=== PATIENT | female | born 1985 | race Caucasian/White ===

== ENCOUNTER 2020-11-26 23:46 | Emergency (ER) | payer MEDICARE, MEDICAID, SELFPAY ==
--- NOTE | ~2020-11-26 | XR_ITS ---
EXAMINATION: CHEST 1 VIEW CLINICAL INFORMATION: Shortness of breath. COMPARISON: None. TECHNIQUE: An AP view of the chest is provided. FINDINGS: The cardiac silhouette is not enlarged. The mediastinal and hilar contours are unremarkable. There are neither pleural effusions nor pneumothoraces. There are no consolidations. The osseous structures are unremarkable. XR/XR chest 1V IMPRESSION: No evidence for acute disease.
[2020-11-27 00:08] VITALS: BP 104/64; PULSE 85; RESP 15; TEMP 37.2; O2SAT 96; BMI 18.1
[2020-11-27 00:18] VITALS: O2SAT 96
[2020-11-27 01:16] LABS: COVID-19 Test Negative (Negative); IDNOW Serial# 9DD0AD1C
[2020-11-27] MEDS: cephALEXin 500 MG CAPSULE PO (01:44)
--- NOTE | 2020-11-27 01:44 | PC.NURSE ---
Patient seen by Giovanni LANGE test negative. Patient medicated with abx per emar and awaiting chest xray
--- NOTE | 2020-11-27 01:46 | ED_ITS ---
HPI - URI/Sore Throat General Chief Complaint: Upper Respiratory Symptoms Stated Complaint: Covid symptoms Time Seen by Provider: 11/27/20 01:01 Source: patient Mode of arrival: ambulatory History of Present Illness HPI Narrative: 35-year-old female with a past medical history of asthma, hepatitis-C, kidney stones, homeless, IVDA presenting to the ED complaining of dry cough, nasal congestion, nausea, and SOB x2 days. States she is homeless, unknown COVID exposure. Also reports hard possible abscess to right axilla. Denies fever, chills, vomiting, recent travel MD elicited complaint: cough Related Data Previous Rx's Medication Instructions Recorded cephalexin 500 mg PO QID 7 Days #28 cap 11/27/20 doxycycline hyclate 100 mg PO BID 7 Days #14 tab 11/27/20 Allergies Allergy/AdvReac Type Severity Reaction Status Date / Time fluoxetine [From PROZAC] Allergy Severe DELUSIONS Verified 11/27/20 01:33 Review of Systems Review of Systems: Constitutional: No Weight loss, No Fever, No Chills ENT/Mouth: No Ear Pain, + Nasal Congestion, No Sinus Pain, No Hoarseness, No sore throat, + Rhinorrhea, No Swallowing Difficulty Cardiovascular: No Chest Pain, +SOB Respiratory: + Cough, No Sputum, No Wheezing Gastrointestinal: + Nausea, No Vomiting, No Diarrhea, No Constipation, No Abdominal pain Musculoskeletal: No joint pain, No Myalgias, No Joint Swelling Skin: + abscess Yes all other systems are reviewed and are negative PMFSH Past Medical History Attestation statement: The following information was validated with the patient. Medical History (Updated 11/27/20 @ 01:26 by NAZARIO Bennett) Asthma Hepatitis C carrier Kidney stones Social History Social History Alcohol intake: unknown Smoking Status: Current every day smoker Use of substances other than those prescribed or required for medical reasons: Yes Substance Use Type: Crack/Cocaine and Heroin Last Used Substance: Hours (ago) Any prior treatment program specific to substance use: Yes Advance Directives: No Physical Exam Vital Signs: Vital Signs: Last Vital Signs Temp 98.9 F 11/27/20 00:08 Pulse 85 11/27/20 00:08 Resp 15 11/27/20 00:08 BP 104/64 11/27/20 00:08 Pulse Ox 96 11/27/20 00:18 Body Mass Index 18.1 Const: General: cooperative and poor hygiene Orientation/consciousness: patient oriented x3 Limitations: no limitations HENMT: Head: Yes normal to inspection Ears: hearing grossly normal bilaterally General nose exam: Normal external nose present Face and sinus: Yes normal facial exam Eyes: General: appearance normal, both eyes and all related structures EOM: EOMs intact bilaterally Neck: Neck: Yes normal visual inspection Resp: Effort & Inspection: normal respiratory effort Auscultation: clear to auscultation bilaterally, no rales, no rhonchi and no wheezes Cardio: Rate: regular rate Heart sounds: S1 normal heart sound present and S2 normal heart sound present GI: Inspection: Yes normal to inspection Skin: Other: + hard indurated abscess noted to right axilla. No surrounding erythema or streaking, no fluctuance Rashes: no rashes Neuro: General: patient oriented x3 Gait exam (Neuro): Normal gait present Extrem: General: Yes normal to inspection Course Course Course Narrative: -CXR unremarkable. COVID-19 negative Patient given 1st dose of Keflex and doxycycline in the ED MDM - URI/Sore Throat Lab Data Labs: Lab Results 11/27/20 Range/Units 00:57 COVID-19 (SAJAN) Negative (Negative) COVID-19 Clin Com See Note Discharge Plan Discharge Clinical Impression: Upper respiratory infection, Abscess Patient Disposition: Home, Self-Care Instructions: Abscess (ED) Additional Instructions: You tested negative for COVID-19. You have [place] abscesses from drug use. Keflex and doxycycline antibiotics, take as prescribed. If areas worsen, become red, soft, or you fever return to the ED Prescriptions: New doxycycline hyclate 100 mg tablet 100 mg PO BID 7 Days Qty: 14 RF: 0 cephalexin 500 mg capsule 500 mg PO QID 7 Days Qty: 28 RF: 0 Referrals: Farrukh Armenta MD [Physician] - 2 days
== END 2020-11-27 02:33 | disposition home or self-care (01) ==
PROVIDERS: Emergency Provider Emergency Medicine
DX: J06.9 Acute upper respiratory infection, unspecified (principal); R05 Cough; L02.411 Cutaneous abscess of right axilla; F11.10 Opioid abuse, uncomplicated; F14.90 Cocaine use, unspecified, uncomplicated; Z79.899 Other long term (current) drug therapy; Z20.822 Contact with and (suspected) exposure to COVID-19
CPT/HCPCS: 36415; 71045; 87635; 99283; 99284

== ENCOUNTER 2020-12-12 23:38 | Emergency (ER) | payer MEDICARE, MEDICAID, SELFPAY ==
[2020-12-13 00:25] VITALS: BP 105/72; PULSE 87; RESP 16; TEMP 36.4; O2SAT 98; BMI 20.2
--- NOTE | 2020-12-13 00:55 | ED.SKABFB ---
HPI - Skin/Abscess/Foreign Bdy General Chief complaint: Skin/Abscess/Foreign Body Stated complaint: ABSCESS Time Seen by Provider: 12/13/20 00:23 Source: patient Mode of arrival: ambulatory Limitations: no limitations History of Present Illness HPI narrative: Patient homeless IV drug user history of recurrent thrombophlebitis/abscess is complaining of thickening of skin at the site of IVDA in bilateral axillary area no pus discharge no fever patient feeling okay otherwise Related Data Previous Rx's Medication Instructions Recorded cephalexin 500 mg PO QID 7 Days #28 cap 11/27/20 doxycycline hyclate 100 mg PO BID 7 Days #14 tab 11/27/20 cephalexin 500 mg PO BID 10 Days #20 cap 12/13/20 doxycycline hyclate 100 mg PO BID #20 cap 12/13/20 Allergies Allergy/AdvReac Type Severity Reaction Status Date / Time fluoxetine [From PROZAC] Allergy Severe DELUSIONS Verified 12/13/20 00:25 Review of Systems Review of Systems: Yes all other systems are reviewed and are negative [facility] Past Medical History Medical History Asthma Hepatitis C carrier Kidney stones Social History Social History Alcohol intake: unknown Smoking Status: Current every day smoker Substance Use Type: Crack/Cocaine and Heroin Advance Directives: No Advance Directives Information Provided: No Physical Exam Vital Signs: Vital Signs: Last Vital Signs Temp 97.5 F 12/13/20 00:25 Pulse 87 12/13/20 00:25 Resp 16 12/13/20 00:25 BP 105/72 12/13/20 00:25 Pulse Ox 98 12/13/20 00:25 Body Mass Index 20.2 Const: General: comfortable and no acute distress Orientation/consciousness: patient oriented x3 HENMT: Head: Yes normocephalic Eyes: General: appearance normal, both eyes and all related structures Neck: Neck: Yes normal visual inspection Resp: Effort & Inspection: normal respiratory effort Auscultation: clear to auscultation bilaterally Cardio: Rate: regular rate Rhythm: regular rhythm Heart sounds: S1 normal heart sound present Skin: Other: Superficial thrombophlebitis with thickening of the skin bilateral axillary area at the site of IVDA no fluctuance no pus discharge no significant erythema Neuro: General: patient oriented x3 MDM - Skin/Abscess/Foreign Bdy MDM Narrative Medical decision making narrative: Patient IVDA use with the recurrent superficial abscesses at the site of IVDA will discharge patient home on doxycycline and Keflex advised not to use IVDA Discharge Plan Discharge Clinical Impression: Abscess Patient Disposition: Home, Self-Care Instructions: Abscess (ED) Additional Instructions: Take antibiotic as advised Avoid using drugs. Report to the ER if worsening of the swelling/fever Prescriptions: New doxycycline hyclate 100 mg capsule 100 mg PO BID Qty: 20 RF: 0 cephalexin 500 mg capsule 500 mg PO BID 10 Days Qty: 20 RF: 0 No Action doxycycline hyclate 100 mg tablet 100 mg PO BID 7 Days Qty: 14 RF: 0 cephalexin 500 mg capsule 500 mg PO QID 7 Days Qty: 28 RF: 0
[2020-12-13] MEDS: cephALEXin 500 MG CAPSULE PO (00:56)
== END 2020-12-13 01:03 | disposition home or self-care (01) ==
PROVIDERS: Emergency Provider Internal Medicine; PCP Internal Medicine
DX: L02.412 Cutaneous abscess of left axilla (principal); L02.411 Cutaneous abscess of right axilla; F11.10 Opioid abuse, uncomplicated; J45.909 Unspecified asthma, uncomplicated; F17.200 Nicotine dependence, unspecified, uncomplicated; F14.90 Cocaine use, unspecified, uncomplicated; Z86.19 Personal history of other infectious and parasitic diseases; Z87.442 Personal history of urinary calculi; Z79.899 Other long term (current) drug therapy
CPT/HCPCS: 99283

== ENCOUNTER 2022-01-26 05:11 | Emergency (ER) | payer MEDICARE, MEDICAID, SELFPAY ==
[2022-01-26 05:22] VITALS: BP 118/68; PULSE 122; RESP 16; TEMP 37.7; O2SAT 100; BMI 19.9
[2022-01-26 05:42] VITALS: BP 115/68; PULSE 112; RESP 14; TEMP 37.8; O2SAT 100
[2022-01-26] MEDS: Lidocaine HCl 1 % MPF 5 ML VIAL INFILTRATI ×4 (06:30→06:31)
--- NOTE | 2022-01-26 06:48 | ED.SKABFB ---
HPI - Skin/Abscess/Foreign Bdy General Chief complaint: Skin/Abscess/Foreign Body Stated complaint: abcesses on R leg, both arms & R armpit Time Seen by Provider: 01/26/22 05:22 Source: patient Mode of arrival: ambulatory Limitations: no limitations History of Present Illness HPI narrative: 36-year-old female who presents emergency department for evaluation multiple abscesses. The patient does use injection drugs. She states she injects heroin and cocaine daily. She states that 48 hours prior to coming to the emergency room she developed multiple abscesses. She has abscesses to her right axilla, right wrist, left forearm and right medial thigh. The patient states that the abscess on her wrist and forearm spontaneously drained. Patient states that she poked the abscess on her right thigh several times with the needle and was able to drain a small amount of pus. She also noticed erythema to the right inner aspect of the thigh extending from the knee to the groin area. She believes that she had a fever at home but denied chills. She has had no fatigue. She denied nausea, vomiting, chest pain shortness of breath. Related Data Previous Rx's Medication Instructions Recorded cephalexin 500 mg capsule 500 mg PO QID 7 Days #28 cap 11/27/20 doxycycline hyclate 100 mg tablet 100 mg PO BID 7 Days #14 tab 11/27/20 cephalexin 500 mg capsule 500 mg PO BID 10 Days #20 cap 12/13/20 doxycycline hyclate 100 mg capsule 100 mg PO BID #20 cap 12/13/20 cephalexin 500 mg capsule 500 mg PO QID 7 Days #28 cap 01/26/22 doxycycline hyclate 100 mg tablet 100 mg PO Q12H 7 Days #14 tab 01/26/22 ibuprofen 600 mg tablet 600 mg PO Q6H PRN #30 tab 01/26/22 Allergies Allergy/AdvReac Type Severity Reaction Status Date / Time fluoxetine [From PROZAC] Allergy Severe DELUSIONS Verified 12/13/20 00:25 Review of Systems Review of Systems: Yes all other systems are reviewed and are negative [facility] Past Medical History [facility] Narrative: Past medical history: Reviewed below. The patient has history of injection drug use daily. Social history: She states she lives in apartment with a roommate. She smokes 1 pack of cigarettes per day times many years. She denies alcohol use. She injects heroin and cocaine daily. Medical History Asthma Hepatitis C carrier Kidney stones Social History Social History Alcohol intake: unknown Substance Use Type: Crack/Cocaine and Heroin Advance Directives: No Advance Directives Information Provided: No Patient : No Physical Exam Vital Signs: Vital Signs: Last Vital Signs Temp 100.0 F 01/26/22 05:42 Pulse 112 H 01/26/22 05:42 Resp 14 01/26/22 05:42 BP 115/68 01/26/22 05:42 Pulse Ox 100 01/26/22 05:42 BMI result Body Mass Index 19.9 Const: Other: Awake, alert, female patient, she is pleasant and cooperative, she is very thin she does not appear to be in distress HEENT: Head: Yes normal to inspection, Yes normocephalic and Yes atraumatic Ears: external ears normal General nose exam: Normal external nose present Face and sinus: Yes normal facial exam Mouth: Normal oral and palatal mucosa present Throat: Yes posterior oropharynx normal Eyes: General: appearance normal, both eyes and all related structures Pupils: Equal, round and reactive pupils present Neck: Neck: Yes normal visual inspection, Yes no lymphadenopathy, Yes trachea midline and Yes supple Chest: Chest palpation & inspection: normal inspection of the chest and normal palpation of entire chest wall Resp: Effort & Inspection: normal respiratory effort and able to speak in complete sentences Auscultation: clear to auscultation bilaterally Cardio: Rate: regular rate Rhythm: regular rhythm Heart sounds: S1 normal heart sound present, S2 normal heart sound present and no murmurs GI: Inspection: Yes normal to inspection Palpation (GI): Soft to palpation, nontender and no guarding Auscultation: normal bowel sounds : General: Yes no CVA tenderness Back/Spine/Pelvis: Back: no CVA tenderness Skin: Other: The patient has a 8 cm x 6 cm abscess to the right medial thigh there is surrounding erythema extending from the right knee to the right groin area along the lateral aspect of the thigh, this erythema is warm to the touch and blanches with pressure. She has a hard firm early abscess to the right axilla with no surrounding erythema. She has 2 hard firm abscesses to the right wrist and left forearm which appeared to have drained and are also hard to palpation. There is no surrounding erythema over these 2 abscesses. Neuro: Cranial nerves: Yes CN's II-XII intact bilaterally and Yes Equal, round and reactive pupils present Cognition (Neuro): normal cognition Motor exam (neuro): 5/5 motor strength present throughout Extrem: General: Yes normal to inspection Psych: Appearance: grossly normal Speech and movement: Normal speech and movement present Affect: normal affect Attitude: cooperative Thought process: Normal thought process present Thought content: Normal thought content present Course Course Course Narrative: 36-year-old female who has a history of injection drug use daily who presents with 48 hours multiple abscesses appearing on her body. Patient has 1 abscess her right medial thigh area with surrounding erythema that needs to be drained, think that the other abscesses early abscesses and do not need drainage at this time I did discuss this with the patient. The patient agreed to the incision and drainage pack procedure and her right medial thigh abscess was drained. Approximately 40 cc of pus was drained from the abscess. The adhesions were broken up using hemostats and the patient was packed with half-inch iodoform gauze. The patient does not want to be admitted to the hospital. She also is not interested in talking to our care team about detox. The patient was given oral doxycycline and cephalexin here in the emergency department. She was given a prescription for doxycycline 100 mg twice a day for 7 days and Keflex 500 mg 4 times a day for 7 days. She was also given prescription for Motrin for pain. She was sent home with intranasal Narcan and I did discuss the use of this medication and ways of reducing unintentional overdose with the patient. Procedures Procedure Narrative Procedure Narrative: 8 x 6 cm right thigh abscess incision, drainage and packing procedure: The patient gave me informed verbal consent to proceed with the procedure. The patient's skin over the abscess was prepped with Betadine the anesthetized with 10 cc of 1% lidocaine. An incision was made with a 11. Blade an approximately 40 cc of purulent material was expressed from the incision site. Adhesions were broken up in the abscess cavity using hemostats. The abscess cavity was packed with 1/2 inch I order form gauze packing. A dry sterile dressing was applied. The patient tolerated the procedure well pain . I did send a wound culture. Discharge Plan Discharge Clinical Impression: Cellulitis, Abscess of skin or subcutaneous tissue Patient Disposition: Home, Self-Care Instructions: Cellulitis (DC), Abscess Incision and Drainage (DC) Additional Instructions: Your abscess was incised and drained your The packing stain for 4 days a packing falls out the not be replaced Use warm compresses for 15 minutes 4 to 6 times a day on your right leg pain on the abscess on your underarm and wrists. Take doxycycline 100 mg pills, 1 twice a day for 7 days Take Keflex ( cephalexin) 500 mg pills, 1 pill 4 times a day for 7 days Take ibuprofen 200 mg pills, 3 pills every 6 hours as needed for pain. Your are being discharged home with intranasal Narcan. If you are going to continue to use heroin, you should make sure that there is a sober person with you that is not using drugs and that this person can administer intranasal Narcan in the event that you stop breathing. Follow-up with your doctor in 2 days. Please return to the emergency department if your symptoms get worse or if you develop any symptoms that are concerning to you. Prescriptions: New cephalexin 500 mg capsule 500 mg PO QID 7 Days Qty: 28 0RF doxycycline hyclate 100 mg tablet 100 mg PO Q12H 7 Days Qty: 14 0RF ibuprofen 600 mg tablet 600 mg PO Q6H PRN (Reason: pain) Qty: 30 0RF No Action doxycycline hyclate 100 mg capsule 100 mg PO BID Qty: 20 0RF cephalexin 500 mg capsule 500 mg PO BID 10 Days Qty: 20 0RF doxycycline hyclate 100 mg tablet 100 mg PO BID 7 Days Qty: 14 0RF cephalexin 500 mg capsule 500 mg PO QID 7 Days Qty: 28 0RF
[2022-01-26] MEDS: cephALEXin 500 MG CAPSULE PO (06:55)
[2022-01-26] MEDS: Naloxone HCl Nasal TAKE HOME 4 MG SPRAY NOSTRILALT (06:56)
== END 2022-01-26 07:09 | disposition home or self-care (01) ==
PROVIDERS: Emergency Provider Emergency Medicine Emergency Medical Services; PCP Internal Medicine
DX: L03.115 Cellulitis of right lower limb (principal); L02.415 Cutaneous abscess of right lower limb; L02.411 Cutaneous abscess of right axilla; L02.413 Cutaneous abscess of right upper limb; L02.414 Cutaneous abscess of left upper limb; R50.9 Fever, unspecified; B18.2 Chronic viral hepatitis C
CPT/HCPCS: 10060; 87071; 87077; 87186; 87205; 99283; 99284

== ENCOUNTER 2022-01-27 20:25 | Emergency (ER) | payer MEDICARE, MEDICAID, SELFPAY ==
--- NOTE | 2022-01-27 21:36 | PC.NURSE ---
attempted to call patient at this time, no response
== END 2022-01-27 22:23 | disposition left against medical advice (07) ==
PROVIDERS: Emergency Provider Emergency Medicine
DX: M79.631 Pain in right forearm (principal)

== ENCOUNTER 2022-05-23 05:05 | Emergency (ER) | payer MEDICARE, MEDICAID, SELFPAY ==
[2022-05-23 05:14] VITALS: BP 107/70; PULSE 118; O2SAT 98
[2022-05-23 05:20] VITALS: BP 104/61; PULSE 106; RESP 16; TEMP 37.3; O2SAT 94; BMI 44.5
[2022-05-23 05:48] LABS: COVID-19 Test Negative (Negative)
[2022-05-23 07:45] VITALS: BP 104/64; PULSE 98; RESP 12; TEMP 36.4; O2SAT 94
--- NOTE | 2022-05-23 09:32 | PC.NURSE ---
multiple attempts at iv access md to attempt ej
--- NOTE | 2022-05-23 10:21 | PC.NURSE ---
plan for finger stick and im meds. failed ej x 2
--- NOTE | 2022-05-23 10:28 | MHC.RECOVRN ---
Addendum entered by Suri Andrews, [facility] 05/23/22 10:46: Also confirm with Jodi Aguiar that patient is Okay to continue dose at 60mg. Original Note: Spoke with Sanza at [facility] to verify last methadone dose. Pt initiated methadone on 05/15 and is currently receiving 60 mg. Last dose was 05/19 at 0848, 60 mg. Per Sanaz, [facility] protocol allows pts to miss up to 5 doses and continue at current dose. If pt were to present to [facility] today, pt would receive 60 mg. Discussed with Jodi Aguiar APRN and ED Provider.
--- NOTE | 2022-05-23 10:43 | PC.NURSE ---
pt found in bathroom by pct with tourniquet and empty heroin bags. security called to bedside.
--- NOTE | 2022-05-23 10:54 | ED.GENADULT ---
HPI - General Adult General Chief complaint: General Medical Stated complaint: Flu Like Time Seen by Provider: 05/23/22 09:09 Source: patient and EMS Mode of arrival: EMS History of Present Illness HPI narrative: 36-year-old female with a past medical history of asthma, hepatitis-C, renal stones, presenting to the ED complaining myalgias, abdominal discomfort, nausea x a couple days. Also reports missed methadone dose x2 days due to symptoms and not making it to clinic. Reports she feels like she is in withdrawal. Denies fever, cough, chest pain, shortness of breath. Denies recent substance use or EtOH Related Data Previous Rx's Medication Instructions Recorded cephalexin 500 mg capsule 500 mg PO QID 7 days #28 caps 11/27/20 doxycycline hyclate 100 mg tablet 100 mg PO BID 7 days #14 tabs 11/27/20 cephalexin 500 mg capsule 500 mg PO BID 10 days #20 caps 12/13/20 doxycycline hyclate 100 mg capsule 100 mg PO BID #20 caps 12/13/20 cephalexin 500 mg capsule 500 mg PO QID 7 days #28 caps 01/26/22 doxycycline hyclate 100 mg tablet 100 mg PO Q12H 7 days #14 tabs 01/26/22 ibuprofen 600 mg tablet 600 mg PO Q6H PRN pain #30 tabs 01/26/22 Allergies Allergy/AdvReac Type Severity Reaction Status Date / Time fluoxetine [From PROZAC] Allergy Severe DELUSIONS Verified 12/13/20 00:25 Review of Systems Review of Systems: Constitutional: No Fever, + Chills, No Night Sweats, + Fatigue, + Malaise ENT/Mouth: No Ear Pain, No Nasal Congestion, No sore throat, No Rhinorrhea, No Swallowing Difficulty Eyes: No Eye Pain, No Swelling, No Redness, No Vision Changes Cardiovascular: No Chest Pain, No SOB, No Dyspnea on Exertion, No Edema, No Palpitations Respiratory: No Cough, No Sputum, No Dyspnea Gastrointestinal: + Nausea, No Vomiting, No Diarrhea, No Constipation, + Abdominal cramping Genitourinary: No irregular bleeding, No Dysuria, No Urinary Frequency, No Hematuria, No Urinary Incontinence/retention, No Urgency, No Flank Pain, No Urinary Flow Changes, No Hesitancy Musculoskeletal: No joint pain, + Myalgias, No Joint Swelling Skin: No Skin Lesions, No rash Neuro: No Weakness, No Dizziness, No Headache Psych: No Anxiety/Panic, No Depression, No SI/HI/AH/VH, No Social Issues, Yes all other systems are reviewed and are negative Constitutional: Constitutional: Reports as per [facility] Past Medical History Attestation statement: The following information was validated with the patient. Medical History Asthma Hepatitis C carrier Kidney stones Social History Social History Alcohol intake: unknown Substance Use Type: Crack/Cocaine and Heroin Advance Directives: No Advance Directives Information Provided: No Physical Exam ED Vital Signs: Vital Signs - 24 hr 05/23/22 05:20 05/23/22 07:45 Temperature 99.1 F 97.6 F Pulse Rate 106 H 98 Respiratory Rate 16 12 Blood Pressure 104/61 104/64 Pulse Oximetry 94 94 Oxygen Delivery Method Room Air Room Air BMI result Body Mass Index 44.5 Const Other: On exam cachectic, diaphoretic, poor hygiene General: cooperative, healthy appearing and no acute distress Orientation/consciousness: patient oriented x3 Limitations: no limitations HENMT Head: Yes normal to inspection and Yes atraumatic Ears: hearing grossly normal bilaterally General nose exam: Normal external nose present Face and sinus: Yes normal facial exam Mouth: moist mucous membranes abnormal Throat: Yes posterior oropharynx normal, Yes tonsils normal and Yes uvula midline Eyes General: appearance normal, both eyes and all related structures EOM: EOMs intact bilaterally Neck Neck: Yes normal visual inspection and Yes no meningeal signs Resp Effort & Inspection: normal respiratory effort and no respiratory distress Auscultation: clear to auscultation bilaterally, no crackles, no rales and no rhonchi Cardio Rate: regular rate Heart sounds: S1 normal heart sound present and S2 normal heart sound present GI Inspection: Yes normal to inspection Palpation (GI): Soft to palpation, nontender, no guarding and not rigid General: Yes no CVA tenderness Back/Spine/Pelvis Back: no CVA tenderness Skin Rashes: no rashes Wounds: no wounds Neuro General: patient oriented x3, gait normal, tone normal, moves all extremities and no meningeal signs Gait exam (Neuro): Normal gait present Extrem General: Yes normal to inspection Course Course Course Narrative: -difficulty obtaining labs/line from patient -patient's 60 mg dose of methadone was confirmed. -1045---patient was caught exiting bathroom with tourniquet and empty heroin in pockets. > methadone now canceled. Patient aware clinic is open until noon, patient would like to leave AMA, risks discussed Medical Decision Making MDM Narrative Medical decision making narrative: 36-year-old female with a past medical history of asthma, hepatitis-C, renal stones, presenting to the ED complaining myalgias, abdominal discomfort, nausea x a couple days. On exam initially tachycardic, diaphoretic, abd soft nontender. Concern for methadone withdrawal vs viral illness vs dehydration/metabolic abnormalities. Lower suspicion for intra-abdominal pathology Plan: Labs, COVID-19 testing, IVF Medical Records Medical records reviewed: Yes I reviewed the patient's medical records. Lab Data Lab results reviewed: Yes I reviewed the patient's lab results. Labs: Lab Results 05/23/22 Range/Units 05:30 COVID-19 ([facility]JAN) Negative (Negative) COVID-19 Clin Com See Note Discharge Plan Discharge Clinical Impression: Withdrawal from opioids, Myalgia Patient Disposition: Left Against Medical Advice Instructions: Opioid Withdrawal (ED) Additional Instructions: Please follow-up with [facility]. Avoid drug and alcohol use as can kill you Prescriptions: No Action doxycycline hyclate 100 mg capsule 100 mg PO BID Qty: 20 0RF cephalexin 500 mg capsule 500 mg PO BID 10 Days Qty: 20 0RF doxycycline hyclate 100 mg tablet 100 mg PO BID 7 Days Qty: 14 0RF cephalexin 500 mg capsule 500 mg PO QID 7 Days Qty: 28 0RF cephalexin 500 mg capsule 500 mg PO QID 7 Days Qty: 28 0RF doxycycline hyclate 100 mg tablet 100 mg PO Q12H 7 Days Qty: 14 0RF ibuprofen 600 mg tablet 600 mg PO Q6H PRN (Reason: pain) Qty: 30 0RF [facility] [Provider Group] Stand Alone Forms: Against Medical Advice Interventions: ED Discharge Assessment Last Done: 05/23/22 10:59 Discharge Date/Time: 05/23/22 11:00
== END 2022-05-23 11:00 | disposition left against medical advice (07) ==
PROVIDERS: Emergency Provider Emergency Medicine Emergency Medical Services
DX: F11.23 Opioid dependence with withdrawal (principal); Z20.822 Contact with and (suspected) exposure to COVID-19; M79.10 Myalgia, unspecified site
CPT/HCPCS: 87635; 96360; 99284

== ENCOUNTER 2022-05-28 09:10 | Inpatient (IN) | payer MEDICARE, MEDICAID, SELFPAY ==
[2022-05-28] VITALS (15 sets, daily range): BP systolic 107–126; BP diastolic 60–80; PULSE 108–140; RESP 22–52; TEMP 36.8–38.2; O2SAT 92–100; BMI 16.1
--- NOTE | ~2022-05-28 | XR_ITS ---
EXAMINATION: XR CHEST CLINICAL INFORMATION: Follow-up pneumothorax COMPARISON: 05/28/2022 TECHNIQUE: Frontal view of the chest was obtained. FINDINGS: Right-sided chest tube remains in place with the side-port external to the thoracic cavity. This is similar to prior. There is a moderate-sized right pneumothorax, without significant change from previous given differences in patient positioning. Opacification at the right midlung is unchanged. The left lung is clear. No pleural effusion. The cardiomediastinal silhouette is within normal limits. XR/XR chest 1V IMPRESSION: Moderate right pneumothorax without significant change from prior. Unchanged positioning of the chest tube with the side-port external to the thoracic cavity.
--- NOTE | ~2022-05-28 | XR_ITS ---
EXAMINATION: XR CHEST CLINICAL INFORMATION: Follow-up right pneumothorax. CT chest 05/31/2022 COMPARISON: None TECHNIQUE: Frontal view of the chest was obtained. FINDINGS: The lungs are hypoexpanded with patchy opacity right lung base corresponding to several cavitary lesions in the right middle lobe. Patchy opacity seen in the lingular segment as well. No pneumothorax seen. There is a right apical chest catheter. Heart size and pulmonary vascularity is normal. No gross bony abnormality seen. XR/XR chest 1V IMPRESSION: No change in right apical chest catheter. Right middle lobe, right lower lobe and lingular patchy opacity/infiltrate is unchanged to chest x-ray 05/31/22.
--- NOTE | ~2022-05-28 | XR_ITS ---
EXAMINATION: XR CHEST CLINICAL INFORMATION: Follow-up pneumothorax COMPARISON: Chest x-ray earlier on 05/28/2022 TECHNIQUE: Frontal view of the chest was obtained. FINDINGS: No significant change in the moderate sized right pneumothorax. The chest tube is been retracted with the chest tube sidehole in the soft tissues of the right chest. No other changes. XR/XR chest 1V IMPRESSION: No change in a moderate right-sided pneumothorax. Retraction of the chest tube such that the side hole is in the soft tissues.
--- NOTE | ~2022-05-28 | CT_ITS ---
EXAMINATION: CT CHEST WITHOUT CONTRAST CLINICAL INFORMATION: Septic emboli COMPARISON: Chest x-ray 05/31/2022. There are no previous CT chest. TECHNIQUE: Multidetector volumetric CT imaging of the chest was done. Axial MIP volume rendering provided. Sagittal and coronal reformatted images were obtained. This CT examination was performed using dose optimization techniques as appropriate, variously including the following: *Automated exposure control *Adjustment of mA and/or kV according to patient size (this includes techniques or standardized protocols for targeted exams where dose is matched to indication/reason for exam; i.e. extremities or head) *Use of iterative reconstruction technique DLP: 146 mGy-cm FINDINGS: VICE PRESIDENT FIXED INCOME: Well-inflated lungs.. LUNGS: The lungs are well-expanded with multiple bilateral cavitary lesions right upper lobe and patchy ill-defined opacities/nodules in both upper lobes, both lower lobes. There is a moderate size right lower lobe consolidation with air bronchograms likely pneumonia. MEDIASTINUM: The mediastinum is normal. Central trachea and the bronchi widely patent. Thyroid lobes are symmetric and normal. PLEURA: There are bilateral small pleural effusions and a right pleural pigtail catheter with its tip at the lung apex. There is no pneumothorax. AXILLA: No abnormal axillary lymph nodes seen. There is right anterolateral subcutaneous emphysema. UPPER ABDOMEN: Unremarkable. OSSEOUS STRUCTURES: There is no aggressive lytic or sclerotic process. There is mild ventral spondylosis.. CT/CT chest wo con IMPRESSION: Multiple cavitary lesions largest in the right middle lobe with air-fluid level. There are several ill-defined soft tissue nodule/opacities in both upper and lower lobes. There are bilateral loculated small pleural effusions with right lower lobe consolidation. There is no pneumothorax. The right pigtail chest catheter tip is in the apex. There is mild right anterior chest wall subcutaneous emphysema. Fleischner guidelines were followed.
--- NOTE | ~2022-05-28 | XR_ITS ---
EXAMINATION: PORTABLE CHEST 1 VIEW CLINICAL INFORMATION: post chest tube placement . COMPARISON: 05/28/2022 earlier today. TECHNIQUE: Portable frontal view of the chest was obtained. FINDINGS: Interval placement of bilateral pigtail chest tube. There is significant right-sided pneumothorax again seen with collapse of the right lung. This slightly improved aeration when compared to earlier today. There is no significant shift of midline structures currently which has improved. Contralateral left lung grossly unremarkable. Cardiac mediastinal silhouettes within normal limits for size. 2 metallic densities overlying the left upper chest likely represent body piercings. XR/XR chest 1V IMPRESSION: Right-sided pigtail catheter placement. There has been some improvement to the large right-sided pneumothorax from earlier today with no longer shift of mediastinal structures. Still significant right-sided pneumothorax remaining.
--- NOTE | ~2022-05-28 | XR_ITS ---
EXAMINATION: XR CHEST CLINICAL INFORMATION: Chest tube placement. COMPARISON: None TECHNIQUE: Frontal view of the chest was obtained. FINDINGS: The previous chest tube has replaced with a larger bore pigtail catheter with its tip at the right lung apex. There is a persistent opacity in the right mid and lower chest which is stable. The left lung is clear. Multiple small cystic areas are seen throughout the right lung. The heart size and progress clarities normal. No gross bony abnormality seen. XR/XR chest 1V IMPRESSION: Previously seen right chest tube catheter has been replaced with a large bore right pigtail catheter its tip in the right lung apex. Moderate opacity right midlung and right lower lobe is stable. There are small cavitary lesions or cysts seen in right lung. Consider CT of chest for further evaluation as a baseline
--- NOTE | ~2022-05-28 | XR_ITS ---
EXAMINATION: PORTABLE CHEST 1 VIEW CLINICAL INFORMATION: Pneumothorax. COMPARISON: Films earlier today. TECHNIQUE: 3 portable frontal views of the chest was obtained. FINDINGS: Interval removal of pigtail catheter with placement of a larger left-sided chest tube. The sequential images demonstrate that the right chest tube is partially pulled back with the tip and side-port overlying the hemithorax. There is significant improvement in the right-sided pneumothorax when compared to earlier today with small moderate-sized right apical pneumothorax remaining. There is significant improved reexpansion of the right lung. Contralateral left lung unremarkable. Cardiac silhouette within normal limits for size. Body piercings overlying the left chest. XR/XR chest 1V IMPRESSION: Significant improved right-sided pneumothorax with new chest tube placement and significant reexpansion of the right lung. Moderate-sized pneumothorax remaining at the apex.
--- NOTE | ~2022-05-28 | XR_ITS ---
EXAMINATION: XR CHEST CLINICAL INFORMATION: Shortness of breath COMPARISON: November 27, 2020 TECHNIQUE: AP portable view of the chest was obtained. FINDINGS: There is a large right pneumothorax with total collapse of the right lung. There is some mild mediastinal shift to the left. Left hemithorax appears essentially unremarkable. There appears be a small hiatal hernia. About the right base there is a density with some gas which is not nondependent and may represent some bowel gas below the hemidiaphragm rather than an abscess. XR/XR chest 1V IMPRESSION: Large right pneumothorax with mediastinal shift to the left. This critical result was discussed with Dr. Barrett at 11:08 AM on May 28, 2022 and it was ascertained that the content and urgency of the report was understood at the time of direct communication.
--- NOTE | ~2022-05-28 | XR_ITS ---
EXAMINATION: XR CHEST CLINICAL INFORMATION: Follow-up right pneumothorax COMPARISON: Chest x-ray 05/28/2022 TECHNIQUE: Frontal view of the chest was obtained. FINDINGS: The right chest tube has withdrawn since the previous exam 05/28/2022 at 12:36 PM. The end hole is in the right chest wall cavity and hence patient has moderate right subcutaneous emphysema. A small right pneumothorax persists. The left lung is clear. Heart size and progress clarities normal. No gross bony abnormality seen. XR/XR chest 1V IMPRESSION: Small to moderate pneumothorax persists. There is moderate right subcutaneous emphysema. Right chest wall sidehole is in the right chest wall cavity and has retracted since the previous study of 05/28/2022 at 12:36 PM.
--- NOTE | ~2022-05-28 | XR_ITS ---
EXAMINATION: XR CHEST CLINICAL INFORMATION: Right pneumothorax COMPARISON: 05/29/2022 TECHNIQUE: Frontal view of the chest was obtained. FINDINGS: The tip of the pigtail drainage catheter overlies the right apex. Again noted is soft tissue emphysema along the right lateral chest wall extending to the neck. The right-sided pneumothorax is small, and the amount of pleural air at the apex has decreased compared to 05/29/2022. Lungs are hypoinflated. Nonspecific patchy, hazy opacities are present in both lungs. No overt pleural effusion. Cardiac silhouette has normal size and contour. The visualized bones are intact. XR/XR chest 1V IMPRESSION: * The right pneumothorax is small and has slightly decreased in size compared to 05/29/2022. * There are persistent nonspecific patchy and hazy bilateral pulmonary opacities.
--- NOTE | ~2022-05-28 | XR_ITS ---
EXAMINATION: XR CHEST CLINICAL INFORMATION: Right pneumothorax. Chest tube to waterseal. COMPARISON: 05/30/2022 TECHNIQUE: Frontal view of the chest was obtained. FINDINGS: Right apical pigtail chest tube. Tiny right-sided pneumothorax is similar to prior. The lungs are well expanded. Opacities at both mid to lower lungs are unchanged. No pleural effusion. The cardiomediastinal silhouette is unchanged. XR/XR chest 1V IMPRESSION: No change in the tiny right-sided pneumothorax. Similar bilateral lung opacities.
--- NOTE | 2022-05-28 09:27 | ECG_ITS ---
Test Reason : tachy Blood Pressure : / mmHG Vent. Rate : 138 BPM Atrial Rate : 138 BPM P-R Int : 124 ms QRS Dur : 092 ms QT Int : 298 ms P-R-T Axes : 090 104 -09 degrees QTc Int : 451 ms Suspect limb lead reversal, interpretation assumes no reversal Sinus tachycardia Possible Lateral infarct , age undetermined T wave abnormality, consider inferior ischemia Abnormal ECG When compared with ECG of 11-JUL-2006 14:43, Borderline criteria for Lateral infarct are now Present T wave inversion now evident in Inferior leads Referred By: Generic ED Physician Electronically Signed By:CORTNEY TEIXEIRA
--- NOTE | 2022-05-28 11:44 | ED_ITS ---
HPI - SOB/Dyspnea General Chief Complaint: Weakness Stated Complaint: generalized weakness Time Seen by Provider: 05/28/22 10:01 Source: patient Mode of arrival: ambulatory History of Present Illness HPI Narrative: Initially triage in fast track with shortness of breath malaise hx of dubstance abuse on methadone MD elicited complaint: shortness of breath and chest pain Pertinent past history: IV drug use Onset (ago): week(s) (1) Timing: constant Severity: moderate Known history of: COPD Related Data Home Medications Medication Instructions Recorded Confirmed chlorpromazine 50 mg tablet 50 mg PO DAILY 05/28/22 05/28/22 methadone 10 mg/mL oral 60 mg PO DAILY 05/28/22 05/28/22 concentrate (Methadone Intensol) prazosin 2 mg capsule 2 mg PO BEDTIME 05/28/22 05/28/22 trazodone 100 mg tablet 200 mg PO BEDTIME 05/28/22 05/28/22 Allergies Allergy/AdvReac Type Severity Reaction Status Date / Time fluoxetine [From PROZAC] Allergy Severe DELUSIONS Verified 12/13/20 00:25 Review of Systems Cardiovascular: Cardiovascular: Reports chest pain, Reports dyspnea and Reports dyspnea on exertion Respiratory: Respiratory: Reports pain on inspiration, Reports pain with cough, Reports dyspnea and Reports dyspnea on exertion PMFSH Past Medical History PMFSH Narrative: IVDA Medical History Asthma Hepatitis C carrier Kidney stones Social History Social History Household Members: Family Household Members Other:: brother Housing: House Do you presently have visiting nurse or other home services: No Alcohol intake: never Patient Tobacco Use Status: Never used Tobacco Use of substances other than those prescribed or required for medical reasons: Yes Substance Use Type: Crack/Cocaine and Heroin Substance Use Frequency: Daily Last Used Substance: Unknown Currently Displaying Signs/Symptoms of Drug Intoxication Withdrawal: No Any prior treatment program specific to substance use: Yes Have you been hit, kicked, punched, or otherwise hurt by someone within the past year? If so, by whom?: No Do you feel safe in your current relationship?: No Is there a partner from a previous relationship who is making you feel unsafe now?: No Are you made to feel afraid or neglected: No Advance Directives: No Advance Directives Information Provided: Yes Do you have thoughts of harming others: None Do you have a plan to hurt others: No Plan Recently lost weight without trying: Yes How much weight loss: Not applicable Eating poorly because of decreased appetite: Yes Nutrition screen score: 3 Nutrition Risks: Dental problems Patient : No : No Poor oral hygiene: No Physical Exam Vital Signs: Vital Signs: Last Vital Signs Temp 98.8 F 05/28/22 16:00 Pulse 119 H 05/28/22 16:00 Resp 28 H 05/28/22 16:00 BP 109/74 05/28/22 16:00 Pulse Ox 97 05/28/22 16:00 O2 Del Method 05/28/22 16:00 O2 Flow Rate 6 05/28/22 13:05 BMI result Body Mass Index 16.1 Const: General: alert, acute distress and anxious Orientat ion/consciousness: patient oriented x3 HEENT: Head: Yes normal to inspection General nose exam: Normal external nose present Mouth: Normal oral and palatal mucosa present Neck: Neck: Yes normal visual inspection and Yes full ROM Resp: Effort & Inspection: abnormal respiratory pattern, labored and respiratory distress Auscultation: diminished lung sounds (right lung) Cardio: Rate: regular rate Rhythm: regular rhythm GI: Inspection: Yes normal to inspection Palpation (GI): Soft to palpation, not firm, nontender and no guarding Skin: General skin exam: no rashes or lesions noted Rashes: no rashes Neuro: General: patient oriented x3 Course Course Course Narrative: No thoracic attending available Today ,[place] permastone mechanic states that attending is on vacation,Dr Hawk Does not do chest tube.Will proced for emergency chest tube. Pt has tendion PNX will need Emergent Chest tube Reevaluation(s) Reevaluation #1: I tried first percutaneus over the wire CT ([place] PNX kit) did not work well lots of scar tissue lung not completly reespanded ,then I performed a open thoracostomy chest tube with 24F with resolution PNX,Pt has some parenchimal disease ,and scarring,from the chest tube fluids is draining sent for c and S will start on AB. I placed also a US guided IV left basilic vein because no IV access Reevaluation #2: Rexamined doing much better ,confortable,spoke with Dr Jade will admit to ICU MDM - SOB/Dyspnea Lab Data Result diagrams: 05/28/22 13:23 05/28/22 11:44 Labs: Lab Results 05/28/22 05/28/22 05/28/22 Range/Units 11:44 11:44 11:44 WBC (4.8-10.8) X10*3/uL RBC (4.20-5.50) X10*6/uL Hgb (12.0-16.0) g/dl Hct (37.0-47.0) % MCV (80.0-98.0) fL MCH (27.0-33.0) pg MCHC (31.0-35.0) g/dl RDW (11.0-16.0) % Plt Count (160-400) X10*3/uL MPV Immature Gran % (Auto) Neut % (Auto) Lymph % (Auto) [place] % (Auto) Eos % (Auto) Baso % (Auto) Lymph # (Auto) [place] # (Auto) Eos # (Auto) Baso # (Auto) Abs Immat Gran (auto) Absolute Neuts (auto) Absolute Nucleated RBC (0.0-0.012) X10*3/uL Nucleated RBC % (auto) (0.0-0.2) /100WBC Neutrophils % (Manual) (45-73) % Band Neutrophils % (3-5) % Lymphocytes % (Manual) (20-40) % Monocytes % (Manual) (2-11) % Abs Neuts (Manual) (2.0-8.3) X10*3/uL Lymphocytes # (Manual) (1.2-4.9) X10*3/uL Monocytes # (Manual) (0.1-1.2) X10*3/uL Toxic Granulation Toxic Vacuolation Platelet Estimate (NORMAL) Plt Morphology Comment RBC Morphology Polychromasia /OIF Hypochromasia /OIF Microcytosis /OIF Target Cells /OIF [place] Cells /OIF Schistocytes /OIF PT (10.0-13.1) SEC INR (0.9-1.1) Sodium 123 L (135-145) mmol/L Potassium 3.5 (3.3-5.1) mmol/L Chloride 84 L (96-108) mmol/L Carbon Dioxide 30 H (22-29) mmol/L Anion Gap 13 (12-20) BUN 19 H (9-16) mg/dL Creatinine 0.56 (0.5-1.4) mg/dL Estim Creat Clear Calc 81.0 Estimated GFR > 60 Random Glucose 117 H (60-115) mg/dL Lactic Acid 1.7 (0.5-2.0) mmol/L Calcium 7.8 L (8.4-10.2) mg/dL Total Bilirubin 1.4 H (0.0-1.0) mg/dL Direct Bilirubin 0.7 H (0.0-0.5) mg/dL AST 56 H (5-31) U/L ALT 32 H (0-31) U/L Alkaline Phosphatase 142 H (39-117) U/L Troponin I High Sens < 3.5 (<3.5-17.0) ng/L B-Natriuretic Peptide 91 (<100) pg/mL Total Protein 7.3 (6.5-8.0) g/dL Albumin 2.3 L (3.5-5.0) g/dL Ethyl Alcohol < 10 mg/dL COVID-19 (SAJAN) (Negative) COVID-19 Clin Com Influenza Type A (JOEY) (Negative) Influenza Type B (JOEY) (Negative) Influenza A & B Note 05/28/22 05/28/22 05/28/22 Range/Units 13:23 13:23 13:43 WBC 9.1 (4.8-10.8) X10*3/uL RBC 3.70 L (4.20-5.50) X10*6/uL Hgb 8.7 L (12.0-16.0) g/dl Hct 26.2 L (37.0-47.0) % MCV 70.8 L (80.0-98.0) fL MCH 23.5 L (27.0-33.0) pg MCHC 33.2 (31.0-35.0) g/dl RDW 17.2 H (11.0-16.0) % Plt Count 23 L (160-400) X10*3/uL MPV Not Reportable Immature Gran % (Auto) Cancelled Neut % (Auto) Cancelled Lymph % (Auto) Cancelled [place] % (Auto) Cancelled Eos % (Auto) Cancelled Baso % (Auto) Cancelled Lymph # (Auto) Cancelled [place] # (Auto) Cancelled Eos # (Auto) Cancelled Baso # (Auto) Cancelled Abs Immat Gran (auto) Cancelled Absolute Neuts (auto) Cancelled Absolute Nucleated RBC 0.000 (0.0-0.012) X10*3/uL Nucleated RBC % (auto) 0.0 (0.0-0.2) /100WBC Neutrophils % (Manual) 83 H (45-73) % Band Neutrophils % 12 H (3-5) % Lymphocytes % (Manual) 3 L (20-40) % Monocytes % (Manual) 2 (2-11) % Abs Neuts (Manual) 8.6 H (2.0-8.3) X10*3/uL Lymphocytes # (Manual) 0.3 L (1.2-4.9) X10*3/uL Monocytes # (Manual) 0.2 (0.1-1.2) X10*3/uL Toxic Granulation PRESENT Toxic Vacuolation PRESENT Platelet Estimate DECREASED (NORMAL) Plt Morphology Comment NORMAL RBC Morphology NOTED Polychromasia 1+ (0-2) /OIF Hypochromasia 1+ (5-14) /OIF Microcytosis 2+ (15-30) /OIF Target Cells 1+ (5-14) /OIF [place] Cells 2+ (3-5) /OIF Schistocytes 1+ (0-2) /OIF PT 20.9 H (10.0-13.1) SEC INR 1.8 H (0.9-1.1) Sodium (135-145) mmol/L Potassium (3.3-5.1) mmol/L Chloride (96-108) mmol/L Carbon Dioxide (22-29) mmol/L Anion Gap (12-20) BUN (9-16) mg/dL Creatinine (0.5-1.4) mg/dL Estim Creat Clear Calc Estimated GFR Random Glucose (60-115) mg/dL Lactic Acid (0.5-2.0) mmol/L Calcium (8.4-10.2) mg/dL Total Bilirubin (0.0-1.0) mg/dL Direct Bilirubin (0.0-0.5) mg/dL AST (5-31) U/L ALT (0-31) U/L Alkaline Phosphatase (39-117) U/L Troponin I High Sens (<3.5-17.0) ng/L B-Natriuretic Peptide (<100) pg/mL Total Protein (6.5-8.0) g/dL Albumin (3.5-5.0) g/dL Ethyl Alcohol mg/dL COVID-19 (SAJAN) (Negative) COVID-19 Clin Com Influenza Type A (JOEY) Negative (Negative) Influenza Type B (JOEY) Negative (Negative) Influenza A & B Note See Note 05/28/22 Range/Units 13:43 WBC (4.8-10.8) X10*3/uL RBC (4.20-5.50) X10*6/uL Hgb (12.0-16.0) g/dl Hct (37.0-47.0) % MCV (80.0-98.0) fL MCH (27.0-33.0) pg MCHC (31.0-35.0) g/dl RDW (11.0-16.0) % Plt Count (160-400) X10*3/uL MPV Immature Gran % (Auto) Neut % (Auto) Lymph % (Auto) [place] % (Auto) Eos % (Auto) Baso % (Auto) Lymph # (Auto) [place] # (Auto) Eos # (Auto) Baso # (Auto) Abs Immat Gran (auto) Absolute Neuts (auto) Absolute Nucleated RBC (0.0-0.012) X10*3/uL Nucleated RBC % (auto) (0.0-0.2) /100WBC Neutrophils % (Manual) (45-73) % Band Neutrophils % (3-5) % Lymphocytes % (Manual) (20-40) % Monocytes % (Manual) (2-11) % Abs Neuts (Manual) (2.0-8.3) X10*3/uL Lymphocytes # (Manual) (1.2-4.9) X10*3/uL Monocytes # (Manual) (0.1-1.2) X10*3/uL Toxic Granulation Toxic Vacuolation Platelet Estimate (NORMAL) Plt Morphology Comment RBC Morphology Polychromasia /OIF Hypochromasia /OIF Microcytosis /OIF Target Cells /OIF [place] Cells /OIF Schistocytes /OIF PT (10.0-13.1) SEC INR (0.9-1.1) Sodium (135-145) mmol/L Potassium (3.3-5.1) mmol/L Chloride (96-108) mmol/L Carbon Dioxide (22-29) mmol/L Anion Gap (12-20) BUN (9-16) mg/dL Creatinine (0.5-1.4) mg/dL Estim Creat Clear Calc Estimated GFR Random Glucose (60-115) mg/dL Lactic Acid (0.5-2.0) mmol/L Calcium (8.4-10.2) mg/dL Total Bilirubin (0.0-1.0) mg/dL Direct Bilirubin (0.0-0.5) mg/dL AST (5-31) U/L ALT (0-31) U/L Alkaline Phosphatase (39-117) U/L Troponin I High Sens (<3.5-17.0) ng/L B-Natriuretic Peptide (<100) pg/mL Total Protein (6.5-8.0) g/dL Albumin (3.5-5.0) g/dL Ethyl Alcohol mg/dL COVID-19 (SAJAN) Negative (Negative) COVID-19 Clin Com See Note Influenza Type A (JOEY) (Negative) Influenza Type B (JOEY) (Negative) Influenza A & B Note Imaging Data Chest x-ray: Radiologist's impression: CLINICAL INFORMATION: Shortness of breath COMPARISON: November 27, 2020 TECHNIQUE: AP portable view of the chest was obtained. FINDINGS: There is a large right pneumothorax with total collapse of the right lung. There is some mild mediastinal shift to the left. Left hemithorax appears essentially unremarkable. There appears be a small hiatal hernia. About the right base there is a density with some gas which is not nondependent and may represent some bowel gas below the hemidiaphragm rather than an abscess. XR/XR chest 1V IMPRESSION: Large right pneumothorax with mediastinal shift to the left. ? This critical result was discussed with Dr. Barrett at 11:08 AM on May 28, 2022 and it was ascertained that the content and urgency of the report was understood at the time of direct communication. ? ? Dictated By: Ruben Moya MD Signed By: <Electronically signed by Ruben Moya MD in OV> 05/28/22 1109 DD/ 1052 TD/TT:? Chain Mortiser Operator: CISCO Procedures Chest Tube Chest Tube 1: Chest Tube Location: right and mid axillary line Size of Tube (cm): 24 Chest Tube Prep: Yes betadine prep and sterile drapes applied Local Anesthetic: lidocaine 1% Incision Made With: #10 blade Post Procedure: sutured to skin Tube Drainage: fluid Post Procedure CXR?: Yes Patient Tolerated Procedure: Yes Progress: significative improvement after 24 F chest tube catheter EJ/Peripheral Line Arm L: Time Out Performed: Yes Skin Cleansed in Sterile Fashion: Yes Size (gauge): 20 IV Secured and Dressing Applied: Yes Patient Tolerated Procedure: well Additional Comments: Under US guided cannulated left basilic vein with 20 alejandra long catheter Critical Care Time Critical Care Time Critical Care Time: Yes Total Critical Care Time: 60 Attestation: placement chest tube/tension PNX,speaking with excellence consultant. Discharge Plan Discharge Clinical Impression: Tension pneumothorax, spontaneous, Substance abuse, Acute hyponatremia, Elevated LFTs, Coagulopathy, Thrombocytopenia, Bandemia Patient Disposition: Admitted As Inpatient Interventions: Admission Worksheet (ED) Last Done: 05/28/22 16:05 Discharge Date/Time: 05/28/22 16:05
[2022-05-28] MEDS: Morphine Sulfate 4 MG/ML CARTRIDGE IVPUSH (11:53)
--- NOTE | 2022-05-28 11:54 | MHC.RECOVRN ---
Met with pt in [facility] to discuss substance use and assess for withdrawal symptoms. Pt was recently here but had left after found using substances in the bathroom. Pt had been initiated on methadone on 05/15 at [facility] but has not received a dose since 05/19 (60 mg). Pt states I've been at home and couldn't move so I haven't gone. Pt reports using heroin, a few bags IV daily; cocaine, $5 IV daily; benzodiazepines (unable to recall name) 5 mg PO daily. Pt states I was really weaning down. Pt appears anxious and restless, reports withdrawal symptoms including body aches and upset stomach. Pt is interested in restarting methadone. Discussed with Tiera Kyle NP as well as ED provider.
[2022-05-28 11:59] LABS: Lactic Acid 1.7 mmol/L (0.5-2.0)
[2022-05-28 12:06] LABS: Alanine Aminotransferase 32 U/L (0-31); Albumin Level 2.3 g/dL (3.5-5.0); Alkaline Phosphatase 142 U/L (39-117); Anion Gap 13 (12-20); Aspartate Amino Transferase 56 U/L (5-31); Bilirubin Direct 0.7 mg/dL (0.0-0.5); Bilirubin Total 1.4 mg/dL (0.0-1.0); Blood Urea Nitrogen 19 mg/dL (9-16); Calcium 7.8 mg/dL (8.4-10.2); Carbon Dioxide 30 mmol/L (22-29); Chloride 84 mmol/L (96-108); Estimated Glomerular Filt Rate > 60; Ethanol < 10 mg/dL; Glucose Random 117 mg/dL (60-115); Potassium 3.5 mmol/L (3.3-5.1); Sodium 123 mmol/L (135-145); Total Protein 7.3 g/dL (6.5-8.0)
[2022-05-28 12:10] LABS: B Type Natriuretic Peptide 91 pg/mL (<100)
--- NOTE | 2022-05-28 12:14 | PC.NURSE ---
propofol 20 mg ivp at 1214
[2022-05-28 12:24] LABS: Troponin-I High Sensitivity < 3.5 ng/L (<3.5-17.0)
[2022-05-28] MEDS: 0.9 % Sodium Chloride 1,000 ML 999 ML IV (12:30)
--- NOTE | 2022-05-28 12:31 | PC.NURSE ---
Pt tolerated CP placement but has had increased coughing since. aprox 10ml sangenous thin liquid out of chest tube once applied to suction. Pt has remained alert throughout proceedure. VSS. skin pwd.
--- NOTE | 2022-05-28 12:47 | PC.NURSE ---
INITIAL CHEST TUBE WAS REMOVED. and new one placed higher. air leak heard at insertion and more serous fluid in chest tube noted. total 100ml at 1300. Pt reported feeling better after second tube placed.
[2022-05-28 13:46] LABS: Red Cell Distribution Width 17.2 % (11.0-16.0)
[2022-05-28 13:48] LABS: Hematocrit 26.2 % (37.0-47.0); Hemoglobin 8.7 g/dl (12.0-16.0); Mean Corpuscular HGB Conc 33.2 g/dl (31.0-35.0); Mean Corpuscular Hemoglobin 23.5 pg (27.0-33.0); Mean Corpuscular Volume 70.8 fL (80.0-98.0); White Blood Count 9.1 X10*3/uL (4.8-10.8)
[2022-05-28 13:49] LABS: PLT ABN DIST 1
[2022-05-28 13:52] LABS: INTERNATIONAL NORM RATIO 1.8 (0.9-1.1); Prothrombin Time 20.9 SEC (10.0-13.1)
[2022-05-28] MEDS: propofoL 200 MG/20 ML VIAL 70 MG IVPUSH (13:52)
[2022-05-28] MEDS: cefEPime HCl 2 GM in 0.9 % Sodium Chloride 50 ML IV (13:53)
[2022-05-28] MEDS: fentaNYL citrate/PF 100 MCG/2 ML VIAL 50 MCG IVPUSH (13:53)
--- NOTE | 2022-05-28 13:58 | PC.NURSE ---
Sitting up, unlabored resp. skin pwd. st on monitor, has been off all O2 for over 30 minutes. requesting pain meds for insertion site and right lower back. total 130 ml sangenous fluid out.
[2022-05-28 14:09] LABS: COVID-19 Test Negative (Negative); IDNOW Serial# 16C4AD1C
[2022-05-28 14:10] LABS: Influenza A Negative (Negative); Influenza B2 Negative (Negative)
[2022-05-28 14:14] LABS: Neutrophils Percent Manual 83 % (45-73)
[2022-05-28 14:17] LABS: Lymphocytes Absolute Manual 0.3 X10*3/uL (1.2-4.9); Lymphocytes Percent Manual 3 % (20-40); Monocytes Absolute Manual 0.2 X10*3/uL (0.1-1.2); Monocytes Percent Manual 2 % (2-11); Neutrophils Absolute Manual 8.6 X10*3/uL (2.0-8.3)
--- NOTE | 2022-05-28 14:19 | PHA.MEDREC ---
MED REC COMPLETE, WILL NEED TO CONFIRM PATIENTS METHADONE DOSE WITH CLINIC Pharmacy Consult ? Medication Reconciliation Pharmacy has completed the medication reconciliation.
[2022-05-28 14:21] LABS: Burr Cells 2+ (3-5) /OIF; Hypochromasia 1+ (5-14) /OIF; Microcytosis 2+ (15-30) /OIF; Platelet Estimate DECREASED (NORMAL); Platelet Morphology Comment NORMAL; Polychromasia 1+ (0-2) /OIF; RBC Morphology NOTED; Schistocytes 1+ (0-2) /OIF; Target Cells 1+ (5-14) /OIF; Toxic Granulation PRESENT; Toxic Vacuolation PRESENT
[2022-05-28 14:22] LABS: Platelet Count 23 X10*3/uL (160-400)
[2022-05-28 14:36] LABS: Band Neutrophils Percent 12 % (3-5)
[2022-05-28] MEDS: vancomycin HCL 1,000 MG in 0.9 % Sodium Chloride 250 ML 270 MG IV (14:46)
--- NOTE | 2022-05-28 15:25 | PC.NURSE ---
rn to rn kevin Horne in ICU.
[2022-05-28] MEDS: HYDROmorphone HCl 1 MG/ML SYRINGE IVPUSH ×3 (16:16→21:20)
[2022-05-28] MEDS: Lactulose 20 GM/30 ML SOLUTION 30 GM PO (16:40)
[2022-05-28] MEDS: HYDROmorphone HCl 2 MG/ML VIAL IVPUSH (17:29)
[2022-05-28] MEDS: methADONE HCl 20 MG/2 ML ORAL.CONC 30 MG PO (18:09)
[2022-05-28] MEDS: Phytonadione (Vit K1) 10 MG in 0.9 % Sodium Chloride 50 ML 51 MG IV ×2 (18:10→19:28)
--- NOTE | 2022-05-28 18:12 | PM.CCHP ---
History of Present Illness Date of Service: 05/28/22 Attending physician on admission: Manny Gonzáles Chief Complaint: Spontaneous pneumothorax Ms. Robledo is admitted to the ICU for respiratory monitoring after chest tube placement in the ED for spontaneous pneumothorax. The patient is a 36 yo F with PMH of intravenous drug abuse.? Started methadone recently, up to 60 mg/day.? Also h/o asthma, kidney stones, hepatitis-C, bipolar disorder, PTSD, h/o seizure/drug OD in 2005 requiring intubation, and tobacco abuse. Was in the ED five days ago (May 23) complaining of withdrawal symptoms with myalgias, abdominal discomfort and nausea.? According to the ED narrative, the patient was caught exiting the bathroom with a tourniquet and empty heroin in her pockets.? She subsequently left the ED AMA. She presented ambulatory to the ED today complaining of shortness of breath and chest pain x1 week.? Heart rate was 119, blood pressure 109/74, respiratory rate 28, sat 97% on 6 L oxygen by nasal cannula.? She was afebrile.? Her breathing was labored with diminished breath sounds on the right. Lab showed a white count 9.1, hemoglobin 8.7 (was 11.8 in 2019), [place] [address] ([place] 232 in 2020).? PT was 20/1.8.? Sodium was 123, BUN/creatinine 19/0.5, bicarb was 30, potassium 3.5, T bili was 1.4, AST/ALT 56/32, albumin was 2.3.? Lactic acid was 1.7.? Blood cultures were drawn. Chest x-ray showed a large right pneumothorax with total collapse of the right lung with some mediastinal shift to the left.? The left hemithorax was unremarkable. Dr. Adame placed a wean pneumothorax drainage catheter in the low mid axillary position.? The pneumothorax was only minimally improved.? Therefore that was removed and a 24 Urdu chest tube was placed slightly higher up.? After repositioning, the pneumothorax is mostly drained, but still with a small to moderate apical pneumothorax.? He also gave her a dose of vanco and cefepime and a liter of saline. Because of the danger of sudden recurrence of the pneumothorax, I admitted the patient to the ICU for overnight monitoring. On my exam in the ICU, the heart rate now is 120s, blood pressure 116/78, RR is about 30, the sat is 94% on room air. ?No JVD.? She has good BS thruout.? Only a very slight airleak with the chest tube on 20cm sxn.? She?s cachectic, weighs 36kg. Repeat CXR at 16:13 shows the chest tube pulled out about 4cm from it?s prev position, with the proximal side hole at the level of the skin.? I can?t rule out an underlying RLL infiltrate. On inspection, the hole is outside the skin.? I covered it with a Vaseline gauze and redressed it.? I can?t r IMPRESSION: 1. IV drug abuse.? She?s on methadone 60 mg daily. 2. Spont PTX.? Unclear etiology.? Reexpansion of the lung is adequate for now after the chest tube.? D/W Dr. Zaldivar?s PA, they will see her tomorrow. 3. Hypoxemia.? Prob 2? splinting w low TV breathing. ?Just in case she has a pneumonia there, I will put her on ceftriaxone x 5 days.? Reeval tomorrow, maybe chest CT. 4. Hypovolemia.? I?ll start her on LR. 5. ALEXANDR.? 2? above. 6. Hyponatremia.? Undoubtedly in part 2? hypovolemia.? Also a component of low solute intake (ala beer potomania).? Already had a liter of saline.? I?ll start LR and recheck labs. 7. Tachypnea.? 2? pain and opiate withdrawal.? Started her on methadone 30mg.? Giving her IV dilaudid for pain. 8. Sinus tachycardia.? Largely 2? pain and opiate withdrawal. 9. Anemia.? Red cell indices are low, RDW high.? Were normal two years ago.? Likely iron defic plus ACD.? I started her on oral iron. 10. Thrombocytopenia.? ? etiology.? This is new from two years ago. 11. Coagulopathy. ?Most likely 2? malnutrition.? Wrote her for full replacement dose Vit k (30 mg). 12. Increased LFTs.? ? 2? hepatitis C.? I?ll send a hepatitis profile. 13. Severe PCM.? Will have nutrition consult tomorrow. Time (including mult visits to the bedside in the ED and ICU, mult xrays, mult d/w thoracic consult): 100+ min. [facility] Past Medical History Medical History Asthma Hepatitis C carrier Kidney stones Social History Social History Household Members: Family Household Members Other:: brother Housing: House Do you presently have visiting nurse or other home services: No Alcohol intake: never Patient Tobacco Use Status: Never used Tobacco Use of substances other than those prescribed or required for medical reasons: Yes Substance Use Type: Crack/Cocaine and Heroin Substance Use Frequency: Daily Last Used Substance: Unknown Currently Displaying Signs/Symptoms of Drug Intoxication Withdrawal: No Any prior treatment program specific to substance use: Yes Have you been hit, kicked, punched, or otherwise hurt by someone within the past year? If so, by whom?: No Do you feel safe in your current relationship?: No Is there a partner from a previous relationship who is making you feel unsafe now?: No Are you made to feel afraid or neglected: No Advance Directives: No Advance Directives Information Provided: Yes Do you have thoughts of harming others: None Do you have a plan to hurt others: No Plan Recently lost weight without trying: Yes How much weight loss: Not applicable Eating poorly because of decreased appetite: Yes Nutrition screen score: 3 Nutrition Risks: Dental problems Patient : No : No Poor oral hygiene: No Meds Allergies Allergy/AdvReac Type Severity Reaction Status Date / Time fluoxetine [From PROZAC] Allergy Severe DELUSIONS Verified 12/13/20 00:25 Active Medications: Current Medications Hydromorphone HCl (Hydromorphone Hcl 1 Mg/Ml Syringe) 1 mg IVPUSH Q2H PRN; Protocol PRN Reason: mild-mod pain Phytonadione 10 mg/ Sodium (Chloride) 51 mls @ 51 mls/hr IV Q30M VINCENZO Stop: 05/28/22 18:14 Phytonadione 10 mg/ Sodium (Chloride) 51 mls @ 51 mls/hr IV Q6H VINCENZO Stop: 05/29/22 13:00 Ceftriaxone Sodium 1 gm/ (Sodium Chloride) 50 mls @ 100 mls/hr IV Q24H VINCENZO Stop: 06/02/22 20:59 Lactulose (Lactulose 20 Gm/30 Ml Solution) 30 gm PO TID VINCENZO Last Admin: 05/28/22 16:40 Dose: 30 gm Home Medications Medication Instructions Recorded Confirmed Last Taken Type chlorpromazine 50 mg tablet 50 mg PO DAILY 05/28/22 05/28/22 Unknown History methadone 10 mg/mL oral 60 mg PO DAILY 05/28/22 05/28/22 Unknown History concentrate (Methadone Intensol) prazosin 2 mg capsule 2 mg PO BEDTIME 05/28/22 05/28/22 Unknown History trazodone 100 mg tablet 200 mg PO BEDTIME 05/28/22 05/28/22 Unknown History Physical Exam Vital Signs: Vital Signs: Last Vital Signs Temp 98.8 F 05/28/22 16:00 Pulse 122 H 05/28/22 17:00 Resp 22 H 05/28/22 17:29 BP 116/78 05/28/22 17:00 Pulse Ox 95 05/28/22 17:00 O2 Del Method 05/28/22 17:00 O2 Flow Rate 6 05/28/22 13:05 BMI result Body Mass Index 16.1 Results Labs CBC and Chem 7: 05/28/22 13:23 05/28/22 11:44 Labs: Laboratory Results - last 24 hr 05/28/22 05/28/22 05/28/22 11:44 11:44 11:44 MCV MCH MCHC RDW Plt Count MPV Immature Gran % (Auto) Neut % (Auto) Lymph % (Auto) [place] % (Auto) Eos % (Auto) Baso % (Auto) Lymph # (Auto) [place] # (Auto) Eos # (Auto) Baso # (Auto) Abs Immat Gran (auto) Absolute Neuts (auto) Absolute Nucleated RBC Nucleated RBC % (auto) Neutrophils % (Manual) Band Neutrophils % Lymphocytes % (Manual) Monocytes % (Manual) Abs Neuts (Manual) Lymphocytes # (Manual) Monocytes # (Manual) Toxic Granulation Toxic Vacuolation Platelet Estimate Plt Morphology Comment RBC Morphology Polychromasia Hypochromasia Microcytosis Target Cells Dea Cells Schistocytes PT INR Anion Gap 13 Estim Creat Clear Calc 81.0 Estimated GFR > 60 Random Glucose 117 H Lactic Acid 1.7 Calcium 7.8 L Total Bilirubin 1.4 H Direct Bilirubin 0.7 H AST 56 H ALT 32 H Alkaline Phosphatase 142 H B-Natriuretic Peptide 91 Total Protein 7.3 Albumin 2.3 L Ethyl Alcohol < 10 COVID-19 (SAJAN) COVID-19 Clin Com Influenza Type A (JOEY) Influenza Type B (JOEY) Influenza A & B Note 05/28/22 05/28/22 05/28/22 13:23 13:23 13:43 MCV 70.8 L MCH 23.5 L MCHC 33.2 RDW 17.2 H Plt Count 23 L MPV Not Reportable Immature Gran % (Auto) Cancelled Neut % (Auto) Cancelled Lymph % (Auto) Cancelled [place] % (Auto) Cancelled Eos % (Auto) Cancelled Baso % (Auto) Cancelled Lymph # (Auto) Cancelled [place] # (Auto) Cancelled Eos # (Auto) Cancelled Baso # (Auto) Cancelled Abs Immat Gran (auto) Cancelled Absolute Neuts (auto) Cancelled Absolute Nucleated RBC 0.000 Nucleated RBC % (auto) 0.0 Neutrophils % (Manual) 83 H Band Neutrophils % 12 H Lymphocytes % (Manual) 3 L Monocytes % (Manual) 2 Abs Neuts (Manual) 8.6 H Lymphocytes # (Manual) 0.3 L Monocytes # (Manual) 0.2 Toxic Granulation PRESENT Toxic Vacuolation PRESENT Platelet Estimate DECREASED Plt Morphology Comment NORMAL RBC Morphology NOTED Polychromasia 1+ (0-2) Hypochromasia 1+ (5-14) Microcytosis 2+ (15-30) Target Cells 1+ (5-14) [place] Cells 2+ (3-5) Schistocytes 1+ (0-2) PT 20.9 H INR 1.8 H Anion Gap Estim Creat Clear Calc Estimated GFR Random Glucose Lactic Acid Calcium Total Bilirubin Direct Bilirubin AST ALT Alkaline Phosphatase B-Natriuretic Peptide Total Protein Albumin Ethyl Alcohol COVID-19 (SAJAN) COVID-19 Clin Com Influenza Type A (JOEY) Negative Influenza Type B (JOEY) Negative Influenza A & B Note See Note 05/28/22 13:43 MCV MCH MCHC RDW Plt Count MPV Immature Gran % (Auto) Neut % (Auto) Lymph % (Auto) [place] % (Auto) Eos % (Auto) Baso % (Auto) Lymph # (Auto) [place] # (Auto) Eos # (Auto) Baso # (Auto) Abs Immat Gran (auto) Absolute Neuts (auto) Absolute Nucleated RBC Nucleated RBC % (auto) Neutrophils % (Manual) Band Neutrophils % Lymphocytes % (Manual) Monocytes % (Manual) Abs Neuts (Manual) Lymphocytes # (Manual) Monocytes # (Manual) Toxic Granulation Toxic Vacuolation Platelet Estimate Plt Morphology Comment RBC Morphology Polychromasia Hypochromasia Microcytosis Target Cells [place] Cells Schistocytes PT INR Anion Gap Estim Creat Clear Calc Estimated GFR Random Glucose Lactic Acid Calcium Total Bilirubin Direct Bilirubin AST ALT Alkaline Phosphatase B-Natriuretic Peptide Total Protein Albumin Ethyl Alcohol COVID-19 (SAJAN) Negative COVID-19 Clin Com See Note Influenza Type A (JOEY) Influenza Type B (JOEY) Influenza A & B Note Imaging Radiologist's Impressions: Impressions Chest X-Ray 05/28/22 10:52 IMPRESSION: Large right pneumothorax with mediastinal shift to the left. This critical result was discussed with Dr. Barrett at 11:08 AM on May 28, 2022 and it was ascertained that the content and urgency of the report was understood at the time of direct communication. Chest X-Ray 05/28/22 12:29 IMPRESSION: Right-sided pigtail catheter placement. There has been some improvement to the large right-sided pneumothorax from earlier today with no longer shift of mediastinal structures. Still significant right-sided pneumothorax remaining. Chest X-Ray 05/28/22 12:52 IMPRESSION: Significant improved right-sided pneumothorax with new chest tube placement and significant reexpansion of the right lung. Moderate-sized pneumothorax remaining at the apex. Chest X-Ray 05/28/22 16:25 IMPRESSION: No change in a moderate right-sided pneumothorax. Retraction of the chest tube such that the side hole is in the soft tissues.
[2022-05-28] MEDS: Ferrous Sulfate 324 MG TABLET.DR PO (18:40)
[2022-05-28] MEDS: Lactated Ringers 1,000 ML 40 ML IVCONT (18:41)
[2022-05-28 19:12] LABS: Mean Corpuscular Hemoglobin 23.9 pg (27.0-33.0)
[2022-05-28 19:14] LABS: Hematocrit 27.6 % (37.0-47.0); Hemoglobin 9.4 g/dl (12.0-16.0); Mean Corpuscular HGB Conc 34.1 g/dl (31.0-35.0); Mean Corpuscular Volume 70.2 fL (80.0-98.0); Red Blood Count 3.93 X10*6/uL (4.20-5.50); Red Cell Distribution Width 17.1 % (11.0-16.0); White Blood Count 9.5 X10*3/uL (4.8-10.8)
[2022-05-28 19:17] LABS: PLT ABN DIST 1; Platelet Count 27 X10*3/uL (160-400)
[2022-05-28 19:31] LABS: Anion Gap 15 (12-20); Blood Urea Nitrogen 22 mg/dL (9-16); Calcium 7.4 mg/dL (8.4-10.2); Carbon Dioxide 22 mmol/L (22-29); Chloride 91 mmol/L (96-108); Creatinine Clr Calc Pharmacy 68.8; Estimated Glomerular Filt Rate > 60; Glucose Random 218 mg/dL (60-115); Magnesium 1.8 mg/dL (1.6-2.6); Sodium 125 mmol/L (135-145)
[2022-05-28] MEDS: cefTRIAXone sodium 1 GM in 0.9 % Sodium Chloride 50 ML IV (21:11)
[2022-05-28] MEDS: Potassium Phosphate/NS 15 MMOL/250 ML PLAST..BAG 62.5 MMOL IV (21:16)
[2022-05-28] MEDS: LORazepam 1 MG TABLET PO (23:33)
[2022-05-29] VITALS (28 sets, daily range): BP systolic 98–123; BP diastolic 60–78; PULSE 102–128; RESP 16–46; TEMP 37.2–39.3; O2SAT 92–98; BMI 16.1
[2022-05-29] MEDS: Phytonadione (Vit K1) 10 MG in 0.9 % Sodium Chloride 50 ML 51 MG IV (01:38)
[2022-05-29] MEDS: vancomycin HCL 500 MG in 0.9 % Sodium Chloride 100 ML 110 MG IV ×3 (02:48→22:23)
[2022-05-29] MEDS: HYDROmorphone HCl 1 MG/ML SYRINGE IVPUSH ×6 (06:17→23:35)
[2022-05-29 07:44] LABS: HBc Num1 0.13 S/CO (0.00-0.79); Hepatitis B Core Antibody Nonreactive (Nonreactive)
--- NOTE | 2022-05-29 08:48 | PC.NURSE ---
PATIENT UNABLE TO VOID. BLADDER SCANNED FOR 648 ML. V/O FOR SIERRA ORDER PER MD PLACED. SIERRA INSERTED AND 600 ML OF DARK OTILIA URINE NOTED, SAMPLES COLLECTED AND SENT TO LAB.
[2022-05-29 08:58] LABS: Appearance Urine CLEAR; Color Urine YELLOW; Glucose Urine UA 100 MG/DL (NEG); Leukocyte Esterase Urine NEG (NEG); Nitrite Urine NEG (NEG); UACC Culture Trigger NO; Urine Blood TRACE (NEG); Urine Ketones NEG (NEG); Urine Protein 1+ MG/DL (NEG-TRACE)
[2022-05-29 09:00] LABS: UPreg QC Valid YES; Urine Pregnancy NEGATIVE (NEGATIVE)
[2022-05-29 09:06] LABS: Squamous Epithelial Cell Urine 1+ /LPF
[2022-05-29 09:08] LABS: Amorphous Sediment Urine TRACE /LPF; Bacteria Urine TRACE /LPF; RBC Urine 0-2 /HPF (0)
[2022-05-29 09:31] LABS: Sodium Urine Random < 20.0 mmol/L
--- NOTE | 2022-05-29 09:58 | MHC.CM.PN ---
Attempted to meet with pt to discuss d/c needs/HCP completion - pt not cooperative - requesting meds and food and declining CM interview. Per review of past visits, pt has active IVDU. Pt also instructed CONTRACT FORESTER to not give information to anyone who calls claiming to be her biological or adoptive mother. CM to reapproach when pt is more cooperative.
--- NOTE | 2022-05-29 10:14 | MHC.CLN ---
PT IS SEVERELY MALNOURISHED PT WITH SEVERELY DEPLETED SUBCUTANEOUS FAT AND MUSCLE MASS, BMI 16.1 WITH 11% WT LOSS X 1 YEAR AND CHRONIC POOR PO INTAKE R/T IVDA DIET RX: REGULAR-APPROPRIATE RECOMMEND ADDING ENSURE BID TO INCREASE KCALS SUPP TO PROVIDE 700KCALS, 40G PROTEIN MONITOR PO INTAKE CLOSELY SEE ALSO FULL CLINICAL NUTRITION ASSESSMENT
--- NOTE | 2022-05-29 10:21 | PHA.PROG ---
Admission Date/Time: May 28, 2022 14:05 Indication: BACTEREMIA Weight in k.287 kg Adjusted body weight in Kg: [place] body weight in Kg: Obesity Dosing Indication % IBW: Serum Creatinine - Last 168 Hours 05/28/22 05/28/22 11:44 19:00 Creatinine 0.56 0.66 Estimated CrCl and GFR - Last 168 Hours 05/28/22 05/28/22 11:44 19:00 Estim Creat Clear Calc 81.0 68.8 Estimated GFR > 60 > 60 Vancomycin Loading Dose: 1000 MG (FOLLOWED BY 500MG @0248) Current Vancomycin Dosing Regimen: 500MG Q12H Vancomycin Monitoring using AUC goal of 400 - 600 range with trough as surrogate marker: Date and Time for next Vancomycin Level to be drawn: RANDOM 05/30 Pharmacist Comments on Vancomycin Plan: Vancomycin dosing will take advantage of [employer] as a clinical decision support tool that uses Bayesian modeling to calculate individual patient's pharmacokinetic parameters and forecast the patient's drug concentration time course with the target goal AUC 24 range of 400 - 600 mg/L/hr.
[2022-05-29 10:53] LABS: Alanine Aminotransferase 22 U/L (0-31); Albumin Level 1.9 g/dL (3.5-5.0); Alkaline Phosphatase 112 U/L (39-117); Anion Gap 15 (12-20); Aspartate Amino Transferase 43 U/L (5-31); Bilirubin Total 1.2 mg/dL (0.0-1.0); Blood Urea Nitrogen 15 mg/dL (9-16); Calcium 7.3 mg/dL (8.4-10.2); Carbon Dioxide 21 mmol/L (22-29); Chloride 95 mmol/L (96-108); Creatinine Clr Calc Pharmacy 92.7; Estimated Glomerular Filt Rate > 60; Glucose Random 96 mg/dL (60-115); Magnesium 1.7 mg/dL (1.6-2.6); Phosphorus 2.9 mg/dL (2.7-4.5); Potassium 3.7 mmol/L (3.3-5.1); Sodium 127 mmol/L (135-145); Total Protein 6.2 g/dL (6.5-8.0)
[2022-05-29 10:54] LABS: Hematocrit 34.4 % (37.0-47.0); Hemoglobin 11.8 g/dl (12.0-16.0); Mean Corpuscular HGB Conc 34.3 g/dl (31.0-35.0); Mean Corpuscular Hemoglobin 24.4 pg (27.0-33.0); Mean Corpuscular Volume 71.1 fL (80.0-98.0); Red Blood Count 4.84 X10*6/uL (4.20-5.50); Red Cell Distribution Width 17.9 % (11.0-16.0)
[2022-05-29] MEDS: propofoL 200 MG/20 ML VIAL 100 MG IVPUSH (11:04)
[2022-05-29 11:21] LABS: Platelet Count 21 X10*3/uL (160-400); White Blood Count 6.7 X10*3/uL (4.8-10.8)
[2022-05-29] MEDS: Piperacillin Sodium/Tazobactam 4.5 GM in 0.9 % Sodium Chloride 100 ML IV ×3 (11:36→21:15)
[2022-05-29 12:26] LABS: Band Neutrophils Percent 2 % (3-5); Eosinophils Absolute Manual 0.1 X10*3/uL (0.0-0.4); Eosinophils Percent Manual 1 % (0-4); Lymphocytes Absolute Manual 0.7 X10*3/uL (1.2-4.9); Lymphocytes Percent Manual 10 % (20-40); Monocytes Absolute Manual 0.6 X10*3/uL (0.1-1.2); Monocytes Percent Manual 9 % (2-11); Neutrophils Absolute Manual 5.4 X10*3/uL (2.0-8.3); Neutrophils Percent Manual 78 % (45-73)
[2022-05-29 12:32] LABS: Burr Cells 2+ (3-5) /OIF; Microcytosis 2+ (15-30) /OIF; RBC Morphology NOTED; Schistocytes 1+ (0-2) /OIF
[2022-05-29 12:33] LABS: Hypochromasia 1+ (5-14) /OIF; Platelet Estimate DECREASED (NORMAL); Platelet Morphology Comment NORMAL; Polychromasia 1+ (0-2) /OIF; Toxic Vacuolation PRESENT
--- NOTE | 2022-05-29 13:52 | HO.ADDICTCON ---
History of Present Illness Date of Service: 05/29/2022 Chief Complaint: Right Pneumothorax Reason for Consult: OUD, methadone dosing HPI Narrative: Patient is a 36 year old female with OUD, reported to be in outpatiet treatment via [facility] OTP--60mg daily dose. Per RSRN, last dose of 60mg was adminsitered 05/19. Patient received 30mg methadone yesterday (05/28) at 6pm. Seen in follow up by this procedure writer today to determine ongoing dosing. Patient laying in bed with eyes closed, but easily awoken. Minimal participation in interview. Reporting chills and body aches. Wincing and closing eyes when speaking Did not wish to continue with interview any further, requesting this procedure writer return at a later time. Collateral from nursing staff indicates that patient has been declining care including lab work throughout the day. Currently ordered Dilaudid 1mg q 2hrs PRN for pain. Review of Systems Constitutional: Reports as per HPI (patient non participatory) Diagnostics Vital Signs (24Hr): Vital Signs - 24 hr 05/28/22 14:06 05/28/22 16:00 05/28/22 17:00 Temperature 98.8 F Pulse Rate 109 H 119 H 122 H Respiratory Rate 36 H 28 H 28 H Blood Pressure 113/65 109/74 116/78 Pulse Oximetry 98 97 95 Oxygen Delivery Method Room Air Room Air Room Air 05/28/22 17:29 05/28/22 18:00 05/28/22 19:00 Temperature 100.7 F H Pulse Rate 135 H 130 H Respiratory Rate 22 H 40 H 26 H Blood Pressure 126/74 121/74 Pulse Oximetry 95 Oxygen Delivery Method Room Air Room Air 05/28/22 20:00 05/28/22 21:00 05/29/22 00:00 Temperature 99.4 F Pulse Rate 130 H 129 H 120 H Respiratory Rate 40 H 26 H 37 H Blood Pressure 116/75 119/78 Pulse Oximetry 100 96 95 Oxygen Delivery Method Room Air Room Air Room Air 05/29/22 01:00 05/29/22 02:00 05/29/22 03:00 Temperature Pulse Rate 123 H 119 H 116 H Respiratory Rate 36 H 36 H 39 H Blood Pressure Pulse Oximetry 93 94 94 Oxygen Delivery Method Room Air Room Air Room Air 05/29/22 04:00 05/29/22 05:00 05/29/22 06:00 Temperature Pulse Rate 118 H 117 H 112 H Respiratory Rate 40 H 38 H 35 H Blood Pressure Pulse Oximetry 94 94 96 Oxygen Delivery Method Room Air Room Air Room Air 05/29/22 07:00 05/29/22 08:00 05/29/22 09:00 Temperature 99.2 F Pulse Rate 106 H 106 H 102 H Respiratory Rate 34 H 36 H 34 H Blood Pressure 104/68 Pulse Oximetry 94 Oxygen Delivery Method Room Air 05/29/22 10:00 05/29/22 11:00 05/29/22 12:00 Temperature 99.9 F 99.9 F 99.0 F Pulse Rate 121 H 113 H 111 H Respiratory Rate 46 H 42 H 34 H Blood Pressure 98/60 102/62 Pulse Oximetry 95 96 92 Oxygen Delivery Method Room Air Room Air Room Air 05/29/22 13:00 05/29/22 10:16 Temperature 100.0 F Pulse Rate 110 H Respiratory Rate 39 H 16 Blood Pressure Pulse Oximetry 93 Oxygen Delivery Method Room Air BMI result Body Mass Index 16.1 Labs Results: 05/29/22 10:04 05/29/22 10:04 Labs: Laboratory Results - last 48 hr 05/28/22 05/28/22 05/28/22 11:44 11:44 11:44 WBC RBC Hgb Hct MCV MCH MCHC RDW Plt Count MPV Immature Gran % (Auto) Neut % (Auto) Lymph % (Auto) [place] % (Auto) Eos % (Auto) Baso % (Auto) Lymph # (Auto) [place] # (Auto) Eos # (Auto) Baso # (Auto) Abs Immat Gran (auto) Absolute Neuts (auto) Absolute Nucleated RBC Nucleated RBC % (auto) Neutrophils % (Manual) Band Neutrophils % Lymphocytes % (Manual) Monocytes % (Manual) Eosinophils % (Manual) Abs Neuts (Manual) Lymphocytes # (Manual) Monocytes # (Manual) Eosinophils # (Manual) Toxic Granulation Toxic Vacuolation Platelet Estimate Plt Morphology Comment RBC Morphology Polychromasia Hypochromasia Microcytosis Target Cells Simpson Cells Schistocytes PT INR Sodium 123 L Potassium 3.5 Chloride 84 L Carbon Dioxide 30 H Anion Gap 13 BUN 19 H Creatinine 0.56 Estim Creat Clear Calc 81.0 Estimated GFR > 60 Random Glucose 117 H Lactic Acid 1.7 Calcium 7.8 L Phosphorus Magnesium Total Bilirubin 1.4 H Direct Bilirubin 0.7 H AST 56 H ALT 32 H Alkaline Phosphatase 142 H Troponin I High Sens < 3.5 B-Natriuretic Peptide 91 Total Protein 7.3 Albumin 2.3 L Urine Color Urine Appearance Urine pH Ur Specific [place] Urine Protein Urine Glucose (UA) Urine Ketones Urine Blood Urine Nitrite Ur Leukocyte Esterase Urine RBC Urine WBC Ur Squamous Epith Cells Amorphous Sediment Urine Bacteria Ur Random Sodium Urine Test Ethyl Alcohol < 10 COVID-19 (SAJAN) COVID-19 Clin Com Hep B Core Total Ab Influenza Type A (JOEY) Influenza Type B (JOEY) Influenza A & B Note Blood Type Antibody Screen 05/28/22 05/28/22 05/28/22 13:23 13:23 13:43 WBC 9.1 RBC 3.70 L Hgb 8.7 L Hct 26.2 L MCV 70.8 L MCH 23.5 L MCHC 33.2 RDW 17.2 H Plt Count 23 L MPV Not Reportable Immature Gran % (Auto) Cancelled Neut % (Auto) Cancelled Lymph % (Auto) Cancelled [place] % (Auto) Cancelled Eos % (Auto) Cancelled Baso % (Auto) Cancelled Lymph # (Auto) Cancelled [place] # (Auto) Cancelled Eos # (Auto) Cancelled Baso # (Auto) Cancelled Abs Immat Gran (auto) Cancelled Absolute Neuts (auto) Cancelled Absolute Nucleated RBC 0.000 Nucleated RBC % (auto) 0.0 Neutrophils % (Manual) 83 H Band Neutrophils % 12 H Lymphocytes % (Manual) 3 L Monocytes % (Manual) 2 Eosinophils % (Manual) Abs Neuts (Manual) 8.6 H Lymphocytes # (Manual) 0.3 L Monocytes # (Manual) 0.2 Eosinophils # (Manual) Toxic Granulation PRESENT Toxic Vacuolation PRESENT Platelet Estimate DECREASED Plt Morphology Comment NORMAL RBC Morphology NOTED Polychromasia 1+ (0-2) Hypochromasia 1+ (5-14) Microcytosis 2+ (15-30) Target Cells 1+ (5-14) Simpson Cells 2+ (3-5) Schistocytes 1+ (0-2) PT 20.9 H INR 1.8 H Sodium Potassium Chloride Carbon Dioxide Anion Gap BUN Creatinine Estim Creat Clear Calc Estimated GFR Random Glucose Lactic Acid Calcium Phosphorus Magnesium Total Bilirubin Direct Bilirubin AST ALT Alkaline Phosphatase Troponin I High Sens B-Natriuretic Peptide Total Protein Albumin Urine Color Urine Appearance Urine pH Ur Specific [place] Urine Protein Urine Glucose (UA) Urine Ketones Urine Blood Urine Nitrite Ur Leukocyte Esterase Urine RBC Urine WBC Ur Squamous Epith Cells Amorphous Sediment Urine Bacteria Ur Random Sodium Urine Test Ethyl Alcohol COVID-19 (SAJAN) COVID-19 Clin Com Hep B Core Total Ab Influenza Type A (JOEY) Negative Influenza Type B (JOEY) Negative Influenza A & B Note See Note Blood Type Antibody Screen 05/28/22 05/28/22 05/28/22 13:43 19:00 19:00 WBC 9.5 RBC 3.93 L Hgb 9.4 L Hct 27.6 L MCV 70.2 L MCH 23.9 L MCHC 34.1 RDW 17.1 H Plt Count 27 L MPV Not Reportable Immature Gran % (Auto) Neut % (Auto) Lymph % (Auto) [place] % (Auto) Eos % (Auto) Baso % (Auto) Lymph # (Auto) [place] # (Auto) Eos # (Auto) Baso # (Auto) Abs Immat Gran (auto) Absolute Neuts (auto) Absolute Nucleated RBC 0.000 Nucleated RBC % (auto) 0.0 Neutrophils % (Manual) Band Neutrophils % Lymphocytes % (Manual) Monocytes % (Manual) Eosinophils % (Manual) Abs Neuts (Manual) Lymphocytes # (Manual) Monocytes # (Manual) Eosinophils # (Manual) Toxic Granulation Toxic Vacuolation Platelet Estimate Plt Morphology Comment RBC Morphology Polychromasia Hypochromasia Microcytosis Target Cells [place] Cells Schistocytes PT INR Sodium 125 L Potassium 3.0 L Chloride 91 L Carbon Dioxide 22 Anion Gap 15 BUN 22 H Creatinine 0.66 Estim Creat Clear Calc 68.8 Estimated GFR > 60 Random Glucose 218 H Lactic Acid Calcium 7.4 L Phosphorus 2.0 L Magnesium 1.8 Total Bilirubin Direct Bilirubin AST ALT Alkaline Phosphatase Troponin I High Sens B-Natriuretic Peptide Total Protein Albumin Urine Color Urine Appearance Urine pH Ur Specific [place] Urine Protein Urine Glucose (UA) Urine Ketones Urine Blood Urine Nitrite Ur Leukocyte Esterase Urine RBC Urine WBC Ur Squamous Epith Cells Amorphous Sediment Urine Bacteria Ur Random Sodium Urine Test Ethyl Alcohol COVID-19 (SAJAN) Negative COVID-19 Clin Com See Note Hep B Core Total Ab Influenza Type A (JOEY) Influenza Type B (JOEY) Influenza A & B Note Blood Type Antibody Screen 05/28/22 05/29/22 05/29/22 19:00 08:42 08:42 WBC RBC Hgb Hct MCV MCH MCHC RDW Plt Count MPV Immature Gran % (Auto) Neut % (Auto) Lymph % (Auto) [place] % (Auto) Eos % (Auto) Baso % (Auto) Lymph # (Auto) [place] # (Auto) Eos # (Auto) Baso # (Auto) Abs Immat Gran (auto) Absolute Neuts (auto) Absolute Nucleated RBC Nucleated RBC % (auto) Neutrophils % (Manual) Band Neutrophils % Lymphocytes % (Manual) Monocytes % (Manual) Eosinophils % (Manual) Abs Neuts (Manual) Lymphocytes # (Manual) Monocytes # (Manual) Eosinophils # (Manual) Toxic Granulation Toxic Vacuolation Platelet Estimate Plt Morphology Comment RBC Morphology Polychromasia Hypochromasia Microcytosis Target Cells Simpson Cells Schistocytes PT INR Sodium Potassium Chloride Carbon Dioxide Anion Gap BUN Creatinine Estim Creat Clear Calc Estimated GFR Random Glucose Lactic Acid Calcium Phosphorus Magnesium Total Bilirubin Direct Bilirubin AST ALT Alkaline Phosphatase Troponin I High Sens B-Natriuretic Peptide Total Protein Albumin Urine Color YELLOW Urine Appearance CLEAR Urine pH 6.0 Ur Specific [place] 1.020 Urine Protein 1+ H Urine Glucose (UA) 100 H Urine Ketones NEG Urine Blood TRACE Urine Nitrite NEG Ur Leukocyte Esterase NEG Urine RBC 0-2 Urine WBC 1-4 Ur Squamous Epith Cells 1+ Amorphous Sediment TRACE Urine Bacteria TRACE Ur Random Sodium Urine Test NEGATIVE Ethyl Alcohol COVID-19 (SAJAN) COVID-19 Clin Com Hep B Core Total Ab Nonreactive Influenza Type A (JOEY) Influenza Type B (JOEY) Influenza A & B Note Blood Type Antibody Screen 05/29/22 05/29/22 05/29/22 08:42 10:04 10:04 WBC 6.7 RBC 4.84 D Hgb 11.8 L D Hct 34.4 L D MCV 71.1 L MCH 24.4 L MCHC 34.3 RDW 17.9 H Plt Count 21 L MPV Not Reportable Immature Gran % (Auto) Cancelled Neut % (Auto) Cancelled Lymph % (Auto) Cancelled [place] % (Auto) Cancelled Eos % (Auto) Cancelled Baso % (Auto) Cancelled Lymph # (Auto) Cancelled [place] # (Auto) Cancelled Eos # (Auto) Cancelled Baso # (Auto) Cancelled Abs Immat Gran (auto) Cancelled Absolute Neuts (auto) Cancelled Absolute Nucleated RBC 0.000 Nucleated RBC % (auto) 0.0 Neutrophils % (Manual) 78 H Band Neutrophils % 2 L Lymphocytes % (Manual) 10 L Monocytes % (Manual) 9 Eosinophils % (Manual) 1 Abs Neuts (Manual) 5.4 Lymphocytes # (Manual) 0.7 L Monocytes # (Manual) 0.6 Eosinophils # (Manual) 0.1 Toxic Granulation Toxic Vacuolation PRESENT Platelet Estimate DECREASED Plt Morphology Comment NORMAL RBC Morphology NOTED Polychromasia 1+ (0-2) Hypochromasia 1+ (5-14) Microcytosis 2+ (15-30) Target Cells Simpson Cells 2+ (3-5) Schistocytes 1+ (0-2) PT INR Sodium 127 L Potassium 3.7 D Chloride 95 L Carbon Dioxide 21 L Anion Gap 15 BUN 15 Creatinine 0.49 L Estim Creat Clear Calc 92.7 Estimated GFR > 60 Random Glucose 96 Lactic Acid Calcium 7.3 L Phosphorus 2.9 Magnesium 1.7 Total Bilirubin 1.2 H Direct Bilirubin AST 43 H ALT 22 Alkaline Phosphatase 112 D Troponin I High Sens B-Natriuretic Peptide Total Protein 6.2 L Albumin 1.9 L Urine Color Urine Appearance Urine pH Ur Specific [place] Urine Protein Urine Glucose (UA) Urine Ketones Urine Blood Urine Nitrite Ur Leukocyte Esterase Urine RBC Urine WBC Ur Squamous Epith Cells Amorphous Sediment Urine Bacteria Ur Random Sodium < 20.0 Urine Test Ethyl Alcohol COVID-19 (SAJAN) COVID-19 Clin Com Hep B Core Total Ab Influenza Type A (JOEY) Influenza Type B (JOEY) Influenza A & B Note Blood Type Antibody Screen 05/29/22 10:04 WBC RBC Hgb Hct MCV MCH MCHC RDW Plt Count MPV Immature Gran % (Auto) Neut % (Auto) Lymph % (Auto) [place] % (Auto) Eos % (Auto) Baso % (Auto) Lymph # (Auto) [place] # (Auto) Eos # (Auto) Baso # (Auto) Abs Immat Gran (auto) Absolute Neuts (auto) Absolute Nucleated RBC Nucleated RBC % (auto) Neutrophils % (Manual) Band Neutrophils % Lymphocytes % (Manual) Monocytes % (Manual) Eosinophils % (Manual) Abs Neuts (Manual) Lymphocytes # (Manual) Monocytes # (Manual) Eosinophils # (Manual) Toxic Granulation Toxic Vacuolation Platelet Estimate Plt Morphology Comment RBC Morphology Polychromasia Hypochromasia Microcytosis Target Cells Dea Cells Schistocytes PT INR Sodium Potassium Chloride Carbon Dioxide Anion Gap BUN Creatinine Estim Creat Clear Calc Estimated GFR Random Glucose Lactic Acid Calcium Phosphorus Magnesium Total Bilirubin Direct Bilirubin AST ALT Alkaline Phosphatase Troponin I High Sens B-Natriuretic Peptide Total Protein Albumin Urine Color Urine Appearance Urine pH Ur Specific [place] Urine Protein Urine Glucose (UA) Urine Ketones Urine Blood Urine Nitrite Ur Leukocyte Esterase Urine RBC Urine WBC Ur Squamous Epith Cells Amorphous Sediment Urine Bacteria Ur Random Sodium Urine Test Ethyl Alcohol COVID-19 (SAJAN) COVID-19 Clin Com Hep B Core Total Ab Influenza Type A (JOEY) Influenza Type B (JOEY) Influenza A & B Note Blood Type O Positive Antibody Screen NEGATIVE Imaging Radiology Impressions: ITS Impressions Chest X-Ray 05/28/22 10:52 IMPRESSION: Large right pneumothorax with mediastinal shift to the left. This critical result was discussed with Dr. Barrett at 11:08 AM on May 28, 2022 and it was ascertained that the content and urgency of the report was understood at the time of direct communication. Chest X-Ray 05/28/22 12:29 IMPRESSION: Right-sided pigtail catheter placement. There has been some improvement to the large right-sided pneumothorax from earlier today with no longer shift of mediastinal structures. Still significant right-sided pneumothorax remaining. Chest X-Ray 05/28/22 12:52 IMPRESSION: Significant improved right-sided pneumothorax with new chest tube placement and significant reexpansion of the right lung. Moderate-sized pneumothorax remaining at the apex. Chest X-Ray 05/28/22 16:25 IMPRESSION: No change in a moderate right-sided pneumothorax. Retraction of the chest tube such that the side hole is in the soft tissues. Chest X-Ray 05/28/22 23:04 IMPRESSION: Moderate right pneumothorax without significant change from prior. Unchanged positioning of the chest tube with the side-port external to the thoracic cavity. Chest X-Ray 05/29/22 07:19 IMPRESSION: Small to moderate pneumothorax persists. There is moderate right subcutaneous emphysema. Right chest wall sidehole is in the right chest wall cavity and has retracted since the previous study of 05/28/2022 at 12:36 PM. Chest X-Ray 05/29/22 11:22 IMPRESSION: Previously seen right chest tube catheter has been replaced with a large bore right pigtail catheter its tip in the right lung apex. Moderate opacity right midlung and right lower lobe is stable. There are small cavitary lesions or cysts seen in right lung. Consider CT of chest for further evaluation as a baseline Mental Status Exam Mental Status Exam Patient Appearance: Disheveled (thin) Level of Consciousness: Drowsy Patient Behavior: Uncooperative (declining to speak) Medications Medications Current Medications Hydromorphone HCl (Hydromorphone Hcl 1 Mg/Ml Syringe) 1 mg IVPUSH Q2H PRN; Protocol PRN Reason: mild-mod pain Last Admin: 05/29/22 12:48 Dose: 1 mg Lactated Ringer's (Lr) 1,000 mls @ 100 mls/hr IVCONT .Q10H [facility] Last Admin: 05/29/22 11:40 Dose: Not Given Piperacillin Sod/Tazobactam (Sod 4.5 gm/ Sodium Chloride) 100 mls @ 200 mls/hr IV Q6H [facility] Last Infusion: 05/29/22 12:06 Dose: Infused Vancomycin HCl 500 mg/ Sodium (Chloride) 110 mls @ 110 mls/hr IV Q12H [facility] Last Infusion: 05/29/22 13:07 Dose: Infused Pharmacy Consult (Consult Rx Vancomycin Dosing) 1 each MISCELLANE DAILY PRN PRN Reason: Consult order Allergies Allergies Allergy/AdvReac Type Severity Reaction Status Date / Time fluoxetine [From PROZAC] Allergy Severe DELUSIONS Verified 12/13/20 00:25 Assessment & Plan Assessment & Plan (1) Opioid use disorder: Status: Acute Code(s): F11.90 - Opioid use, unspecified, uncomplicated Assessment and Plan: resume methadone at 30mg today, increase to 40mg tomorrow--please hold doses if patient is appearing sedated. will likely require decrease in frequency of dilaudid to minimize risk of resp depression will continue to follow. I spent __30____ minutes with the patient and/or on the patient floor today, greater than?50% of which was spent counseling/coordinating care. [facility] Past Medical History Medical History Asthma Hepatitis C carrier Kidney stones Social History Social History Household Members: Family Household Members Other:: brother Housing: House Do you presently have visiting nurse or other home services: No Alcohol intake: never Patient Tobacco Use Status: Never used Tobacco Use of substances other than those prescribed or required for medical reasons: Yes Substance Use Type: Crack/Cocaine and Heroin Substance Use Frequency: Daily Last Used Substance: Unknown Currently Displaying Signs/Symptoms of Drug Intoxication Withdrawal: No Any prior treatment program specific to substance use: Yes Have you been hit, kicked, punched, or otherwise hurt by someone within the past year? If so, by whom?: No Do you feel safe in your current relationship?: No Is there a partner from a previous relationship who is making you feel unsafe now?: No Are you made to feel afraid or neglected: No Advance Directives: No Advance Directives Information Provided: Yes Do you have thoughts of harming others: None Do you have a plan to hurt others: No Plan Recently lost weight without trying: Yes How much weight loss: Not applicable Eating poorly because of decreased appetite: Yes Nutrition screen score: 3 Nutrition Risks: Dental problems Patient : No : No Poor oral hygiene: No
--- NOTE | 2022-05-29 14:22 | P.PNCC_ITS ---
Subjective Subjective Date of Service: 05/29/22 Interval History: A 36-year-old rather cachectic and chronically ill looking 36-year-old female who longstanding IV drug abuse back in January had both staph and strep viridans bacteremia presents now with Gram-positive cocci in 2/2 blood cultures in good and in co in clusters presumably it will be a staph organism but currently on Zosyn and vancomycin and my bedside echo showed preserved LV and RV function but a room very large vegetation probably at least 2 cm in length on the and anterior tricuspid leaflet with at least moderately severe to severe tricuspid regurgitation but not requiring pressors hemodynamically has been stable with stable urine output currently anemic and thrombocytopenic probably all based on the sepsis but presented with a spontaneous pneumothorax and has a well draining pigtail chest tube on the right side with full re-expansion of the right lung and has diffuse bilateral infiltrates on chest x-ray unlikely if it representing bilateral septic emboli from this vegetation which can easily be proven via CT scan and therefore is going to require infectious disease follow-up and a a planned because of her IV drug abuse for access for long-term antibiotics at which will measure at least a 6-8 week course and to be followed by Cardiology because she will likely need tricuspid valve replacement and in addition is on a methadone program and which is somewhat of a joke a she presented with a mixture of cocaine fentanyl an opiate toxicity so clearly she is a exceeding the expectations her methadone program Critical Care Time (minutes): 60 Physical Exam Vital Signs: Vital Signs: Last Vital Signs Temp 100.6 F H 05/29/22 14:00 Pulse 109 H 05/29/22 14:00 Resp 37 H 05/29/22 14:00 BP 102/62 05/29/22 12:00 Pulse Ox 95 05/29/22 14:00 O2 Del Method 05/29/22 14:00 O2 Flow Rate 6 05/28/22 13:05 BMI result Body Mass Index 16.1 persistent sinus tachycardia rate 120 with the above echo findings awake alert and nonfocal neurologically no livedo in no peripheral acrocyanosis flat neck veins but adequate bilateral carotid upstrokes it tachypnea with some accessory muscle use but no complaints of dyspnea and coarse bilateral rales abdomen is soft no organomegaly Objective Data Labs CBC & Chem 7: 05/30/22 07:38 05/30/22 06:25 Labs: Laboratory Results - last 24 hr 05/28/22 05/28/22 05/28/22 13:23 19:00 19:00 WBC 9.5 RBC 3.93 L Hgb 9.4 L Hct 27.6 L MCV 70.2 L MCH 23.9 L MCHC 34.1 RDW 17.1 H Plt Count 23 L 27 L MPV Not Reportable Immature Gran % (Auto) Neut % (Auto) Lymph % (Auto) Morris % (Auto) Eos % (Auto) Baso % (Auto) Lymph # (Auto) Morris # (Auto) Eos # (Auto) Baso # (Auto) Abs Immat Gran (auto) Absolute Neuts (auto) Absolute Nucleated RBC 0.000 Nucleated RBC % (auto) 0.0 Neutrophils % (Manual) 83 H Band Neutrophils % 12 H Lymphocytes % (Manual) 3 L Monocytes % (Manual) 2 Eosinophils % (Manual) Abs Neuts (Manual) 8.6 H Lymphocytes # (Manual) 0.3 L Monocytes # (Manual) 0.2 Eosinophils # (Manual) Toxic Granulation PRESENT Toxic Vacuolation PRESENT Platelet Estimate DECREASED Plt Morphology Comment NORMAL RBC Morphology NOTED Polychromasia 1+ (0-2) Hypochromasia 1+ (5-14) Microcytosis 2+ (15-30) Target Cells 1+ (5-14) Dea Cells 2+ (3-5) Schistocytes 1+ (0-2) Sodium 125 L Potassium 3.0 L Chloride 91 L Carbon Dioxide 22 Anion Gap 15 BUN 22 H Creatinine 0.66 Estim Creat Clear Calc 68.8 Estimated GFR > 60 Random Glucose 218 H Calcium 7.4 L Phosphorus 2.0 L Magnesium 1.8 Total Bilirubin AST ALT Alkaline Phosphatase Total Protein Albumin Urine Color Urine Appearance Urine pH Ur Specific [place] Urine Protein Urine Glucose (UA) Urine Ketones Urine Blood Urine Nitrite Ur Leukocyte Esterase Urine RBC Urine WBC Ur Squamous Epith Cells Amorphous Sediment Urine Bacteria Ur Random Sodium Urine Test Hep B Core Total Ab Blood Type Antibody Screen 05/28/22 05/29/22 05/29/22 19:00 08:42 08:42 WBC RBC Hgb Hct MCV MCH MCHC RDW Plt Count MPV Immature Gran % (Auto) Neut % (Auto) Lymph % (Auto) Morris % (Auto) Eos % (Auto) Baso % (Auto) Lymph # (Auto) Morris # (Auto) Eos # (Auto) Baso # (Auto) Abs Immat Gran (auto) Absolute Neuts (auto) Absolute Nucleated RBC Nucleated RBC % (auto) Neutrophils % (Manual) Band Neutrophils % Lymphocytes % (Manual) Monocytes % (Manual) Eosinophils % (Manual) Abs Neuts (Manual) Lymphocytes # (Manual) Monocytes # (Manual) Eosinophils # (Manual) Toxic Granulation Toxic Vacuolation Platelet Estimate Plt Morphology Comment RBC Morphology Polychromasia Hypochromasia Microcytosis Target Cells [place] Cells Schistocytes Sodium Potassium Chloride Carbon Dioxide Anion Gap BUN Creatinine Estim Creat Clear Calc Estimated GFR Random Glucose Calcium Phosphorus Magnesium Total Bilirubin AST ALT Alkaline Phosphatase Total Protein Albumin Urine Color YELLOW Urine Appearance CLEAR Urine pH 6.0 Ur Specific [place] 1.020 Urine Protein 1+ H Urine Glucose (UA) 100 H Urine Ketones NEG Urine Blood TRACE Urine Nitrite NEG Ur Leukocyte Esterase NEG Urine RBC 0-2 Urine WBC 1-4 Ur Squamous Epith Cells 1+ Amorphous Sediment TRACE Urine Bacteria TRACE Ur Random Sodium Urine Test NEGATIVE Hep B Core Total Ab Nonreactive Blood Type Antibody Screen 05/29/22 05/29/22 05/29/22 08:42 10:04 10:04 WBC 6.7 RBC 4.84 D Hgb 11.8 L D Hct 34.4 L D MCV 71.1 L MCH 24.4 L MCHC 34.3 RDW 17.9 H Plt Count 21 L MPV Not Reportable Immature Gran % (Auto) Cancelled Neut % (Auto) Cancelled Lymph % (Auto) Cancelled Morris % (Auto) Cancelled Eos % (Auto) Cancelled Baso % (Auto) Cancelled Lymph # (Auto) Cancelled Morris # (Auto) Cancelled Eos # (Auto) Cancelled Baso # (Auto) Cancelled Abs Immat Gran (auto) Cancelled Absolute Neuts (auto) Cancelled Absolute Nucleated RBC 0.000 Nucleated RBC % (auto) 0.0 Neutrophils % (Manual) 78 H Band Neutrophils % 2 L Lymphocytes % (Manual) 10 L Monocytes % (Manual) 9 Eosinophils % (Manual) 1 Abs Neuts (Manual) 5.4 Lymphocytes # (Manual) 0.7 L Monocytes # (Manual) 0.6 Eosinophils # (Manual) 0.1 Toxic Granulation Toxic Vacuolation PRESENT Platelet Estimate DECREASED Plt Morphology Comment NORMAL RBC Morphology NOTED Polychromasia 1+ (0-2) Hypochromasia 1+ (5-14) Microcytosis 2+ (15-30) Target Cells Dea Cells 2+ (3-5) Schistocytes 1+ (0-2) Sodium 127 L Potassium 3.7 D Chloride 95 L Carbon Dioxide 21 L Anion Gap 15 BUN 15 Creatinine 0.49 L Estim Creat Clear Calc 92.7 Estimated GFR > 60 Random Glucose 96 Calcium 7.3 L Phosphorus 2.9 Magnesium 1.7 Total Bilirubin 1.2 H AST 43 H ALT 22 Alkaline Phosphatase 112 D Total Protein 6.2 L Albumin 1.9 L Urine Color Urine Appearance Urine pH Ur Specific [place] Urine Protein Urine Glucose (UA) Urine Ketones Urine Blood Urine Nitrite Ur Leukocyte Esterase Urine RBC Urine WBC Ur Squamous Epith Cells Amorphous Sediment Urine Bacteria Ur Random Sodium < 20.0 Urine Test Hep B Core Total Ab Blood Type Antibody Screen 05/29/22 10:04 WBC RBC Hgb Hct MCV MCH MCHC RDW Plt Count MPV Immature Gran % (Auto) Neut % (Auto) Lymph % (Auto) Morris % (Auto) Eos % (Auto) Baso % (Auto) Lymph # (Auto) Morris # (Auto) Eos # (Auto) Baso # (Auto) Abs Immat Gran (auto) Absolute Neuts (auto) Absolute Nucleated RBC Nucleated RBC % (auto) Neutrophils % (Manual) Band Neutrophils % Lymphocytes % (Manual) Monocytes % (Manual) Eosinophils % (Manual) Abs Neuts (Manual) Lymphocytes # (Manual) Monocytes # (Manual) Eosinophils # (Manual) Toxic Granulation Toxic Vacuolation Platelet Estimate Plt Morphology Comment RBC Morphology Polychromasia Hypochromasia Microcytosis Target Cells Dea Cells Schistocytes Sodium Potassium Chloride Carbon Dioxide Anion Gap BUN Creatinine Estim Creat Clear Calc Estimated GFR Random Glucose Calcium Phosphorus Magnesium Total Bilirubin AST ALT Alkaline Phosphatase Total Protein Albumin Urine Color Urine Appearance Urine pH Ur Specific [place] Urine Protein Urine Glucose (UA) Urine Ketones Urine Blood Urine Nitrite Ur Leukocyte Esterase Urine RBC Urine WBC Ur Squamous Epith Cells Amorphous Sediment Urine Bacteria Ur Random Sodium Urine Test Hep B Core Total Ab Blood Type O Positive Antibody Screen NEGATIVE Microbiology Microbiology Results: Microbiology 05/29/22 11:01 Thoracentesis Fluid Gram Stain - Final 05/28/22 13:23 Blood - Venous Blood Culture - Preliminary Prelim: GPC Gram Stain only 05/28/22 13:23 Blood - Venous Blood Culture - Preliminary Prelim: GPC Gram Stain only Progress Note: A&P Assessment and plan (1) Staphylococcal septicemia: Status: Acute (2) Endocarditis of tricuspid valve: Status: Acute (3) Septic pulmonary embolism: Status: Acute (4) Acute hypoxemic respiratory failure: Status: Acute Plan plan is to continue with double antibiotics until we get back a final sensitivity follow hemoglobin for any worsening anemia with hemoglobin less than 7 and needs to be followed by a substance use disorder program will probably need a PICC line and also follow-up by the thoracic Surgical Department in relation to the chest tube to determine when it is safe to pull and then cardiology follow-up obviously to determine need for tricuspid valve replacement Quality Stroke Does the patient have a stroke diagnosis?: No VTE Prior VTE?: No VTE Risk Level:: Medical - low VTE Device Contraindication: Treatment Not Indicated VTE Drug Contraindication: Treatment Not Indicated
--- NOTE | 2022-05-29 16:38 | P.CONGS_ITS ---
History of Present Illness Consult details Consult date: 05/29/22 Narrative: Patient is a 36-year-old female with a past medical history of IVDA, asthma, kidney stones, hepatitis C, bipolar disorder, who presented to the emergency department yesterday complaining of shortness of breath and chest pain x1 week subsequently found to have a large right-sided spontaneous pneumothorax. A rig ht-sided pigtail catheter was placed in ED with follow-up chest x-ray revealing only small improvement. A large bore 24 [place] chest tube was then placed. Yesterday evening it was noted by ICU welding pantograph operator that the proximal port hole was sticking out of the chest cavity and a occlusive dressing was put over place. Thoracic surgery was consulted for management of right-sided pneumothorax and chest tube. During my examination with patient this afternoon due to the fact that her right sided chest tube had proximal port holes out of chest cavity and after obtaining verbal and written consent from patient and after thoroughly cleansing area with chlorhexidine, chest tube site was anesthetized with 1% lidocaine approximately 3 cc, her right-sided large bore chest tube was clamped and cut distally. I then placed a guidewire through large bore chest tube, subsequently removing large bore chest tube and replacing it with a pigtail catheter over guidewire. This chest tube was secured with 0 silk sutures and clean dry dressing in place.This procedure was performed under supervision of ICU welding pantograph operator Dr. Spencer. Chest tube was then attached to -20 low wall suction with minimal serosanguineous fluid output, there continues to be a +2 detectable air leak which is continuous and worse with exhalation. Pleural fluid was sent for analysis and culture with preliminary results positive for gram-positive cocci.A repeat chest x-ray showed full reexpansion of right-sided pneumothorax s/p pigtail catheter placement. Currently on IV vancomycin and Zosyn. Patient denies any shortness of breath at rest and has not yet exerted herself out of bed. She denies any fevers or chills does state that she has pain surrounding her chest tube site. Remaining 10 point review of systems negative at this time. [facility] Past Medical History Medical History Asthma Hepatitis C carrier Kidney stones Social History Social History Household Members: Family Household Members Other:: brother Housing: House Do you presently have visiting nurse or other home services: No Alcohol intake: never Patient Tobacco Use Status: Never used Tobacco Use of substances other than those prescribed or required for medical reasons: Yes Substance Use Type: Crack/Cocaine and Heroin Substance Use Frequency: Daily Last Used Substance: Unknown Currently Displaying Signs/Symptoms of Drug Intoxication Withdrawal: No Any prior treatment program specific to substance use: Yes Have you been hit, kicked, punched, or otherwise hurt by someone within the past year? If so, by whom?: No Do you feel safe in your current relationship?: No Is there a partner from a previous relationship who is making you feel unsafe now?: No Are you made to feel afraid or neglected: No Advance Directives: No Advance Directives Information Provided: Yes Do you have thoughts of harming others: None Do you have a plan to hurt others: No Plan Recently lost weight without trying: Yes How much weight loss: Not applicable Eating poorly because of decreased appetite: Yes Nutrition screen score: 3 Nutrition Risks: Dental problems Patient : No : No Poor oral hygiene: No Meds Allergies Allergy/AdvReac Type Severity Reaction Status Date / Time fluoxetine [From PROZAC] Allergy Severe DELUSIONS Verified 12/13/20 00:25 Active Medications: Current Medications Hydromorphone HCl (Hydromorphone Hcl 1 Mg/Ml Syringe) 1 mg IVPUSH 8XD PRN; Protocol PRN Reason: Pain, Severe (Pain Scale 7-10) Last Admin: 05/29/22 14:55 Dose: 1 mg Lactated Ringer's (Lr) 1,000 mls @ 100 mls/hr IVCONT .Q10H [facility] Last Admin: 05/29/22 11:40 Dose: Not Given Piperacillin Sod/Tazobactam (Sod 4.5 gm/ Sodium Chloride) 100 mls @ 200 mls/hr IV Q6H [facility] Last Infusion: 05/29/22 12:06 Dose: Infused Vancomycin HCl 500 mg/ Sodium (Chloride) 110 mls @ 110 mls/hr IV Q12H [facility] Last Infusion: 05/29/22 13:07 Dose: Infused Pharmacy Consult (Consult Rx Vancomycin Dosing) 1 each MISCELLANE DAILY PRN PRN Reason: Consult order Home Medications Medication Instructions Recorded Confirmed Last Taken Type chlorpromazine 50 mg tablet 50 mg PO DAILY 05/28/22 05/28/22 Unknown History methadone 10 mg/mL oral 60 mg PO DAILY 05/28/22 05/28/22 Unknown History concentrate (Methadone Intensol) prazosin 2 mg capsule 2 mg PO BEDTIME 05/28/22 05/28/22 Unknown History trazodone 100 mg tablet 200 mg PO BEDTIME 05/28/22 05/28/22 Unknown History Physical Exam Vital Signs: Vital Signs: Last Vital Signs Temp 101.7 F H 05/29/22 16:00 Pulse 128 H 05/29/22 16:00 Resp 26 H 05/29/22 16:00 BP 100/65 05/29/22 16:00 Pulse Ox 94 05/29/22 16:00 O2 Del Method 05/29/22 16:00 O2 Flow Rate 6 05/28/22 13:05 BMI result Body Mass Index 16.1 Const: Other: Alert and oriented x3 with toxic appearance Orientation/consciousness: patient oriented x3 HEENT: Head: Yes normal to inspection Eyes: General: appearance normal, both eyes and all related structures Neck: Neck: Yes trachea midline and Yes no JVD Chest: Other: Right-sided pigtail catheter remains secure with dressing clean dry and intact. No detectable subcutaneous emphysema along chest wall. Chest tube remains attached to -20 low wall suction with a +2 air leak and minimal serosanguineous fluid output. Resp: Other: Breath sounds are clear/diminished bilaterally throughout all lung chung. Cardio: Rate: regular rate Rhythm: regular rhythm Heart sounds: S1 normal heart sound present and S2 normal heart sound present GI: Inspection: Yes normal to inspection Palpation (GI): Soft to palpation and nontender Percussion: Yes normal to percussion Neuro: General: patient oriented x3 Extrem: General: Yes normal to inspection Results Labs Result diagrams: 05/29/22 10:04 05/29/22 10:04 Labs: Abnormal lab results 05/28/22 05/28/22 05/29/22 Range/Units 19:00 19:00 08:42 RBC 3.93 L (4.20-5.50) X10*6/uL Hgb 9.4 L (12.0-16.0) g/dl Hct 27.6 L (37.0-47.0) % MCV 70.2 L (80.0-98.0) fL MCH 23.9 L (27.0-33.0) pg RDW 17.1 H (11.0-16.0) % Plt Count 27 L (160-400) X10*3/uL Neutrophils % (Manual) (45-73) % Band Neutrophils % (3-5) % Lymphocytes % (Manual) (20-40) % Lymphocytes # (Manual) (1.2-4.9) X10*3/uL Sodium 125 L (135-145) mmol/L Potassium 3.0 L (3.3-5.1) mmol/L Chloride 91 L (96-108) mmol/L Carbon Dioxide (22-29) mmol/L BUN 22 H (9-16) mg/dL Creatinine (0.5-1.4) mg/dL Random Glucose 218 H (60-115) mg/dL Calcium 7.4 L (8.4-10.2) mg/dL Phosphorus 2.0 L (2.7-4.5) mg/dL Total Bilirubin (0.0-1.0) mg/dL AST (5-31) U/L Total Protein (6.5-8.0) g/dL Albumin (3.5-5.0) g/dL Urine Protein 1+ H (NEG-TRACE) MG/DL Urine Glucose (UA) 100 H (NEG) MG/DL 05/29/22 05/29/22 Range/Units 10:04 10:04 RBC (4.20-5.50) X10*6/uL Hgb 11.8 L D (12.0-16.0) g/dl Hct 34.4 L D (37.0-47.0) % MCV 71.1 L (80.0-98.0) fL MCH 24.4 L (27.0-33.0) pg RDW 17.9 H (11.0-16.0) % Plt Count 21 L (160-400) X10*3/uL Neutrophils % (Manual) 78 H (45-73) % Band Neutrophils % 2 L (3-5) % Lymphocytes % (Manual) 10 L (20-40) % Lymphocytes # (Manual) 0.7 L (1.2-4.9) X10*3/uL Sodium 127 L (135-145) mmol/L Potassium (3.3-5.1) mmol/L Chloride 95 L (96-108) mmol/L Carbon Dioxide 21 L (22-29) mmol/L BUN (9-16) mg/dL Creatinine 0.49 L (0.5-1.4) mg/dL Random Glucose (60-115) mg/dL Calcium 7.3 L (8.4-10.2) mg/dL Phosphorus (2.7-4.5) mg/dL Total Bilirubin 1.2 H (0.0-1.0) mg/dL AST 43 H (5-31) U/L Total Protein 6.2 L (6.5-8.0) g/dL Albumin 1.9 L (3.5-5.0) g/dL Urine Protein (NEG-TRACE) MG/DL Urine Glucose (UA) (NEG) MG/DL Short CBC 05/28/22 05/29/22 Range/Units 19:00 10:04 WBC 9.5 6.7 (4.8-10.8) X10*3/uL Hgb 9.4 L 11.8 L D (12.0-16.0) g/dl Hct 27.6 L 34.4 L D (37.0-47.0) % Plt Count 27 L 21 L (160-400) X10*3/uL BMP 05/28/22 05/29/22 19:00 10:04 Sodium 125 L 127 L Potassium 3.0 L 3.7 D Chloride 91 L 95 L Carbon Dioxide 22 21 L BUN 22 H 15 Creatinine 0.66 0.49 L Calcium 7.4 L 7.3 L Liver Function 05/29/22 Range/Units 10:04 Total Bilirubin 1.2 H (0.0-1.0) mg/dL AST 43 H (5-31) U/L ALT 22 (0-31) U/L Alkaline Phosphatase 112 D (39-117) U/L Albumin 1.9 L (3.5-5.0) g/dL Urine 05/29/22 05/29/22 Range/Units 08:42 08:42 Urine Color YELLOW Urine Appearance CLEAR Urine pH 6.0 (5.0-8.0) Ur Specific [place] 1.020 (1.005-1.025) Urine Protein 1+ H (NEG-TRACE) MG/DL Urine Glucose (UA) 100 H (NEG) MG/DL Urine Test NEGATIVE (NEGATIVE) All other labs normal. Assessment and Plan (1) Tension pneumothorax, spontaneous: Status: Acute Plan Patient is a 36-year-old female with a past medical history of IVDA amongst others who presented to [facility] with a large right-sided spontaneous pneumothorax for which thoracic surgery was consulted for.. Her right-sided large bore chest tube was interchanged with a pigtail catheter on 05/29 resulting in full reexpansion of right-sided pneumothorax. Right-sided pigtail catheter to remain on -20 low wall suction throughout today and overnight. There is a detectable +2 air leak. Repeat chest x-ray tomorrow a.m. Patient should use incentive spirometry and flutter valve device for pulmonary toilet. Should be OOB in chair for all meals. Procedures Date of Service Date of Service: 05/29/22
[2022-05-29] MEDS: methADONE HCl 20 MG/2 ML ORAL.CONC 30 MG PO (16:50)
--- NOTE | 2022-05-29 18:11 | PC.NURSE ---
CHEST TUBE REPLACED BY THORACIC PA. MEDICATED WITH PRN DILAUDID PRIOR TO PLACEMENT AND PROPOFOL ADMINISTERED BY MD DURING PROCEDURE. TOLERATED PROCEDURE FAIRLY. METHADONE 30 MG ADMINISTERED WITH SOME EFFECT AT THIS TIME - PATIENT OCCASIONALLY BECOMING RESTLESS/ANXIOUS.
[2022-05-29] MEDS: Albumin Human 25 % 100 ML IV ×3 (21:26→23:21)
[2022-05-29] MEDS: 0.9 % Sodium Chloride 1,000 ML 100 ML IVCONT (21:27)
[2022-05-30] VITALS (18 sets, daily range): BP systolic 111–131; BP diastolic 67–83; PULSE 103–125; RESP 17–45; TEMP 37.3–38.7; O2SAT 92–93
[2022-05-30] MEDS: HYDROmorphone HCl 1 MG/ML SYRINGE IVPUSH ×6 (02:54→22:14)
[2022-05-30] MEDS: Piperacillin Sodium/Tazobactam 4.5 GM in 0.9 % Sodium Chloride 100 ML IV (05:30)
--- NOTE | 2022-05-30 06:58 | HE.PHANOTE ---
Methadone Called ICU, methadone doses have been recommended by Jodi Aguiar
[2022-05-30] MEDS: 0.9 % Sodium Chloride 1,000 ML 100 ML IVCONT ×2 (07:00→18:10)
[2022-05-30 07:11] LABS: Hematocrit 21.2 % (37.0-47.0); Mean Corpuscular Hemoglobin 23.8 pg (27.0-33.0); Mean Corpuscular Volume 72.1 fL (80.0-98.0); Red Blood Count 2.94 X10*6/uL (4.20-5.50); Red Cell Distribution Width 17.5 % (11.0-16.0); White Blood Count 7.3 X10*3/uL (4.8-10.8)
[2022-05-30 07:13] LABS: Platelet Count 37 X10*3/uL (160-400)
[2022-05-30 07:28] LABS: Alanine Aminotransferase 15 U/L (0-31); Albumin Level 2.5 g/dL (3.5-5.0); Alkaline Phosphatase 73 U/L (39-117); Anion Gap 14 (12-20); Aspartate Amino Transferase 26 U/L (5-31); Bilirubin Total 0.9 mg/dL (0.0-1.0); Blood Urea Nitrogen 11 mg/dL (9-16); Calcium 7.6 mg/dL (8.4-10.2); Carbon Dioxide 26 mmol/L (22-29); Chloride 96 mmol/L (96-108); Creatinine Clr Calc Pharmacy 98.7; Estimated Glomerular Filt Rate > 60; Glucose Random 100 mg/dL (60-115); Potassium 3.7 mmol/L (3.3-5.1); Sodium 132 mmol/L (135-145); Total Protein 5.5 g/dL (6.5-8.0); Vancomycin Random < 3.0 mcg/mL (15-20)
[2022-05-30 07:46] LABS: Hematocrit 21.6 % (37.0-47.0); Hemoglobin 7.2 g/dl (12.0-16.0)
--- NOTE | 2022-05-30 08:13 | P.PNCC_ITS ---
Subjective Subjective Date of Service: 05/30/22 Interval History: 36-year-old cachectic-appearing IV drug abuser with tricuspid endocarditis and bilateral septic embolization to the lungs with hypoxemic respiratory failure and spontaneous right-sided pneumothorax now relieved with pigtail chest tube on double antibiotics pending results of final blood culture but 2/2 cultures with Gram-positive cocci in clusters and presumably Staph still not requiring pressors only on nasal cannula less tachypnea less sinus tachycardia and has a hemoglobin of 7.2 but bearing in mind that her average hemoglobins were 8.7-9 with once poor E is value of 11.8 so were following and she is on a methadone maintenance program utilizing p.r.n. Dilaudid with diminishing frequency because of the presence of the chest tube and pneumothorax being followed by the his substance use disorder at Department needs follow-up because of the minimum 6 week requirement for antibiotics by Infectious Disease and will in addition probably require Cardiology follow-up because of the size of the tricuspid vegetation and the degree of tricuspid insufficiency Critical Care Time (minutes): 45 Physical Exam Vital Signs: Vital Signs: Last Vital Signs Temp 101 F H 05/30/22 07:00 Pulse 109 H 05/30/22 07:00 Resp 35 H 05/30/22 07:00 BP 121/67 05/30/22 06:28 Pulse Ox 92 05/30/22 06:28 O2 Del Method 05/30/22 06:28 O2 Flow Rate 6 05/28/22 13:05 BMI result Body Mass Index 16.1 unchanged and awake and alert and nonfocal cardiovascular by echo as described diminished accessory muscle use no diaphragmatic effort no adventitious sounds abdomen soft and tolerating feedings with no organomegaly no acrocyanosis Objective Data Labs CBC & Chem 7: 05/30/22 07:38 05/30/22 06:25 Labs: Laboratory Results - last 24 hr 05/29/22 05/29/22 05/29/22 08:42 08:42 08:42 WBC RBC Hgb Hct MCV MCH MCHC RDW Plt Count MPV Immature Gran % (Auto) Neut % (Auto) Lymph % (Auto) [place] % (Auto) Eos % (Auto) Baso % (Auto) Lymph # (Auto) [place] # (Auto) Eos # (Auto) Baso # (Auto) Abs Immat Gran (auto) Absolute Neuts (auto) Absolute Nucleated RBC Nucleated RBC % (auto) Neutrophils % (Manual) Band Neutrophils % Lymphocytes % (Manual) Monocytes % (Manual) Eosinophils % (Manual) Abs Neuts (Manual) Lymphocytes # (Manual) Monocytes # (Manual) Eosinophils # (Manual) Toxic Vacuolation Platelet Estimate Plt Morphology Comment RBC Morphology Polychromasia Hypochromasia Microcytosis [place] Cells Schistocytes Sodium Potassium Chloride Carbon Dioxide Anion Gap BUN Creatinine Estim Creat Clear Calc Estimated GFR Random Glucose Calcium Phosphorus Magnesium Total Bilirubin AST ALT Alkaline Phosphatase Total Protein Albumin Urine Color YELLOW Urine Appearance CLEAR Urine pH 6.0 Ur Specific [place] 1.020 Urine Protein 1+ H Urine Glucose (UA) 100 H Urine Ketones NEG Urine Blood TRACE Urine Nitrite NEG Ur Leukocyte Esterase NEG Urine RBC 0-2 Urine WBC 1-4 Ur Squamous Epith Cells 1+ Amorphous Sediment TRACE Urine Bacteria TRACE Ur Random Sodium < 20.0 Urine Test NEGATIVE Random Vancomycin Blood Type Antibody Screen 05/29/22 05/29/22 05/29/22 10:04 10:04 10:04 WBC 6.7 RBC 4.84 D Hgb 11.8 L D Hct 34.4 L D MCV 71.1 L MCH 24.4 L MCHC 34.3 RDW 17.9 H Plt Count 21 L MPV Not Reportable Immature Gran % (Auto) Cancelled Neut % (Auto) Cancelled Lymph % (Auto) Cancelled [place] % (Auto) Cancelled Eos % (Auto) Cancelled Baso % (Auto) Cancelled Lymph # (Auto) Cancelled [place] # (Auto) Cancelled Eos # (Auto) Cancelled Baso # (Auto) Cancelled Abs Immat Gran (auto) Cancelled Absolute Neuts (auto) Cancelled Absolute Nucleated RBC 0.000 Nucleated RBC % (auto) 0.0 Neutrophils % (Manual) 78 H Band Neutrophils % 2 L Lymphocytes % (Manual) 10 L Monocytes % (Manual) 9 Eosinophils % (Manual) 1 Abs Neuts (Manual) 5.4 Lymphocytes # (Manual) 0.7 L Monocytes # (Manual) 0.6 Eosinophils # (Manual) 0.1 Toxic Vacuolation PRESENT Platelet Estimate DECREASED Plt Morphology Comment NORMAL RBC Morphology NOTED Polychromasia 1+ (0-2) Hypochromasia 1+ (5-14) Microcytosis 2+ (15-30) [place] Cells 2+ (3-5) Schistocytes 1+ (0-2) Sodium 127 L Potassium 3.7 D Chloride 95 L Carbon Dioxide 21 L Anion Gap 15 BUN 15 Creatinine 0.49 L Estim Creat Clear Calc 92.7 Estimated GFR > 60 Random Glucose 96 Calcium 7.3 L Phosphorus 2.9 Magnesium 1.7 Total Bilirubin 1.2 H AST 43 H ALT 22 Alkaline Phosphatase 112 D Total Protein 6.2 L Albumin 1.9 L Urine Color Urine Appearance Urine pH Ur Specific [place] Urine Protein Urine Glucose (UA) Urine Ketones Urine Blood Urine Nitrite Ur Leukocyte Esterase Urine RBC Urine WBC Ur Squamous Epith Cells Amorphous Sediment Urine Bacteria Ur Random Sodium Urine Test Random Vancomycin Blood Type O Positive Antibody Screen NEGATIVE 05/30/22 05/30/22 05/30/22 06:25 06:25 06:25 WBC 7.3 RBC 2.94 L D Hgb 7.0 L* D Hct 21.2 L D MCV 72.1 L MCH 23.8 L MCHC 33.0 RDW 17.5 H Plt Count 37 L D MPV Not Reportable Immature Gran % (Auto) Cancelled Neut % (Auto) Cancelled Lymph % (Auto) Cancelled [place] % (Auto) Cancelled Eos % (Auto) Cancelled Baso % (Auto) Cancelled Lymph # (Auto) Cancelled [place] # (Auto) Cancelled Eos # (Auto) Cancelled Baso # (Auto) Cancelled Abs Immat Gran (auto) Cancelled Absolute Neuts (auto) Cancelled Absolute Nucleated RBC 0.000 Nucleated RBC % (auto) 0.0 Neutrophils % (Manual) Band Neutrophils % Lymphocytes % (Manual) Monocytes % (Manual) Eosinophils % (Manual) Abs Neuts (Manual) Lymphocytes # (Manual) Monocytes # (Manual) Eosinophils # (Manual) Toxic Vacuolation Platelet Estimate Plt Morphology Comment RBC Morphology Polychromasia Hypochromasia Microcytosis [place] Cells Schistocytes Sodium 132 L Potassium 3.7 Chloride 96 Carbon Dioxide 26 Anion Gap 14 BUN 11 Creatinine 0.46 L Estim Creat Clear Calc 98.7 Estimated GFR > 60 Random Glucose 100 Calcium 7.6 L Phosphorus Magnesium Total Bilirubin 0.9 AST 26 ALT 15 Alkaline Phosphatase 73 D Total Protein 5.5 L Albumin 2.5 L D Urine Color Urine Appearance Urine pH Ur Specific [place] Urine Protein Urine Glucose (UA) Urine Ketones Urine Blood Urine Nitrite Ur Leukocyte Esterase Urine RBC Urine WBC Ur Squamous Epith Cells Amorphous Sediment Urine Bacteria Ur Random Sodium Urine Test Random Vancomycin < 3.0 L Blood Type Antibody Screen 05/30/22 07:38 WBC RBC Hgb 7.2 L Hct 21.6 L MCV MCH MCHC RDW Plt Count MPV Immature Gran % (Auto) Neut % (Auto) Lymph % (Auto) [place] % (Auto) Eos % (Auto) Baso % (Auto) Lymph # (Auto) [place] # (Auto) Eos # (Auto) Baso # (Auto) Abs Immat Gran (auto) Absolute Neuts (auto) Absolute Nucleated RBC Nucleated RBC % (auto) Neutrophils % (Manual) Band Neutrophils % Lymphocytes % (Manual) Monocytes % (Manual) Eosinophils % (Manual) Abs Neuts (Manual) Lymphocytes # (Manual) Monocytes # (Manual) Eosinophils # (Manual) Toxic Vacuolation Platelet Estimate Plt Morphology Comment RBC Morphology Polychromasia Hypochromasia Microcytosis [place] Cells Schistocytes Sodium Potassium Chloride Carbon Dioxide Anion Gap BUN Creatinine Estim Creat Clear Calc Estimated GFR Random Glucose Calcium Phosphorus Magnesium Total Bilirubin AST ALT Alkaline Phosphatase Total Protein Albumin Urine Color Urine Appearance Urine pH Ur Specific [place] Urine Protein Urine Glucose (UA) Urine Ketones Urine Blood Urine Nitrite Ur Leukocyte Esterase Urine RBC Urine WBC Ur Squamous Epith Cells Amorphous Sediment Urine Bacteria Ur Random Sodium Urine Test Random Vancomycin Blood Type Antibody Screen Microbiology Microbiology Results: Microbiology 05/29/22 11:01 Thoracentesis Fluid Gram Stain - Final 05/29/22 11:01 Thoracentesis Fluid Body Fluid Culture - Preliminary Staphylococcus species 05/28/22 13:23 Blood - Venous Blood Culture - Preliminary Prelim: GPC Gram Stain only 05/28/22 13:23 Blood - Venous Blood Culture - Preliminary Prelim: GPC Gram Stain only Progress Note: A&P Assessment and plan (1) Acute hypoxemic respiratory failure: Status: Acute (2) Septic pulmonary embolism: Status: Acute (3) Endocarditis of tricuspid valve: Status: Acute (4) Staphylococcal septicemia: Status: Acute (5) Opioid use disorder: Status: Acute (6) Bacteremia due to Gram-positive bacteria: Status: Acute (7) Tension pneumothorax, spontaneous: Status: Acute (8) Substance abuse: Status: Acute (9) Acute hyponatremia: Status: Acute (10) Elevated LFTs: Status: Acute (11) Coagulopathy: Status: Acute (12) Thrombocytopenia: Status: Acute (13) Bandemia: Status: Acute Plan stable from ICU standpoint and awaiting transfer to regular med surge floor for longer-term care and substance use follow-up with Infectious Disease and Cardiology Quality Stroke Does the patient have a stroke diagnosis?: No VTE Prior VTE?: No VTE Risk Level:: Medical - low VTE Device Contraindication: Treatment Not Indicated VTE Drug Contraindication: Treatment Not Indicated
--- NOTE | 2022-05-30 08:25 | HE.PHANOTE ---
Methadone Confirmation done by Harsh Francis received; confirmed with Lopez at [facility] in [place]. Last confirmed dose was 05/19/22 at 60mg.
[2022-05-30] MEDS: methADONE HCl 20 MG/2 ML ORAL.CONC 40 MG PO (08:41)
[2022-05-30 08:49] LABS: Atypical Lymph Absolute Manual 0.1 x10*3/uL; Atypical Lymphs Percent Manual 2 % (0-6); Band Neutrophils Percent 0 % (3-5); Eosinophils Absolute Manual 0.1 X10*3/uL (0.0-0.4); Eosinophils Percent Manual 1 % (0-4); Lymphocytes Absolute Manual 1.4 X10*3/uL (1.2-4.9); Lymphocytes Percent Manual 19 % (20-40); Monocytes Absolute Manual 0.1 X10*3/uL (0.1-1.2); Monocytes Percent Manual 2 % (2-11); Neutrophils Absolute Manual 5.5 X10*3/uL (2.0-8.3); Neutrophils Percent Manual 76 % (45-73)
[2022-05-30 08:53] LABS: Hypochromasia 1+ (5-14) /OIF; Microcytosis 1+ (5-14) /OIF; Platelet Estimate DECREASED (NORMAL); RBC Morphology NOTED
[2022-05-30 08:54] LABS: Platelet Morphology Comment NORMAL
--- NOTE | 2022-05-30 08:54 | HE.PHANOTE ---
RE ANTHONY Patient's trough returned back <3.0, undectable. Patient is small and their creatinine clearance is not an accurate predictor of their renal function. We will reload the patient and change the maintenance dose to 750mg q8h, next trough 05/31 @0700
[2022-05-30] MEDS: vancomycin HCL 1,000 MG in 0.9 % Sodium Chloride 250 ML 270 MG IV (08:57)
--- NOTE | 2022-05-30 15:18 | P.PNADD_ITS ---
Subjective Subjective Date of Service: 05/30/22 Reason For Visit: Right Pneumothorax Interim History: Patient seen in follow up. Awake, alert, engaged in interview. Anxious affect, reporting discomfort/pain--but able to participate in interview. Reporting she had recently started treatment at [facility] and was at 60mg daily dose. Had missed several days due feeling ill and difficulty walking. She states she had been using 3-5 bags of heroin daily and cocaine as well---she identifies cocaine as more of an issue for her. Received methadone 40mg today, and has PRN dialudid for pain. Denies any withdrawal symptoms. Would like to continue dose titration Reports history of methadone treatment with dose being up to 90mg QD Review of Systems Acute medical concerns: Yes Review of Systems: as per HPI Diagnostics Vital Signs (24Hr): Vital Signs - 24 hr 05/29/22 16:57 05/29/22 16:00 05/29/22 18:00 Temperature 102.0 F H 101.7 F H 102.0 F H Pulse Rate 125 H 128 H 111 H Respiratory Rate 24 H 26 H 32 H Blood Pressure 113/62 100/65 Pulse Oximetry 98 94 98 Oxygen Delivery Method Room Air Room Air Room Air 05/29/22 20:00 05/29/22 21:00 05/29/22 22:00 Temperature 102.7 F H 102.2 F H 102.0 F H Pulse Rate 112 H 127 H 120 H Respiratory Rate 32 H 32 H 33 H Blood Pressure 111/73 123/75 Pulse Oximetry 95 Oxygen Delivery Method Room Air Room Air 05/29/22 23:00 05/30/22 00:00 05/30/22 01:00 Temperature 102.0 F H 101.5 F H 101.3 F H Pulse Rate 120 H 117 H 112 H Respiratory Rate 33 H 33 H 33 H Blood Pressure Pulse Oximetry Oxygen Delivery Method Room Air Room Air Room Air 05/29/22 23:35 05/30/22 02:00 05/30/22 04:00 Temperature 101.1 F H 101.5 F H Pulse Rate 108 H 119 H Respiratory Rate 26 H 33 H 34 H Blood Pressure Pulse Oximetry Oxygen Delivery Method Room Air Room Air 05/30/22 05:00 05/30/22 06:00 05/30/22 02:46 Temperature 101.7 F H 101.1 F H Pulse Rate 114 H 111 H 110 H Respiratory Rate 35 H 40 H 32 H Blood Pressure 111/70 Pulse Oximetry 92 Oxygen Delivery Method Room Air Room Air Room Air 05/30/22 02:54 05/30/22 06:28 05/30/22 07:00 Temperature 101.5 F H 101 F H Pulse Rate 112 H 109 H Respiratory Rate 28 H 42 H 35 H Blood Pressure 121/67 Pulse Oximetry 92 Oxygen Delivery Method Room Air 05/30/22 08:00 05/30/22 09:00 05/30/22 11:08 Temperature Pulse Rate 120 H 120 H Respiratory Rate 37 H 45 H 24 H Blood Pressure Pulse Oximetry Oxygen Delivery Method 05/30/22 12:00 05/30/22 14:08 Temperature Pulse Rate 103 H Respiratory Rate 31 H Blood Pressure Pulse Oximetry Oxygen Delivery Method BMI result Body Mass Index 16.1 Labs Results: 05/30/22 07:38 05/30/22 06:25 Labs: Laboratory Results - last 48 hr 05/28/22 05/28/22 05/28/22 19:00 19:00 19:00 WBC 9.5 RBC 3.93 L Hgb 9.4 L Hct 27.6 L MCV 70.2 L MCH 23.9 L MCHC 34.1 RDW 17.1 H Plt Count 27 L MPV Not Reportable Immature Gran % (Auto) Neut % (Auto) Lymph % (Auto) [place] % (Auto) Eos % (Auto) Baso % (Auto) Lymph # (Auto) [place] # (Auto) Eos # (Auto) Baso # (Auto) Abs Immat Gran (auto) Absolute Neuts (auto) Absolute Nucleated RBC 0.000 Nucleated RBC % (auto) 0.0 Neutrophils % (Manual) Band Neutrophils % Lymphocytes % (Manual) Atypical Lymphs % (Man) Monocytes % (Manual) Eosinophils % (Manual) Abs Neuts (Manual) Lymphocytes # (Manual) Atyp Lymphs # (Manual) Monocytes # (Manual) Eosinophils # (Manual) Toxic Vacuolation Platelet Estimate Plt Morphology Comment RBC Morphology Polychromasia Hypochromasia Microcytosis [place] Cells Schistocytes Sodium 125 L Potassium 3.0 L Chloride 91 L Carbon Dioxide 22 Anion Gap 15 BUN 22 H Creatinine 0.66 Estim Creat Clear Calc 68.8 Estimated GFR > 60 Random Glucose 218 H Calcium 7.4 L Phosphorus 2.0 L Magnesium 1.8 Total Bilirubin AST ALT Alkaline Phosphatase Total Protein Albumin Urine Color Urine Appearance Urine pH Ur Specific [place] Urine Protein Urine Glucose (UA) Urine Ketones Urine Blood Urine Nitrite Ur Leukocyte Esterase Urine RBC Urine WBC Ur Squamous Epith Cells Amorphous Sediment Urine Bacteria Ur Random Sodium Urine Test Random Vancomycin Hep B Core Total Ab Nonreactive Blood Type Antibody Screen 05/29/22 05/29/22 05/29/22 08:42 08:42 08:42 WBC RBC Hgb Hct MCV MCH MCHC RDW Plt Count MPV Immature Gran % (Auto) Neut % (Auto) Lymph % (Auto) [place] % (Auto) Eos % (Auto) Baso % (Auto) Lymph # (Auto) [place] # (Auto) Eos # (Auto) Baso # (Auto) Abs Immat Gran (auto) Absolute Neuts (auto) Absolute Nucleated RBC Nucleated RBC % (auto) Neutrophils % (Manual) Band Neutrophils % Lymphocytes % (Manual) Atypical Lymphs % (Man) Monocytes % (Manual) Eosinophils % (Manual) Abs Neuts (Manual) Lymphocytes # (Manual) Atyp Lymphs # (Manual) Monocytes # (Manual) Eosinophils # (Manual) Toxic Vacuolation Platelet Estimate Plt Morphology Comment RBC Morphology Polychromasia Hypochromasia Microcytosis [place] Cells Schistocytes Sodium Potassium Chloride Carbon Dioxide Anion Gap BUN Creatinine Estim Creat Clear Calc Estimated GFR Random Glucose Calcium Phosphorus Magnesium Total Bilirubin AST ALT Alkaline Phosphatase Total Protein Albumin Urine Color YELLOW Urine Appearance CLEAR Urine pH 6.0 Ur Specific [place] 1.020 Urine Protein 1+ H Urine Glucose (UA) 100 H Urine Ketones NEG Urine Blood TRACE Urine Nitrite NEG Ur Leukocyte Esterase NEG Urine RBC 0-2 Urine WBC 1-4 Ur Squamous Epith Cells 1+ Amorphous Sediment TRACE Urine Bacteria TRACE Ur Random Sodium < 20.0 Urine Test NEGATIVE Random Vancomycin Hep B Core Total Ab Blood Type Antibody Screen 05/29/22 05/29/22 05/29/22 10:04 10:04 10:04 WBC 6.7 RBC 4.84 D Hgb 11.8 L D Hct 34.4 L D MCV 71.1 L MCH 24.4 L MCHC 34.3 RDW 17.9 H Plt Count 21 L MPV Not Reportable Immature Gran % (Auto) Cancelled Neut % (Auto) Cancelled Lymph % (Auto) Cancelled [place] % (Auto) Cancelled Eos % (Auto) Cancelled Baso % (Auto) Cancelled Lymph # (Auto) Cancelled [place] # (Auto) Cancelled Eos # (Auto) Cancelled Baso # (Auto) Cancelled Abs Immat Gran (auto) Cancelled Absolute Neuts (auto) Cancelled Absolute Nucleated RBC 0.000 Nucleated RBC % (auto) 0.0 Neutrophils % (Manual) 78 H Band Neutrophils % 2 L Lymphocytes % (Manual) 10 L Atypical Lymphs % (Man) Monocytes % (Manual) 9 Eosinophils % (Manual) 1 Abs Neuts (Manual) 5.4 Lymphocytes # (Manual) 0.7 L Atyp Lymphs # (Manual) Monocytes # (Manual) 0.6 Eosinophils # (Manual) 0.1 Toxic Vacuolation PRESENT Platelet Estimate DECREASED Plt Morphology Comment NORMAL RBC Morphology NOTED Polychromasia 1+ (0-2) Hypochromasia 1+ (5-14) Microcytosis 2+ (15-30) [place] Cells 2+ (3-5) Schistocytes 1+ (0-2) Sodium 127 L Potassium 3.7 D Chloride 95 L Carbon Dioxide 21 L Anion Gap 15 BUN 15 Creatinine 0.49 L Estim Creat Clear Calc 92.7 Estimated GFR > 60 Random Glucose 96 Calcium 7.3 L Phosphorus 2.9 Magnesium 1.7 Total Bilirubin 1.2 H AST 43 H ALT 22 Alkaline Phosphatase 112 D Total Protein 6.2 L Albumin 1.9 L Urine Color Urine Appearance Urine pH Ur Specific [place] Urine Protein Urine Glucose (UA) Urine Ketones Urine Blood Urine Nitrite Ur Leukocyte Esterase Urine RBC Urine WBC Ur Squamous Epith Cells Amorphous Sediment Urine Bacteria Ur Random Sodium Urine Test Random Vancomycin Hep B Core Total Ab Blood Type O Positive Antibody Screen NEGATIVE 05/30/22 05/30/22 05/30/22 06:25 06:25 06:25 WBC 7.3 RBC 2.94 L D Hgb 7.0 L* D Hct 21.2 L D MCV 72.1 L MCH 23.8 L MCHC 33.0 RDW 17.5 H Plt Count 37 L D MPV Not Reportable Immature Gran % (Auto) Cancelled Neut % (Auto) Cancelled Lymph % (Auto) Cancelled [place] % (Auto) Cancelled Eos % (Auto) Cancelled Baso % (Auto) Cancelled Lymph # (Auto) Cancelled [place] # (Auto) Cancelled Eos # (Auto) Cancelled Baso # (Auto) Cancelled Abs Immat Gran (auto) Cancelled Absolute Neuts (auto) Cancelled Absolute Nucleated RBC 0.000 Nucleated RBC % (auto) 0.0 Neutrophils % (Manual) 76 H Band Neutrophils % 0 L Lymphocytes % (Manual) 19 L Atypical Lymphs % (Man) 2 Monocytes % (Manual) 2 Eosinophils % (Manual) 1 Abs Neuts (Manual) 5.5 Lymphocytes # (Manual) 1.4 Atyp Lymphs # (Manual) 0.1 Monocytes # (Manual) 0.1 Eosinophils # (Manual) 0.1 Toxic Vacuolation Platelet Estimate DECREASED Plt Morphology Comment NORMAL RBC Morphology NOTED Polychromasia Hypochromasia 1+ (5-14) Microcytosis 1+ (5-14) [place] Cells Schistocytes Sodium 132 L Potassium 3.7 Chloride 96 Carbon Dioxide 26 Anion Gap 14 BUN 11 Creatinine 0.46 L Estim Creat Clear Calc 98.7 Estimated GFR > 60 Random Glucose 100 Calcium 7.6 L Phosphorus Magnesium Total Bilirubin 0.9 AST 26 ALT 15 Alkaline Phosphatase 73 D Total Protein 5.5 L Albumin 2.5 L D Urine Color Urine Appearance Urine pH Ur Specific [place] Urine Protein Urine Glucose (UA) Urine Ketones Urine Blood Urine Nitrite Ur Leukocyte Esterase Urine RBC Urine WBC Ur Squamous Epith Cells Amorphous Sediment Urine Bacteria Ur Random Sodium Urine Test Random Vancomycin < 3.0 L Hep B Core Total Ab Blood Type Antibody Screen 05/30/22 07:38 WBC RBC Hgb 7.2 L Hct 21.6 L MCV MCH MCHC RDW Plt Count MPV Immature Gran % (Auto) Neut % (Auto) Lymph % (Auto) [place] % (Auto) Eos % (Auto) Baso % (Auto) Lymph # (Auto) [place] # (Auto) Eos # (Auto) Baso # (Auto) Abs Immat Gran (auto) Absolute Neuts (auto) Absolute Nucleated RBC Nucleated RBC % (auto) Neutrophils % (Manual) Band Neutrophils % Lymphocytes % (Manual) Atypical Lymphs % (Man) Monocytes % (Manual) Eosinophils % (Manual) Abs Neuts (Manual) Lymphocytes # (Manual) Atyp Lymphs # (Manual) Monocytes # (Manual) Eosinophils # (Manual) Toxic Vacuolation Platelet Estimate Plt Morphology Comment RBC Morphology Polychromasia Hypochromasia Microcytosis [place] Cells Schistocytes Sodium Potassium Chloride Carbon Dioxide Anion Gap BUN Creatinine Estim Creat Clear Calc Estimated GFR Random Glucose Calcium Phosphorus Magnesium Total Bilirubin AST ALT Alkaline Phosphatase Total Protein Albumin Urine Color Urine Appearance Urine pH Ur Specific [place] Urine Protein Urine Glucose (UA) Urine Ketones Urine Blood Urine Nitrite Ur Leukocyte Esterase Urine RBC Urine WBC Ur Squamous Epith Cells Amorphous Sediment Urine Bacteria Ur Random Sodium Urine Test Random Vancomycin Hep B Core Total Ab Blood Type Antibody Screen Imaging Radiology Impressions: ITS Impressions Chest X-Ray 05/28/22 10:52 IMPRESSION: Large right pneumothorax with mediastinal shift to the left. This critical result was discussed with Dr. Barrett at 11:08 AM on May 28, 2022 and it was ascertained that the content and urgency of the report was understood at the time of direct communication. Chest X-Ray 05/28/22 12:29 IMPRESSION: Right-sided pigtail catheter placement. There has been some improvement to the large right-sided pneumothorax from earlier today with no longer shift of mediastinal structures. Still significant right-sided pneumothorax remaining. Chest X-Ray 05/28/22 12:52 IMPRESSION: Significant improved right-sided pneumothorax with new chest tube placement and significant reexpansion of the right lung. Moderate-sized pneumothorax remaining at the apex. Chest X-Ray 05/28/22 16:25 IMPRESSION: No change in a moderate right-sided pneumothorax. Retraction of the chest tube such that the side hole is in the soft tissues. Chest X-Ray 05/28/22 23:04 IMPRESSION: Moderate right pneumothorax without significant change from prior. Unchanged positioning of the chest tube with the side-port external to the thoracic cavity. Chest X-Ray 05/29/22 07:19 IMPRESSION: Small to moderate pneumothorax persists. There is moderate right subcutaneous emphysema. Right chest wall sidehole is in the right chest wall cavity and has retracted since the previous study of 05/28/2022 at 12:36 PM. Chest X-Ray 05/29/22 11:22 IMPRESSION: Previously seen right chest tube catheter has been replaced with a large bore right pigtail catheter its tip in the right lung apex. Moderate opacity right midlung and right lower lobe is stable. There are small cavitary lesions or cysts seen in right lung. Consider CT of chest for further evaluation as a baseline Chest X-Ray 05/30/22 06:40 IMPRESSION: * The right pneumothorax is small and has slightly decreased in size compared to 05/29/2022. * There are persistent nonspecific patchy and hazy bilateral pulmonary opacities. Medications Medications Current Medications Hydromorphone HCl (Hydromorphone Hcl 1 Mg/Ml Syringe) 1 mg IVPUSH Q4H PRN; Protocol PRN Reason: Pain, Severe (Pain Scale 7-10) Last Admin: 05/30/22 14:08 Dose: 1 mg Sodium Chloride (Ns) 1,000 mls @ 100 mls/hr IVCONT .Q10H VINCENZO Last Admin: 05/30/22 07:00 Dose: 100 mls/hr Vancomycin HCl 750 mg/ Sodium (Chloride) 265 mls @ 265 mls/hr IV Q8H VINCENZO Methadone HCl (Methadone Hcl 20 Mg/2 Ml Oral.Conc) 40 mg PO DAILY VINCENZO Last Admin: 05/30/22 08:41 Dose: 40 mg Pharmacy Consult (Consult Rx Vancomycin Dosing) 1 each MISCELLANE DAILY PRN PRN Reason: Consult order Allergies Allergies Allergy/AdvReac Type Severity Reaction Status Date / Time fluoxetine [From PROZAC] Allergy Severe DELUSIONS Verified 12/13/20 00:25 Assessment & Plan Assessment & Plan (1) Opioid use disorder: Status: Acute Code(s): F11.90 - Opioid use, unspecified, uncomplicated Assessment and Plan: * methadone 50mg QD tomorrow (05/31) * continue pain meds as appropriate * monitor for oversedation * will continue to follow--discussed case with RSRN and [employer]PUT[employer]ER[employer] GENERALIST I spent ___25___ minutes with the patient and/or on the patient floor today, greater than?50% of which was spent counseling/coordinating care.
--- NOTE | 2022-05-30 15:30 | P.PNTS_ITS ---
Subjective Subjective Date of Service: 05/30/22 Interval history: Patient just arrived to tele floor from the ICU. States she feels well other than pain and wants to get on a schedule with her pain medication. Pain is primarily located around the chest tube insertion site. Also had some bloody mucous on her sheets which she states was from coughing. States this is the first time I coughed anything up . Denies any SOB or lightheadedness. Diagnostics: XRay Report Signed Patient: Octavia Robledo Date of Service: 05/30/22 Procedure(s): XR chest 1V EXAMINATION: XR CHEST CLINICAL INFORMATION: Right pneumothorax COMPARISON: 05/29/2022 TECHNIQUE: Frontal view of the chest was obtained. FINDINGS: The tip of the pigtail drainage catheter overlies the right apex. Again noted is soft tissue emphysema along the right lateral chest wall extending to the neck. The right-sided pneumothorax is small, and the amount of pleural air at the apex has decreased compared to 05/29/2022. Lungs are hypoinflated. Nonspecific patchy, hazy opacities are present in both lungs. No overt pleural effusion. Cardiac silhouette has normal size and contour. The visualized bones are intact. XR/XR chest 1V IMPRESSION: *? The right pneumothorax is small and has slightly decreased in size compared to 05/29/2022. *? There are persistent nonspecific patchy and hazy bilateral pulmonary opacities. Physical Exam Vital Signs: Vital Signs: Last Vital Signs Temp 99.2 F 05/30/22 15:16 Pulse 110 H 05/30/22 15:16 Resp 18 05/30/22 15:16 BP 116/83 05/30/22 15:16 Pulse Ox 93 05/30/22 15:16 O2 Del Method 05/30/22 15:16 O2 Flow Rate 6 05/28/22 13:05 BMI result Body Mass Index 16.1 General: No acute distress, resting comfortably in bed, thin female Head: Normocephalic, atraumatic, symmetric Eyes: Sclera anicteric, eyelids without edema or erythema, +EOMS intact ENT: Oral mucosa and tongue are moist Neck: Soft, supple, *symmetric, trachea midline, no crepitus Cardiovascular: Regular rate and rhythm, BUE and BLE without edema Respiratory: Lungs CTA B, breathing nonlabored, speaking in full sentences, on room air. No use of accessory muscles. Right pigtail chest tube x 1 to [facility] on -20 suction, serous drainage, no air leak. No crepitus. Skin: Warm and dry throughout Neurological: Alert and oriented x 3, no focal neurological deficit noted Psychiatric: no agitation, appropriate affect Procedures Date of Service Date of Service: 05/30/22 Progress Note: A&P Assessment and plan (1) Tension pneumothorax, spontaneous: Status: Acute Assessment and Plan: 36 year old female with Staph bacteremia and complete collapse of the right lung with some degree of tension. s/p pigtail by ER , which was then removed and replaced with large bore chest tube due to incomplete re-expansion on 05/28/22. This tube then nearly fell out, therefore needed to be replaced again with a pigtail on 05/29/2022. * CXR today shows continued fairly small right pneumothorax. * No airleak on exam. * Will change chest tube setting to water seal. * Check morning CXR. (2) Staphylococcal septicemia: Status: Acute Time Spent With Patient Time: Total time spent is greater than 50% in coordination of care (as documented) at patient's floor/unit and/or counseling patient: Quality Stroke Does the patient have a stroke diagnosis?: No VTE Prior VTE?: No VTE Risk Level:: Medical - low VTE Device Contraindication: Treatment Not Indicated VTE Drug Contraindication: Treatment Not Indicated
[2022-05-30] MEDS: vancomycin HCL 750 MG in 0.9 % Sodium Chloride 250 ML 265 MG IV (18:11)
[2022-05-31] MEDS: vancomycin HCL 750 MG in 0.9 % Sodium Chloride 250 ML 265 MG IV (00:29)
[2022-05-31] MEDS: traZODone HCL 100 MG TABLET 200 MG PO ×2 (00:31→20:48)
[2022-05-31 04:00] VITALS: BP 107/68; PULSE 111; RESP 17; TEMP 36.9; O2SAT 94
[2022-05-31] MEDS: 0.9 % Sodium Chloride 1,000 ML 100 ML IVCONT ×3 (05:13→20:48)
[2022-05-31 06:00] VITALS: BMI 20.7
[2022-05-31 07:57] VITALS: BP 120/69; PULSE 112; RESP 20; TEMP 37.1; O2SAT 95
--- NOTE | 2022-05-31 08:02 | HO.PM.IMPN ---
Subjective Subjective Date of Service: 05/31/22 Interval History: F/u on bacterial endocarditis, bacteremia interval history: feels very weak, no back, no sob, very cachectiv, malnurished Review of Systems no sob no chest pain Physical Exam Vital Signs: Vital Signs: Last Vital Signs Temp 98.7 F 05/31/22 07:57 Pulse 112 H 05/31/22 07:57 Resp 20 05/31/22 07:57 BP 120/69 05/31/22 07:57 Pulse Ox 95 05/31/22 07:57 O2 Del Method 05/31/22 07:57 O2 Flow Rate 6 05/28/22 13:05 BMI result Body Mass Index 20.7 Const: Other: General: AO X 3, no acute distress, unkept Resp: CTA bilateral CVS: S1,S2,RRR GI: +BS, NT, no distention Skin: No rash, no rash, no splinter hemorrhage Neuro: motor grossly intact Psych: appropriate affect Objective Data Active Medications Hydromorphone HCl (Hydromorphone Hcl 1 Mg/Ml Syringe) 1 mg IVPUSH Q4H PRN; Protocol PRN Reason: Pain, Severe (Pain Scale 7-10) Last Admin: 05/30/22 22:14 Dose: 1 mg Documented By: STELLA Sodium Chloride (Ns) 1,000 mls @ 100 mls/hr IVCONT .Q10H [facility] Last Admin: 05/31/22 05:13 Dose: 100 mls/hr Documented By: GAEL Vancomycin HCl 750 mg/ Sodium (Chloride) 265 mls @ 265 mls/hr IV Q8H [facility] Last Infusion: 05/31/22 02:31 Dose: 0 mls/hr Documented By: GAEL Methadone HCl (Methadone Hcl 20 Mg/2 Ml Oral.Conc) 50 mg PO DAILY [facility] Pharmacy Consult (Consult Rx Vancomycin Dosing) 1 each MISCELLANE DAILY PRN PRN Reason: Consult order Trazodone HCl (Trazodone Hcl 100 Mg Tablet) 200 mg PO BEDTIME [facility] Last Admin: 05/31/22 00:31 Dose: 200 mg Documented By: GAEL Labs CBC & Chem 7: 05/30/22 07:38 05/31/22 08:24 Labs: Laboratory Results - last 24 hr 05/30/22 05/30/22 06:25 06:25 Neutrophils % (Manual) 76 H Band Neutrophils % 0 L Lymphocytes % (Manual) 19 L Atypical Lymphs % (Man) 2 Monocytes % (Manual) 2 Eosinophils % (Manual) 1 Abs Neuts (Manual) 5.5 Lymphocytes # (Manual) 1.4 Atyp Lymphs # (Manual) 0.1 Monocytes # (Manual) 0.1 Eosinophils # (Manual) 0.1 Platelet Estimate DECREASED Plt Morphology Comment NORMAL RBC Morphology NOTED Hypochromasia 1+ (5-14) Microcytosis 1+ (5-14) Smear Path Review SEE NOTE Anion Gap 14 Estim Creat Clear Calc 98.7 Estimated GFR > 60 Random Glucose 100 Calcium 7.6 L Total Bilirubin 0.9 AST 26 ALT 15 Alkaline Phosphatase 73 D Total Protein 5.5 L Albumin 2.5 L D Microbiology Microbiology Results: Microbiology 05/29/22 11:01 Gram Stain - Final Thoracentesis Fluid Anaerobic Culture - Preliminary Culture in progress. Body Fluid Culture - Preliminary Staphylococcus species 05/28/22 13:23 Blood Culture - Preliminary Blood - Venous Staphylococcus aureus 05/28/22 13:23 Blood Culture - Preliminary Blood - Venous Staphylococcus aureus Assessment and Plan (1) Septic pulmonary embolism: Status: Acute (2) Endocarditis of tricuspid valve: Status: Acute (3) Staphylococcal septicemia: Status: Acute (4) Bacteremia due to Gram-positive bacteria: Status: Acute Plan 36 yo F with PMH of intravenous drug abuse.? Started methadone recently, up to 60 mg/day.? Also h/o undetermined asthma, kidney stones, hepatitis-C, bipolar disorder, PTSD, h/o seizure/drug OD in 2005 requiring intubation, and tobacco abuse. Was in the ED five days prior to admission (05/23/22) complaining of withdrawal symptoms with myalgias, abdominal discomfort and nausea.? According to the ED narrative, the patient was caught exiting the bathroom with a tourniquet and empty heroin in her pockets.? She subsequently left the ED AMA. She presented back to the ED on 05/28/22 complaining of shortness of breath and chest pain x1 week.?Chest x-ray showed a large right pneumothorax with total collapse of the right lung with some mediastinal shift to the left. Chest tube was inserted and admitted to ICU, further found to have Staph Triscuspid endocarditis and Septic embolic. She was transfered out of ICU on 05/30/22 # ?Septic emboli, # Staph bacteremi, likely MRSA # Tricuspid endocarditis by Bedside echo in ICU -Get official Echocardiogram -CT of chest to confirm septic emboli -Continue Vancomycin, follow cultures -ID and Cardiology consult -Repeat blood cultures today # .IV drug abuse.? She?s on methadone 50 mg daily. Addiction med following # Spont PTX.? s/p chest tube with reexpansion of lung. Chest XRay today--Right apical pigtail chest tube. Tiny right-sided pneumothorax issimilar to prior -Thoracic surgery to assess and removal #Hypoxemia.? Prob 2? due to septic emboli and PTX--now resolved, comfortable on room air 95% #Hyponatremia.? Probably due to hypovolemia, was 123 on 05/28, most recent 133 # Sinus tachycardia.? Largely 2? endocarditis, treat underlying issues and monitor # Anemia.? No evidence of acute blood loss, Hct dropped from 34 on 05/29 to 22 on 05/30, -repeat H/H with type and screen # Thrombocytopenia.? likely from sepsis.? This is new from two years ago. Plat as of 05/30 37.. This i # Coagulopathy. INR 1.8, liver ok, ?Most likely 2? malnutrition.?Given vit K #Increased LFTs.? ? 2? hepatitis C.? checkhepatitis profile. # Severe PCM.? Will have nutrition consult tomorrow. Quality Stroke Does the patient have a stroke diagnosis?: No VTE Prior VTE?: No VTE Risk Level:: Medical - low VTE Device Contraindication: Treatment Not Indicated VTE Drug Contraindication: Treatment Not Indicated
--- NOTE | 2022-05-31 08:46 | CA_ITS ---
Transthoracic Echocardiogram Patient (Last, First, Middle): Octavia Robledo, Gender: Female Date of : 1985 Age: 36 Procedure Date: 05/31/2022 Procedure Type: Transthoracic E[place] [facility] [place]: 149.86 cm Weight: 46.27 kg BSA: 1.39 m2 Heart Rate: bpm BP: 120 / 69 mmHg Fiber Optics Engineer: Referring MD: Erasto Moctezuma MD Symptoms: Endocarditis Study Quality: Adequate ECG Rhythm: Sinus Conclusions: - The left ventricular systolic function is normal. The calculated ejection fraction is 60% by biplane method. - Echo echodensity attached to the atrial side of tricuspid valve. Likely vegetation, measuring 2.4 x 1.8cm; in another view, measuring 3.1 x 1.4 cm. - There is mild tricuspid valve regurgitation. Findings Left Ventricle Normal left ventricular cavity size. There is normal left ventricular wall thickness. The left ventricular systolic function is normal. The calculated ejection fraction is 60% by biplane method. There is no evidence of regional wall motion abnormalities. Diastolic function is normal for age. Right Ventricle Normal right ventricular cavity size and systolic function. Atria Both atria are normal in size. Aortic Valve There is a normal trileaflet aortic valve. There is no aortic valve stenosis. There is no aortic valve regurgitation. Mitral Valve The mitral valve appears normal. There is trace mitral valve regurgitation. There is no mitral valve stenosis. Pulmonic Valve The pulmonic valve is likely normal. Tricuspid Valve There is mild tricuspid valve regurgitation. Echo echodensity attached to the atrial side of tricuspid valve. Likely vegetation, measuring 2.4 x 1.8cm; In another view, measuring 3.1 x 1.4 cm. Great Vessels The aortic annulus, sinuses of valsalva, and asc aorta are normal in size. Venous The inferior vena cava is normal in size and collapses greater than 50% with inspiration. Pericardium/Pleural There is no evidence of pericardial effusion. There is a trivial pericardial effusion. Prior Study Comparison No prior study available for comparison. Measurements 2D Linear Measurements IVSd: 0.97 0.6-0.9/0.6-1.0 cm LVIDd: 3.95 3.9-5.3/4.2-5.9 cm LVIDd Index: 2.84 2.4-3.2/2.2-3.1 cm/m2 LVIDs: 2.50 2.0-3.6 cm LVPWd: 0.95 0.7-1.1 cm Ao Root: 2.70 2.1-3.5 cm LA Diam: 3.00 2.7-3.8/3.0-4.0 cm LAIDs Index: 2.16 1.5-2.3 cm/m2 LV Mass: 146.26 67-162/88-224 g LV Mass Index: 105.22 43-95/49-115 g/m2 LVOT Diam: 2.00 3.0+(-)1.3 cm 2D Systolic Function EF 4C: 62.60 >55% EF 2C: 55.80 >55% EF BiP: 60.10 >55% Mitral Valve MV Pk E: 0.61 MV PK A: 0.91 MV Decel Time: 141.00 E/A: 0.70 E'Lateral: 16.40 E'Medial: 12.40 E/E' Med: 4.90 E/E' Lat: 3.70 PHT: 41.00 MVA PHT: 5.37 Decel Sandoval: 4.35 Aortic Valve AoV Pk Joaquin: 1.36 AoV Mn Joaquin: 0.86 AoV VTI: 0.21 AoV Pk Grad: 7.00 Aov Mn Grad: 4.00 ABDULAZIZ Cont.VTI: 2.03 LVOT LVOT Pk Joaquin: 1.05 LVOT Mn Joaquin: 0.59 LVOT VTI: 0.14 LVOT Pk Grad: 4.00 LVOT Mn Grad: 2.00 LVOT Diam: 2.00 LVOT Area: 3.14 Diastolic Function MV Pk E: 0.61 MV Pk A: 0.91 E/A: 0.70 E'Medial: 12.40 E/E' Med: 4.90 E' Laterial: 16.40 E/E' Lat: 3.70 Right Ventricle TAPSE (mm): 37.00 TVS' Joaquin: 19.00 Tricuspid Valve TR Pk Joaquin: 2.30 TR Pk Grad: 21.00 RA Press: 3.00 RVSP: 24.00 Great Vessels Aorta Ao Root-2D: 2.70 2.0-3.7 cm Ao Asc: 3.10 2.1-3.4 cm Pulmonary Valve PV Pk Joaquin: 1.16 Peak PV Grad: 5.00 Updated in Other Vendor System with Status of Final Erasto Moctezuma MD electronically signed on 05/31/2022 4:43:33 PM with status of Final
[2022-05-31] MEDS: HYDROmorphone HCl 1 MG/ML SYRINGE IVPUSH ×4 (08:59→21:43)
[2022-05-31] MEDS: methADONE HCl 20 MG/2 ML ORAL.CONC 50 MG PO (08:59)
[2022-05-31 09:02] LABS: Estimated Glomerular Filt Rate > 60
[2022-05-31 09:08] LABS: Vancomycin Random 10.8 mcg/mL (15-20)
--- NOTE | 2022-05-31 09:14 | PM.CNCAR ---
History of Present Illness History of Present Illness Date of Service: 05/31/22 Chief complaint: Right Pneumothorax Narrative: This is a cardiology consultation regarding endocarditis. Patient got admitted mainly for pneumothorax. Active drug user. It seems that ICU physician did an echo at the bedside showed tricuspid regurgitation. Hence we have been asked to see her. Those images are not available for review as they were not stored. Patient herself describes generally pain all over the body. She states she is feeling short of breath but she seems comfortable in her bed and while conversing with me. Denies any previous cardiac problems. Review of Systems Review of Systems: Yes all other systems are reviewed and are negative Constitutional: Constitutional: Reports as per HPI, Reports fatigue and Reports malaise Eyes: Eyes: Reports as per HPI ENT: Reports as per HPI Cardiovascular: Cardiovascular: Reports as per HPI, Denies acrocyanosis, Denies cool extremities, Denies chest pain, Denies leg edema, Denies lightheadedness, Denies palpitations and Denies dyspnea Respiratory: Respiratory: Reports as per HPI, Reports no additional respiratory complaints and Denies dyspnea Gastrointestinal: Gastrointestinal: Reports as per HPI and Reports no additional gastrointestinal complaints Genitourinary: Genitourinary: Reports as per HPI Musculoskeletal: Musculoskeletal: Reports no additional musculoskeletal complaints and Reports as per HPI Integumentary/Breasts: Skin/Breast: Reports system reviewed and no additional complaints, except as docu Neurologic: Reports system reviewed and no additional complaints, except as documented and Reports as per HPI Psychiatric: Psychiatric: Reports no additional psychiatric complaints and Reports as per HPI Endocrine: Endocrine: Reports no additional endocrine complaints, Reports as per HPI, Reports fatigue and Denies palpitations Hematologic/Lymphatic: Hematologic/Lymphatic: Reports no additional hematologic/lymphatic complaints and Reports as per HPI Allergic/Immunologic: Allergic/Immunologic: Reports no additional allergic/immunologic complaints and Reports as per HPI [facility] Past Medical History Medical History Asthma Hepatitis C carrier Kidney stones Family History Family History (Updated 05/31/22 @ 09:16 by Erasto Moctezuma MD) Mother Coronary artery disease Social History Social History Household Members: Family Household Members Other:: brother Housing: House Do you presently have visiting nurse or other home services: No Alcohol intake: never Patient Tobacco Use Status: Never used Tobacco Use of substances other than those prescribed or required for medical reasons: Yes Substance Use Type: Crack/Cocaine and Heroin Substance Use Frequency: Daily Last Used Substance: Unknown Currently Displaying Signs/Symptoms of Drug Intoxication Withdrawal: No Any prior treatment program specific to substance use: Yes Have you been hit, kicked, punched, or otherwise hurt by someone within the past year? If so, by whom?: No Do you feel safe in your current relationship?: No Is there a partner from a previous relationship who is making you feel unsafe now?: No Are you made to feel afraid or neglected: No Advance Directives: No Advance Directives Information Provided: Yes Do you have thoughts of harming others: None Do you have a plan to hurt others: No Plan Recently lost weight without trying: Yes How much weight loss: Not applicable Eating poorly because of decreased appetite: Yes Nutrition screen score: 3 Nutrition Risks: Dental problems Patient : No : No Poor oral hygiene: No Meds Allergies Allergy/AdvReac Type Severity Reaction Status Date / Time fluoxetine [From PROZAC] Allergy Severe DELUSIONS Verified 12/13/20 00:25 Active Medications: Current Medications Hydromorphone HCl (Hydromorphone Hcl 1 Mg/Ml Syringe) 1 mg IVPUSH Q4H PRN; Protocol PRN Reason: Pain, Severe (Pain Scale 7-10) Last Admin: 05/31/22 08:59 Dose: 1 mg Sodium Chloride (Ns) 1,000 mls @ 100 mls/hr IVCONT .Q10H [facility] Last Admin: 05/31/22 05:13 Dose: 100 mls/hr Vancomycin HCl 750 mg/ Sodium (Chloride) 265 mls @ 265 mls/hr IV Q8H [facility] Last Infusion: 05/31/22 02:31 Dose: Infused Methadone HCl (Methadone Hcl 20 Mg/2 Ml Oral.Conc) 50 mg PO DAILY [facility] Last Admin: 05/31/22 08:59 Dose: 50 mg Pharmacy Consult (Consult Rx Vancomycin Dosing) 1 each MISCELLANE DAILY PRN PRN Reason: Consult order Trazodone HCl (Trazodone Hcl 100 Mg Tablet) 200 mg PO BEDTIME [facility] Last Admin: 05/31/22 00:31 Dose: 200 mg Home Medications Medication Instructions Recorded Confirmed Last Taken Type chlorpromazine 50 mg tablet 50 mg PO DAILY 05/28/22 05/28/22 Unknown History methadone 10 mg/mL oral 60 mg PO DAILY 05/28/22 05/28/22 Unknown History concentrate (Methadone Intensol) prazosin 2 mg capsule 2 mg PO BEDTIME 05/28/22 05/28/22 Unknown History trazodone 100 mg tablet 200 mg PO BEDTIME 05/28/22 05/28/22 Unknown History Physical Exam Vital Signs: Vital Signs: Last Vital Signs Temp 98.7 F 05/31/22 07:57 Pulse 112 H 05/31/22 07:57 Resp 20 05/31/22 07:57 BP 120/69 05/31/22 07:57 Pulse Ox 95 05/31/22 07:57 O2 Del Method 05/31/22 07:57 O2 Flow Rate 6 05/28/22 13:05 BMI result Body Mass Index 20.7 Const: General: comfortable and no acute distress Nutritional Appearance: cachectic, malnourished, thin and underweight Orientation/consciousness: patient oriented x3 HEENT: Other: Unremarkable Head: Yes normal to inspection Neck: Neck: Yes normal visual inspection Chest: Chest palpation & inspection: normal inspection of the chest Resp: Auscultation: clear to auscultation bilaterally Cardio: Palpation: normal PMI Heart sounds: S1 normal heart sound present, S2 normal heart sound present, no gallops, no murmurs and no rubs GI: Palpation (GI): Soft to palpation Back/Spine/Pelvis: Other: unremarkable Skin: General skin exam: no rashes or lesions noted Neuro: General: patient oriented x3 Extrem: General: Yes normal to inspection Psych: Appearance: disheveled Mental Status: mental status grossly normal Objective Labs and Meds Result diagrams: 05/30/22 07:38 05/31/22 08:24 Lab results: Laboratory Results - last 24 hr 05/30/22 05/30/22 05/31/22 06:25 06:25 08:24 Smear Path Review SEE NOTE Sodium 132 L Potassium 3.7 Chloride 96 Carbon Dioxide 26 Anion Gap 14 BUN 11 Creatinine 0.46 L Estim Creat Clear Calc 98.7 Estimated GFR > 60 Random Glucose 100 Calcium 7.6 L Total Bilirubin 0.9 AST 26 ALT 15 Alkaline Phosphatase 73 D Total Protein 5.5 L Albumin 2.5 L D Random Vancomycin 10.8 L 05/31/22 08:24 Smear Path Review Sodium Potassium Chloride Carbon Dioxide Anion Gap BUN Creatinine 0.47 L Estim Creat Clear Calc 115.0 Estimated GFR > 60 Random Glucose Calcium Total Bilirubin AST ALT Alkaline Phosphatase Total Protein Albumin Random Vancomycin ECG Interpretation: Initial EKG with sinus tachycardia at 138/Min. There are T inversions in inferior leads. Imaging Radiologist's impression: Impressions Chest X-Ray 05/31/22 06:25 IMPRESSION: No change in the tiny right-sided pneumothorax. Similar bilateral lung opacities. Assessment and Plan (1) Endocarditis of tricuspid valve: Status: Acute Plan Based on client evaluator notes, there is evidence of endocarditis but those images are not available for review as they are not stored. Hence cannot visually or otherwise assess the actual findings. Will need to get a formal echocardiogram for further evaluation. Based on the size of vegetations, extent of tricuspid regurgitation, will decide further care. Procedures Date of Service Date of Service: 05/31/22
--- NOTE | 2022-05-31 09:26 | HE.PHANOTE ---
Vanco Dosing Addendum Patients renal function down from 0.49 and today is 0.47. Level came back at 10.8 which is subtherapeutic, especially given the diagnosis of bacteremia. Patient is on Q8 dosing so we will keep this consistent. Chose to increase dose to 1000mg Q8 to get the patients levels up. Predicted AUC is 580 mg/L/hr which is very close to the end of the therapeutic window of 400-600 mg/L/hr, therefore a level will be drawn again today after two doses of 1000mg to see how patient is responding and to make sure she does not become supratherapeutic.
[2022-05-31] MEDS: vancomycin HCL 1,000 MG in 0.9 % Sodium Chloride 250 ML 270 MG IV (09:58)
[2022-05-31 11:00] LABS: Immature Retic Fraction 34.7 % (3.0-15.9); Retic HGB Equivalent 32.5 pg (30.0-35.0); Reticulocyte Percent 2.2 % (0.5-1.8); Reticulocytes Absolute 0.066 X10*6/uL (0.026-0.095)
[2022-05-31 11:06] LABS: Fibrinogen 616 MG/DL (259-690); INTERNATIONAL NORM RATIO 1.1 (0.9-1.1); Prothrombin Time 13.2 SEC (10.0-13.1)
[2022-05-31 11:08] LABS: Hemoglobin 7.3 g/dl (12.0-16.0); Mean Corpuscular HGB Conc 31.7 g/dl (31.0-35.0); Mean Corpuscular Hemoglobin 23.7 pg (27.0-33.0); Mean Corpuscular Volume 74.7 fL (80.0-98.0); Mean Platelet Volume 9.7 fL (9.4-12.3); Platelet Count 54 X10*3/uL (160-400); Red Blood Count 3.08 X10*6/uL (4.20-5.50); Red Cell Distribution Width 18.3 % (11.0-16.0); White Blood Count 7.4 X10*3/uL (4.8-10.8)
[2022-05-31 11:09] LABS: Partial Thromboplastin Time 27.5 SEC (26.0-36.4)
[2022-05-31 11:25] VITALS: BP 121/81; PULSE 97; RESP 20; TEMP 37; O2SAT 96
[2022-05-31 11:27] LABS: Alanine Aminotransferase 16 U/L (0-31); Albumin Level 2.3 g/dL (3.5-5.0); Alkaline Phosphatase 77 U/L (39-117); Anion Gap 14 (12-20); Aspartate Amino Transferase 23 U/L (5-31); Bilirubin Total 0.7 mg/dL (0.0-1.0); Blood Urea Nitrogen 10 mg/dL (9-16); Calcium 7.7 mg/dL (8.4-10.2); Carbon Dioxide 23 mmol/L (22-29); Chloride 100 mmol/L (96-108); Estimated Glomerular Filt Rate > 60; Glucose Random 157 mg/dL (60-115); Iron 27 mcg/dL (30-160); Lactate Dehydrogenase 212 U/L (122-220); Percent Iron Saturation 17 % (15-50); Potassium 4.2 mmol/L (3.3-5.1); Sodium 133 mmol/L (135-145); Total Iron Binding Capacity 161 mcg/dL (228-428); Total Protein 6.1 g/dL (6.5-8.0); Unsaturated Iron Binding 134 ug/dL
[2022-05-31 11:33] LABS: HBS Num1 17.16 mIU/mL (0-7.99); HBc Num1 0.22 S/CO (0.00-0.79); HBsAGNum1 0.23 S/CO (0.00-0.99); Hepatitis A Antibody IgM 0.14 Index (0-0.79); Hepatitis B Core Antibody Nonreactive (Nonreactive); Hepatitis B Surface Antigen Negative (Negative); ~HepC Num1 10.66 S/CO (0.00-0.79); ~Hepatitis A Antibody IgM Nonreactive (Nonreactive); ~Hepatitis B Surface Antibody REACTIVE (Nonreactive); ~Hepatitis C Antibody Reactive (Nonreactive)
[2022-05-31 11:38] VITALS: BP 110/70; PULSE 111; RESP 20; TEMP 37.2; O2SAT 95
--- NOTE | 2022-05-31 11:48 | P.CNHO_ITS ---
Subjective - Subjective Chief complaint: Feels tired Patient: new to practice Consult date: 05/31/22 Primary Care Provider: None Physician HPI - Consult Narrative Reason for consult: Worsening anemia Narrative: Octavia Robledo is a 36 year old woman who with history of hepatitis-C, IV drug abuse who has been admitted for right spontaneous pneumothorax, she presented with shortness of breath. Workup in the hospital revealed positive blood cultures with Staphylococcus aureus, vegetation on tricuspid valve. She developed hypoxemic respiratory failure and was briefly in the ICU. Her blood work revealed anemia and thrombocytopenia with a hemoglobin of 9.4 gram/dL and platelets of 27 K. in 2019 her platelet counts were normal and she only had mild normocytic anemia of 11.8 gram/dL. Her kidney and liver functions are normal, no evidence of hemolysis. There is no history of GI bleeding. Review of Systems - Constitutional Reports as per HPI - Neurologic Reports no additional neurologic complaints, Reports as per HPI [facility] Medical History: Medical History (Last Reviewed 12/13/20 @ 00:56 by Mars Quintero MD) Asthma Hepatitis C carrier Kidney stones Family History: Family History (Last Updated 05/31/22 @ 09:16 by Erasto Moctezuma MD) Mother Coronary artery disease Social History: Social History (Last Reviewed 05/28/22 @ 14:28 by Jarrod Adame MD) Living Situation History: Household Members: Family Household Members Other:: brother Housing: House Do you presently have visiting nurse or other home services: No Alcohol History Details: 1. How often do you have a drink containing alcohol?: a. Never 3. How often do you have six or more drinks on one occasion?: a. Never AUDIT-C Alcohol total score: 0 Currently Displaying Signs/Symptoms of Alcohol Withdrawal: No Tobacco History: Patient Tobacco Use Status: Never used Tobacco Substance Use History: Use of substances other than those prescribed or required for medical reasons : Yes Substance Use Type: Crack/Cocaine Substance Use Type: Heroin Substance Use Frequency: Daily Last Used Substance: Unknown Currently Displaying Signs/Symptoms of Drug Intoxication Withdrawal: No Any prior treatment program specific to substance use: Yes Domestic Abuse History: Have you been hit, kicked, punched, or otherwise hurt by someone within the past year? If so, by whom?: No Do you feel safe in your current relationship?: No Is there a partner from a previous relationship who is making you feel unsafe now?: No Are you made to feel afraid or neglected: No Advance Directives: Advance Directives: No Advance Directives Information Provided: Yes Homicidal Assessment: Do you have thoughts of harming others: None Do you have a plan to hurt others: No Plan Nutrition Assessment: Recently lost weight without trying: Yes How much weight loss: Not applicable Eating poorly because of decreased appetite: Yes Nutrition screen score: 3 Nutrition Risks: Dental problems Patient : No : No Poor oral hygiene: No Home Medications and Allergies Current Medications: Current Medications Hydromorphone HCl (Hydromorphone Hcl 1 Mg/Ml Syringe) 1 mg IVPUSH Q4H PRN; Protocol PRN Reason: Pain, Severe (Pain Scale 7-10) Last Admin: 05/31/22 08:59 Dose: 1 mg Sodium Chloride (Ns) 1,000 mls @ 100 mls/hr IVCONT .Q10H [facility] Last Admin: 05/31/22 05:13 Dose: 100 mls/hr Vancomycin HCl 1,000 mg/ (Sodium Chloride) 270 mls @ 270 mls/hr IV Q8H [facility] Last Admin: 05/31/22 09:58 Dose: 270 mls/hr Methadone HCl (Methadone Hcl 20 Mg/2 Ml Oral.Conc) 50 mg PO DAILY [facility] Last Admin: 05/31/22 08:59 Dose: 50 mg Pharmacy Consult (Consult Rx Vancomycin Dosing) 1 each MISCELLANE DAILY PRN PRN Reason: Consult order Trazodone HCl (Trazodone Hcl 100 Mg Tablet) 200 mg PO BEDTIME [facility] Last Admin: 05/31/22 00:31 Dose: 200 mg Home Medications Medication Instructions Recorded Confirmed Type chlorpromazine 50 mg tablet 50 mg PO DAILY 05/28/22 05/28/22 History methadone 10 mg/mL oral 60 mg PO DAILY 05/28/22 05/28/22 History concentrate (Methadone Intensol) prazosin 2 mg capsule 2 mg PO BEDTIME 05/28/22 05/28/22 History trazodone 100 mg tablet 200 mg PO BEDTIME 05/28/22 05/28/22 History Allergies Allergy/AdvReac Type Severity Reaction Status Date / Time fluoxetine [From PROZAC] Allergy Severe DELUSIONS Verified 12/13/20 00:25 Physical Exam Vital signs: Vital Signs Temp 98.9 F 05/31/22 11:38 Pulse 111 H 05/31/22 11:38 Resp 20 05/31/22 11:38 BP 110/70 05/31/22 11:38 Pulse Ox 95 05/31/22 11:38 O2 Del Method 05/31/22 11:38 O2 Flow Rate 6 05/28/22 13:05 Intake & Output 05/30/22 05/31/22 05/31/22 18:59 06:59 18:59 Intake Total 2585 / 4475 1890 / 4475 Output Total 585 / 2575 1990 / 2575 Balance 1999 / 1900 -100 / 1900 Urine Output (Average ml/kg/hr) 1.34 3.40 Intake: Intake, Oral Amount 360 / 720 360 / 720 Intake, IV Amount 2225 / 3755 1530 / 3755 vancomycin HCL 1,000 mg In 0.9 270 / 270 % Sodium Chloride 250 ml @ 270 mls/hr IV ONCE ONE Rx#: [id number] vancomycin HCL 750 mg In 0.9 % 530 / 530 Sodium Chloride 250 ml @ 265 mls/hr IV Q8H [facility] Rx#: [id number] 0.9 % Sodium Chloride 1,000 ml 1955 / 2955 1000 / 2955 @ 100 mls/hr IVCONT .Q10H [facility] Rx#:[id number] Output: Output, Urine Amount 1300 / 1300 Output, Urine Amount (Catheter) 585 / 1185 600 / 1185 Urethral 585 / 1185 600 / 1185 Output, Chest Tube Drainage 90 / 90 Amount Right Mid-Axillary Chest 90 / 90 Other: Breakfast % Eaten 25% Lunch % Eaten 0% Dinner % Eaten 50% Urine matta Urine Color Yellow Yellow Weight 46.6 kg [place] Weight in Grams 52525 Weight 46.6 kg - Constitutional Present: chronically ill appearing - Routine HEENT Exam Head: Present: normal inspection Eye: Present: conjunctivae pale - Routine Neck Exam Absent: lymphadenopathy - Routine Respiratory Exam Absent: accessory muscle use - Routine Cardiovascular Exam Cardiovascular: Present: S1, S2 Hem/Onc Consult Result - Labs CBC & Chem 7: 05/31/22 10:45 05/31/22 10:45 Labs: Short CBC 05/31/22 05/31/22 Range/Units 09:48 10:45 WBC Cancelled 7.4 Hgb Cancelled 7.3 L Hct Cancelled 23.0 L Plt Count Cancelled 54 L D BMP 05/31/22 05/31/22 08:24 10:45 Sodium 133 L Potassium 4.2 Chloride 100 Carbon Dioxide 23 BUN 10 Creatinine 0.47 L 0.52 Calcium 7.7 L Liver Function 05/31/22 Range/Units 10:45 Total Bilirubin 0.7 (0.0-1.0) mg/dL AST 23 (5-31) U/L ALT 16 (0-31) U/L Alkaline Phosphatase 77 (39-117) U/L Albumin 2.3 L (3.5-5.0) g/dL Assessment and Plan Patient Active problem list reviewed?: Yes (1) Anemia Status: Acute Assessment and plan: 1. This is an unfortunate 36-year-old woman with spontaneous right pneumothorax. She is also being treated for bacteremia/sepsis secondary to Staphylococcus, probable endocarditis. She is on IV antibiotics. She has had an acute drop in hemoglobin and platelet counts. This is clearly related to sepsis and myelosuppression. She also has iron deficiency. There is no evidence of blood loss or hemolysis. Her kidney functions and liver functions are stable. Her LDH is not elevated. Hemoglobin of 11.8 gram/dL noted on 05/29/2022 is probably an error. Her platelet counts are improving. She has received 1 unit blood transfusion. She can be started on oral iron supplementation. I thank you for this consultation. - Time Spent With Patient Time Spent with Patient (in minutes): 15
--- NOTE | 2022-05-31 11:49 | MHC.CLN ---
F/U PT IS SEVERELY MALNOURISHED SEE FULL CLINICAL NUTRITION ASSESSMENT DATED 05/29/22 PO INTAKE 25-50% X 2 MEALS DIET RX: REGULAR CHOPPED-APPROPRIATE PT RECEIVING ENSURE BID TO INCREASE KCALS PROVIDES 700KCALS, 40G PROTEIN MONITOR PO INTAKE CLOSELY
[2022-05-31 11:50] LABS: Folate 12.7 ng/mL (> or = 4.0); Vitamin B12 1741 pg/mL (200-900)
--- NOTE | 2022-05-31 12:07 | MHC.RECOVRN ---
Met with pt in 477 to follow up and provide support. Pt in bed, awake, alert, easily engages in conversation, watching TV. Pt reports withdrawal symptoms have improved with methadone but would feel most comfortable around 60 mg (received 50 mg this morning). Pt reports severe back and chest pain, voices concern regarding current pain medicine regimen and its lack of effect. Pt reports feeling overwhelmed with acute health issues, states It's a lot. Pt requesting t/w to call her mother, Angelica ([phone]), and inform her of patient's presence in the hospital. Pt states It's an open book. She can know everything. Pt denies other questions or concerns at this time. Discussed with Jodi Aguiar APRN. Will continue to follow.
[2022-05-31 15:13] VITALS: BP 139/69; PULSE 177; RESP 14; TEMP 37.4; O2SAT 94
--- NOTE | 2022-05-31 15:58 | MHC.RECOVRN ---
Collateral information obtained from patient's mother, Angelica. Mom reports she is patient's adoptive mother and was aware patient was admitted due to possible endocarditis. Mom reports patient is currently on probation and is in contact with patient's corporate responsibility officer regarding patient's admission. Mom reports patient has been struggling with BRIANNA since age 20 and has entered many treatment programs but has not completed. Mom reports patient had been seen recently at [facility] for rectal damage and rectal surgery. The outcome of this appointment was unclear. Mom concerned about patient's discharge and returning to unsuitable living conditions, ie no electricity. Mom plans to visit this evening and f/u with t/w tomorrow. Discussed with Jodi Aguiar APRN.
--- NOTE | 2022-05-31 16:05 | PM.EVENT ---
Event Note Date of Service: 06/05/22 Event Note: Unable to perform MRI with chest tube in, patient says she has no back, there is no weakness in the legs, no sadle anesthesia, no urinary or stool incontinence, no tenderness in back. She feels weak in general from lying in bed. Will therefore cancel MRI and do Lumbar spine CT with contrast... In the end she refused CT and no interrested in MRI either,.. indication was clearly discussed with her
[2022-05-31] MEDS: Nafcillin Sodium 2 GM in 0.9 % Sodium Chloride 100 ML IV ×3 (17:14→23:40)
[2022-05-31 19:26] VITALS: BP 99/76; PULSE 128; RESP 14; TEMP 37.7; O2SAT 92
[2022-05-31 22:52] LABS: Vancomycin Random 5.7 mcg/mL (15-20)
[2022-06-01] VITALS (9 sets, daily range): BP systolic 101–131; BP diastolic 62–88; PULSE 92–120; RESP 16–22; TEMP 35.6–37.4; O2SAT 94–96
[2022-06-01] MEDS: HYDROmorphone HCl 1 MG/ML SYRINGE IVPUSH ×5 (02:16→21:14)
[2022-06-01] MEDS: Nafcillin Sodium 2 GM in 0.9 % Sodium Chloride 100 ML IV ×5 (04:24→20:06)
[2022-06-01 06:58] LABS: Creatinine Clr Calc Pharmacy 88.6; Estimated Glomerular Filt Rate > 60
[2022-06-01 09:33] LABS: Hematocrit 21.4 % (37.0-47.0); Mean Corpuscular HGB Conc 31.8 g/dl (31.0-35.0); Mean Corpuscular Hemoglobin 24.1 pg (27.0-33.0); Mean Corpuscular Volume 75.9 fL (80.0-98.0); NRBC Pct Auto 0.4 /100WBC (0.0-0.2); Red Blood Count 2.82 X10*6/uL (4.20-5.50); Red Cell Distribution Width 18.5 % (11.0-16.0); White Blood Count 7.1 X10*3/uL (4.8-10.8)
[2022-06-01 09:43] LABS: Hemoglobin 6.8 g/dl (12.0-16.0); PLT ABN DIST 1; Platelet Count 57 X10*3/uL (160-400)
[2022-06-01] MEDS: methADONE HCl 20 MG/2 ML ORAL.CONC 60 MG PO (09:46)
--- NOTE | 2022-06-01 10:20 | P.PNTS_ITS ---
Subjective Subjective Date of Service: 06/01/22 Interval history: Patient's main complaints are pain at the chest tube insertion site and the inability to take deep breaths. Denies any SOB at rest. Chest tube has remained to waterseal throughout yesterday and overnight without any issues. Denies any fever, chills, lightheadness, abdominal pain. States her hemoptysis is improving. Physical Exam Vital Signs: Vital Signs: Last Vital Signs Temp 97.9 F 06/01/22 07:38 Pulse 115 H 06/01/22 07:38 Resp 18 06/01/22 07:38 BP 111/75 06/01/22 07:38 Pulse Ox 95 06/01/22 07:38 O2 Del Method 06/01/22 07:38 O2 Flow Rate 6 05/28/22 13:05 BMI result Body Mass Index 20.7 General: No acute distress, resting comfortably in bed, thin female. Head: Normocephalic, atraumatic, symmetric Eyes: Sclera anicteric, eyelids without edema or erythema, +EOMS intact ENT: Oral mucosa and tongue are moist without lesions or exudates Neck: Soft, supple, symmetric, trachea midline, no crepitus Cardiovascular: Regular rate and rhythm, BUE and BLE without edema, no calf tenderness bilaterally Respiratory: Lungs CTA B, breathing nonlabored, speaking in full sentences, on room air. No use of accessory muscles. Right pigtail chest tube x 1 to [facility] on waterseal, minimal serous drainage, no air leak. No crepitus. Gastrointestinal: Soft, non-tender, non-distended, +normoactive bowel sounds. Skin: Warm and dry throughout Neurological: Alert and oriented x 3, no focal neurological deficit noted Psychiatric: No agitation, appropriate affect. Very anxious while chest tube being removed, but quick to calm down after. Procedures Date of Service Date of Service: 06/01/22 Progress Note: A&P Assessment and plan (1) Tension pneumothorax, spontaneous: Status: Acute Assessment and Plan: 36 year old female with Staph bacteremia, endocarditis, and complete collapse of the right lung with some degree of tension. s/p pigtail by ER , which was then removed and replaced with large bore chest tube due to incomplete re-expansion on 05/28/22. This tube then nearly fell out, therefore needed to be replaced again with a pigtail on 05/29/2022. * CXR today shows stable tiny right apical pneumothorax. * Still no airleak on exam. * Right chest tube removed at time of my visit without difficulty. Occlusive dressing placed over the site which should remain in place, untouched, for 2 days. Dressing can be removed on 06/03/22 and left open to air. * Patient continues to require aggressive pulmonary toileting with IS, acapella, and as much ambulation in the hallways as possible to aid in complete lung reexpansion. We will sign off at this time. Please call us back with any questions or concerns. (2) Bacteremia due to Gram-positive bacteria: Status: Acute (3) Endocarditis of tricuspid valve: Status: Acute Time Spent With Patient Time: Total time spent is greater than 50% in coordination of care (as documented) at patient's floor/unit and/or counseling patient: Quality Stroke Does the patient have a stroke diagnosis?: No VTE Prior VTE?: No VTE Risk Level:: Medical - low VTE Device Contraindication: Treatment Not Indicated VTE Drug Contraindication: Treatment Not Indicated
--- NOTE | 2022-06-01 12:21 | P.PNCA_ITS ---
Subjective Subjective Date of Service: 06/01/22 Interval history: She describes aches and pains all over the body but nothing specific from cardiac. Denies any shortness of breath. Somewhat shaky. Review of Systems Review of Systems Yes all other systems are reviewed and are negative Constitutional: Reports as per HPI Eyes: Reports as per HPI Reports as per HPI Cardiovascular: Reports as per HPI, Denies acrocyanosis, Denies cool extremities, Denies chest pain, Denies leg edema, Denies lightheadedness, Denies palpitations and Denies dyspnea Respiratory: Reports as per HPI, Reports no additional respiratory complaints and Denies dyspnea Gastrointestinal: Reports as per HPI and Reports no additional gastrointestinal complaints Genitourinary: Reports as per HPI Musculoskeletal: Reports no additional musculoskeletal complaints and Reports as per HPI Skin/Breast: Reports system reviewed and no additional complaints, except as docu Reports system reviewed and no additional complaints, except as documented and Reports as per HPI Psychiatric: Reports no additional psychiatric complaints and Reports as per HPI Endocrine: Reports no additional endocrine complaints, Reports as per HPI and Denies palpitations Hematologic/Lymphatic: Reports no additional hematologic/lymphatic complaints and Reports as per HPI Allergic/Immunologic: Reports no additional allergic/immunologic complaints and Reports as per HPI Physical Exam Vital Signs: Last Vital Signs Temp 98.8 F 06/01/22 11:31 Pulse 120 H 06/01/22 11:31 Resp 20 06/01/22 11:31 BP 114/64 06/01/22 11:31 Pulse Ox 95 06/01/22 11:31 O2 Del Method 06/01/22 11:31 O2 Flow Rate 6 05/28/22 13:05 BMI result Body Mass Index 20.7 Const General: comfortable and no acute distress Nutritional Appearance: cachectic, malnourished, thin and underweight Orientation/consciousness: patient oriented x3 HEENT Other: Unremarkable Head: Yes normal to inspection Neck Neck: Yes normal visual inspection Chest Chest palpation & inspection: normal inspection of the chest Resp Auscultation: clear to auscultation bilaterally Cardio Palpation: normal PMI Heart sounds: S1 normal heart sound present, S2 normal heart sound present, no gallops, no murmurs and no rubs GI Palpation (GI): Soft to palpation Back/Spine/Pelvis Other: unremarkable Skin General skin exam: no rashes or lesions noted Neuro General: patient oriented x3 Extrem General: Yes normal to inspection Psych Appearance: disheveled Mental Status: mental status grossly normal Objective Labs and Meds Result diagrams: 06/01/22 09:24 06/01/22 06:13 Lab results: Laboratory Results - last 24 hr 05/31/22 05/31/22 06/01/22 10:45 22:20 06:13 WBC RBC Hgb Hct MCV MCH MCHC RDW Plt Count MPV Absolute Nucleated RBC Nucleated RBC % (auto) Creatinine 0.61 Estim Creat Clear Calc 88.6 Estimated GFR > 60 Random Vancomycin 5.7 L Hepatitis A IgM Ab Nonreactive Hep Bs Antigen Negative Hep Bs Antibody REACTIVE Hep B Core Total Ab Nonreactive Hepatitis C Ab (EIA) Reactive H Blood Type Antibody Screen Crossmatch 06/01/22 06/01/22 09:24 10:54 WBC 7.1 RBC 2.82 L Hgb 6.8 L* Hct 21.4 L MCV 75.9 L MCH 24.1 L MCHC 31.8 RDW 18.5 H Plt Count 57 L MPV Not Reportable Absolute Nucleated RBC 0.030 H Nucleated RBC % (auto) 0.4 H Creatinine Estim Creat Clear Calc Estimated GFR Random Vancomycin Hepatitis A IgM Ab Hep Bs Antigen Hep Bs Antibody Hep B Core Total Ab Hepatitis C Ab (EIA) Blood Type O Positive Antibody Screen NEGATIVE Crossmatch See Detail Imaging Radiologist's impression: Impressions Chest CT 05/31/22 11:14 IMPRESSION: Multiple cavitary lesions largest in the right middle lobe with air-fluid level. There are several ill-defined soft tissue nodule/opacities in both upper and lower lobes. There are bilateral loculated small pleural effusions with right lower lobe consolidation. There is no pneumothorax. The right pigtail chest catheter tip is in the apex. There is mild right anterior chest wall subcutaneous emphysema. Fleischner guidelines were followed. Progress Note: A&P Assessment and plan (1) Endocarditis of tricuspid valve: Status: Acute Plan Echocardiogram is clearly indicative of tricuspid valve vegetation. However, no clear evidence of severe tricuspid regurgitation or right ventricular failure. Due to active drug use, severe anemia, lack of any signs of right heart failure and otherwise reasonably compensated, we will continue empiric antibiotics for now. However, if she does develop right heart dysfunction or severe tricuspid reg urgitation or inability to clear bacteremia, may need surgical input as well. At this time, continue aggressive antibiotic therapy. Evaluate and treat anemia. Counseling to obtain from drugs. Will closely follow. Discussed with Michaela Bass. Time Spent With Patient Time: Total time spent is greater than 50% in coordination of care (as documented) at patient's floor/unit and/or counseling patient: 35min. Progress Note: Quality Stroke Does the patient have a stroke diagnosis?: No Procedures Date of Service Date of Service: 06/01/22
--- NOTE | 2022-06-01 12:29 | P.PNIM_ITS ---
Subjective Subjective Date of Service: 06/01/22 Interval History: seen and examined this morning Follow-up for endocarditis, bacteremia Not feeling well today, pain taking deep breath. No cough. No fever overnight Review of Systems Review of Systems: Yes all other systems are reviewed and are negative Constitutional Constitutional: Denies chills and Denies fever(s) Cardiovascular Cardiovascular: Denies chest pain, Denies palpitations and Reports dyspnea Respiratory Respiratory: Denies cough and Reports dyspnea Gastrointestinal Gastrointestinal: Denies abdominal pain, Denies nausea and Denies vomiting Endocrine Endocrine: Denies palpitations Physical Exam Vital Signs: Vital Signs: Last Vital Signs Temp 98.8 F 06/01/22 11:31 Pulse 120 H 06/01/22 11:31 Resp 20 06/01/22 11:31 BP 114/64 06/01/22 11:31 Pulse Ox 95 06/01/22 11:31 O2 Del Method 06/01/22 11:31 O2 Flow Rate 6 05/28/22 13:05 BMI result Body Mass Index 20.7 Const: General: comfortable, no acute distress, alert and awake Nutritional Appearance: thin Orientation/consciousness: patient oriented x3 Resp: Other: decreased inspiratory effort, coarse breath sounds bilaterally. No respiratory distress Cardio: Rate: regular rate Rhythm: regular rhythm GI: Inspection: No distended Palpation (GI): Soft to palpation and nontender : Other: matta in place Neuro: General: patient oriented x3 and CN's II-XI intact bilaterally Extrem: Other: able to move all 4 extremities spontaneously Objective Data Active Medications Hydromorphone HCl (Hydromorphone Hcl 1 Mg/Ml Syringe) 1 mg IVPUSH Q4H PRN; Protocol PRN Reason: Pain, Severe (Pain Scale 7-10) Last Admin: 06/01/22 08:24 Dose: 1 mg Documented By: HAIM Nafcillin Sodium 2 gm/ Sodium (Chloride) 100 mls @ 200 mls/hr IV Q4H [facility] Last Infusion: 06/01/22 09:49 Dose: 0 mls/hr Documented By: HAIM Methadone HCl (Methadone Hcl 20 Mg/2 Ml Oral.Conc) 60 mg PO DAILY [facility] Last Admin: 06/01/22 09:46 Dose: 60 mg Documented By: HAIM Pharmacy Consult (Consult Rx Vancomycin Dosing) 1 each MISCELLANE DAILY PRN PRN Reason: Consult order Trazodone HCl (Trazodone Hcl 100 Mg Tablet) 200 mg PO BEDTIME [facility] Last Admin: 05/31/22 20:48 Dose: 100 mg Documented By: JCARLOS Comments: pt only wants 100mg Labs CBC & Chem 7: 06/01/22 09:24 06/01/22 06:13 Labs: Laboratory Results - last 24 hr 05/31/22 05/31/22 06/01/22 10:45 22:20 06:13 MCV MCH MCHC RDW Plt Count MPV Absolute Nucleated RBC Nucleated RBC % (auto) Estim Creat Clear Calc 88.6 Estimated GFR > 60 Random Vancomycin 5.7 L Hepatitis A IgM Ab Nonreactive Hep Bs Antigen Negative Hep Bs Antibody REACTIVE Hep B Core Total Ab Nonreactive Hepatitis C Ab (EIA) Reactive H Blood Type Antibody Screen Crossmatch 06/01/22 06/01/22 09:24 10:54 MCV 75.9 L MCH 24.1 L MCHC 31.8 RDW 18.5 H Plt Count 57 L MPV Not Reportable Absolute Nucleated RBC 0.030 H Nucleated RBC % (auto) 0.4 H Estim Creat Clear Calc Estimated GFR Random Vancomycin Hepatitis A IgM Ab Hep Bs Antigen Hep Bs Antibody Hep B Core Total Ab Hepatitis C Ab (EIA) Blood Type O Positive Antibody Screen NEGATIVE Crossmatch See Detail Microbiology Microbiology Results: Microbiology 05/31/22 09:48 Blood Culture - Preliminary Blood - Venous Prelim: GPC Gram Stain only 05/31/22 10:45 Blood Culture - Preliminary Blood - Venous Prelim: GPC Gram Stain only 05/29/22 11:01 Gram Stain - Final Thoracentesis Fluid Anaerobic Culture - Preliminary Culture in progress. Body Fluid Culture - Final Staphylococcus aureus 05/28/22 13:23 Blood Culture - Final Blood - Venous Staphylococcus aureus 05/28/22 13:23 Blood Culture - Final Blood - Venous Staphylococcus aureus Assessment and Plan (1) Anemia: Status: Acute (2) Septic pulmonary embolism: Status: Acute (3) Endocarditis of tricuspid valve: Status: Acute (4) Bacteremia due to Gram-positive bacteria: Status: Acute Plan 36 yo F with PMH of intravenous drug abuse.? Started methadone recently, up to 60 mg/day.? Also h/o undetermined asthma, kidney stones, hepatitis-C, bipolar disorder, PTSD, h/o seizure/drug OD in 2005 requiring intubation, and tobacco abuse. Was in the ED five days prior to admission (05/23/22) complaining of withdrawal symptoms with myalgias, abdominal discomfort and nausea.? According to the ED na rrative, the patient was caught exiting the bathroom with a tourniquet and empty heroin in her pockets.? She subsequently left the ED AMA. She presented back to the ED on 05/28/22 complaining of shortness of breath and chest pain x1 week.?Chest x-ray showed a large right pneumothorax with total collapse of the right lung with some mediastinal shift to the left. Chest tube was inserted and admitted to ICU, further found to have Staph Triscuspid endocarditis and Septic embolic. She was transfered out of ICU on 05/30/22 # Septic emboli # Staph bacteremia, MSSA # Tricuspid endocarditis - CT confirms septic emboli - official ECHO with tricuspid valve vegetation, mild tricuspid valve re gurgitation - seen by ID, Cardiology - Repeat blood cultures + - antibiotics changed to nafcillin - no indication for surgery at this time. Monitor for signs of heart failure or persistent bacteremia # .IVDU.? She?s on methadone 60 mg daily. Addiction med following # Spont PTX.? s/p chest tube with reexpansion of lung. - chest tube removed by CT surgery today. occlusive dressing can be removed 06/03 and left open to air tiny residual pneumothorax should absorb on its own. recommend incentive spirometry, Acapella, walking as able #Hypoxemia.? Prob 2? due to septic emboli and PTX--now resolved, comfortable on room air #Hyponatremia.? Probably due to hypovolemia, was 123 on 05/28, most recent 133 # Sinus tachycardia.? Largely 2? endocarditis, treat underlying issues and mon itor # Anemia.? Hct dropped from 34 on 05/29 to 22 on 05/30 B12, folate wnl, Iron 27 likely r/t acute illness, iron deficiency/malnutrition. no evidence of hemolysis or blood loss -H/H trending down - will transfuse 1 unit of blood - follow H/H - check stool occult # Thrombocytopenia.? likely from sepsis.? platelets stable at this time - follow CBC # Coagulopathy. INR 1.8, liver ok, ?Most likely 2? malnutrition.?Given vit K repeat INR 1.1 #Increased LFTs.? ? 2? hepatitis C. - hepatitis C - reactive - official ID consult note pending- outpatient follow-up # Severe protein calorie malnutrition.? Will have nutrition consult DVT prophylaxis- SCD rodger attending -Dr. Amaya patient requires ongoing inpatient hospitalization due to persistent bacteremia, tricuspid valve endocarditis, persistent tachycardia, anemia and IV antibiotics Quality Stroke Does the patient have a stroke diagnosis?: No VTE Prior VTE?: No VTE Risk Level:: Medical - low VTE Device Contraindication: Treatment Not Indicated VTE Drug Contraindication: Treatment Not Indicated
[2022-06-01] MEDS: Benzonatate 100 MG CAPSULE PO (13:57)
[2022-06-01] MEDS: Acetaminophen 325 MG TABLET 650 MG PO ×2 (13:57→20:05)
[2022-06-01] MEDS: oxyCODONE HCl Immed Release 5 MG TABLET PO ×2 (13:57→20:05)
--- NOTE | 2022-06-01 19:24 | PC.NURSE ---
Raised red area noted to patients right calf. Pt stated area painful and irritating. NAZARIO Jansen made aware. Gen surg consult ordered.
[2022-06-01] MEDS: Docusate Sodium 100 MG CAPSULE PO (20:06)
[2022-06-01] MEDS: traZODone HCL 100 MG TABLET 200 MG PO (20:06)
[2022-06-02] MEDS: Nafcillin Sodium 2 GM in 0.9 % Sodium Chloride 100 ML IV ×6 (00:39→20:49)
[2022-06-02] MEDS: HYDROmorphone HCl 1 MG/ML SYRINGE IVPUSH ×5 (03:46→20:49)
[2022-06-02 04:00] VITALS: BP 105/70; PULSE 112; RESP 18; TEMP 36.1; O2SAT 95
[2022-06-02 06:00] VITALS: BMI 20.4
[2022-06-02 07:43] LABS: Hematocrit 25.6 % (37.0-47.0); Hemoglobin 8.4 g/dl (12.0-16.0); Mean Corpuscular HGB Conc 32.8 g/dl (31.0-35.0); Mean Corpuscular Hemoglobin 25.5 pg (27.0-33.0); Mean Corpuscular Volume 77.6 fL (80.0-98.0); Mean Platelet Volume 10.6 fL (9.4-12.3); Red Cell Distribution Width 20.3 % (11.0-16.0); White Blood Count 7.2 X10*3/uL (4.8-10.8)
[2022-06-02 07:45] LABS: Platelet Count 62 X10*3/uL (160-400)
[2022-06-02 07:57] LABS: Anion Gap 13 (12-20); Blood Urea Nitrogen 12 mg/dL (9-16); Calcium 7.6 mg/dL (8.4-10.2); Carbon Dioxide 24 mmol/L (22-29); Chloride 100 mmol/L (96-108); Creatinine Clr Calc Pharmacy 112.6; Estimated Glomerular Filt Rate > 60; Glucose Random 125 mg/dL (60-115); Potassium 4.3 mmol/L (3.3-5.1); Sodium 133 mmol/L (135-145)
[2022-06-02 08:00] VITALS: BP 100/71; PULSE 110; RESP 20; TEMP 37.1; O2SAT 96
--- NOTE | 2022-06-02 08:12 | PM.CNGS ---
History of Present Illness Consult details Consult date: 06/02/22 Requesting physician: Michaela Bass Narrative: 36-year-old female patient with history of IV drug use presenting with complaints of pain, redness, and swelling in the lower right extremity of approximately 1 week duration. The pain seems to be increasing in severity and she subsequently presented to emergency department for further evaluation. She has been admitted to the hospitalist service and placed on IV antibiotics. Overall she feels improved but does know persistent pain and swelling over the right olson. Surgical consultation was requested for possible drainage of this apparent abscess. Review of Systems Review of Systems: Yes all other systems are reviewed and are negative Constitutional: Constitutional: Reports chills and Reports fever(s) Cardiovascular: Cardiovascular: Denies chest pain and Reports dyspnea Respiratory: Respiratory: Reports dyspnea Comments: Pneumothorax, status post chest tube placement Gastrointestinal: Gastrointestinal: Denies abdominal pain, Denies constipation and Denies diarrhea Musculoskeletal: Musculoskeletal: Reports as per HPI Integumentary/Breasts: Skin/Breast: Reports as per HPI Hematologic/Lymphatic: Hematologic/Lymphatic: Denies lymphadenopathy [facility] Past Medical History Medical History Asthma Hepatitis C carrier Kidney stones Family History Family History Mother Coronary artery disease Social History Social History Household Members: Family Household Members Other:: brother Housing: House Do you presently have visiting nurse or other home services: No Alcohol intake: never Patient Tobacco Use Status: Never used Tobacco Use of substances other than those prescribed or required for medical reasons: Yes Substance Use Type: Crack/Cocaine and Heroin Substance Use Frequency: Daily Last Used Substance: Unknown Currently Displaying Signs/Symptoms of Drug Intoxication Withdrawal: No Any prior treatment program specific to substance use: Yes Have you been hit, kicked, punched, or otherwise hurt by someone within the past year? If so, by whom?: No Do you feel safe in your current relationship?: No Is there a partner from a previous relationship who is making you feel unsafe now?: No Are you made to feel afraid or neglected: No Advance Directives: No Advance Directives Information Provided: Yes Do you have thoughts of harming others: None Do you have a plan to hurt others: No Plan Recently lost weight without trying: Yes How much weight loss: Not applicable Eating poorly because of decreased appetite: Yes Nutrition screen score: 3 Nutrition Risks: Dental problems Patient : No : No Poor oral hygiene: No Meds Allergies Allergy/AdvReac Type Severity Reaction Status Date / Time fluoxetine [From PROZAC] Allergy Severe DELUSIONS Verified 12/13/20 00:25 Active Medications: Current Medications Acetaminophen (Acetaminophen 325 Mg Tablet) 650 mg PO Q6H PRN PRN Reason: Pain, Mild, Fever Last Admin: 06/01/22 20:05 Dose: 650 mg Benzonatate (Benzonatate 100 Mg Capsule) 100 mg PO TID PRN PRN Reason: Cough Last Admin: 06/01/22 13:57 Dose: 100 mg Docusate Sodium (Docusate Sodium 100 Mg Capsule) 100 mg PO BEDTIME [facility] Last Admin: 06/01/22 20:06 Dose: 100 mg Hydromorphone HCl (Hydromorphone Hcl 1 Mg/Ml Syringe) 1 mg IVPUSH Q4H PRN; Protocol PRN Reason: Pain, Severe (Pain Scale 7-10) Last Admin: 06/02/22 03:46 Dose: 1 mg Nafcillin Sodium 2 gm/ Sodium (Chloride) 100 mls @ 200 mls/hr IV Q4H [facility] Last Infusion: 06/02/22 04:27 Dose: Infused Methadone HCl (Methadone Hcl 20 Mg/2 Ml Oral.Conc) 60 mg PO DAILY [facility] Last Admin: 06/01/22 09:46 Dose: 60 mg Oxycodone HCl (Oxycodone Hcl Immed Release 5 Mg Tablet) 5 mg PO Q6H PRN PRN Reason: Pain, Moderate (Pain Scale 4-6 Last Admin: 06/01/22 20:05 Dose: 5 mg Pharmacy Consult (Consult Rx Vancomycin Dosing) 1 each MISCELLANE DAILY PRN PRN Reason: Consult order Polyethylene Glycol (Polyethylene Glycol 3350 17 Gm Powd.Pack) 17 gm PO DAILY PRN PRN Reason: Constipation Trazodone HCl (Trazodone Hcl 100 Mg Tablet) 200 mg PO BEDTIME [facility] Last Admin: 06/01/22 20:06 Dose: 100 mg Home Medications Medication Instructions Recorded Confirmed Last Taken Type chlorpromazine 50 mg tablet 50 mg PO DAILY 05/28/22 05/28/22 Unknown History methadone 10 mg/mL oral 60 mg PO DAILY 05/28/22 05/28/22 Unknown History concentrate (Methadone Intensol) prazosin 2 mg capsule 2 mg PO BEDTIME 05/28/22 05/28/22 Unknown History trazodone 100 mg tablet 200 mg PO BEDTIME 05/28/22 05/28/22 Unknown History Physical Exam Vital Signs: Vital Signs: Last Vital Signs Temp 98.8 F 06/02/22 08:00 Pulse 110 H 06/02/22 08:00 Resp 20 06/02/22 08:00 BP 100/71 06/02/22 08:00 Pulse Ox 96 06/02/22 08:00 O2 Del Method 06/02/22 08:00 O2 Flow Rate 6 05/28/22 13:05 BMI result Body Mass Index 20.4 Const: General: no acute distress and ill appearing Nutritional Appearance: malnourished Orientation/consciousness: patient oriented x3 Limitations: no limitations HEENT: Head: Yes normocephalic Teeth and gingiva: poor dentition Resp: Effort & Inspection: normal respiratory effort, no audible wheezes and no cough GI: Inspection: Yes normal to inspection Skin: Other: Multiple skin lesions consistent with IV drug use. Neuro: General: patient oriented x3 Extrem: Other: Right mid olson with area of fluctuance measuring approximately 3 cm in diameter, red and tender to palpation. No ulceration or discharge noted. Upper/lower leg/hip images: 1. Site of abscess right olson Results Labs Result diagrams: 06/02/22 07:13 06/02/22 07:13 Labs: Abnormal lab results 06/01/22 06/01/22 06/02/22 Range/Units 09:24 10:54 07:13 RBC 2.82 L 3.30 L (4.20-5.50) X10*6/uL Hgb 6.8 L* 8.4 L D (12.0-16.0) g/dl Hct 21.4 L 25.6 L (37.0-47.0) % MCV 75.9 L 77.6 L (80.0-98.0) fL MCH 24.1 L 25.5 L (27.0-33.0) pg RDW 18.5 H 20.3 H (11.0-16.0) % Plt Count 57 L 62 L (160-400) X10*3/uL Absolute Nucleated RBC 0.030 H (0.0-0.012) X10*3/uL Nucleated RBC % (auto) 0.4 H (0.0-0.2) /100WBC Sodium (135-145) mmol/L Creatinine (0.5-1.4) mg/dL Random Glucose (60-115) mg/dL Calcium (8.4-10.2) mg/dL Crossmatch See Detail 06/02/22 Range/Units 07:13 RBC (4.20-5.50) X10*6/uL Hgb (12.0-16.0) g/dl Hct (37.0-47.0) % MCV (80.0-98.0) fL MCH (27.0-33.0) pg RDW (11.0-16.0) % Plt Count (160-400) X10*3/uL Absolute Nucleated RBC (0.0-0.012) X10*3/uL Nucleated RBC % (auto) (0.0-0.2) /100WBC Sodium 133 L (135-145) mmol/L Creatinine 0.48 L (0.5-1.4) mg/dL Random Glucose 125 H (60-115) mg/dL Calcium 7.6 L (8.4-10.2) mg/dL Crossmatch Short CBC 06/01/22 06/02/22 Range/Units 09:24 07:13 WBC 7.1 7.2 (4.8-10.8) X10*3/uL Hgb 6.8 L* 8.4 L D (12.0-16.0) g/dl Hct 21.4 L 25.6 L (37.0-47.0) % Plt Count 57 L 62 L (160-400) X10*3/uL BMP 06/02/22 07:13 Sodium 133 L Potassium 4.3 Chloride 100 Carbon Dioxide 24 BUN 12 Creatinine 0.48 L Calcium 7.6 L Urine 05/29/22 05/29/22 Range/Units 08:42 08:42 Urine Color YELLOW Urine Appearance CLEAR Urine pH 6.0 (5.0-8.0) Ur Specific [place] 1.020 (1.005-1.025) Urine Protein 1+ H (NEG-TRACE) MG/DL Urine Glucose (UA) 100 H (NEG) MG/DL Urine Test NEGATIVE (NEGATIVE) All other labs normal. Assessment and Plan (1) Substance abuse: Status: Acute (2) Abscess of right leg: Status: Acute Plan 36-year-old female patient with history IV drug abuse presenting with an abscess of the right leg. I recommended incision and drainage and after discussion of the procedure risks and alternatives, procedure. This was performed at the bedside under local anesthesia later this afternoon. She expressed understanding and agrees with the plan. Procedures Date of Service Date of Service: 06/02/22
[2022-06-02 09:28] LABS: OBS Int Ctl Valid YES; OBS1 NEGATIVE (NEGATIVE)
[2022-06-02] MEDS: methADONE HCl 20 MG/2 ML ORAL.CONC 60 MG PO (10:03)
--- NOTE | 2022-06-02 11:31 | MHC.CLN ---
F/U PO INTAKE REMAINS VARIABLE NOTED RECENT WT 45.9KG; BMI 20 DIET RX: REGULAR CHOPPED-APPROPRIATE PT RECEIVING ENSURE BID TO INCREASE KCALS PROVIDES 700KCALS, 40G PROTEIN CONTINUE TO MONITOR PO INTAKE CLOSELY
[2022-06-02 11:42] VITALS: BP 113/75; PULSE 98; RESP 20; TEMP 36.9; O2SAT 95
--- NOTE | 2022-06-02 13:11 | HO.PM.IMPN ---
Subjective Subjective Date of Service: 06/02/22 Interval History: seen and examined this morning Follow-up for bacteremia, endocarditis chest tube removed yesterday, still having some discomfort at the site of previous chest tube. right leg abscess noted yesterday, tender to touch Review of Systems Review of Systems: Yes all other systems are reviewed and are negative Constitutional Constitutional: Denies chills and Denies fever(s) Cardiovascular Cardiovascular: Denies chest pain and Denies palpitations Respiratory Respiratory: Denies cough and Reports pain on inspiration Gastrointestinal Gastrointestinal: Denies abdominal pain, Denies nausea and Denies vomiting Endocrine Endocrine: Denies palpitations Physical Exam Vital Signs: Vital Signs: Last Vital Signs Temp 98.5 F 06/02/22 11:42 Pulse 98 06/02/22 11:42 Resp 20 06/02/22 11:42 BP 113/75 06/02/22 11:42 Pulse Ox 95 06/02/22 11:42 O2 Del Method 06/02/22 11:42 O2 Flow Rate 6 05/28/22 13:05 BMI result Body Mass Index 20.4 Const: General: comfortable, no acute distress, alert, awake and poor hygiene Nutritional Appearance: thin Orientation/consciousness: patient oriented x3 Resp: Other: decreased inspiratory effort, coarse breath sounds bilaterally. No respiratory distress Cardio: Rate: regular rate Rhythm: regular rhythm GI: Inspection: No distended Palpation (GI): Soft to palpation and nontender : Other: matta in place Neuro: General: patient oriented x3 and CN's II-XI intact bilaterally Extrem: Other: able to move all 4 extremities spontaneously; right anterior lower leg with quarter sized area of fluctuance with surrounding erythema Objective Data Active Medications Acetaminophen (Acetaminophen 325 Mg Tablet) 650 mg PO Q6H PRN PRN Reason: Pain, Mild, Fever Last Admin: 06/01/22 20:05 Dose: 650 mg Documented By: REGINA Benzonatate (Benzonatate 100 Mg Capsule) 100 mg PO TID PRN PRN Reason: Cough Last Admin: 06/01/22 13:57 Dose: 100 mg Documented By: HAIM Docusate Sodium (Docusate Sodium 100 Mg Capsule) 100 mg PO BEDTIME [facility] Last Admin: 06/01/22 20:06 Dose: 100 mg Documented By: REGINA Hydromorphone HCl (Hydromorphone Hcl 1 Mg/Ml Syringe) 1 mg IVPUSH Q4H PRN; Protocol PRN Reason: Pain, Severe (Pain Scale 7-10) Last Admin: 06/02/22 13:00 Dose: 1 mg Documented By: THEODORE Nafcillin Sodium 2 gm/ Sodium (Chloride) 100 mls @ 200 mls/hr IV Q4H [facility] Last Admin: 06/02/22 12:58 Dose: 200 mls/hr Documented By: THEODORE Methadone HCl (Methadone Hcl 20 Mg/2 Ml Oral.Conc) 60 mg PO DAILY [facility] Last Admin: 06/02/22 10:03 Dose: 60 mg Documented By: THEODORE Oxycodone HCl (Oxycodone Hcl Immed Release 5 Mg Tablet) 5 mg PO Q6H PRN PRN Reason: Pain, Moderate (Pain Scale 4-6 Last Admin: 06/01/22 20:05 Dose: 5 mg Documented By: REGINA Pharmacy Consult (Consult Rx Vancomycin Dosing) 1 each MISCELLANE DAILY PRN PRN Reason: Consult order Polyethylene Glycol (Polyethylene Glycol 3350 17 Gm Powd.Pack) 17 gm PO DAILY PRN PRN Reason: Constipation Trazodone HCl (Trazodone Hcl 100 Mg Tablet) 200 mg PO BEDTIME [facility] Last Admin: 06/01/22 20:06 Dose: 100 mg Documented By: REGINA Labs CBC & Chem 7: 06/02/22 07:13 06/02/22 07:13 Labs: Laboratory Results - last 24 hr 06/01/22 06/02/22 06/02/22 10:54 07:13 07:13 MCV 77.6 L MCH 25.5 L MCHC 32.8 RDW 20.3 H Plt Count 62 L MPV 10.6 Absolute Nucleated RBC 0.000 Nucleated RBC % (auto) 0.0 Anion Gap 13 Estim Creat Clear Calc 112.6 Estimated GFR > 60 Random Glucose 125 H Calcium 7.6 L Stool Occult Blood Blood Type O Positive Antibody Screen NEGATIVE Crossmatch See Detail 06/02/22 09:05 MCV MCH MCHC RDW Plt Count MPV Absolute Nucleated RBC Nucleated RBC % (auto) Anion Gap Estim Creat Clear Calc Estimated GFR Random Glucose Calcium Stool Occult Blood NEGATIVE Blood Type Antibody Screen Crossmatch Microbiology Microbiology Results: Microbiology 05/29/22 11:01 Gram Stain - Final Thoracentesis Fluid Anaerobic Culture - Preliminary Culture in progress. Body Fluid Culture - Final Staphylococcus aureus 05/31/22 10:45 Blood Culture - Preliminary Blood - Venous Staphylococcus aureus 05/31/22 09:48 Blood Culture - Preliminary Blood - Venous Staphylococcus aureus Assessment and Plan (1) Abscess of right leg: Status: Acute (2) Anemia: Status: Acute (3) Endocarditis of tricuspid valve: Status: Acute Plan 36 yo F with PMH of intravenous drug abuse.? Started methadone recently, up to 60 mg/day.? Also h/o undetermined asthma, kidney stones, hepatitis-C, bipolar disorder, PTSD, h/o seizure/drug OD in 2005 requiring intubation, and tobacco abuse. Was in the ED five days prior to admission (05/23/22) complaining of withdrawal symptoms with myalgias, abdominal discomfort and nausea.? According to the ED narrative, the patient was caught exiting the bathroom with a tourniquet and empty heroin in her pockets.? She subsequently left the ED AMA. She presented back to the ED on 05/28/22 complaining of shortness of breath and chest pain x1 week.?Chest x-ray showed a large right pneumothorax with total collapse of the right lung with some mediastinal shift to the left. Chest tube was inserted and admitted to ICU, further found to have Staph Triscuspid endocarditis and Septic embolic. She was transfered out of ICU on 05/30/22 # Staph bacteremia, MSSA # septic emboli # Tricuspid endocarditis - CT confirms septic emboli - official ECHO with tricuspid valve vegetation, mild tricuspid valve regurgitation - seen by ID - Repeat blood cultures pending - antibiotics changed to nafcillin 05/31 - seen by ID - no indication for surgery at this time. Monitor for signs of heart failure or persistent bacteremia Right leg abscess seen by surgery, plan for I&D this afternoon # .IVDU.? She?s on methadone 60 mg daily. Addiction med following # Spont PTX.? s/p chest tube with reexpansion of lung. - chest tube removed by CT surgery today. occlusive dressing can be removed 06/03 and left open to air tiny residual pneumothorax should absorb on its own. recommend incentive spirometry, Acapella, walking as able #Hypoxemia.? Prob 2? due to septic emboli and PTX--now resolved, comfortable on room air #Hyponatremia.? Probably due to hypovolemia, was 123 on 05/28, most recent 133 # Sinus tachycardia.? Largely 2? endocarditis, treat underlying issues and monitor # Anemia.? Hct dropped from 34 on 05/29 to 22 on 05/30 B12, folate wnl, Iron 27 likely r/t acute illness, iron deficiency/malnutrition. no evidence of hemolysis or blood loss stool occult negative s/p 1 unit of blood 06/01 With good effect - follow H/H # Thrombocytopenia.? likely from sepsis.? platelets stable at this time - follow CBC # Coagulopathy. INR 1.8, liver ok, ?Most likely 2? malnutrition.?Given vit K repeat INR 1.1 #Increased LFTs.? ? 2? hepatitis C. - hepatitis C - reactive. has h/o HCV - official ID consult note pending- outpatient follow-up # Severe protein calorie malnutrition.? Will have nutrition consult DVT prophylaxis- SCD boots attending -Dr. Amaya patient requires ongoing inpatient hospitalization due to persistent bacteremia, tricuspid valve endocarditis, persistent tachycardia, anemia and IV antibiotics Quality Stroke Does the patient have a stroke diagnosis?: No VTE Prior VTE?: No VTE Risk Level:: Medical - low VTE Device Contraindication: Treatment Not Indicated VTE Drug Contraindication: Treatment Not Indicated
[2022-06-02 13:50] VITALS: BP 113/75; PULSE 98; O2SAT 95
[2022-06-02 14:42] LABS: Haptoglobin 248 mg/dL (43-212)
--- NOTE | 2022-06-02 14:48 | P.OP_ITS ---
Operative Note Operative Note Date of Service: 06/02/22 Narrative: Preoperative diagnosis: Abscess right lower extremity Postoperative diagnosis: Same Procedure: Incision and drainage abscess right lower extremity Surgeon: Anastacio Hawk MD Dam Operator: None Anesthesia: Lidocaine 1% with epinephrine Indications for procedure: 36-year-old female patient presenting with history of IV drug abuse now with an abscess of the right olson, tender to palpation measuring approximately 3 cm in diameter. Operative findings: Large abscess collection of the right olson, 3 cm in diameter Specimen: None Estimated blood loss: None Complications: None Procedure details: Procedure was performed at the bedside. The site of the abscess was confirmed by the patient in the right leg. After ensuring informed consent, the skin was prepped with Betadine and draped in a sterile fashion. Local anesthesia was then infiltrated in a longitudinal fashion over the abscess. Once adequate anesthesia was in place, an 11 blade was used to incise the skin. The abscess cavity was entered and a large abscess collection drained. Abscess contained thick whitish purulent material. Wounds were then irrigated with saline solution and packed with gauze. Dry sterile dressings were then applied. The patient tolerated the procedure well and remained in stable condition throughout the procedure.
--- NOTE | 2022-06-02 15:09 | MHC.CM.PN ---
per rounds pt no ready for dc still has positive blood cultures physical theapy recomending str
[2022-06-02 16:05] VITALS: BP 111/80; PULSE 109; RESP 20; TEMP 37.2; O2SAT 95
--- NOTE | 2022-06-02 16:08 | P.PNADD_ITS ---
Subjective Subjective Date of Service: 06/02/22 Reason For Visit: Right Pneumothorax Interim History: Patient seen in follow up tolerating methadone 60mg Denies withdrawal sx Asking appropriate questions related to treatment plan Review of Systems Acute medical concerns: Yes Medical Review of Systems: unchanged Mental Status Exam Mental Status Exam Patient Appearance: Unkempt Patient Orientation: Person, Place, Time and Situation Level of Consciousness: Awake and Appropriate Patient Behavior: Appropriate, Talkative and Cooperative Mood Description: Anxious Affect Description: Anxious Judgement: Good Diagnostics Vital Signs (24Hr): Vital Signs - 24 hr 06/01/22 16:57 06/01/22 20:00 06/01/22 23:40 Temperature 98.9 F 99.4 F 96.1 F L Pulse Rate 115 H 105 H 92 Respiratory Rate 16 16 18 Blood Pressure 108/62 131/87 108/82 Pulse Oximetry 96 95 Oxygen Delivery Method Room Air Room Air 06/02/22 04:00 06/02/22 08:00 06/02/22 11:42 Temperature 97.0 F 98.8 F 98.5 F Pulse Rate 112 H 110 H 98 Respiratory Rate 18 20 20 Blood Pressure 105/70 100/71 113/75 Pulse Oximetry 95 96 95 Oxygen Delivery Method Room Air Room Air Room Air 06/02/22 13:50 Temperature Pulse Rate 98 Respiratory Rate Blood Pressure 113/75 Pulse Oximetry 95 Oxygen Delivery Method BMI result Body Mass Index 20.4 Labs Results: 06/02/22 07:13 06/02/22 07:13 Labs: Laboratory Results - last 48 hr 05/31/22 05/31/22 06/01/22 10:45 22:20 06:13 WBC RBC Hgb Hct MCV MCH MCHC RDW Plt Count MPV Absolute Nucleated RBC Nucleated RBC % (auto) Haptoglobin 248 H Sodium Potassium Chloride Carbon Dioxide Anion Gap BUN Creatinine 0.61 Estim Creat Clear Calc 88.6 Estimated GFR > 60 Random Glucose Calcium Stool Occult Blood Random Vancomycin 5.7 L Blood Type Antibody Screen Crossmatch 06/01/22 06/01/22 06/02/22 09:24 10:54 07:13 WBC 7.1 7.2 RBC 2.82 L 3.30 L Hgb 6.8 L* 8.4 L D Hct 21.4 L 25.6 L MCV 75.9 L 77.6 L MCH 24.1 L 25.5 L MCHC 31.8 32.8 RDW 18.5 H 20.3 H Plt Count 57 L 62 L MPV Not Reportable 10.6 Absolute Nucleated RBC 0.030 H 0.000 Nucleated RBC % (auto) 0.4 H 0.0 Haptoglobin Sodium Potassium Chloride Carbon Dioxide Anion Gap BUN Creatinine Estim Creat Clear Calc Estimated GFR Random Glucose Calcium Stool Occult Blood Random Vancomycin Blood Type O Positive Antibody Screen NEGATIVE Crossmatch See Detail 06/02/22 06/02/22 07:13 09:05 WBC RBC Hgb Hct MCV MCH MCHC RDW Plt Count MPV Absolute Nucleated RBC Nucleated RBC % (auto) Haptoglobin Sodium 133 L Potassium 4.3 Chloride 100 Carbon Dioxide 24 Anion Gap 13 BUN 12 Creatinine 0.48 L Estim Creat Clear Calc 112.6 Estimated GFR > 60 Random Glucose 125 H Calcium 7.6 L Stool Occult Blood NEGATIVE Random Vancomycin Blood Type Antibody Screen Crossmatch Imaging Radiology Impressions: ITS Impressions Chest X-Ray 05/28/22 10:52 IMPRESSION: Large right pneumothorax with mediastinal shift to the left. This critical result was discussed with Dr. Barrett at 11:08 AM on May 28, 2022 and it was ascertained that the content and urgency of the report was understood at the time of direct communication. Chest X-Ray 05/28/22 12:29 IMPRESSION: Right-sided pigtail catheter placement. There has been some improvement to the large right-sided pneumothorax from earlier today with no longer shift of mediastinal structures. Still significant right-sided pneumothorax remaining. Chest X-Ray 05/28/22 12:52 IMPRESSION: Significant improved right-sided pneumothorax with new chest tube placement and significant reexpansion of the right lung. Moderate-sized pneumothorax remaining at the apex. Chest X-Ray 05/28/22 16:25 IMPRESSION: No change in a moderate right-sided pneumothorax. Retraction of the chest tube such that the side hole is in the soft tissues. Chest X-Ray 05/28/22 23:04 IMPRESSION: Moderate right pneumothorax without significant change from prior. Unchanged positioning of the chest tube with the side-port external to the thoracic cavity. Chest X-Ray 05/29/22 07:19 IMPRESSION: Small to moderate pneumothorax persists. There is moderate right subcutaneous emphysema. Right chest wall sidehole is in the right chest wall cavity and has retracted since the previous study of 05/28/2022 at 12:36 PM. Chest X-Ray 05/29/22 11:22 IMPRESSION: Previously seen right chest tube catheter has been replaced with a large bore right pigtail catheter its tip in the right lung apex. Moderate opacity right midlung and right lower lobe is stable. There are small cavitary lesions or cysts seen in right lung. Consider CT of chest for further evaluation as a baseline Chest X-Ray 05/30/22 06:40 IMPRESSION: * The right pneumothorax is small and has slightly decreased in size compared to 05/29/2022. * There are persistent nonspecific patchy and hazy bilateral pulmonary opacities. Chest X-Ray 05/31/22 06:25 IMPRESSION: No change in the tiny right-sided pneumothorax. Similar bilateral lung opacities. Chest CT 05/31/22 11:14 IMPRESSION: Multiple cavitary lesions largest in the right middle lobe with air-fluid level. There are several ill-defined soft tissue nodule/opacities in both upper and lower lobes. There are bilateral loculated small pleural effusions with right lower lobe consolidation. There is no pneumothorax. The right pigtail chest catheter tip is in the apex. There is mild right anterior chest wall subcutaneous emphysema. Fleischner guidelines were followed. Chest X-Ray 06/01/22 09:04 IMPRESSION: No change in right apical chest catheter. Right middle lobe, right lower lobe and lingular patchy opacity/infiltrate is unchanged to chest x-ray 05/31/22. Medications Medications Current Medications Acetaminophen (Acetaminophen 325 Mg Tablet) 650 mg PO Q6H PRN PRN Reason: Pain, Mild, Fever Last Admin: 06/01/22 20:05 Dose: 650 mg Benzonatate (Benzonatate 100 Mg Capsule) 100 mg PO TID PRN PRN Reason: Cough Last Admin: 06/01/22 13:57 Dose: 100 mg Docusate Sodium (Docusate Sodium 100 Mg Capsule) 100 mg PO BEDTIME [facility] Last Admin: 06/01/22 20:06 Dose: 100 mg Hydromorphone HCl (Hydromorphone Hcl 1 Mg/Ml Syringe) 1 mg IVPUSH Q4H PRN; Protocol PRN Reason: Pain, Severe (Pain Scale 7-10) Last Admin: 06/02/22 13:00 Dose: 1 mg Nafcillin Sodium 2 gm/ Sodium (Chloride) 100 mls @ 200 mls/hr IV Q4H [facility] Last Infusion: 06/02/22 14:26 Dose: Infused Methadone HCl (Methadone Hcl 20 Mg/2 Ml Oral.Conc) 60 mg PO DAILY [facility] Last Admin: 06/02/22 10:03 Dose: 60 mg Oxycodone HCl (Oxycodone Hcl Immed Release 5 Mg Tablet) 5 mg PO Q6H PRN PRN Reason: Pain, Moderate (Pain Scale 4-6 Last Admin: 06/01/22 20:05 Dose: 5 mg Pharmacy Consult (Consult Rx Vancomycin Dosing) 1 each MISCELLANE DAILY PRN PRN Reason: Consult order Polyethylene Glycol (Polyethylene Glycol 3350 17 Gm Powd.Pack) 17 gm PO DAILY PRN PRN Reason: Constipation Trazodone HCl (Trazodone Hcl 100 Mg Tablet) 200 mg PO BEDTIME [facility] Last Admin: 06/01/22 20:06 Dose: 100 mg Allergies Allergies Allergy/AdvReac Type Severity Reaction Status Date / Time fluoxetine [From PROZAC] Allergy Severe DELUSIONS Verified 12/13/20 00:25 Assessment & Plan Assessment & Plan (1) Opioid use disorder: Status: Acute Code(s): F11.90 - Opioid use, unspecified, uncomplicated Assessment and Plan: * continue methadone at current dose * will continue to follow I spent ___20___ minutes with the patient and/or on the patient floor today, greater than?50% of which was spent counseling/coordinating care.
[2022-06-02 20:00] VITALS: BP 112/72; PULSE 110; RESP 18; TEMP 37.2; O2SAT 94
[2022-06-02] MEDS: Docusate Sodium 100 MG CAPSULE PO (20:49)
[2022-06-02] MEDS: traZODone HCL 100 MG TABLET 200 MG PO (20:49)
[2022-06-02] MEDS: Benzonatate 100 MG CAPSULE PO (20:49)
[2022-06-03] VITALS (7 sets, daily range): BP systolic 107–124; BP diastolic 66–77; PULSE 81–117; RESP 16–21; TEMP 36.1–37.3; O2SAT 95–97
[2022-06-03] MEDS: HYDROmorphone HCl 1 MG/ML SYRINGE IVPUSH ×6 (00:37→21:57)
[2022-06-03] MEDS: Nafcillin Sodium 2 GM in 0.9 % Sodium Chloride 100 ML IV ×7 (00:38→21:57)
[2022-06-03] MEDS: methADONE HCl 20 MG/2 ML ORAL.CONC 60 MG PO (09:16)
[2022-06-03] MEDS: Lactated Ringers 1,000 ML 80 ML IVCONT (09:16)
--- NOTE | 2022-06-03 10:49 | P.PNIM_ITS ---
Subjective Subjective Date of Service: 06/03/22 Interval History: seen and examined this morning Follow-up for endocarditis, bacteremia Lab unable to draw blood cultures yesterday, will re-attempt today patient reports generalized pain, denies fever, chills Review of Systems Review of Systems: Yes all other systems are reviewed and are negative Constitutional Constitutional: Denies chills and Denies fever(s) Cardiovascular Cardiovascular: Denies chest pain, Denies palpitations and Denies dyspnea Respiratory Respiratory: Denies cough and Denies dyspnea Gastrointestinal Gastrointestinal: Denies abdominal pain, Denies nausea and Denies vomiting Endocrine Endocrine: Denies palpitations Physical Exam Vital Signs: Vital Signs: Last Vital Signs Temp 98.1 F 06/03/22 07:43 Pulse 112 H 06/03/22 07:43 Resp 16 06/03/22 07:43 BP 109/75 06/03/22 07:43 Pulse Ox 97 06/03/22 07:43 O2 Del Method 06/03/22 07:43 O2 Flow Rate 6 05/28/22 13:05 BMI result Body Mass Index 20.4 Const: General: comfortable, no acute distress, alert, awake and poor hygiene Nutritional Appearance: thin Orientation/consciousness: patient oriented x3 Chest: Other: right chest tube removed, occlusive dressing clean, dry, intact Resp: Effort & Inspection: normal respiratory effort and able to speak in complete sentences Auscultation: clear to auscultation bilaterally Cardio: Rate: regular rate Rhythm: regular rhythm GI: Inspection: No distended Palpation (GI): Soft to palpation and nontender : Other: matta in place Neuro: General: patient oriented x3 and CN's II-XI intact bilaterally Extrem: Other: able to move all 4 extremities spontaneously; right anterior lower leg, dressing C/D/I Objective Data Active Medications Acetaminophen (Acetaminophen 325 Mg Tablet) 650 mg PO Q6H PRN PRN Reason: Pain, Mild, Fever Last Admin: 06/01/22 20:05 Dose: 650 mg Documented By: BRIGC Benzonatate (Benzonatate 100 Mg Capsule) 100 mg PO TID PRN PRN Reason: Cough Last Admin: 06/02/22 20:49 Dose: 100 mg Documented By: ANTOIC Docusate Sodium (Docusate Sodium 100 Mg Capsule) 100 mg PO BEDTIME [facility] Last Admin: 06/02/22 20:49 Dose: 100 mg Documented By: OLIVERIO Hydromorphone HCl (Hydromorphone Hcl 1 Mg/Ml Syringe) 1 mg IVPUSH Q4H PRN; Protocol PRN Reason: Pain, Severe (Pain Scale 7-10) Last Admin: 06/03/22 09:40 Dose: 1 mg Documented By: EASTON Nafcillin Sodium 2 gm/ Sodium (Chloride) 100 mls @ 200 mls/hr IV Q4H [facility] Last Infusion: 06/03/22 09:54 Dose: 0 mls/hr Documented By: EASTON Lactated Ringer's (Lr) 500 mls @ 80 mls/hr IVCONT .Q6H15M [facility] Stop: 06/03/22 14:14 Methadone HCl (Methadone Hcl 20 Mg/2 Ml Oral.Conc) 60 mg PO DAILY [facility] Last Admin: 06/03/22 09:16 Dose: 60 mg Documented By: EASTON Oxycodone HCl (Oxycodone Hcl Immed Release 5 Mg Tablet) 5 mg PO Q4H PRN PRN Reason: Pain, Moderate (Pain Scale 4-6 Pharmacy Consult (Consult Rx Vancomycin Dosing) 1 each MISCELLANE DAILY PRN PRN Reason: Consult order Polyethylene Glycol (Polyethylene Glycol 3350 17 Gm Powd.Pack) 17 gm PO DAILY PRN PRN Reason: Constipation Trazodone HCl (Trazodone Hcl 100 Mg Tablet) 200 mg PO BEDTIME [facility] Last Admin: 06/02/22 20:49 Dose: 200 mg Documented By: OLIVERIO Labs CBC & Chem 7: 06/02/22 07:13 06/02/22 07:13 Labs: Laboratory Results - last 24 hr 05/31/22 10:45 Haptoglobin 248 H Microbiology Microbiology Results: Microbiology 06/02/22 13:12 Blood Culture - Final Blood - Venous 06/02/22 13:12 Blood Culture - Final Blood - Venous 05/29/22 11:01 Gram Stain - Final Thoracentesis Fluid Anaerobic Culture - Final Body Fluid Culture - Final Staphylococcus aureus 05/31/22 10:45 Blood Culture - Final Blood - Venous Staphylococcus aureus 05/31/22 09:48 Blood Culture - Final Blood - Venous Staphylococcus aureus Assessment and Plan (1) Septic pulmonary embolism: Status: Acute (2) Endocarditis of tricuspid valve: Status: Acute (3) Bacteremia due to Gram-positive bacteria: Status: Acute Plan 36 yo F with PMH of intravenous drug abuse.? Started methadone recently, up to 60 mg/day.? Also h/o undetermined asthma, kidney stones, hepatitis-C, bipolar disorder, PTSD, h/o seizure/drug OD in 2005 requiring intubation, and tobacco abuse. Was in the ED five days prior to admission (05/23/22) complaining of withdrawal symptoms with myalgias, abdominal discomfort and nausea.? According to the ED narrative, the patient was caught exiting the bathroom with a tourniquet and empty heroin in her pockets.? She subsequently left the ED AMA. She presented back to the ED on 05/28/22 complaining of shortness of breath and chest pain x1 week.?Chest x-ray showed a large right pneumothorax with total collapse of the right lung with some mediastinal shift to the left. Chest tube was inserted and admitted to ICU, further found to have Staph Triscuspid endocarditis and Septic embolic. She was transfered out of ICU on 05/30/22 # Staph bacteremia, MSSA # Tricuspid endocarditis # pulmonary septic emboli - CT confirms septic emboli to lungs - official ECHO with tricuspid valve vegetation, mild tricuspid valve regurgitation - seen by ID, official consult note pending - Repeat blood cultures unable to be drawn yesterday, will re-attempt today - antibiotics changed to nafcillin 05/31 - will need PICC line when blood cultures clear for long-term antibiotics - seen by cardiology - no indication for surgery at this time. Monitor for signs of heart failure or persistent bacteremia. likely repeat limited echo Sunday Right leg abscess seen by surgery, s/p I&D # .IVDU.? methadone 60 mg daily. Addiction med following # Spont PTX.? s/p chest tube with reexpansion of lung. - chest tube removed by CT surgery 06/01. occlusive dressing can be removed 06/03 and left open to air tiny residual pneumothorax should absorb on its own. recommend incentive spirometry, chest physiotherapy, walking as able #Hypoxemia.? Prob 2? due to septic emboli and PTX--now resolved, comfortable on room air #Hyponatremia.? Probably due to hypovolemia, was 123 on 05/28, most recent 133 # Sinus tachycardia.? Largely 2? endocarditis, treat underlying issues and monitor # Anemia.? Hct dropped from 34 on 05/29 to 22 on 05/30 B12, folate wnl, Iron 27 seen by hematology. likely r/t acute illness, iron deficiency/malnutrition. no evidence of hemolysis or blood loss stool occult negative s/p 1 unit of blood 06/01 with good effect - follow H/H # Thrombocytopenia.? likely from sepsis.? platelets stable at this time - follow CBC # Coagulopathy. INR 1.8, liver ok, ?Most likely 2? malnutrition.?Given vit K repeat INR 1.1 #Increased LFTs.? ? 2? hepatitis C. - hepatitis C - reactive. has h/o HCV - official ID consult note pending- outpatient follow-up # Severe protein calorie malnutrition.? Will have nutrition consult DVT prophylaxis- SCD mignon soares attending -Dr. Chrystal alba - seen by Physical therapy, recommended STR patient requires ongoing inpatient hospitalization due to persistent bacteremia, tricuspid valve endocarditis, persistent tachycardia, anemia and IV antibiotics Quality Stroke Does the patient have a stroke diagnosis?: No VTE Prior VTE?: No VTE Risk Level:: Medical - low VTE Device Contraindication: Treatment Not Indicated VTE Drug Contraindication: Treatment Not Indicated
[2022-06-03] MEDS: oxyCODONE HCl Immed Release 5 MG TABLET PO ×3 (11:03→19:31)
[2022-06-03] MEDS: Lactated Ringers 500 ML 80 ML IVCONT (11:05)
[2022-06-03] MEDS: Enoxaparin Sodium 40 MG/0.4 ML SYRINGE SUBCUT (12:23)
[2022-06-03] MEDS: Docusate Sodium 100 MG CAPSULE PO (19:30)
[2022-06-03] MEDS: traZODone HCL 100 MG TABLET 200 MG PO (19:30)
[2022-06-03] MEDS: Benzonatate 100 MG CAPSULE PO (19:31)
[2022-06-04] MEDS: oxyCODONE HCl Immed Release 5 MG TABLET PO ×2 (00:42→09:30)
[2022-06-04] MEDS: Nafcillin Sodium 2 GM in 0.9 % Sodium Chloride 100 ML IV ×5 (01:55→21:14)
[2022-06-04] MEDS: HYDROmorphone HCl 1 MG/ML SYRINGE IVPUSH ×6 (01:55→22:01)
[2022-06-04 04:00] VITALS: BP 107/68; PULSE 109; RESP 16; TEMP 37.3; O2SAT 97
[2022-06-04 07:34] VITALS: BP 125/82; PULSE 109; RESP 18; TEMP 37.1; O2SAT 96
[2022-06-04] MEDS: methADONE HCl 20 MG/2 ML ORAL.CONC 60 MG PO (09:30)
--- NOTE | 2022-06-04 11:03 | HO.PM.IMPN ---
Subjective Subjective Date of Service: 06/04/22 Interval History: seen and examined this morning Follow-up for tricuspid endocarditis, Staph bacteremia, pulmonary septic emboli Rodney removed yesterday, voiding without difficulty attempted MRI of spine, was unable to tolerate with multiple attempts to obtain blood cultures over past few days. Was finally able to get 1 blood culture yesterday reports breathing is still tough and still with generalized body pain labs still pending for today Review of Systems Review of Systems: Yes all other systems are reviewed and are negative Constitutional Constitutional: Denies chills and Denies fever(s) Cardiovascular Cardiovascular: Denies chest pain and Denies palpitations Respiratory Respiratory: Denies cough and Reports pain on inspiration Gastrointestinal Gastrointestinal: Denies abdominal pain, Denies nausea and Denies vomiting Endocrine Endocrine: Denies palpitations Physical Exam Vital Signs: Vital Signs: Last Vital Signs Temp 98.8 F 06/04/22 07:34 Pulse 109 H 06/04/22 07:34 Resp 18 06/04/22 07:34 BP 125/82 06/04/22 07:34 Pulse Ox 96 06/04/22 07:34 O2 Del Method 06/04/22 07:34 O2 Flow Rate 6 05/28/22 13:05 BMI result Body Mass Index 20.4 Const: General: comfortable, no acute distress, alert, awake and poor hygiene Nutritional Appearance: thin Orientation/consciousness: patient oriented x3 Resp: Effort & Inspection: normal respiratory effort and able to speak in complete sentences Auscultation: clear to auscultation bilaterally Cardio: Rhythm: regular rhythm GI: Inspection: No distended Palpation (GI): Soft to palpation and nontender Neuro: General: patient oriented x3 and CN's II-XI intact bilaterally Extrem: Other: able to move all 4 extremities spontaneously; right anterior lower leg, dressing C/D/I Objective Data Active Medications Acetaminophen (Acetaminophen 325 Mg Tablet) 650 mg PO Q6H PRN PRN Reason: Pain, Mild, Fever Last Admin: 06/01/22 20:05 Dose: 650 mg Documented By: BRIGC Benzonatate (Benzonatate 100 Mg Capsule) 100 mg PO TID PRN PRN Reason: Cough Last Admin: 06/03/22 19:31 Dose: 100 mg Documented By: ANTOIC Docusate Sodium (Docusate Sodium 100 Mg Capsule) 100 mg PO BEDTIME [facility] Last Admin: 06/03/22 19:30 Dose: 100 mg Documented By: OLIVERIO Enoxaparin Sodium (Enoxaparin Sodium 40 Mg/0.4 Ml Syringe) 40 mg SUBCUT Q24H [facility] Last Admin: 06/03/22 12:23 Dose: 40 mg Documented By: EASTON Hydromorphone HCl (Hydromorphone Hcl 1 Mg/Ml Syringe) 1 mg IVPUSH Q4H PRN; Protocol PRN Reason: Pain, Severe (Pain Scale 7-10) Last Admin: 06/04/22 10:09 Dose: 1 mg Documented By: MARTINA Nafcillin Sodium 2 gm/ Sodium (Chloride) 100 mls @ 200 mls/hr IV Q4H [facility] Last Infusion: 06/04/22 10:12 Dose: 0 mls/hr Documented By: MARTINA Methadone HCl (Methadone Hcl 20 Mg/2 Ml Oral.Conc) 60 mg PO DAILY [facility] Last Admin: 06/04/22 09:30 Dose: 60 mg Documented By: MARTINA Oxycodone HCl (Oxycodone Hcl Immed Release 5 Mg Tablet) 5 mg PO Q4H PRN PRN Reason: Pain, Moderate (Pain Scale 4-6 Last Admin: 06/04/22 09:30 Dose: 5 mg Documented By: MARTINA Pharmacy Consult (Consult Rx Vancomycin Dosing) 1 each MISCELLANE DAILY PRN PRN Reason: Consult order Polyethylene Glycol (Polyethylene Glycol 3350 17 Gm Powd.Pack) 17 gm PO DAILY PRN PRN Reason: Constipation Trazodone HCl (Trazodone Hcl 100 Mg Tablet) 200 mg PO BEDTIME [facility] Last Admin: 06/03/22 19:30 Dose: 200 mg Documented By: OLIVERIO Labs CBC & Chem 7: 06/02/22 07:13 06/02/22 07:13 Microbiology Microbiology Results: Microbiology 06/03/22 07:58 Blood Culture - Final Blood - Venous 06/03/22 07:58 Blood Culture - Final Blood - Venous 06/02/22 13:12 Blood Culture - Final Blood - Venous 06/02/22 13:12 Blood Culture - Final Blood - Venous 05/29/22 11:01 Gram Stain - Final Thoracentesis Fluid Anaerobic Culture - Final Body Fluid Culture - Final Staphylococcus aureus 05/31/22 10:45 Blood Culture - Final Blood - Venous Staphylococcus aureus 05/31/22 09:48 Blood Culture - Final Blood - Venous Staphylococcus aureus Assessment and Plan (1) Abscess of right leg: Status: Acute (2) Anemia: Status: Acute (3) Septic pulmonary embolism: Status: Acute (4) Endocarditis of tricuspid valve: Status: Acute (5) Bacteremia due to Gram-positive bacteria: Status: Acute Plan 36 yo F with PMH of intravenous drug abuse.? Started methadone recently, up to 60 mg/day.? Also h/o undetermined asthma, kidney stones, hepatitis-C, bipolar disorder, PTSD, h/o seizure/drug OD in 2005 requiring intubation, and tobacco abuse. Was in the ED five days prior to admission (05/23/22) complaining of withdrawal symptoms with myalgias, abdominal discomfort and nausea.? According to the ED narrative, the patient was caught exiting the bathroom with a tourniquet and empty heroin in her pockets.? She subsequently left the ED AMA. She presented back to the ED on 05/28/22 complaining of shortness of breath and chest pain x1 week.?Chest x-ray showed a large right pneumothorax with total collapse of the right lung with some mediastinal shift to the left. Chest tube was inserted and admitted to ICU, further found to have Staph Triscuspid endocarditis and Septic embolic. She was transfered out of ICU on 05/30/22 # Staph bacteremia, MSSA # Tricuspid endocarditis # pulmonary septic emboli CT confirms septic emboli to lungs official ECHO with tricuspid valve vegetation, mild tricuspid valve regurgitation - seen by ID, official consult note pending - Repeat blood cultures - multiple attempts, only able to obtain 1 blood culture, pending at this time - antibiotics changed to nafcillin 05/31 - will need PICC line when blood cultures clear for long-term antibiotics - seen by cardiology - no indication for surgery at this time. Monitor for signs of heart failure or persistent bacteremia. likely repeat limited echo Sunday to reassess valve Right leg abscess seen by surgery, s/p I&D # .IVDU.? methadone 60 mg daily. Addiction med following start to wean IV narcotics in am- discussed with patient # Spont PTX.? s/p chest tube with reexpansion of lung. - chest tube removed by CT surgery 06/01. occlusive dressing can be 06/03 tiny residual pneumothorax should absorb on its own. recommend incentive spirometry, chest physiotherapy, walking as able - discussed importance of getting up and ambulating as much as possible. Patient has not been getting out of bed #Hypoxemia.? Prob 2? due to septic emboli and PTX--now resolved, comfortable on room air #Hyponatremia.? Probably due to hypovolemia, was 123 on 05/28 improved # Sinus tachycardia.? Largely 2? endocarditis # Anemia.? Hct dropped from 34 on 05/29 to 22 on 05/30 B12, folate wnl, Iron 27 seen by hematology. likely r/t acute illness, iron deficiency/malnutrition. no evidence of hemolysis or blood loss stool occult negative s/p 1 unit of blood 06/01 with good effect - follow H/H # Thrombocytopenia.? likely from sepsis.? platelets stable at this time - follow CBC # Coagulopathy. INR 1.8, liver ok, ?Most likely 2? malnutrition.?Given vit K repeat INR 1.1 #Increased LFTs.? probably secondary to h/o hepatitis-C - hepatitis C - reactive - official ID consult note pending- outpatient follow-up # Severe protein calorie malnutrition.? nutrition consult DVT prophylaxis- SCD mignon soares attending -Dr. Jarrell dispo - seen by Physical therapy, recommended STR- discussed importance of trying to get up and move around on her own. will need placement for long-term IV antibiotics patient requires ongoing inpatient hospitalization due to persistent bacteremia, tricuspid valve endocarditis, persistent tachycardia, anemia and IV antibiotics Quality Stroke Does the patient have a stroke diagnosis?: No VTE Prior VTE?: No VTE Risk Level:: Medical - low VTE Device Contraindication: Treatment Not Indicated VTE Drug Contraindication: Treatment Not Indicated
--- NOTE | 2022-06-04 11:40 | PM.PNCARD ---
Subjective Subjective Date of Service: 06/04/22 Interval history: Patient states she is feels okay. No cardiac symptoms. Aches and pains all over the body. Review of Systems Review of Systems Yes all other systems are reviewed and are negative Constitutional: Reports as per HPI Eyes: Reports as per HPI Reports as per HPI Cardiovascular: Reports as per HPI, Denies acrocyanosis, Denies cool extremities, Denies chest pain, Denies leg edema, Denies lightheadedness, Denies palpitations and Denies dyspnea Respiratory: Reports as per HPI, Reports no additional respiratory complaints and Denies dyspnea Gastrointestinal: Reports as per HPI and Reports no additional gastrointestinal complaints Genitourinary: Reports as per HPI Musculoskeletal: Reports no additional musculoskeletal complaints and Reports as per HPI Skin/Breast: Reports system reviewed and no additional complaints, except as docu Reports system reviewed and no additional complaints, except as documented and Reports as per HPI Psychiatric: Reports no additional psychiatric complaints and Reports as per HPI Endocrine: Reports no additional endocrine complaints, Reports as per HPI and Denies palpitations Hematologic/Lymphatic: Reports no additional hematologic/lymphatic complaints and Reports as per HPI Allergic/Immunologic: Reports no additional allergic/immunologic complaints and Reports as per HPI Physical Exam Vital Signs: Last Vital Signs Temp 98.8 F 06/04/22 07:34 Pulse 109 H 06/04/22 07:34 Resp 18 06/04/22 07:34 BP 125/82 06/04/22 07:34 Pulse Ox 96 06/04/22 07:34 O2 Del Method 06/04/22 07:34 O2 Flow Rate 6 05/28/22 13:05 BMI result Body Mass Index 20.4 Const General: comfortable and no acute distress Orientation/consciousness: patient oriented x3 HEENT Other: Unremarkable Head: Yes normal to inspection Neck Neck: Yes normal visual inspection Chest Chest palpation & inspection: normal inspection of the chest Resp Auscultation: clear to auscultation bilaterally Cardio Palpation: normal PMI Heart sounds: S1 normal heart sound present, S2 normal heart sound present, no gallops, Murmur heart sound present systolic at the left sternal border and no rubs GI Palpation (GI): Soft to palpation Back/Spine/Pelvis Other: unremarkable Skin General skin exam: no rashes or lesions noted Neuro General: patient oriented x3 Extrem General: Yes normal to inspection Psych Mental Status: mental status grossly normal Objective Labs and Meds Result diagrams: 08/12/22 07:13 06/02/22 07:13 Progress Note: A&P Assessment and plan (1) Endocarditis of tricuspid valve: Status: Acute Plan Echocardiogram last week shows tricuspid valve vegetation. Based on clinical exam as well as echocardiogram, no clear evidence of right ventricular failure or any clear cardiac decompensation. Last positive culture is from 05/31. Subsequent cultures reported as patient refused. Most recent 1 is still pending. She is on continued IV antibiotics. Evaluate and treat her anemia as well. At this time, no absolute indication for cardiac surgery evaluation but if we cannot clear the bacteremia or if there is progressive tricuspid regurgitation, then may be required. We can repeat another echocardiogram tomorrow to reassess the tricuspid valve. Discussed with Michaela Bass. Time Spent With Patient Time: Total time spent is greater than 50% in coordination of care (as documented) at patient's floor/unit and/or counseling patient: 35min. Progress Note: Quality Stroke Does the patient have a stroke diagnosis?: No Procedures Date of Service Date of Service: 06/04/22
[2022-06-04 12:00] VITALS: BP 102/67; PULSE 99; RESP 18; TEMP 37; O2SAT 97
[2022-06-04] MEDS: Enoxaparin Sodium 40 MG/0.4 ML SYRINGE SUBCUT (13:29)
--- NOTE | 2022-06-04 14:39 | P.PNADD_ITS ---
Subjective Subjective Date of Service: 06/04/22 Reason For Visit: Right Pneumothorax Interim History: Patient seen in follow up Day 4 of methadone 60mg Still regularly requesting PRN medications Discussed with patient plan to start IV pain medication taper as plan will be for transfer to facility to complete IVABX and IV pain medication will not be available to her Discussed increasing methadone and decreasing dilaudid. Patient verbalized understanding and agreeable with plan Review of Systems Constitutional: Reports as per HPI Diagnostics Vital Signs (24Hr): Vital Signs - 24 hr 06/03/22 15:22 06/03/22 19:12 06/03/22 23:08 Temperature 99.2 F 99.0 F 96.9 F Pulse Rate 99 81 112 H Respiratory Rate 18 18 18 Blood Pressure 109/73 112/77 124/69 Pulse Oximetry 97 97 96 Oxygen Delivery Method Room Air Room Air Room Air 06/04/22 04:00 06/04/22 07:34 06/04/22 12:00 Temperature 99.1 F 98.8 F 98.6 F Pulse Rate 109 H 109 H 99 Respiratory Rate 16 18 18 Blood Pressure 107/68 125/82 102/67 Pulse Oximetry 97 96 97 Oxygen Delivery Method Room Air Room Air Room Air BMI result Body Mass Index 20.4 Labs Results: 06/02/22 07:13 06/02/22 07:13 Labs: Laboratory Results - last 48 hr 05/31/22 10:45 Haptoglobin 248 H Imaging Radiology Impressions: ITS Impressions Chest X-Ray 05/28/22 10:52 IMPRESSION: Large right pneumothorax with mediastinal shift to the left. This critical result was discussed with Dr. Barrett at 11:08 AM on May 28, 2022 and it was ascertained that the content and urgency of the report was understood at the time of direct communication. Chest X-Ray 05/28/22 12:29 IMPRESSION: Right-sided pigtail catheter placement. There has been some improvement to the large right-sided pneumothorax from earlier today with no longer shift of mediastinal structures. Still significant right-sided pneumothorax remaining. Chest X-Ray 05/28/22 12:52 IMPRESSION: Significant improved right-sided pneumothorax with new chest tube placement and significant reexpansion of the right lung. Moderate-sized pneumothorax remaining at the apex. Chest X-Ray 05/28/22 16:25 IMPRESSION: No change in a moderate right-sided pneumothorax. Retraction of the chest tube such that the side hole is in the soft tissues. Chest X-Ray 05/28/22 23:04 IMPRESSION: Moderate right pneumothorax without significant change from prior. Unchanged positioning of the chest tube with the side-port external to the thoracic cavity. Chest X-Ray 05/29/22 07:19 IMPRESSION: Small to moderate pneumothorax persists. There is moderate right subcutaneous emphysema. Right chest wall sidehole is in the right chest wall cavity and has retracted since the previous study of 05/28/2022 at 12:36 PM. Chest X-Ray 05/29/22 11:22 IMPRESSION: Previously seen right chest tube catheter has been replaced with a large bore right pigtail catheter its tip in the right lung apex. Moderate opacity right midlung and right lower lobe is stable. There are small cavitary lesions or cysts seen in right lung. Consider CT of chest for further evaluation as a baseline Chest X-Ray 05/30/22 06:40 IMPRESSION: * The right pneumothorax is small and has slightly decreased in size compared to 05/29/2022. * There are persistent nonspecific patchy and hazy bilateral pulmonary opacities. Chest X-Ray 05/31/22 06:25 IMPRESSION: No change in the tiny right-sided pneumothorax. Similar bilateral lung opacities. Chest CT 05/31/22 11:14 IMPRESSION: Multiple cavitary lesions largest in the right middle lobe with air-fluid level. There are several ill-defined soft tissue nodule/opacities in both upper and lower lobes. There are bilateral loculated small pleural effusions with right lower lobe consolidation. There is no pneumothorax. The right pigtail chest catheter tip is in the apex. There is mild right anterior chest wall subcutaneous emphysema. Fleischner guidelines were followed. Chest X-Ray 06/01/22 09:04 IMPRESSION: No change in right apical chest catheter. Right middle lobe, right lower lobe and lingular patchy opacity/infiltrate is unchanged to chest x-ray 05/31/22. Medications Medications Current Medications Acetaminophen (Acetaminophen 325 Mg Tablet) 650 mg PO Q6H PRN PRN Reason: Pain, Mild, Fever Last Admin: 06/01/22 20:05 Dose: 650 mg Benzonatate (Benzonatate 100 Mg Capsule) 100 mg PO TID PRN PRN Reason: Cough Last Admin: 06/03/22 19:31 Dose: 100 mg Docusate Sodium (Docusate Sodium 100 Mg Capsule) 100 mg PO BEDTIME [facility] Last Admin: 06/03/22 19:30 Dose: 100 mg Enoxaparin Sodium (Enoxaparin Sodium 40 Mg/0.4 Ml Syringe) 40 mg SUBCUT Q24H [facility] Last Admin: 06/04/22 13:29 Dose: 40 mg Hydromorphone HCl (Hydromorphone Hcl 1 Mg/Ml Syringe) 1 mg IVPUSH Q4H PRN; Protocol PRN Reason: Pain, Severe (Pain Scale 7-10) Last Admin: 06/04/22 14:14 Dose: 1 mg Nafcillin Sodium 2 gm/ Sodium (Chloride) 100 mls @ 200 mls/hr IV Q4H [facility] Last Infusion: 06/04/22 14:16 Dose: Infused Methadone HCl (Methadone Hcl 20 Mg/2 Ml Oral.Conc) 70 mg PO DAILY [facility] Oxycodone HCl (Oxycodone Hcl Immed Release 5 Mg Tablet) 5 mg PO Q4H PRN PRN Reason: Pain, Moderate (Pain Scale 4-6 Last Admin: 06/04/22 09:30 Dose: 5 mg Pharmacy Consult (Consult Rx Vancomycin Dosing) 1 each MISCELLANE DAILY PRN PRN Reason: Consult order Polyethylene Glycol (Polyethylene Glycol 3350 17 Gm Powd.Pack) 17 gm PO DAILY PRN PRN Reason: Constipation Trazodone HCl (Trazodone Hcl 100 Mg Tablet) 200 mg PO BEDTIME [facility] Last Admin: 06/03/22 19:30 Dose: 200 mg Allergies Allergies Allergy/AdvReac Type Severity Reaction Status Date / Time fluoxetine [From PROZAC] Allergy Severe DELUSIONS Verified 12/13/20 00:25 Assessment & Plan Assessment & Plan (1) Opioid use disorder: Status: Acute Code(s): F11.90 - Opioid use, unspecified, uncomplicated Assessment and Plan: * methadone increase to 70mg QD tomorrow (06/05) * discussed with attending provider (Shelia) and plan to taper dilaudid * will continue to follow I spent ___35___ minutes with the patient and/or on the patient floor today, greater than?50% of which was spent counseling/coordinating care.
[2022-06-04 15:07] VITALS: BP 116/69; PULSE 69; RESP 18; TEMP 36.1; O2SAT 98
[2022-06-04 19:09] VITALS: BP 123/69; PULSE 80; RESP 18; TEMP 36.3; O2SAT 98
[2022-06-04] MEDS: traZODone HCL 100 MG TABLET 200 MG PO (20:05)
[2022-06-04 23:32] VITALS: BP 123/77; PULSE 76; RESP 18; TEMP 37; O2SAT 98
--- NOTE | 2022-06-04 23:33 | PM.EVENT ---
Event Note Date of Service: 06/04/22 Event Note: blood cultures growing gram +ve cocci. blood cultures ordered
[2022-06-05] MEDS: Nafcillin Sodium 2 GM in 0.9 % Sodium Chloride 100 ML IV ×6 (00:46→20:54)
[2022-06-05] MEDS: HYDROmorphone HCl 1 MG/ML SYRINGE IVPUSH ×6 (01:28→22:06)
[2022-06-05] MEDS: Acetaminophen 325 MG TABLET 650 MG PO (03:27)
[2022-06-05] MEDS: Benzonatate 100 MG CAPSULE PO (03:27)
[2022-06-05] MEDS: oxyCODONE HCl Immed Release 5 MG TABLET PO ×2 (03:29→09:22)
[2022-06-05 04:00] VITALS: BP 122/88; PULSE 80; RESP 20; TEMP 37.3; O2SAT 97
[2022-06-05 05:34] VITALS: BMI 19.6
--- NOTE | 2022-06-05 07:00 | CA_ITS ---
Transthoracic Echocardiogram Patient (Last, First, Middle): Octavia Robledo, Gender: Female Date of : 1985 Age: 36 Procedure Date: 06/05/2022 Procedure Type: Transthoracic Echocardiogram Location: [facility] Height: 149.86 cm Weight: 44. kg BSA: 1.36 m2 Heart Rate: 106 bpm BP: 122 / 88 mmHg Search Advertising Strategist: SB Referring MD: Erasto Moctezuma MD Symptoms: Evaluate tricuspid vegetation, TR Study Quality: Adequate ECG Rhythm: Tachycardia Conclusions: - Tricuspid valve endocarditis with moderate tricuspid valve regurgitation. - Vegetation is similar in size to before. Findings Left Ventricle Normal left ventricular size, thickness, and systolic function. The visually estimated ejection fraction is between 55-60%. Diastolic function is indeterminate on the basis of available data. Right Ventricle Normal right ventricular cavity size. There is normal right ventricular systolic function. Tricuspid Valve Vegetation noted on atrial side of tricuspid valve as before. The vegetation measures 2.2 x 1.6 cm in one view and 2.9 x 1.6 cm in another view. Overall no significant change in size. There is moderate eccentric tricuspid valve regurgitation present. Venous The inferior vena cava is normal in size and collapses greater than 50% with inspiration. Pericardium/Pleural There is no evidence of pericardial effusion. Measurements 2D Linear Measurements IVSd: 0.85 0.6-0.9/0.6-1.0 cm LVIDd: 4.15 3.9-5.3/4.2-5.9 cm LVIDd Index: 3.05 2.4-3.2/2.2-3.1 cm/m2 LVIDs: 2.88 2.0-3.6 cm LVPWd: 0.82 0.7-1.1 cm LV Mass: 131.33 67-162/88-224 g LV Mass Index: 96.56 43-95/49-115 g/m2 Tricuspid Valve TR Pk Joaquin: 2.31 TR Pk Grad: 21.00 RA Press: 3.00 RVSP: 24.00 Updated in Other Vendor System with Status of Final Mitch Raphael MD electronically signed on 06/05/2022 2:50:56 PM with status of Final
[2022-06-05 08:00] VITALS: BP 112/78; PULSE 110; RESP 18; TEMP 36.9; O2SAT 98
[2022-06-05] MEDS: methADONE HCl 20 MG/2 ML ORAL.CONC 70 MG PO (09:23)
--- NOTE | 2022-06-05 10:13 | HO.PM.IMPN ---
Subjective Subjective Date of Service: 06/05/22 Interval History: Patient seen in follow up Day 4 of methadone 60mg Still regularly requesting PRN medications Discussed with patient plan to start IV pain medication taper as plan will be for transfer to facility to complete IVABX and IV pain medication will not be available to her Discussed increasing methadone and decreasing dilaudid. Patient verbalized understanding and agreeable with plan Review of Systems no sob no chest pain Constitutional Constitutional: Reports as per HPI, Denies chills, Reports fatigue, Denies fever(s) and Reports malaise Eyes Eyes: Reports as per HPI ENT Ears, Nose, Mouth, and Throat: Reports as per HPI Cardiovascular Cardiovascular: Reports as per HPI, Denies acrocyanosis, Denies cool extremities, Denies chest pain, Denies leg edema, Denies lightheadedness, Denies palpitations, Denies dyspnea and Reports dyspnea on exertion Respiratory Respiratory: Reports as per HPI, Reports no additional respiratory complaints, Denies cough, Reports pain on inspiration, Reports pain with cough, Denies dyspnea and Reports dyspnea on exertion Gastrointestinal Gastrointestinal: Reports as per HPI, Reports no additional gastrointestinal complaints, Denies abdominal pain, Denies constipation, Denies diarrhea, Denies nausea and Denies vomiting Musculoskeletal Musculoskeletal: Reports no additional musculoskeletal complaints and Reports as per HPI Integumentary/Breasts Skin/Breast: Reports no additional skin complaints and Reports as per HPI Neurologic Neurologic: Reports system reviewed and no additional complaints, except as documented and Reports as per HPI Psychiatric Psychiatric: Reports no additional psychiatric complaints and Reports as per HPI Endocrine Endocrine: Reports no additional endocrine complaints, Reports as per HPI, Reports fatigue and Denies palpitations Hematologic/Lymphatic Hematologic/Lymphatic: Reports no additional hematologic/lymphatic complaints, Reports as per HPI and Denies lymphadenopathy Allergic/Immunologic Allergic/Immunologic: Reports no additional allergic/immunologic complaints and Reports as per HPI Physical Exam Vital Signs: Vital Signs: Last Vital Signs Temp 98.4 F 06/05/22 08:00 Pulse 110 H 06/05/22 08:00 Resp 18 06/05/22 08:00 BP 112/78 06/05/22 08:00 Pulse Ox 98 06/05/22 08:00 O2 Del Method 06/05/22 08:00 O2 Flow Rate 6 05/28/22 13:05 BMI result Body Mass Index 19.6 Objective Data Active Medications Acetaminophen (Acetaminophen 325 Mg Tablet) 650 mg PO Q6H PRN PRN Reason: Pain, Mild, Fever Last Admin: 06/05/22 03:27 Dose: 650 mg Documented By: JCARLOS Benzonatate (Benzonatate 100 Mg Capsule) 100 mg PO TID PRN PRN Reason: Cough Last Admin: 06/05/22 03:27 Dose: 100 mg Documented By: JCARLOS Docusate Sodium (Docusate Sodium 100 Mg Capsule) 100 mg PO BEDTIME [facility] Last Admin: 06/04/22 20:08 Dose: Not Given Documented By: REGINA Non-Admin Reason: Patient Refused Enoxaparin Sodium (Enoxaparin Sodium 40 Mg/0.4 Ml Syringe) 40 mg SUBCUT Q24H [facility] Last Admin: 06/04/22 13:29 Dose: 40 mg Documented By: MARTINA Hydromorphone HCl (Hydromorphone Hcl 1 Mg/Ml Syringe) 1 mg IVPUSH Q4H PRN; Protocol PRN Reason: Pain, Severe (Pain Scale 7-10) Last Admin: 06/05/22 09:21 Dose: 1 mg Documented By: ROULA Nafcillin Sodium 2 gm/ Sodium (Chloride) 100 mls @ 200 mls/hr IV Q4H [facility] Last Admin: 06/05/22 09:24 Dose: 100 mls/hr Documented By: ROULA Methadone HCl (Methadone Hcl 20 Mg/2 Ml Oral.Conc) 70 mg PO DAILY [facility] Last Admin: 06/05/22 09:23 Dose: 70 mg Documented By: ROULA Oxycodone HCl (Oxycodone Hcl Immed Release 5 Mg Tablet) 5 mg PO Q4H PRN PRN Reason: Pain, Moderate (Pain Scale 4-6 Last Admin: 06/05/22 09:22 Dose: 5 mg Documented By: ROULA Pharmacy Consult (Consult Rx Vancomycin Dosing) 1 each MISCELLANE DAILY PRN PRN Reason: Consult order Polyethylene Glycol (Polyethylene Glycol 3350 17 Gm Powd.Pack) 17 gm PO DAILY PRN PRN Reason: Constipation Trazodone HCl (Trazodone Hcl 100 Mg Tablet) 200 mg PO BEDTIME [facility] Last Admin: 06/04/22 20:05 Dose: 100 mg Documented By: REGINA Labs CBC & Chem 7: 06/02/22 07:13 06/02/22 07:13 Microbiology Microbiology Results: Microbiology 06/03/22 15:23 Blood Culture - Preliminary Blood - Venous Staphylococcus aureus 06/03/22 14:55 Blood Culture - Final Blood - Venous Assessment and Plan (1) Opioid use disorder: Status: Acute Assessment and Plan: methadone increase to 70mg QD tomorrow (06/05) discussed with attending provider (Shelia) and plan to taper dilaudid will continue to follow Quality Stroke Does the patient have a stroke diagnosis?: No VTE Prior VTE?: No VTE Risk Level:: Medical - low VTE Device Contraindication: Treatment Not Indicated VTE Drug Contraindication: Treatment Not Indicated
--- NOTE | 2022-06-05 10:16 | HO.PM.IMPN ---
Subjective Subjective Date of Service: 06/05/22 Interval History: Follow-up for tricuspid endocarditis, Staph bacteremia, pulmonary septic emboli MRI of back attempted yesterday and could not tolerate, no fever, no focal neuro weakness, no urinary or stool incontinence Review of Systems no fever says back is sore when she sits up-- Physical Exam Vital Signs: Vital Signs: Last Vital Signs Temp 98.4 F 06/05/22 08:00 Pulse 110 H 06/05/22 08:00 Resp 18 06/05/22 08:00 BP 112/78 06/05/22 08:00 Pulse Ox 98 06/05/22 08:00 O2 Del Method 06/05/22 08:00 O2 Flow Rate 6 05/28/22 13:05 BMI result Body Mass Index 19.6 Const: Other: General: AO X 3, no acute distress Resp: CTA bilateral CVS: S1,S2,RRR GI: +BS, NT, no distention Skin: No rash MSK: no spine tenderness Neuro: motor grossly intact (no weakness in legs) Psych: appropriate affect Objective Data Active Medications Acetaminophen (Acetaminophen 325 Mg Tablet) 650 mg PO Q6H PRN PRN Reason: Pain, Mild, Fever Last Admin: 06/05/22 03:27 Dose: 650 mg Documented By: JCARLOS Benzonatate (Benzonatate 100 Mg Capsule) 100 mg PO TID PRN PRN Reason: Cough Last Admin: 06/05/22 03:27 Dose: 100 mg Documented By: JCARLOS Docusate Sodium (Docusate Sodium 100 Mg Capsule) 100 mg PO BEDTIME [facility] Last Admin: 06/04/22 20:08 Dose: Not Given Documented By: REGINA Non-Admin Reason: Patient Refused Enoxaparin Sodium (Enoxaparin Sodium 40 Mg/0.4 Ml Syringe) 40 mg SUBCUT Q24H [facility] Last Admin: 06/04/22 13:29 Dose: 40 mg Documented By: MARTINA Hydromorphone HCl (Hydromorphone Hcl 1 Mg/Ml Syringe) 1 mg IVPUSH Q4H PRN; Protocol PRN Reason: Pain, Severe (Pain Scale 7-10) Last Admin: 06/05/22 09:21 Dose: 1 mg Documented By: ROULA Nafcillin Sodium 2 gm/ Sodium (Chloride) 100 mls @ 200 mls/hr IV Q4H [facility] Last Admin: 06/05/22 09:24 Dose: 100 mls/hr Documented By: ROULA Methadone HCl (Methadone Hcl 20 Mg/2 Ml Oral.Conc) 70 mg PO DAILY [facility] Last Admin: 06/05/22 09:23 Dose: 70 mg Documented By: ROULA Oxycodone HCl (Oxycodone Hcl Immed Release 5 Mg Tablet) 5 mg PO Q4H PRN PRN Reason: Pain, Moderate (Pain Scale 4-6 Last Admin: 06/05/22 09:22 Dose: 5 mg Documented By: ROULA Pharmacy Consult (Consult Rx Vancomycin Dosing) 1 each MISCELLANE DAILY PRN PRN Reason: Consult order Polyethylene Glycol (Polyethylene Glycol 3350 17 Gm Powd.Pack) 17 gm PO DAILY PRN PRN Reason: Constipation Trazodone HCl (Trazodone Hcl 100 Mg Tablet) 200 mg PO BEDTIME [facility] Last Admin: 06/04/22 20:05 Dose: 100 mg Documented By: REGINA Labs CBC & Chem 7: 06/02/22 07:13 06/02/22 07:13 Microbiology Microbiology Results: Microbiology 06/03/22 15:23 Blood Culture - Preliminary Blood - Venous Staphylococcus aureus 06/03/22 14:55 Blood Culture - Final Blood - Venous Assessment and Plan (1) Abscess of right leg: Status: Acute (2) Anemia: Status: Acute (3) Septic pulmonary embolism: Status: Acute (4) Endocarditis of tricuspid valve: Status: Acute (5) Bacteremia due to Gram-positive bacteria: Status: Acute Plan 36 yo F with PMH of intravenous drug abuse.? Started methadone recently, up to 60 mg/day.? Also h/o undetermined asthma, kidney stones, hepatitis-C, bipolar disorder, PTSD, h/o seizure/drug OD in 2005 requiring intubation, and tobacco abuse. Was in the ED five days prior to admission (05/23/22) complaining of withdrawal symptoms with myalgias, abdominal discomfort and nausea.? According to the ED narrative, the patient was caught exiting the bathroom with a tourniquet and empty heroin in her pockets.? She subsequently left the ED AMA. She presented back to the ED on 05/28/22 complaining of shortness of breath and chest pain x1 week.?Chest x-ray showed a large right pneumothorax with total collapse of the right lung with some mediastinal shift to the left. Chest tube was inserted and admitted to ICU, further found to have Staph Triscuspid endocarditis and Septic embolic. She was transfered out of ICU on 05/30/22 # Staph bacteremia, MSSA # Tricuspid valve endocarditis # pulmonary septic emboli CT confirms septic emboli to lungs -ECHO with tricuspid valve vegetation, mild tricuspid valve regurgitation - seen by ID, official consult note pending - Repeat blood cultures - last blood cultture from 06/03 + - antibiotics changed to nafcillin on 05/31 - will need PICC line when blood cultures clear for long-term antibiotics - seen by cardiology - no indication for surgery at this time. Monitor for signs of heart failure or persistent bacteremia. repeat limited echo today 06/05 -MRI of back attempted initially refused, then would not tolerate, willr reattempt today Right leg abscess seen by surgery, s/p I&D # .IVDU.? methadone 60 mg daily. Addiction med following start to wean IV narcotics starting today # Spont PTX.? s/p chest tube with reexpansion of lung. - chest tube removed by CT surgery 06/01. occlusive dressing can be 06/03 tiny residual pneumothorax should absorb on its own. recommend incentive spirometry, chest physiotherapy, walking as able - discussed importance of getting up and ambulating as much as possible. Patient has not been getting out of bed #Hypoxemia.? Prob 2? due to septic emboli and PTX--now resolved, comfortable on room air #Hyponatremia.? Probably due to hypovolemia, was 123 on 05/28 improved # Sinus tachycardia.? Largely 2? endocarditis # Anemia.? Hct dropped from 34 on 05/29 to 22 on 05/30 B12, folate wnl, Iron 27 seen by hematology. likely r/t acute illness, iron deficiency/malnutrition. no evidence of hemolysis or blood loss stool occult negative s/p 1 unit of blood 06/01 with good effect - follow H/H # Thrombocytopenia.? likely from sepsis.? platelets stable at this time - follow CBC # Coagulopathy. INR 1.8, liver ok, ?Most likely 2? malnutrition.?Given vit K repeat INR 1.1 #Increased LFTs.? probably secondary to h/o hepatitis-C - hepatitis C - reactive - official ID consult note pending- outpatient follow-up # Severe protein calorie malnutrition.? nutrition consult DVT prophylaxis- SCD rodger, jasonx dispo - seen by Physical therapy, recommended STR- discussed importance of trying to get up and move around on her own. will need placement for long-term IV antibiotics patient requires ongoing inpatient hospitalization due to persistent bacteremia, tricuspid valve endocarditis, persistent tachycardia, anemia and IV antibiotics Quality Stroke Does the patient have a stroke diagnosis?: No VTE Prior VTE?: No VTE Risk Level:: Medical - low VTE Device Contraindication: Treatment Not Indicated VTE Drug Contraindication: Treatment Not Indicated
[2022-06-05 11:17] VITALS: BP 120/62; PULSE 118; RESP 18; TEMP 37.4; O2SAT 97
--- NOTE | 2022-06-05 11:50 | MHC.CM.PN ---
Discussed with patient d/c planning for STR. Reviewed referrals out. Pt reported she is vax'd- facilities updated accordingly. Still awaiting bed offer.
--- NOTE | 2022-06-05 12:26 | MHC.CLN ---
F/U PO INTAKE REMAINS VARIABLE WT 44.2KG; BMI 19.6 DIET RX: REGULAR CHOPPED-APPROPRIATE PT RECEIVING ENSURE BID TO INCREASE KCALS PROVIDES 700KCALS, 40G PROTEIN CONTINUE TO MONITOR PO INTAKE CLOSELY
[2022-06-05] MEDS: Enoxaparin Sodium 40 MG/0.4 ML SYRINGE SUBCUT (13:14)
--- NOTE | 2022-06-05 13:14 | P.PNGS_ITS ---
Subjective Subjective Date of Service: 06/05/22 Interval history: Patient denies any right leg pain or discharge. She feels much improved. Physical Exam Vital Signs: Vital Signs: Last Vital Signs Temp 99.4 F 06/05/22 11:17 Pulse 118 H 06/05/22 11:17 Resp 18 06/05/22 11:17 BP 120/62 06/05/22 11:17 Pulse Ox 97 06/05/22 11:17 O2 Del Method 06/05/22 11:17 O2 Flow Rate 6 05/28/22 13:05 BMI result Body Mass Index 19.6 Const: General: no acute distress Nutritional Appearance: thin Orientation/consciousness: patient oriented x3 Resp: Effort & Inspection: normal respiratory effort Neuro: General: patient oriented x3 Extrem: Other: Incision and drainage site in the right olson is clean, dry, and intact. No abscess remains. The site is nontender to palpation. No further fluctuance is identified. Objective Data Active Medications Acetaminophen (Acetaminophen 325 Mg Tablet) 650 mg PO Q6H PRN PRN Reason: Pain, Mild, Fever Last Admin: 06/05/22 03:27 Dose: 650 mg Documented By: JCARLOS Benzonatate (Benzonatate 100 Mg Capsule) 100 mg PO TID PRN PRN Reason: Cough Last Admin: 06/05/22 03:27 Dose: 100 mg Documented By: JCARLOS Docusate Sodium (Docusate Sodium 100 Mg Capsule) 100 mg PO BEDTIME [facility] Last Admin: 06/04/22 20:08 Dose: Not Given Documented By: REGINA Non-Admin Reason: Patient Refused Enoxaparin Sodium (Enoxaparin Sodium 40 Mg/0.4 Ml Syringe) 40 mg SUBCUT Q24H [facility] Last Admin: 06/04/22 13:29 Dose: 40 mg Documented By: MARTINA Hydromorphone HCl (Hydromorphone Hcl 1 Mg/Ml Syringe) 1 mg IVPUSH Q4H PRN; Protocol PRN Reason: Pain, Severe (Pain Scale 7-10) Last Admin: 06/05/22 09:21 Dose: 1 mg Documented By: ROULA Nafcillin Sodium 2 gm/ Sodium (Chloride) 100 mls @ 200 mls/hr IV Q4H [facility] Last Infusion: 06/05/22 12:29 Dose: 0 mls/hr Documented By: ROULA Methadone HCl (Methadone Hcl 20 Mg/2 Ml Oral.Conc) 70 mg PO DAILY [facility] Last Admin: 06/05/22 09:23 Dose: 70 mg Documented By: ROULA Oxycodone HCl (Oxycodone Hcl Immed Release 5 Mg Tablet) 5 mg PO Q4H PRN PRN Reason: Pain, Moderate (Pain Scale 4-6 Last Admin: 06/05/22 09:22 Dose: 5 mg Documented By: ROULA Pharmacy Consult (Consult Rx Vancomycin Dosing) 1 each MISCELLANE DAILY PRN PRN Reason: Consult order Polyethylene Glycol (Polyethylene Glycol 3350 17 Gm Powd.Pack) 17 gm PO DAILY PRN PRN Reason: Constipation Trazodone HCl (Trazodone Hcl 100 Mg Tablet) 200 mg PO BEDTIME [facility] Last Admin: 06/04/22 20:05 Dose: 100 mg Documented By: REGINA Labs CBC & Chem 7: 06/02/22 07:13 06/02/22 07:13 Microbiology Microbiology Results: Microbiology 06/03/22 15:23 Blood Culture - Preliminary Blood - Venous Staphylococcus aureus 06/03/22 14:55 Blood Culture - Final Blood - Venous Procedures Date of Service Date of Service: 06/05/22 Progress Note: A&P Assessment and plan (1) Abscess of right leg: Status: Acute Plan 36-year-old female patient presenting with an abscess of the right olson status post incision and drainage last Sunday. She tolerated the procedure well and her wounds are now sealed. A examination reveals no residual abscess. Please re-consult for any additional problems. Time Spent With Patient Time: Total time spent is greater than 50% in coordination of care (as documented) at patient's floor/unit and/or counseling patient: Quality Stroke Does the patient have a stroke diagnosis?: No VTE Prior VTE?: No VTE Risk Level:: Medical - low VTE Device Contraindication: Treatment Not Indicated VTE Drug Contraindication: Treatment Not Indicated
[2022-06-05 15:42] VITALS: BP 90/55; PULSE 118; RESP 16; TEMP 37.4; O2SAT 98
--- NOTE | 2022-06-05 17:48 | HO.ADDICTPRO ---
Subjective Subjective Date of Service: 06/05/22 Reason For Visit: Right Pneumothorax Interim History: Patient seen in follow up Awake, alert, sitting in recliner Bright affect Tolerating increase in methadone. Still c/o of generalized pain. No withdrawal sx reported or appearant Review of Systems Constitutional: Reports as per HPI Mental Status Exam Mental Status Exam Patient Appearance: Unkempt Patient Orientation: Person, Place, Time and Situation Level of Consciousness: Awake and Appropriate Patient Behavior: Appropriate, Talkative and Cooperative Mood Description: Anxious Affect Description: Anxious Judgement: Good Diagnostics Vital Signs (24Hr): Vital Signs - 24 hr 06/04/22 19:09 06/04/22 23:32 06/05/22 04:00 Temperature 97.3 F 98.6 F 99.1 F Pulse Rate 80 76 80 Respiratory Rate 18 18 20 Blood Pressure 123/69 123/77 122/88 Pulse Oximetry 98 98 97 Oxygen Delivery Method Room Air Room Air Room Air 06/05/22 08:00 06/05/22 11:17 06/05/22 15:42 Temperature 98.4 F 99.4 F 99.3 F Pulse Rate 110 H 118 H 118 H Respiratory Rate 18 18 16 Blood Pressure 112/78 120/62 90/55 L Pulse Oximetry 98 97 98 Oxygen Delivery Method Room Air Room Air Room Air BMI result Body Mass Index 19.6 Labs Results: 06/02/22 07:13 06/02/22 07:13 Imaging Radiology Impressions: ITS Impressions Chest X-Ray 05/28/22 10:52 IMPRESSION: Large right pneumothorax with mediastinal shift to the left. This critical result was discussed with Dr. Barrett at 11:08 AM on May 28, 2022 and it was ascertained that the content and urgency of the report was understood at the time of direct communication. Chest X-Ray 05/28/22 12:29 IMPRESSION: Right-sided pigtail catheter placement. There has been some improvement to the large right-sided pneumothorax from earlier today with no longer shift of mediastinal structures. Still significant right-sided pneumothorax remaining. Chest X-Ray 05/28/22 12:52 IMPRESSION: Significant improved right-sided pneumothorax with new chest tube placement and significant reexpansion of the right lung. Moderate-sized pneumothorax remaining at the apex. Chest X-Ray 05/28/22 16:25 IMPRESSION: No change in a moderate right-sided pneumothorax. Retraction of the chest tube such that the side hole is in the soft tissues. Chest X-Ray 05/28/22 23:04 IMPRESSION: Moderate right pneumothorax without significant change from prior. Unchanged positioning of the chest tube with the side-port external to the thoracic cavity. Chest X-Ray 05/29/22 07:19 IMPRESSION: Small to moderate pneumothorax persists. There is moderate right subcutaneous emphysema. Right chest wall sidehole is in the right chest wall cavity and has retracted since the previous study of 05/28/2022 at 12:36 PM. Chest X-Ray 05/29/22 11:22 IMPRESSION: Previously seen right chest tube catheter has been replaced with a large bore right pigtail catheter its tip in the right lung apex. Moderate opacity right midlung and right lower lobe is stable. There are small cavitary lesions or cysts seen in right lung. Consider CT of chest for further evaluation as a baseline Chest X-Ray 05/30/22 06:40 IMPRESSION: * The right pneumothorax is small and has slightly decreased in size compared to 05/29/2022. * There are persistent nonspecific patchy and hazy bilateral pulmonary opacities. Chest X-Ray 05/31/22 06:25 IMPRESSION: No change in the tiny right-sided pneumothorax. Similar bilateral lung opacities. Chest CT 05/31/22 11:14 IMPRESSION: Multiple cavitary lesions largest in the right middle lobe with air-fluid level. There are several ill-defined soft tissue nodule/opacities in both upper and lower lobes. There are bilateral loculated small pleural effusions with right lower lobe consolidation. There is no pneumothorax. The right pigtail chest catheter tip is in the apex. There is mild right anterior chest wall subcutaneous emphysema. Fleischner guidelines were followed. Chest X-Ray 06/01/22 09:04 IMPRESSION: No change in right apical chest catheter. Right middle lobe, right lower lobe and lingular patchy opacity/infiltrate is unchanged to chest x-ray 05/31/22. Medications Medications Current Medications Acetaminophen (Acetaminophen 325 Mg Tablet) 650 mg PO Q6H PRN PRN Reason: Pain, Mild, Fever Last Admin: 06/05/22 03:27 Dose: 650 mg Benzonatate (Benzonatate 100 Mg Capsule) 100 mg PO TID PRN PRN Reason: Cough Last Admin: 06/05/22 03:27 Dose: 100 mg Docusate Sodium (Docusate Sodium 100 Mg Capsule) 100 mg PO BEDTIME [facility] Last Admin: 06/04/22 20:08 Dose: Not Given Enoxaparin Sodium (Enoxaparin Sodium 40 Mg/0.4 Ml Syringe) 40 mg SUBCUT Q24H [facility] Last Admin: 06/05/22 13:14 Dose: 40 mg Hydromorphone HCl (Hydromorphone Hcl 1 Mg/Ml Syringe) 1 mg IVPUSH Q4H PRN; Protocol PRN Reason: Pain, Severe (Pain Scale 7-10) Last Admin: 06/05/22 17:19 Dose: 1 mg Nafcillin Sodium 2 gm/ Sodium (Chloride) 100 mls @ 200 mls/hr IV Q4H [facility] Last Admin: 06/05/22 17:19 Dose: 200 mls/hr Methadone HCl (Methadone Hcl 20 Mg/2 Ml Oral.Conc) 70 mg PO DAILY [facility] Last Admin: 06/05/22 09:23 Dose: 70 mg Oxycodone HCl (Oxycodone Hcl Immed Release 5 Mg Tablet) 5 mg PO Q4H PRN PRN Reason: Pain, Moderate (Pain Scale 4-6 Last Admin: 06/05/22 09:22 Dose: 5 mg Pharmacy Consult (Consult Rx Vancomycin Dosing) 1 each MISCELLANE DAILY PRN PRN Reason: Consult order Polyethylene Glycol (Polyethylene Glycol 3350 17 Gm Powd.Pack) 17 gm PO DAILY PRN PRN Reason: Constipation Trazodone HCl (Trazodone Hcl 100 Mg Tablet) 200 mg PO BEDTIME [facility] Last Admin: 06/04/22 20:05 Dose: 100 mg Allergies Allergies Allergy/AdvReac Type Severity Reaction Status Date / Time fluoxetine [From PROZAC] Allergy Severe DELUSIONS Verified 12/13/20 00:25 Assessment & Plan Assessment & Plan (1) Opioid use disorder: Status: Acute Code(s): F11.90 - Opioid use, unspecified, uncomplicated Assessment and Plan: continue methadone at 70mg daily for now will continue to follow dilaudid should be decreased in frequency if plan is to discharge this week I spent __15____ minutes with the patient and/or on the patient floor today, greater than?50% of which was spent counseling/coordinating care.
[2022-06-05 19:01] VITALS: BP 111/72; PULSE 122; RESP 20; TEMP 37.2; O2SAT 98
[2022-06-05] MEDS: traZODone HCL 100 MG TABLET 200 MG PO (20:54)
[2022-06-05 23:19] VITALS: BP 108/70; PULSE 98; RESP 20; TEMP 37.1; O2SAT 98
[2022-06-06] MEDS: Nafcillin Sodium 2 GM in 0.9 % Sodium Chloride 100 ML IV ×5 (00:08→16:46)
[2022-06-06] MEDS: HYDROmorphone HCl 1 MG/ML SYRINGE IVPUSH ×4 (02:03→16:45)
[2022-06-06 04:00] VITALS: BP 114/72; PULSE 86; RESP 18; TEMP 36.7; O2SAT 98
[2022-06-06] MEDS: oxyCODONE HCl Immed Release 5 MG TABLET PO ×3 (04:58→13:00)
[2022-06-06 07:39] VITALS: BP 119/68; PULSE 119; RESP 16; TEMP 37.6; O2SAT 97
[2022-06-06] MEDS: methADONE HCl 20 MG/2 ML ORAL.CONC 70 MG PO (08:36)
[2022-06-06 09:33] VITALS: BP 119/68; PULSE 119; O2SAT 97
--- NOTE | 2022-06-06 10:25 | P.PNIM_ITS ---
Subjective Subjective Date of Service: 06/06/22 Interval History: Follow-up for tricuspid endocarditis, Staph bacteremia, pulmonary septic emboli She did not again want to go through MRI yesterday and is reporting feeling better today, she's up and ambulating to bathroom with no aparent back issues Review of Systems no fever no soreness in back, Physical Exam Vital Signs: Vital Signs: Last Vital Signs Temp 99.6 F 06/06/22 07:39 Pulse 119 H 06/06/22 09:33 Resp 16 06/06/22 07:39 BP 119/68 06/06/22 09:33 Pulse Ox 97 06/06/22 09:33 O2 Del Method 06/06/22 07:39 O2 Flow Rate 6 05/28/22 13:05 BMI result Body Mass Index 19.6 Const: Other: General: AO X 3, no acute distress Resp: CTA bilateral CVS: S1,S2,RRR GI: +BS, NT, no distention Skin: No rash MSK: no spine tenderness Neuro: motor grossly intact (no weakness in legs) Psych: appropriate affect Objective Data Active Medications Acetaminophen (Acetaminophen 325 Mg Tablet) 650 mg PO Q6H PRN PRN Reason: Pain, Mild, Fever Last Admin: 06/05/22 03:27 Dose: 650 mg Documented By: JCARLOS Benzonatate (Benzonatate 100 Mg Capsule) 100 mg PO TID PRN PRN Reason: Cough Last Admin: 06/05/22 03:27 Dose: 100 mg Documented By: JCARLOS Docusate Sodium (Docusate Sodium 100 Mg Capsule) 100 mg PO BEDTIME [facility] Last Admin: 06/05/22 20:54 Dose: Not Given Documented By: JCARLOS Non-Admin Reason: Patient Refused Enoxaparin Sodium (Enoxaparin Sodium 40 Mg/0.4 Ml Syringe) 40 mg SUBCUT Q24H [facility] Last Admin: 06/05/22 13:14 Dose: 40 mg Documented By: ROULA Hydromorphone HCl (Hydromorphone Hcl 1 Mg/Ml Syringe) 1 mg IVPUSH Q4H PRN; Protocol PRN Reason: Pain, Severe (Pain Scale 7-10) Last Admin: 06/06/22 06:21 Dose: 1 mg Documented By: JCARLOS Nafcillin Sodium 2 gm/ Sodium (Chloride) 100 mls @ 200 mls/hr IV Q4H [facility] Last Infusion: 06/06/22 09:25 Dose: 0 mls/hr Documented By: HAIM Methadone HCl (Methadone Hcl 20 Mg/2 Ml Oral.Conc) 70 mg PO DAILY [facility] Last Admin: 06/06/22 08:36 Dose: 70 mg Documented By: HAIM Oxycodone HCl (Oxycodone Hcl Immed Release 5 Mg Tablet) 5 mg PO Q4H PRN PRN Reason: Pain, Moderate (Pain Scale 4-6 Last Admin: 06/06/22 09:00 Dose: 5 mg Documented By: HAIM Pharmacy Consult (Consult Rx Vancomycin Dosing) 1 each MISCELLANE DAILY PRN PRN Reason: Consult order Polyethylene Glycol (Polyethylene Glycol 3350 17 Gm Powd.Pack) 17 gm PO DAILY PRN PRN Reason: Constipation Trazodone HCl (Trazodone Hcl 100 Mg Tablet) 200 mg PO BEDTIME [facility] Last Admin: 06/05/22 20:54 Dose: 100 mg Documented By: JCARLOS Comments: pt wants to take 100mg Labs CBC & Chem 7: 06/02/22 07:13 06/02/22 07:13 Microbiology Microbiology Results: Microbiology 06/03/22 15:23 Blood Culture - Preliminary Blood - Venous Staphylococcus aureus 06/04/22 23:32 Blood Culture - Final Blood - Venous 06/04/22 23:32 Blood Culture - Final Blood - Venous Assessment and Plan (1) Abscess of right leg: Status: Acute (2) Anemia: Status: Acute (3) Septic pulmonary embolism: Status: Acute (4) Endocarditis of tricuspid valve: Status: Acute (5) Bacteremia due to Gram-positive bacteria: Status: Acute Plan 36 yo F with PMH of intravenous drug abuse.? Started methadone recently, up to 60 mg/day.? Also h/o undetermined asthma, kidney stones, hepatitis-C, bipolar disorder, PTSD, h/o seizure/drug OD in 2005 requiring intubation, and tobacco abuse. Was in the ED five days prior to admission (05/23/22) complaining of withdrawal symptoms with myalgias, abdominal discomfort and nausea.? According to the ED narrative, the patient was caught exiting the bathroom with a tourniquet and empty heroin in her pockets.? She subsequently left the ED AMA. She presented back? to the ED? on 05/28/22 complaining of shortness of breath and chest pain x1 week.?Chest x-ray showed a large right pneumothorax with total collapse of the right lung with some mediastinal shift to the left. Chest tube was inserted and admitted to ICU, further found to have Staph Triscuspid endocarditis and Septic embolic. She was transfered out of ICU on 05/30/22 # Staph bacteremia, MSSA # Tricuspid valve endocarditis # pulmonary septic emboli CT confirms septic emboli to lungs -ECHO with tricuspid valve vegetation, mild tricuspid valve regurgitation - seen by ID,? official consult note pending - Repeat blood cultures? - last blood cultture from 06/03 + - antibiotics changed to nafcillin on 05/31 -? will need PICC line when blood c ultures clear for long-term antibiotics - seen by cardiology - no indication for surgery at this time.? Monitor for signs of heart failure or persistent bacteremia.? repeat limited echo today 06/05 -has refused MRI -Get more blood cultures Right leg abscess seen by surgery, s/p I&D # .IVDU.? methadone . Addiction med following wean IV narcotic # Spont PTX.? s/p chest tube with reexpansion of lung. - chest tube removed by CT surgery 06/01. occlusive dressing can be 06/03 tiny residual pneumothorax? should absorb on its own.? recommend incentive spirometry,? chest physiotherapy, walking as able - discussed importance of getting up and ambulating as much as possible.? Patient has not been getting out of bed #Hypoxemia.? Prob 2? due to septic emboli and PTX--now resolved, comfortable on room air #Hyponatremia.? Probably due to hypovolemia, was 123 on 05/28, most recent 06/02 133 # Sinus tachycardia.? Largely 2? endocarditis # Anemia.? Hct dropped from 34 on 05/29 to 22 on 05/30 B12, folate wnl, Iron 27 seen by hematology. likely r/t acute illness, iron deficiency/malnutrition. no evidence of hemolysis or blood loss stool occult negative s/p 1 unit of blood 06/01? with good effect - follow H/H # Thrombocytopenia.? likely from sepsis.? ?platelets stable at this time - follow CBC # Coagulopathy. INR 1.8, liver ok, ?Most likely 2? malnutrition.?Given vit K repeat INR 1.1 #Increased LFTs.? probably secondary to h/o hepatitis-C ?- hepatitis C - reactive - official ID consult note pending-? outpatient follow-up # Severe? protein calorie malnutrition.? nutrition consult ?DVT prophylaxis- SCD boots, lovenox ?dispo - seen by Physical therapy, recommended STR- discussed importance of trying to get up and move around on her own. will need placement? for long-term IV antibiotics ?patient requires ongoing inpatient hospitalization due to persistent bacteremia, tricuspid valve endocarditis, persistent tachycardia, anemia and IV antibiotics Quality Quality Stroke Does the patient have a stroke diagnosis?: No VTE Prior VTE?: No VTE Risk Level:: Medical - low VTE Device Contraindication: Treatment Not Indicated VTE Drug Contraindication: Treatment Not Indicated
[2022-06-06 11:18] VITALS: BP 109/52; PULSE 107; RESP 16; TEMP 36.8; O2SAT 95
[2022-06-06] MEDS: Enoxaparin Sodium 40 MG/0.4 ML SYRINGE SUBCUT (12:27)
--- NOTE | 2022-06-06 13:27 | PM.PNCARD ---
Subjective Subjective Date of Service: 06/06/22 Interval history: Poor appetitie. SOB with exertion. Physical Exam Vital Signs: Last Vital Signs Temp 98.3 F 06/06/22 11:18 Pulse 107 H 06/06/22 11:18 Resp 16 06/06/22 11:18 BP 109/52 L 06/06/22 11:18 Pulse Ox 95 06/06/22 11:18 O2 Del Method 06/06/22 11:18 O2 Flow Rate 6 05/28/22 13:05 BMI result Body Mass Index 19.6 GENERAL APPEARANCE: ill appearing. NECK: no carotid bruit, no jugular venous distention. SKIN: Track mcmullen. HEART: no murmurs, regular rate and rhythm. tachycardic, systolic murmur LSB LUNGS: clear to auscultation bilaterally. ABDOMEN: soft, nontender. EXTREMITIES: no edema. PERIPHERAL PULSES: equal. NEUROLOGIC: No gross deficits, AAO X 3 Objective Labs and Meds Result diagrams: 06/02/22 07:13 06/02/22 07:13 Progress Note: A&P Assessment and plan (1) Staphylococcal septicemia: Status: Acute (2) Endocarditis of tricuspid valve: Status: Acute Plan 36-year-old female with IV drug abuse with heroin cocaine who presented with septic emboli and MSSA bacteremia. She has been found to have big vegetation on the tricuspid valve and in some views the vegetation is approximately 3 cm in size. She has been on antibiotics since May 28 and continues to have persistent MSSA bacteremia. She has moderate tricuspid valve regurgitation. Given persistent bacteremia and the vegetations size more than 20 mm, by a guideline she has a surgical indication and should have assessment by cardiothoracic surgery. I have discussed this with the patient in detail. I have discussed the case with cardiothoracic surgery at [facility] Dr. Toro will see her in consult. Continue antibiotics as before. Thank you for allowing me to participate in the care of your patient. Please feel free to contact me if you have any questions. Time Spent With Patient Time: Total time spent is greater than 50% in coordination of care (as documented) at patient's floor/unit and/or counseling patient: Progress Note: Quality Stroke Does the patient have a stroke diagnosis?: No Procedures Date of Service Date of Service: 06/06/22
--- NOTE | 2022-06-06 13:43 | MHC.RECOVRN ---
T/W met w/ pt, upon entering room pt alert, oriented, sitting in lounger watching t.v. This typewriter assembler checked in about methadone dose, pt states feels the same as yesterday, feels ok. Pt eating, drinking, upright watching tv when t/w left pts room.
--- NOTE | 2022-06-06 14:33 | P.DS_ITS ---
DS: Providers Provider Date of Service: 06/06/22 Date of admission: 05/28/22 14:05 Primary care physician: None Physician Consults: 05/30/22 12:13 Consult to Cardiology Routine Consulting Provider: Erasto Moctezuma Reason for consultation: endocarditiis, severe MR Has provider been notified: No Consult to Infectious Diseases Routine Consulting Provider: Dorita Cordoba Reason for consultation: endocarditis Has provider been notified: No 05/31/22 08:33 Consult to Thoracic Surgery Routine Consulting Provider: Susy Zaldivar Reason for consultation: Pneumothorax, with chest tube Has provider been notified: Yes 05/31/22 08:34 Consult to Hematology / Oncology Routine Consulting Provider: Tessa Luna Reason for consultation: thrombocytopenia 06/01/22 17:03 Consult to General Surgery Routine Consulting Provider: Anastacio Hawk Reason for consultation: right leg abscess Has provider been notified: No DS: Diagnosis Discharge Diagnosis (1) Staphylococcal septicemia: Status: Acute (2) Endocarditis of tricuspid valve: Status: Acute DS: Summary Hospital Course Hospital Course: Admission HPI Chief Complaint: Spontaneous pneumothorax Ms. Robledo is admitted to the ICU for respiratory monitoring after chest tube placement in the ED for spontaneous pneumothorax. The patient is a 36 yo F with PMH of intravenous drug abuse.? Started methadone recently, up to 60 mg/day.? Also h/o asthma, kidney stones, hepatitis-C, bipolar disorder, PTSD, h/o seizure/drug OD in 2005 requiring intubation, and tobacco abuse. Was in the ED five days ago (May 23) complaining of withdrawal symptoms with myalgias, abdominal discomfort and nausea.? According to the ED narrative, the patient was caught exiting the bathroom with a tourniquet and empty heroin in her pockets.? She subsequently left the ED AMA. She presented ambulatory to the ED today complaining of shortness of breath and chest pain x1 week.? Heart rate was 119, blood pressure 109/74, respiratory rate 28, sat 97% on 6 L oxygen by nasal cannula.? She was afebrile.? Her breathing was labored with diminished breath sounds on the right. Lab showed a white count 9.1, hemoglobin 8.7 (was 11.8 in 2019), [place] [address] (was 232 in 2019).? PT was 20/1.8.? Sodium was 123, BUN/creatinine 19/0.5, bicarb was 30, potassium 3.5, T bili was 1.4, AST/ALT 56/32, albumin was 2.3.? Lactic acid was 1.7.? Blood cultures were drawn. Chest x-ray showed a large right pneumothorax with total collapse of the right lung with some mediastinal shift to the left.? The left hemithorax was unremarkable. Dr. Adame placed a wean pneumothorax drainage catheter in the low mid axillary position.? The pneumothorax was only minimally improved.? Therefore that was removed and a 24 Japanese chest tube was placed slightly higher up.? After repositioning, the pneumothorax is mostly drained, but still with a small to moderate apical pneumothorax.? He also gave her a dose of vanco and cefepime and a liter of saline. Because of the danger of sudden recurrence of the pneumothorax, I admitted the patient to the ICU for overnight monitoring. On my exam in the ICU, the heart rate now is 120s, blood pressure 116/78, RR is about 30, the sat is 94% on room air. ?No JVD.? She has good BS thruout.? Only a very slight airleak with the chest tube on 20cm sxn.? She?s cachectic, weighs 36kg. Repeat CXR at 16:13 shows the chest tube pulled out about 4cm from it?s prev position, with the proximal side hole at the level of the skin.? I can?t rule out an underlying RLL infiltrate. On inspection, the hole is outside the skin.? I covered it with a Vaseline gauze and redressed it.? I can?t r Hospital course: 36 yo F with PMH of intravenous drug abuse.? Started methadone recently, up to 60 mg/day.? Also h/o undetermined asthma, kidney stones, hepatitis-C, bipolar disorder, PTSD, h/o seizure/drug OD in 2005 requiring intubation, and tobacco abuse. Was in the ED five days prior to admission (05/23/22) complaining of withdrawal symptoms with myalgias, abdominal discomfort and nausea.? According to the ED narrative, the patient was caught exiting the bathroom with a tourniquet and empty heroin in her pockets.? She subsequently left the ED AMA. She presented back? to the ED? on 05/28/22 complaining of shortness of breath and chest pain x1 week.?Chest x-ray showed a large right pneumothorax with total collapse of the right lung with some mediastinal shift to the left. Chest tube was inserted and admitted to ICU, further found to have Staph Triscuspid endocarditis and Septic embolic. She was transfered out of ICU on 05/30/22 # Staph bacteremia, MSSA # Tricuspid valve endocarditis by echo finding of Tricuspid vegetations and Mild TR # pulmonary septic emboli--by CT finding All from IV drug use. Cultures from 05/28, , and remain positive. Initially was on IV Vancomycin and once sensitivity was known, she was switched to Nafcillin since 05/31, additional cultures have been request and once negative we can proceed with PICC line once cultures are clear but thus far he she remains bacteremic. ID is recommending custodial antibiotics of 6 weeks. Cardiology has been following along and has had 2 echoes--05/31 echo showed vegetation, measuring 2.4 x 1.8cm; in another ? view, measuring 3.1 x? 1.4 cm. There is mild tricuspid valve regurgitation.? Repeat echo on 06/05 was essentially unchanged, given persistent bacteremia, TR and size of vegetation cardiology is recommending surgical evaluatio for potential valve replacement. Also of note she complained of some sore of back without neurological deficity Recommending consulting ID consult CT surgery repeat blood cultures Right leg abscess-seen by surgery, s/p I&D on 06/02 and being covered with same Abx as above # .IVDU--She has been initiated on Methadone by addiction Med and presently on 70 mg/daily Has been on IV dilaudid for pain but is being weaned # Spont PTX.? s/p chest tube with reexpansion of lung. -chest tube removed by CT surgery 06/01. occlusive dressing removed on tiny residual pneumothorax? should absorb on its own.?encourage use of incentive spirometry,? chest physiotherapy, walking as able - discussed importance of getting up and ambulating as much as possible.? She's been ambulating to washroom #Hypoxemia.?--Was due to septic embolic and have resolved., presently 95% on room air #Hyponatremia.? Probably due to hypovolemia, was 123 on 05/28, most recent 06/02 was 133 # Sinus tachycardia.? Largely 2? endocarditis and overall have improve with HR ranging from 87 to 120 and assymptomatic # Anemia.? Hct dropped from 34 on 05/29 to 22 on 05/30 B12, folate wnl, Iron 27. seen by hematology. likely related to sepsis/acute illness, iron deficiency/malnutrition. no evidence of hemolysis or blood loss stool occult negative s/p 1 unit of blood 06/01? with good effect most recent H/H 8.02/13 # Thrombocytopenia--due to sepsis, Platelets have been steadily rising, initia lly 23 on 05/28 and most recent 62 on 06/02 # Coagulopathy. INR 1.8, liver ok, ?Most likely 2? malnutrition.?Given vit K repeat INR 1.1 #Increased LFTs.? probably secondary to h/o hepatitis-C ?- hepatitis C - reactive # Severe? protein calorie malnutrition.? ?DVT prophylaxis- SCD boots, lovenox ?dispo - seen by Physical therapy, recommended STR- discussed importance of trying to get up and move around on her own. will need placement? for long-term IV antibiotics ?patient requires ongoing inpatient hospitalization due to persistent bacteremia, tricuspid valve endocarditis, persistent tachycardia, anemia and IV antibiotics Time Spent with Patient Time attestation: Total time spent providing and/or coordinating discharge services: Discharge coordination time: Greater than 30 minutes Quality: Safe Use of Opioids Does Pt have an Active Cancer Diagnosis on the Problem List?: No Quality: Stroke Does the patient have a stroke diagnosis?: No Physical Exam Vital Signs: Vital Signs: Last Vital Signs Temp 98.3 F 06/06/22 11:18 Pulse 107 H 06/06/22 11:18 Resp 16 06/06/22 11:18 BP 109/52 L 06/06/22 11:18 Pulse Ox 95 06/06/22 11:18 O2 Del Method 06/06/22 11:18 O2 Flow Rate 6 05/28/22 13:05 BMI result Body Mass Index 19.6 Const: Other: General: AO X 3, no acute distress Resp: CTA bilateral CVS: S1,S2,RRR GI: +BS, NT, no distention Skin: incision and drain age site in the ri ght olson is clean, dry, and intact.? No abscess remain s.? The site is no ntender to palpati on.? No further fl uctuance is identi fied. Neuro: motor grossly intact Psych: appropriate affect DS: Data Data Completed and Pending Labs on day of discharge: Preliminary micro results at discharge 06/03/22 15:23 Blood Culture - Preliminary Blood - Venous Staphylococcus aureus Discharge Plan Discharge Anticipated Discharge Date/Time: 06/06/22 15:20 Patient Disposition: Xfer Acute [facility] Discharge Diagnosis: Sepsis, endocarditis, staph bacteremia, anemia, spontaneous pneumothorax, acute hypoxic respiratoy failure Referrals: [facility] [Other] - 1 Week Physician,None [Primary Care Provider] - 1 Week Discharge Medications: New polyethylene glycol 3350 17 gram Powder In Packet 17 g PO DAILY PRN (Reason: Constipation) Qty: 30 0RF docusate sodium 100 mg Capsule 100 mg PO BEDTIME Qty: 30 0RF methadone [Methadose] 10 mg/mL Concentrate 70 mg PO DAILY Qty: 30 0RF Rx Instructions: Partial Fill upon patient request. nafcillin 2 gram Recon Soln 2 g IV Q4H 42 Days Qty: 10 0RF oxycodone 10 mg tablet 10 mg PO Q4H PRN (Reason: Pain, Moderate (Pain Scale 4-6) Qty: 10 0RF Rx Instructions: Partial Fill upon patient request. Continued trazodone 100 mg Tablet 200 mg PO BEDTIME Discontinued prazosin 2 mg Capsule 2 mg PO BEDTIME chlorpromazine 50 mg Tablet 50 mg PO DAILY methadone [Methadone Intensol] 10 mg/mL Concentrate 60 mg PO DAILY Discharge Orders: Discharge Order (Routine); Ordered 06/06/22 Ordered By: Chris Castillo Diet: Advance to usual diet Activity on Discharge: As tolerated Stand Alone Forms: Patient Portal Discharge page Care Plan Goals: Assesment of valvular disease from endocarditis and ultimately full recovery from endocarditis Health Concerns: Sepsis, Tricuspid endocarditis, Plan of Treatment: IV Nafcillin Assessment: as above
--- NOTE | 2022-06-06 15:30 | PM.IDPN ---
Subjective Subjective Date of Service: 06/06/22 Critical Care Time (minutes): 15 Comment: patient complains of mild-moderate occasional back pain Objective Data Labs CBC & Chem 7: 06/02/22 07:13 06/02/22 07:13 Microbiology Microbiology Results: Microbiology 06/03/22 15:23 Blood - Venous Blood Culture - Preliminary Staphylococcus aureus 06/04/22 23:32 Blood - Venous Blood Culture - Final 06/04/22 23:32 Blood - Venous Blood Culture - Final 06/03/22 14:55 Blood - Venous Blood Culture - Final 06/03/22 07:58 Blood - Venous Blood Culture - Final 06/03/22 07:58 Blood - Venous Blood Culture - Final 06/02/22 13:12 Blood - Venous Blood Culture - Final 06/02/22 13:12 Blood - Venous Blood Culture - Final 05/29/22 11:01 Thoracentesis Fluid Gram Stain - Final 05/29/22 11:01 Thoracentesis Fluid Anaerobic Culture - Final 05/29/22 11:01 Thoracentesis Fluid Body Fluid Culture - Final Staphylococcus aureus 05/31/22 10:45 Blood - Venous Blood Culture - Final Staphylococcus aureus 05/31/22 09:48 Blood - Venous Blood Culture - Final Staphylococcus aureus 05/28/22 13:23 Blood - Venous Blood Culture - Final Staphylococcus aureus 05/28/22 13:23 Blood - Venous Blood Culture - Final Staphylococcus aureus Physical Exam Vital Signs: Vital Signs: Last Vital Signs Temp 98.3 F 06/06/22 11:18 Pulse 107 H 06/06/22 11:18 Resp 16 06/06/22 11:18 BP 109/52 L 06/06/22 11:18 Pulse Ox 95 06/06/22 11:18 O2 Del Method 06/06/22 11:18 O2 Flow Rate 6 05/28/22 13:05 BMI result Body Mass Index 19.6 Const: General: cooperative HEENT: Head: Yes normal to inspection Resp: Effort & Inspection: normal respiratory effort Cardio: Rate: regular rate Rhythm: regular rhythm GI: Palpation (GI): nontender Assessment and Plan Assessment and plan (1) Septic pulmonary embolism: Problem details: She has endocarditis tricuspid valve and bacteremia despite antibiotics active against MSSA. Status: Acute Assessment and Plan: Cardiac surgery evaluation due to persistent bacteremia and large vegetation. CT scan of LS spine evaluate for osteomyelitis (claustrophobic) Continue Nafcillin Prognosis guarded. (2) Endocarditis of tricuspid valve: Status: Acute Time Spent With Patient Time: Total time spent is greater than 50% in coordination of care (as documented) at patient's floor/unit and/or counseling patient:
[2022-06-06 15:37] VITALS: BP 121/69; PULSE 109; RESP 18; TEMP 37.5; O2SAT 97
--- NOTE | 2022-06-06 16:27 | P.PNADD_ITS ---
Subjective Subjective Date of Service: 06/06/22 Reason For Visit: Right Pneumothorax Interim History: Patient seen in follow up Transferring to [facility] for eval and possible valve replacement Patient reports feeling anxious about transfer. Questions answered--reassured patient that current methadone dose of 70mg would be continued there and if necessary dose could continue to be titrated. Patient asked this teletypewriter operator to call her mother and update regarding plans for transfer. Mother now aware. Review of Systems Constitutional: Reports as per HPI Mental Status Exam Mental Status Exam Patient Appearance: Appropriate Patient Orientation: Person, Place, Time and Situation Level of Consciousness: Awake and Appropriate Patient Behavior: Appropriate and Anxious Judgement: Good Diagnostics Vital Signs (24Hr): Vital Signs - 24 hr 06/05/22 19:01 06/05/22 23:19 06/06/22 04:00 Temperature 98.9 F 98.7 F 98.1 F Pulse Rate 122 H 98 86 Respiratory Rate 20 20 18 Blood Pressure 111/72 108/70 114/72 Pulse Oximetry 98 98 98 Oxygen Delivery Method Room Air Room Air Room Air 06/06/22 07:39 06/06/22 09:33 06/06/22 11:18 Temperature 99.6 F 98.3 F Pulse Rate 119 H 119 H 107 H Respiratory Rate 16 16 Blood Pressure 119/68 119/68 109/52 L Pulse Oximetry 97 97 95 Oxygen Delivery Method Room Air Room Air 06/06/22 15:37 Temperature 99.5 F Pulse Rate 109 H Respiratory Rate 18 Blood Pressure 121/69 Pulse Oximetry 97 Oxygen Delivery Method Room Air BMI result Body Mass Index 19.6 Labs Results: 06/02/22 07:13 06/02/22 07:13 Imaging Radiology Impressions: ITS Impressions Chest X-Ray 05/28/22 10:52 IMPRESSION: Large right pneumothorax with mediastinal shift to the left. This critical result was discussed with Dr. Barrett at 11:08 AM on May 28, 2022 and it was ascertained that the content and urgency of the report was understood at the time of direct communication. Chest X-Ray 05/28/22 12:29 IMPRESSION: Right-sided pigtail catheter placement. There has been some improvement to the large right-sided pneumothorax from earlier today with no longer shift of mediastinal structures. Still significant right-sided pneumothorax remaining. Chest X-Ray 05/28/22 12:52 IMPRESSION: Significant improved right-sided pneumothorax with new chest tube placement and significant reexpansion of the right lung. Moderate-sized pneumothorax remaining at the apex. Chest X-Ray 05/28/22 16:25 IMPRESSION: No change in a moderate right-sided pneumothorax. Retraction of the chest tube such that the side hole is in the soft tissues. Chest X-Ray 05/28/22 23:04 IMPRESSION: Moderate right pneumothorax without significant change from prior. Unchanged positioning of the chest tube with the side-port external to the thoracic cavity. Chest X-Ray 05/29/22 07:19 IMPRESSION: Small to moderate pneumothorax persists. There is moderate right subcutaneous emphysema. Right chest wall sidehole is in the right chest wall cavity and has retracted since the previous study of 05/28/2022 at 12:36 PM. Chest X-Ray 05/29/22 11:22 IMPRESSION: Previously seen right chest tube catheter has been replaced with a large bore right pigtail catheter its tip in the right lung apex. Moderate opacity right midlung and right lower lobe is stable. There are small cavitary lesions or cysts seen in right lung. Consider CT of chest for further evaluation as a baseline Chest X-Ray 05/30/22 06:40 IMPRESSION: * The right pneumothorax is small and has slightly decreased in size compared to 05/29/2022. * There are persistent nonspecific patchy and hazy bilateral pulmonary opacities. Chest X-Ray 05/31/22 06:25 IMPRESSION: No change in the tiny right-sided pneumothorax. Similar bilateral lung opacities. Chest CT 05/31/22 11:14 IMPRESSION: Multiple cavitary lesions largest in the right middle lobe with air-fluid level. There are several ill-defined soft tissue nodule/opacities in both upper and lower lobes. There are bilateral loculated small pleural effusions with right lower lobe consolidation. There is no pneumothorax. The right pigtail chest catheter tip is in the apex. There is mild right anterior chest wall subcutaneous emphysema. Fleischner guidelines were followed. Chest X-Ray 06/01/22 09:04 IMPRESSION: No change in right apical chest catheter. Right middle lobe, right lower lobe and lingular patchy opacity/infiltrate is unchanged to chest x-ray 05/31/22. Medications Medications Current Medications Acetaminophen (Acetaminophen 325 Mg Tablet) 650 mg PO Q6H PRN PRN Reason: Pain, Mild, Fever Last Admin: 06/05/22 03:27 Dose: 650 mg Benzonatate (Benzonatate 100 Mg Capsule) 100 mg PO TID PRN PRN Reason: Cough Last Admin: 06/05/22 03:27 Dose: 100 mg Docusate Sodium (Docusate Sodium 100 Mg Capsule) 100 mg PO BEDTIME [facility] Last Admin: 06/05/22 20:54 Dose: Not Given Enoxaparin Sodium (Enoxaparin Sodium 40 Mg/0.4 Ml Syringe) 40 mg SUBCUT Q24H [facility] Last Admin: 06/06/22 12:27 Dose: 40 mg Hydromorphone HCl (Hydromorphone Hcl 1 Mg/Ml Syringe) 1 mg IVPUSH Q4H PRN; Protocol PRN Reason: Pain, Severe (Pain Scale 7-10) Last Admin: 06/06/22 10:48 Dose: 1 mg Nafcillin Sodium 2 gm/ Sodium (Chloride) 100 mls @ 200 mls/hr IV Q4H [facility] Last Infusion: 06/06/22 13:01 Dose: Infused Methadone HCl (Methadone Hcl 20 Mg/2 Ml Oral.Conc) 70 mg PO DAILY [facility] Last Admin: 06/06/22 08:36 Dose: 70 mg Oxycodone HCl (Oxycodone Hcl Immed Release 5 Mg Tablet) 5 mg PO Q4H PRN PRN Reason: Pain, Moderate (Pain Scale 4-6 Last Admin: 06/06/22 13:00 Dose: 5 mg Pharmacy Consult (Consult Rx Vancomycin Dosing) 1 each MISCELLANE DAILY PRN PRN Reason: Consult order Polyethylene Glycol (Polyethylene Glycol 3350 17 Gm Powd.Pack) 17 gm PO DAILY PRN PRN Reason: Constipation Trazodone HCl (Trazodone Hcl 100 Mg Tablet) 200 mg PO BEDTIME [facility] Last Admin: 06/05/22 20:54 Dose: 100 mg Allergies Allergies Allergy/AdvReac Type Severity Reaction Status Date / Time fluoxetine [From PROZAC] Allergy Severe DELUSIONS Verified 12/13/20 00:25 Assessment & Plan Assessment & Plan (1) Opioid use disorder: Status: Acute Code(s): F11.90 - Opioid use, unspecified, uncomplicated Assessment and Plan: * no change to methadone dose (06/05 increased to 70mg) * Lorazepam 1mg X1 for anxiety related to transfer * discussed with attending provider I spent _25 minutes with the patient and/or on the patient floor today, greater than?50% of which was spent counseling/coordinating care.
[2022-06-06] MEDS: LORazepam 1 MG TABLET PO (16:45)
--- NOTE | 2022-06-06 17:30 | PC.NURSE ---
Pt peripheral IV infiltrated. #22g placed to right hand by IR. Patient planned for transfer to [facility] to be followed by cardiothoracic surgery. Nurse to nurse report given to Abby at [facility].
== END 2022-06-06 17:39 | disposition short-term general hospital (02) | DRG 199 ==
LOC: HO.ED 12:07 → HO.EDOVER 14:21 → HO.ICU 14:57 → HO.IMC 05-30 10:37
PROVIDERS: Internal Medicine; Internal Medicine Cardiovascular Disease; Physician Assistant; Physician Assistant Medical; Admitting Provider Anesthesiology; Emergency Provider Emergency Medicine; Visit Provider Internal Medicine
DX: J93.0 Spontaneous tension pneumothorax (principal); A41.9 Sepsis, unspecified organism; E43 Unspecified severe protein-calorie malnutrition; J96.01 Acute respiratory failure with hypoxia; I26.90 Septic pulmonary embolism without acute cor pulmonale; Z68.1 Body mass index [BMI] 19.9 or less, adult; E87.1 Hypo-osmolality and hyponatremia; F11.23 Opioid dependence with withdrawal; D68.8 Other specified coagulation defects; L02.415 Cutaneous abscess of right lower limb; B95.61 Methicillin susceptible Staphylococcus aureus infection as the cause of diseases classified elsewhere; I07.9 Rheumatic tricuspid valve disease, unspecified; E86.1 Hypovolemia; F31.9 Bipolar disorder, unspecified; Z86.19 Personal history of other infectious and parasitic diseases; D50.9 Iron deficiency anemia, unspecified; D63.8 Anemia in other chronic diseases classified elsewhere; Z20.822 Contact with and (suspected) exposure to COVID-19; Z79.899 Other long term (current) drug therapy
CPT/HCPCS: 36415; 71045; 71250; 80048; 80053; 80076; 80202; 81001; 81025; 82077; 82272; 82565; 82607; 82746; 83010; 83540; 83605; 83615; 83735; 83880; 84100; 84300; 84484; 85007; 85014; 85018; 85025; 85027; 85045; 85384; 85610; 85730; 86704; 86706; 86709; 86803; 86850; 86900; 86901; 86923; 87040; 87070; 87073; 87077; 87186; 87205; 87340; 87502; 87635; 93005; 93306; 93308; 97116; 97162; 97530; 99285; C1758; J0692; J0696; J1170; J1650; J2270; J2543; J3010; J3370; J3430; P9016; P9047; P9073

== ENCOUNTER 2024-02-27 23:41 | Emergency (ER) | payer MEDICARE, SELFPAY ==
--- NOTE | ~2024-02-27 | XR_ITS ---
EXAMINATION: XR CHEST CLINICAL INFORMATION: Chest tightness COMPARISON: 06/01/2022 TECHNIQUE: 2 views of the chest were obtained. FINDINGS: Abandoned epicardial leads overlie the central to left chest. Sternal wires are present. Lung volumes are symmetric. No focal consolidation is seen. Mild curvilinear opacities in the mid to lower right lung suggests atelectasis or scarring. No evidence of pneumothorax, pleural effusion, or pulmonary edema. The cardiomediastinal contour is unremarkable. No acute osseous findings are seen. XR/XR chest 2V IMPRESSION: Mild curvilinear right basilar opacities suggesting atelectasis or scarring.
--- NOTE | 2024-02-28 | ECG_ITS ---
Test Reason : CHEST PAIN Blood Pressure : / mmHG Vent. Rate : 110 BPM Atrial Rate : 110 BPM P-R Int : 118 ms QRS Dur : 110 ms QT Int : 384 ms P-R-T Axes : 041 091 013 degrees QTc Int : 519 ms Sinus tachycardia Incomplete right bundle branch block Possible Right ventricular hypertrophy Nonspecific T wave abnormality Abnormal ECG When compared with ECG of 28-MAY-2022 09:32, Incomplete right bundle branch block is now Present Borderline criteria for Lateral infarct are no longer Present Referred By: Generic ED Physician Electronically Signed By:Mitch Raphael
[2024-02-28 00:15] VITALS: BP 115/71; PULSE 119; RESP 16; TEMP 37.7; O2SAT 96; BMI 19.7
--- NOTE | 2024-02-28 00:42 | PC.NURSE ---
pt taken to xray directly from triage before ekg could be obtained within 7 min window
--- NOTE | 2024-02-28 00:56 | MHC.EDTECH ---
First set of blood cultures drawn in triage and pt walked back to ED20. Upon RN entering, it was explained that pt has to exchange engineer and belongings will have to be checked by security. Pt became visibly agitated and started rummaging through belongings and taking out empty drug containers. Pt refused to change and have belongings checked. Multiple attempts made by RN to explain to pt that it is a necessary step for both her and our safety. Pt then proceeded to put on hoodie and leave. curve saw operator aware and present during this situation.
--- NOTE | 2024-02-28 00:56 | PC.NURSE ---
First set of cultures obtained via tech in triage. Upon entering room 20, security called to have pt's belongings searched. This RN and Shad calzada bedside w/ pt educating her on [facility] protocol in regards to belongings needing to be searched for not only her safety, but for the staff as well. Patient then became agitated stating that we were targeting her and that she felt unsafe in our care. Pt continues to search through bag and empty containers onto the bed. Pt refused to be changed over. firearms inspector, [place] bedside attempting to speak w/ patient as well. Patient refused to continue care/left [facility].
--- OUTSIDE RECORDS SUMMARY | 2024-02-28 00:58 | XMS_ITS | Continuity of Care Document ---
Author Organization [facility] Address [address] [place] [address] [place] [address]- Care Team Providers Care Pastrycook Name Role Phone Not on Staff, PCP Primary Care Physician Unavail able Encounter [facility] Date(s): 08/03/22 - 09/02/22 [facility] Cardiac Surgery [address] [place] [phone]- Attending Physician: AdmCarmen contreras Admitting Physician: AdmtrCarmen Referring Physician: Admtr, Ar8 Allergies, Adverse Reactions, Alerts Substance Reaction Severity Status Bee Stings Active FLUoxetine HCl Active Coconut Active Immunizations Given and Recorded Vaccine Date Status Refusal Reason SARS-CoV-2 (COVID-19) mRNA-1273 vaccine 12/27/21 R ecorded tetanus/diphtheria/pertussis, acel(Tdap) 08/16/18 Given tetanus/diphtheria/pertussis, acel(Tdap) 02/21/18 Given influenza virus vaccine, inactivated 07/25/18 Give n influenza virus vaccine, inactivated 07/08/09 Ham rded Human Papillomavirus Vaccine 01/10/08 Recorded Human Papillomavirus Vaccine 11/11/07 Recorded Not Given Vaccine Date Status Refusal Reason pneumococcal 23-valent vaccine 05/23/13 Not Given Patient Refuses Medications acetaminophen 325 mg oral tablet 975 mg, By Mouth, Every 6 hours, PRN, Refills 0, Maintenance, Pain , Mild, 07/18/22 13:55:00 EDT, Partial fill upon patient request if the prescription is for a schedule II opioid drug. Start Date: 07/18/22 Status: Ordered Ammonium Lactate 12% Topical 1 applicator, Topically, 2 times a day, 0 Refills, Maintenance, Cream Start Date: 07/18/22 Status: Ordered apixaban = 5 mg, By Mouth, 2 times a day, 0 Refills, Maintenance, 07/18/22 13:55:00 EDT, Tablet, Partial fill upon patient request if the prescription is for a schedule II opioid drug. Start Date: 07/18/22 Status: Ordered ascorbic acid 250 mg oral tablet 2 tablet = 500 mg, By Mouth, Daily, 0 Refills, Maintenance, 07/18/22 13:55:00 EDT, Tablet, Partial fill upon patient request if the prescription is for a schedule II opioid drug. Start Date: 07/18/22 Status: Ordered Aspirin Tablet 81 mg, By Mouth, Daily, Refills 0, Maintenance, 07/18/22 13:55:00 EDT, Partial fill upon patient request if the prescription is for a schedule II opioid drug. Start Date: 07/18/22 Status: Ordered Ativan 0.5 mg oral tablet 1 tablet = 0.5 mg, By Mouth, 3 times a day, PRN Anxiety, 0 Refills, Maintenance, 07/18/22 13:56:00 EDT, Tablet, Partial fill upon patient request if the prescription is for a schedule II opioid drug. Start Date: 07/18/22 Status: Ordered bisacodyl 10 mg rectal suppository 1 supp = 10 mg, Rectally, Daily, PRN Constipation, 0 Refills, Maintenance, 07/18/22 13:55:00 EDT, Suppository, Partial fill upon patient request if the prescription is for a schedule II opioid drug. Start Date: 07/18/22 Status: Ordered ceFAZolin 2 g injection = 2 Gm, IV Push, Every 8 hours, 0 Refills, Maintenance, 07/18/22 13:55:00 EDT, Injection, Partial fill upon patient request if the prescription is for a schedule II opioid drug. Start Date: 07/18/22 Status: Ordered Dilaudid 2 mg oral tablet 1 tablet = 2 mg, By Mouth, Every 12 hours, PRN Pain , Severe, 0 Refills, Maintenance, 07/18/22 13:56:00 EDT, Tablet, Partial fill upon patient request if the prescription is for a schedule II opioid drug. Start Date: 07/18/22 Status: Ordered ferrous sulfate 325 mg oral enteric coated tablet 325 mg, By Mouth, Daily, Refills 0, Maintenance, 07/18/22 13:55:00 EDT, Partial fill upon patient request if the prescription is for a schedule II opioid drug. Start Date: 07/18/22 Status: Ordered gabapentin 300 mg oral capsule 300 mg, 1, capsule, By Mouth, 2 times a day, Refills 0, Maintenance, 07/18/22 13:56:00 EDT, Partialfill upon patient request if the prescription is for a schedule II opioid drug. Start Date: 07/18/22 Status: Ordered heparin flush 10 units/mL intravenous solution 5 mL = 50 units, IV Push, Daily, 0 Refills, Maintenance, 07/18/22 13:56:00 EDT, Injection, Partial fill upon patient request if the prescription is for a schedule II opioid drug. Start Date: 07/18/22 Status: Ordered heparin flush 10 units/mL intravenous solution 5 mL = 50 units, IV Push, Every hour, PRN Line/Tube Patency, Post administration of Saline Flush, use 10 mL syringe, Heparin is last med left in line, 0 Refills, Maintenance, 07/18/22 13:56:00 EDT, Injection, Partial fill upon patient request if the p... Start Date: 07/18/22 Status: Ordered hydrOXYzine hydrochloride 10 mg oral tablet 3 tablet = 30 mg, By Mouth, 4 times a day, PRN Anxiety, 0 Refills, Maintenance, 07/18/22 13:56:00 EDT, Tablet, Partial fill upon patient request if the prescription is for a schedule II opioid drug. Start Date: 07/18/22 Status: Ordered magnesium oxide 400 mg oral tablet 1 tablet = 400 mg, By Mouth, 2 times a day, 0 Refills, Maintenance, 07/18/22 13:56:00 EDT, Tablet, Partial fill upon patient request if the prescription is for a schedule II opioid drug. Start Date: 07/18/22 Status: Ordered methadone 10 mg/5 mL oral solution 57.5 mL = 115 mg, By Mouth, Daily, 0 Refills, Maintenance, 07/18/22 13:54:00 EDT, Solution, Partialfill upon patient request if the prescription is for a schedule II opioid drug. Start Date: 07/18/22 Status: Ordered metoprolol 25 mg oral tablet 12.5 mg, 0.5, tablet, By Mouth, 2 times a day, Refills 0, Maintenance, 07/18/22 13:56:00 EDT, Partial fill upon patient request if the prescription is for a schedule II opioid drug. Start Date: 07/18/22 Status: Ordered Miconazole 2% Topical Ointment 1 applicator, Topically, Daily, 0 Refills, Maintenance, Ointment Start Date: 07/18/22 Status: Ordered MiraLax Powder 1 pack/packet = 17 Gm, By Mouth, Daily, PRN Constipation, 0 Refills, Maintenance, 07/18/22 13:55:00EDT, Powder, Partial fill upon patient request if the prescription is for a schedule II opioid drug. Start Date: 07/18/22 Status: Ordered nalOXONE Inj 0.25 mL = 0.1 mg, IV Push Slowly, Every 5 minutes, PRN Other, Adult Respiratory Rate less than 6, or Sedation Scale of D. Repeat until Respiratory Rate greater than 15 and patient more alert., 0 Refills, Maintenance, 07/18/22 13:56:00 EDT, Injection... Start Date: 07/18/22 Status: Ordered pantoprazole 40 mg oral delayed release tablet = 40 mg, By Mouth, Daily, 0 Refills, Maintenance, 07/18/22 13:56:00 EDT, EC Tablet Start Date: 07/18/22 Status: Ordered Santyl Topical Oint 1 applicator, Topically, Daily, 0 Refills, Maintenance, Ointment Start Date: 07/18/22 Status: Ordered thiamine 100 mg oral tablet 100 mg, 1, tablet, By Mouth, Daily, Refills 0, Maintenance, 07/18/22 13:56:00 EDT, Partial fill upon patient request if the prescription is for a schedule II opioid drug. Start Date: 07/18/22 Status: Ordered traZODone 50 mg oral tablet 100 mg, 2, tablet, By Mouth, Daily at bedtime, Refills 0, Maintenance, 07/18/22 13:55:00 EDT, Partial fill upon patient request if the prescription is for a schedule II opioid drug. Start Date: 07/18/22 Status: Ordered Vashe Topical Solution 1 applicator, Topically, Daily, 0 Refills, Maintenance, Solution Start Date: 07/18/22 Status: Ordered Problem List Condition Confirmation Course Effective Dates Status [facility]us Informant Asthma 1 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 Borderline personality disorder 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 Cigarette smoker 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 Vaccine counseling 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 Drug abuse 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 Endocarditis 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 History of depression 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 History of delivery 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 History of kidney stones 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 Social History Social History Type Response Smoking Status 10 or more cigarette s (1/2 pack or more)/day in last 30 days entered on: 11/14/18 Sex Patient Care team information Care Team Personnel Name: Jewell Castro Position: [facility] Onco RN Member Role: Primary Care Nurse Name: Kareen Blood RN Position: [facility] RN Member Role: Primary Care Nurse Name: Radha Cheng RN Position: [facility] PCO RN Member Role: Primary Care Nurse Name: Kiya Sanderson RN Position: [facility] RN Member Role: Primary Care Nurse Name: Vera De León RN Position: [facility] RN Member Role: Primary Care Nurse Name: Frida Woods RN Position: [facility] RN Member Role: Primary Care Nurse Name: Una Damon RN Position: [facility] RN Member Role: Primary Care Nurse Name: Johanne Yi Position: [facility] RN Member Role: Primary Care Nurse Name: Amina Younger RN Position: [facility] RN Member Role: Primary Care Nurse Name: Not on Staff, PCP Position: [facility] Physician (General Medicine) Member Role: PCP Name: Ruel Goetz MD Position: [facility] Renal MD Member Role: Lifetime Consulting Physician Address: Address: [address] [place] [address] [address] [facility] [place] [address]- Name: Jonny Luna RN Position: [facility] RN Member Role: Primary Care Nurse Name: Kaitlyn Spann RN Position: [facility] RN Member Role: Primary Care Nurse Name: Ekaterina Yousif RN Position: [facility] RN Member Role: Primary Care Nurse Name: Cayla Nance RN Position: [facility] RN Member Role: Primary Care Nurse Name: Destiny Kebede RN Position: [facility] RN Member Role: Primary Care Nurse Name: Alejandrina Duggan RN Position: [facility] RN Member Role: Primary Care Nurse Care Team Related Persons Name: NEL SERRANONATHAN Address: [employer] Address: home [address] [place] [address] [place] Name: JONNA SERRANO Address: home [address] [place] [address] Name: LAURA MAXIMO Address: home [address] [place] [address]
--- OUTSIDE RECORDS SUMMARY | 2024-02-28 00:59 | XMS_ITS | Continuity of Care Document ---
Author Organization [facility] Address [address] [place], [place] [address] [address]- Care Team Providers Care Vest Presser Name Role Phone Not on Staff, PCP Primary Care Physician Unavail able Encounter [facility] Date(s): 08/03/22 - 08/10/22 [facility] Cardiac Surgery [address] [place] [id number]- Attending Physician: Muna WEINBERG, Mark Referring Physician: Jodi Farfan NP Allergies, Adverse Reactions, Alerts Substance Reaction Severity Status Bee Stings Active Coconut Active FLUoxetine HCl Active Immunizations Given and Recorded Vaccine Date [...] Confirmation Course Effective Dates Status [facility] at Informant Asthma 1 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 Borderline personality [...] on: 11/14/18 Sex Patient Care team information Personnel Name: Not on Staff, PCP
--- OUTSIDE RECORDS SUMMARY | 2024-02-28 00:59 | XMS_ITS | Continuity of Care Document ---
Author Organization [facility] Address [address] [place] [id number]- Care Team Providers Care Fiber Heel Piece Shaper Name Role Phone Collins Agustin MD Primary Care Physician [phone] Encounter [facility] ACCT R [id number] Date(s): 08/29/22 - 09/28/[address] [address] Allergies, Adverse Reactions, Alerts Substance Reaction Severity Status Bee Stings Active Coconut Active FLUoxetine HCl Active Immunizations Given and Recorded Vaccine Date Status Refusal Reason influenza virus vaccine, inactivated 09/21/22 Give n influenza virus vaccine, inactivated 07/25/18 Give n influenza virus vaccine, inactivated 07/08/09 Ham rded SARS-CoV-2 (COVID-19) mRNA-1273 vaccine 12/27/21 R ecorded tetanus/diphtheria/pertussis, acel(Tdap) 08/16/18 Given tetanus/diphtheria/pertussis, acel(Tdap) 02/21/18 Given Human Papillomavirus Vaccine 01/10/08 Recorded Human Papillomavirus Vaccine 11/11/07 Recorded Not Given Vaccine Date Status Refusal Reason SARS-CoV-2 mRNA ([id number]-tri [id number]-sucro) vax 1 09/21/22 Not Given Parent Or Guardian R efuses pneumococcal 23-valent vaccine 05/23/13 Not Given Patient Refuses 1Result Comment: PT STATES THIS SHOULD BE HER 2ND BOOSTER DOSE NOT 2ND DOSE BUT SHE HAS NO PROOF OF THE OTHER DOSES AND DID NOT SHOW UP IN [facility]. PT DID NOT HAVE TIME FOR ME TO LOOK FURTHER INTO THE SITUATION. SHE HAD TO LEAVE. Medications apixaban 5 mg oral tablet 1 tablet = 5 mg, By Mouth, 2 times a day, # 60 tablet, 4 Refills, Maintenance, 09/21/22 17:07:00 EST, Tablet, [id number], Partial fill upon patient request if the prescription is for a schedule II opioid drug., 150, cm, 09/21/22 14:41:00 EST,... Start Date: 09/21/22 Status: Ordered gabapentin 300 mg oral capsule 300 mg, 1, capsule, By Mouth, 3 times a day, # 90 capsule, Refills 3, Tot. Refills 3, Maintenance, 09/21/22 17:07:00 EST, Route to Pharmacy Electronically, [id number], Partial fill upon patient request if the prescription is for a schedule II... Start Date: 09/21/22 Status: Ordered ibuprofen 400 mg oral tablet 400 mg, 1, tablet, By Mouth, Every 6 hours, for 14 days, # 56 tablet, Refills 0, Tot. Refills 0, Acute 10/05/22 17:06:00 EST, 09/21/22 17:06:00 EST, Route to Pharmacy Electronically, [facility][id number], Partial fill upon patient request if the prescri... Start Date: 09/21/22 Stop Date: 10/05/22 Status: Ordered methadone 10 mg/5 mL oral solution 57.5 mL = 115 mg, By Mouth, Daily, 0 Refills, Maintenance, 07/18/22 13:54:00 EDT, Solution, Partialfill upon patient request if the prescription is for a schedule II opioid drug. Start Date: 07/18/22 Status: Ordered pantoprazole 40 mg oral delayed release tablet 1 tablet = 40 mg, By Mouth, Daily, becuase you are on elliquis and ibuprofen need to protect stomach from acid build up, # 30 tablet, 0 Refills, Maintenance, 09/21/22 17:11:00 EST, EC Tablet, 150, cm, 09/21/22 14:41:00 EST, Height, 54.7, kg, 09/20/22... Start Date: 09/21/22 Status: Ordered Problem List Condition Confirmation Course Effective Dates Status [facility] Informant Asthma 1 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 Borderline personality disorder 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 Cigarette smoker 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 Vaccine counseling 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 Depression 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 Drug abuse 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 Endocarditis 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 History of depression 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 Tricuspid valve replaced 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 History of delivery 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 [...] Care Team Personnel Name: Jewell Castro Position: [facility] Onco RN Member Role: Primary Care Nurse Name: Kareen Blood RN Position: [facility] RN Member Role: Primary Care Nurse Name: Radha Cheng RN Position: [facility] PCO RN Member Role: Primary Care Nurse Name: Kiya Sanderson RN Position: [facility] RN Member Role: Primary Care Nurse Name: Frida Woods RN Position: [facility] RN Member Role: Primary Care Nurse Name: Una Damon RN Position: [facility] RN Member Role: Primary Care Nurse Name: Johanne Yi Position: [facility] RN Member Role: Primary Care Nurse Name: Amina Younger RN Position: [facility] RN Member Role: Primary Care Nurse Name: Ruel Goetz MD Position: [facility] Renal MD Member Role: Lifetime Consulting Physician Address: Address: [address] [facility] [place] [place] [address]- [place] Name: Jonny Luna RN Position: [facility] RN Member Role: Primary Care Nurse Name: Kaitlyn Spann RN Position: [facility] RN Member Role: Primary Care Nurse Name: Ekaterina Yousif RN Position: [facility] RN Member Role: Primary Care Nurse Name: Destiny Kebede RN Position: [facility] RN Member Role: Primary Care Nurse Name: Alejandrina Duggan RN Position: [facility] RN Member Role: Primary Care Nurse Name: Collins Agustin MD Position: [facility] Resident Member Role: PCP Address: Address: [address] [place] [address]- Care Team Related Persons Name: GUI SERRANO Address: [employer] Address: home [address] [place] [address] [place] Name: JONNA SERRANO Address: home [address] [place] [id number] Name: MAXIMO SANCHEZ Address: home [address] [place], [place] [address]
--- OUTSIDE RECORDS SUMMARY | 2024-02-28 00:59 | XMS_ITS | Continuity of Care Document ---
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 Name Role Phone Not on Staff, PCP Primary Care Physician Unavail able Encounter [facility] Date(s): 06/06/22 - 07/19/[address] [id number] Discharge Disposition: Discharge Spec Fac/Child or Cancer Ctr Attending Physician: Mark Toro MD Admitting Physician: Mike Montenegro MD Referring Physician: Mike Montenegro MD Allergies, Adverse Reactions, Alerts Substance Reaction Severity [...] Status: Ordered Dilaudid 2 mg oral tablet 2 mg, Tablet, By Mouth, Every 12 hours, PRN for Pain , Severe, Routine, 07/13/22 22:59:00 EDT Start Date: 07/13/22 Stop Date: 07/20/22 Status: Discontinued ferrous sulfate 325 mg oral enteric coated [...] gabapentin 300 mg oral capsule 300 mg, Capsule, By Mouth, 07/19/22 9:00:00 EDT Start Date: 07/19/22 Stop Date: 07/19/22 Status: Completed heparin flush 10 units/mL intravenous solution 5 [...] metoprolol 25 mg oral tablet 12.5 mg, Tablet, By Mouth, Hold for: HR < 50 sbp < 90, 07/19/22 9:00:00 EDT Start Date: 07/19/22 Stop Date: 07/19/22 Status: Completed Miconazole 2% Topical Ointment 1 applicator, Topically, [...] disorder 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 Cigarette smoker 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 Drug abuse 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 History of depression 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 History of delivery 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 History of kidney stones 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 Results Orders for Microbiology Reports Name Date Urine Culture (URINE CULTURE) 07/15/22 Blood Culture 06/27/22 Blood Culture #2 06/27/22 Sputum Culture w/ Gram Smear 06/25/22 Blood Culture (BLOOD CULTURE) 06/24/22 Blood Culture 06/24/22 Blood Culture 06/15/22 Blood Culture #2 06/15/22 Fungal Culture, Respiratory 06/12/22 Anaerobic Culture 06/12/22 Microbiology Reports (Most Recent Ten) TEST:Urine Culture STATUS:Auth (Verified) BODY SITE: SOURCE:URINE COLLECTED DATE/TIME:07/15/22 5:13 PM Urine Culture SPECIMEN DESCRIPTION : URINE CLEAN CATCH/MIDSTREAM SPECIAL REQUESTS : NONE Reflexed from [id number] CULTURE : NO GROWTH REPORT STATUS : FINAL 07/17/2022 TEST:Blood Culture, Second Order STATUS:Auth (Verified) BODY SITE: SOURCE:Blood COLLECTED DATE/TIME:06/27/22 7:45 PM Blood Culture, Second Order SPECIMEN DESCRIPTION : BLOOD TAN SPECIAL REQUESTS : NONE CULTURE : NO GROWTH 6 DAYS REPORT STATUS : FINAL 07/04/2022 TEST:Blood Culture STATUS:Auth (Verified) BODY SITE: SOURCE:Blood COLLECTED DATE/TIME:06/27/22 5:30 PM Blood Culture SPECIMEN DESCRIPTION : BLOOD TAN SPECIAL REQUESTS : NONE CULTURE : NO GROWTH 5 DAYS. REPORT STATUS : FINAL 07/02/2022 TEST:Sputum Culture STATUS:Auth (Verified) BODY SITE: SOURCE:EXPECT COLLECTED DATE/TIME:06/25/22 11:00 AM Sputum Culture SPECIMEN DESCRIPTION : EXPECTORATED SPUTUM SPECIAL REQUESTS : NONE GRAM STAIN : 2+ GRAM POSITIVE COCCI 1+ SQ.EPITHELIAL CELLS 2+ BUDDING YEAST WITH PSEUDOHYPHAE CULTURE : 3+ NORMAL NATHEN REPORT STATUS : FINAL 06/28/2022 TEST:Blood Culture STATUS:Auth (Verified) BODY SITE: SOURCE:Blood COLLECTED DATE/TIME:06/24/22 1:20 PM Blood Culture SPECIMEN DESCRIPTION : BLOOD SPECIAL REQUESTS : NONE CULTURE : NO GROWTH 5 DAYS. REPORT STATUS : FINAL 06/29/2022 TEST:Blood Culture STATUS:Auth (Verified) BODY SITE: SOURCE:Blood COLLECTED DATE/TIME:06/24/22 12:00 PM Blood Culture SPECIMEN DESCRIPTION : BLOOD NOSITE SPECIAL REQUESTS : NONE CULTURE : NO GROWTH 5 DAYS. REPORT STATUS : FINAL 06/29/2022 TEST:Blood Culture STATUS:Auth (Verified) BODY SITE: SOURCE:Blood COLLECTED DATE/TIME:06/15/22 9:30 PM Blood Culture SPECIMEN DESCRIPTION : BLOOD NO SITE SPECIAL REQUESTS : NONE CULTURE : NO GROWTH 5 DAYS. REPORT STATUS : FINAL 06/21/2022 TEST:Blood Culture, Second Order STATUS:Auth (Verified) BODY SITE: SOURCE:Blood COLLECTED DATE/TIME:06/15/22 9:30 PM Blood Culture, Second Order SPECIMEN DESCRIPTION : BLOOD NO SITE SPECIAL REQUESTS : NONE CULTURE : NO GROWTH 5 DAYS. REPORT STATUS : FINAL 06/21/2022 TEST:Anaerobic Culture STATUS:Auth (Verified) BODY SITE: SOURCE:BODY F COLLECTED DATE/TIME:06/12/22 11:22 AM Anaerobic Culture SPECIMEN DESCRIPTION : BODY FLUID PLEURAL CAVITY SPECIAL REQUESTS : NONE CULTURE : NO ANAEROBES ISOLATED REPORT STATUS : FINAL 06/17/2022 TEST:Fungal Culture, Respiratory STATUS:Auth (Verified) BODY SITE: SOURCE:Pleura COLLECTED DATE/TIME:06/12/22 11:22 AM Fungal Culture, Respiratory SPECIMEN DESCRIPTION : Pleural fluid, left PLEURAL CAVITY SPECIAL REQUESTS : NONE DIRECT EXAM : NO FUNGAL ELEMENTS OBSERVED CULTURE : NO FUNGI ISOLATED AFTER 28 DAYS REPORT STATUS : FINAL 07/10/2022 Radiology Reports (Most Recent Ten) * Exam Date Time Procedure Performing Provider Status 06/30/22 5:46 AM Chest Portable Osmin Goodman (V erified) Notes: (Chest Portable) Reason For Exam: S/P Cardiac Surgery RESULT: Chest Portable Chest Portable Reason: Status post cardiac surgery, postoperative day 1, concern for cardiac tamponade COMPARISON: Chest x-ray 06/29/2022, 06/25/2022 FINDINGS: LINES AND TUBES: Left IJ Mendon-Chanda catheter, left pleural drainage and mediastinal drainage catheter, position unchanged. The endotracheal tube has been removed. LUNGS AND PLEURA: Unchanged opacification in the right middle and lower lobe. Mild hazy opacity in the left lower lobe, possibly representing atelectasis. No pleural effusion. No pneumothorax. HEART, MEDIASTINUM AND ALICIA: Heart is normal in size. No evidence of pericardial effusion. Normal upper mediastinal and hilar contour. BONES AND SOFT TISSUES: No acute abnormality. IMPRESSION: Unchanged opacity in the right middle and lower lobe. No evidence of cardiac tamponade. I have personally reviewed the images and I agree with this report. WSN: [id number] Ordering Physician: Reena Helm Dictated By: Gauri Duong MD Dictated Date/Time: 06/30/22 11:39 a Reviewed By: Jg Spivey MD Signed By: Jg Spivey MD Signed Date/Time: 06/30/22 11:44 am Transcribed By: RIC Transcribed Date/Time: 06/30/22 8:50 am * Exam Date Time Procedure Performing Provider Status 06/29/22 9:25 PM Chest Portable Osmin Latham (Angelina ified) Notes: (Chest Portable) Reason For Exam: S/P Cardiac Surgery RESULT: Chest Portable Chest Portable Reason: S P Cardiac Surgery; Clinical Question(s): Other:; Cardiac Tamponade; Special Instructions:On Admission to [facility] COMPARISON: Preoperative study of 06/25/2022. FINDINGS: LINES AND TUBES: Tip of endotracheal tube 4.7 cm above the lenadr. Left IJ Mendon-Chanda catheter with tip projecting over the spine, likely in the main pulmonary artery or proximal right pulmonary artery. Mediastinal drainage catheter and bilateral pleural space drainage catheters. LUNGS AND PLEURA: There is opacification in the lateral segment of the right middle lobe as well as in the right mid lung adjacent to the hilum. Trace linear atelectasis is noted in the left lung base. Lungs are otherwise clear with normal vascularity. No pleural effusion. No pneumothorax. HEART, MEDIASTINUM AND ALICIA: Heart is normal in size. Normal upper mediastinal and hilar contour. BONES AND SOFT TISSUES: No acute abnormality. IMPRESSION: Multiple support lines in good position. Severe atelectasis in the lateral segment of the right middle lobe. There may be additional atelectasis in the right perihilar region. No pneumothorax. WSN: [id number] Ordering Physician: Reena Helm Dictated By: Edouard Vo MD Dictated Date/Time: 06/29/22 9:39 pm Reviewed By: Edouard Vo MD Signed By: Edouard Vo MD Signed Date/Time: 06/29/22 9:39 pm Transcribed By: RIC Transcribed Date/Time: 06/29/22 9:35 pm * Exam Date Time Procedure Performing Provider Status 06/25/22 11:42 AM Chest Portable Emma Arguelles; Pietro (Verified) Notes: (Chest Portable) Reason For Exam: Fever RESULT: Chest Portable Chest Portable performed upright at 11:13 AM Reason: Fever; Clinical Question(s): Pneumonia COMPARISON: Multiple prior chest x-rays, the most recent of which is dated 06/17/2022. FINDINGS: LINES AND TUBES: Right central venous catheter with tip at the SVC right atrial junction is not seen. LUNGS AND PLEURA: Diffuse interstitial opacities are seen. More focal opacity is seen in the right perihilar region. No pleural effusion. No pneumothorax. HEART, MEDIASTINUM AND ALICIA: Heart is normal in size. Normal upper mediastinal and hilar contour. BONES AND SOFT TISSUES: No acute abnormality. IMPRESSION: 1. Placement of a right central venous catheter. 2. Increasing interstitial opacities with more focal opacity in the perihilar right midlung. This may reflect asymmetric edema though superimposed atelectasis or pneumonia on the right is also a consideration. WSN: [id number] Ordering Physician: Angelito Rivera Dictated By: Marcelle Coffey MD Dictated Date/Time: 06/25/22 5:43 pm Reviewed By: Marcelle Coffey MD Signed By: Marcelle Coffey MD Signed Date/Time: 06/25/22 5:43 pm Transcribed By: RIC Transcribed Date/Time: 06/25/22 5:41 pm * Exam Date Time Procedure Performing Provider Status 06/17/22 10:51 AM Chest 2 Views Frontal and Lat Macy Jaymie palacios; Auth (Verified) Notes: (Chest 2 Views Frontal and Lat) Reason For Exam: s.p chest tube removal, ? post- pull ptx;Tube Placement RESULT: Chest 2 Views Frontal and Lat Chest 2 Views Frontal and Lat Reason: Tube Placement; s.p chest tube removal, ? post-pull ptx; Clinical Question(s): Tube Placement / Tube Placement COMPARISON: Earlier today. FINDINGS: LINES AND TUBES: Left basilar pleural drain has been removed. LUNGS AND PLEURA: Loculated bibasilar hydropneumothoraces are not significantly changed. No new left-sided pneumothorax status post pleural drain removal. Patchy multifocal somewhat nodular airspace opacity within the lower lung predominance, unchanged. HEART, MEDIASTINUM AND ALICIA: Unchanged. BONES AND SOFT TISSUES: No acute abnormality. IMPRESSION: Status post removal of the left pleural drain, otherwise no significant change. WSN: [id number] Ordering Physician: Sonia James Dictated By: Irvin Alberto MD Dictated Date/Time: 06/17/22 11:00 a Reviewed By: Irvin Alberto MD Signed By: Irvin Alberto MD Signed Date/Time: 06/17/22 11:00 am Transcribed By: RIC Transcribed Date/Time: 06/17/22 10:59 am * Exam Date Time Procedure Performing Provider Status 06/17/22 6:05 AM Chest 2 Views Frontal and Lat Elvia Castañeda; Auth (Verified) Notes: (Chest 2 Views Frontal and Lat) Reason For Exam: Follow-Up Pleural Effusion RESULT: Chest 2 Views Frontal and Lat Chest 2 Views Frontal and Lat Reason: Follow-Up Pleural Effusion; Clinical Question(s): Pleural Effusion / Pleural Effusion COMPARISON: 06/16/2022 FINDINGS: LINES AND TUBES: Left pleural pigtail drain. LUNGS AND PLEURA: Loculated right-sided hydropneumothorax posteriorly at the base, similar to prior better evaluated on CT. Small left basilar hydropneumothorax, as seen on CT, also similar to prior. Multifocal bilateral somewhat nodular airspace opacity, worst in the lung bases, similar to prior. HEART, MEDIASTINUM AND ALICIA: Unchanged. BONES AND SOFT TISSUES: No acute abnormality. IMPRESSION: No significant change. Small bilateral hydropneumothoraces in the lower chest and multiple bilateral airspace opacity with lower lung predominance. WSN: [id number] Ordering Physician: Cande Eid Dictated By: Irvin Alberto MD Dictated Date/Time: 06/17/22 8:25 am Reviewed By: Irvin Alberto MD Signed By: Irvin Alberto MD Signed Date/Time: 06/17/22 8:25 am Transcribed By: RIC Transcribed Date/Time: 06/17/22 8:22 am * Exam Date Time Procedure Performing Provider Status 06/16/22 6:04 AM Chest 2 Views Frontal and Lat Jonny Goodman; Auth (Verified) Notes: (Chest 2 Views Frontal and Lat) Reason For Exam: Follow-Up Pleural Effusion RESULT: Chest 2 Views Frontal and Lat Chest 2 Views Frontal and Lat REASON: Follow-Up Pleural Effusion; Clinical Question(s): Pleural Effusion / Pleural Effusion COMPARISON: 06/15/2022 FINDINGS: LINES AND TUBES: Left pleural drain in place. LUNGS AND PLEURA: No significant change in multifocal bilateral airspace opacity and nodular opacities. No pleural effusion. No pneumothorax. HEART, MEDIASTINUM AND ALICIA: Unchanged. BONES AND SOFT TISSUES: No acute abnormality. IMPRESSION: No significant change. WSN: [id number] Ordering Physician: Cande Eid Dictated By: Irvin Alberto MD Dictated Date/Time: 06/16/22 9:07 am Reviewed By: Irvin Alberto MD Signed By: Irvin Alberto MD Signed Date/Time: 06/16/22 9:07 am Transcribed By: RIC Transcribed Date/Time: 06/16/22 9:06 am * Exam Date Time Procedure Performing Provider Status 06/15/22 5:41 AM Chest 2 Views Frontal and Lat Harvinder Flowers; Auth (Verified) Notes: (Chest 2 Views Frontal and Lat) Reason For Exam: Follow-Up Pleural Effusion RESULT: Chest 2 Views Frontal and Lat Chest 2 Views Frontal and Lat REASON: Follow-Up Pleural Effusion; Clinical Question(s): Pleural Effusion / PLEURAL EFFUSION COMPARISON: 06/14/2022 FINDINGS: LINES AND TUBES: Left basilar pleural drain in place. LUNGS AND PLEURA: Patchy multifocal airspace opacity predominantly involving the lower lungs, not significantly changed. No pleural effusion. No pneumothorax. HEART, MEDIASTINUM AND ALICIA: Unchanged. BONES AND SOFT TISSUES: No acute abnormality. IMPRESSION: No significant change. WSN: [id number] Ordering Physician: Abimael Mendenhall Dictated By: Irvin Alberto MD Dictated Date/Time: 06/15/22 10:14 a Reviewed By: Irvin Alberto MD Signed By: Irvin Alberto MD Signed Date/Time: 06/15/22 10:14 am Transcribed By: RIC Transcribed Date/Time: 06/15/22 10:12 am * Exam Date Time Procedure Performing Provider Status 06/14/22 6:20 AM Chest 2 Views Frontal and Lat Alyce Saunders; Pietro (Verified) Notes: (Chest 2 Views Frontal and Lat) Reason For Exam: Follow-Up Pleural Effusion RESULT: Chest 2 Views Frontal and Lat Chest 2 Views Frontal and Lat Reason: Follow-Up Pleural Effusion; Clinical Question(s): Pleural Effusion COMPARISON: Multiple prior chest x-rays, the most recent of which is dated 06/13/2022. FINDINGS: LINES AND TUBES: There is a left pleural catheter. LUNGS AND PLEURA: Patchy multifocal airspace opacities are again seen in both mid to lower lung. There is partial improvement in the right perihilar region. No pleural effusion. No pneumothorax. HEART, MEDIASTINUM AND ALICIA: Heart is normal in size. Normal upper mediastinal and hilar contour. BONES AND SOFT TISSUES: No acute abnormality. IMPRESSION: 1. No significant pleural effusion. 2. Patchy multifocal airspace opacities with partial improvement in the right perihilar region. WSN: [id number] Ordering Physician: Abimael Mendenhall Dictated By: Marcelle Coffey MD Dictated Date/Time: 06/14/22 10:35 a Reviewed By: Marcelle Coffey MD Signed By: Marcelle Coffey MD Signed Date/Time: 06/14/22 10:35 am Transcribed By: RIC Transcribed Date/Time: 06/14/22 10:34 am * Exam Date Time Procedure Performing Provider Status 06/13/22 6:03 AM Chest 2 Views Frontal and Lat Shasta Valencia; Pietro (Verified) Notes: (Chest 2 Views Frontal and Lat) Reason For Exam: Follow-Up Pleural Effusion RESULT: Chest 2 Views Frontal and Lat Chest 2 Views Frontal and Lat Reason: Follow-Up Pleural Effusion; Clinical Question(s): Pleural Effusion COMPARISON: 06/12/2022. FINDINGS: LINES AND TUBES: A pigtail catheter terminates in the left posteromedial pleural space. LUNGS AND PLEURA: Small volume loculated left pneumothorax, better seen on lateral view. No right pneumothorax. Increased patchy opacity in right middle lobe. Right posteromedial collection is obscured on lateral view and not well seen on AP view. Additional patchy/nodular opacities predominantly in the left lung have not significantly changed. HEART, MEDIASTINUM AND ALICIA: Heart is normal in size. Normal upper mediastinal and hilar contour. BONES AND SOFT TISSUES: No acute abnormality. IMPRESSION: Interval placement of a left pigtail catheter surrounded by a loculated pneumothorax. Increased right middle lobe opacity. Stable additional patchy opacities are in keeping with known septic emboli. WSN: [id number] Ordering Physician: Abimael Mendenhall Dictated By: Devon Ward MD Dictated Date/Time: 06/13/22 8:58 am Reviewed By: Devon Ward MD Signed By: Devon Ward MD Signed Date/Time: 06/13/22 8:58 am Transcribed By: RIC Transcribed Date/Time: 06/13/22 8:48 am * Exam Date Time Procedure Performing Provider Status 06/12/22 5:04 AM Chest 2 Views Frontal and Lat Jg Morton; Pietro (Verified) Notes: (Chest 2 Views Frontal and Lat) Reason For Exam: Follow-Up Pleural Effusion RESULT: Chest 2 Views Frontal and Lat Chest 2 Views Frontal and Lat Reason: Follow-Up Pleural Effusion; Clinical Question(s): Pleural Effusion COMPARISON: 06/11/2022 FINDINGS: LINES AND TUBES: None. LUNGS AND PLEURA: Unchanged patchy hazy opacities bilaterally, predominantly in the lung bases. There is a left retrocardiac opacity likely due to atelectasis. Small bilateral pleural effusions left greater than right significant change. No definite pneumothorax is seen. HEART, MEDIASTINUM AND ALICIA: Heart is normal in size. Normal upper mediastinal and hilar contour. BONES AND SOFT TISSUES: No acute abnormality. IMPRESSION: No significant change. I have personally reviewed the images and I agree with this report. WSN: [id number] Ordering Physician: Ryan Awad Dictated By: Sruthi Christian DO Dictated Date/Time: 06/12/22 2:30 pm Reviewed By: Doug Sibley MD Signed By: Doug Sibley MD Signed Date/Time: 06/12/22 2:35 pm Transcribed By: RIC Transcribed Date/Time: 06/12/22 9:09 am Vital Signs Most recent to oldest [Reference Range]: 1 2 3 Height 150 cm (07/19/22 8:24 AM) 150 cm (07/19/22 4:47 AM) 150 cm (07/18/22 11:59 PM) Weight 43.4 kg (07/19/22 4:47 AM) 45.5 kg (07/18/22 5:54 AM) 42.5 kg (07/17/22 4:02 AM) Oxygen Saturation [94-100 %] 98 % (07/19/22 10:00 AM) 93 % *L* (07/19/22 8:24 AM) 96 % (07/19/22 4:47 AM) Pulse Rate [55-90 bpm] 93 bpm *H* (07/19/22 10:00 AM) 100 bpm *H* (07/19/22 9:57 AM) 89 bpm (07/19/22 8:24 AM) Body Mass Index [18.5-24.99 kg/m2] 18.53 kg/m2 (07/13/22 5:36 AM) Body Mass Index [18.5-24.99] 19.69 (07/10/22 4:56 AM) 21.47 (07/06/22 6:12 AM) Blood Pressure [90-138/55-84 mm Hg] 104/59mm Hg (07/19/22 10:00 AM) 98/60mm Hg (07/19/22 9:57 AM) 95/60mm Hg (07/19/22 8:24 AM) Respiratory Rate [16-30 br/min] 18 br/min (07/19/22 10:00 AM) 18 br/min (07/19/22 9:57 AM) 18 br/min (07/19/22 9:57 AM) Temperature [96.8-100.4 DegF] 98.0 DegF (07/19/22 10:00 AM) 97.4 DegF (07/19/22 8:24 AM) 97.8 DegF (07/19/22 4:47 AM) Liters per Minute 3 L/min (06/30/22 12:00 AM) 3 L/min (06/29/22 11:00 PM) 3 L/min (06/21/22 3:45 PM) Mode of Delivery (Oxygen) Room air (07/19/22 10:00 AM) Room air (07/19/22 8:24 AM) Room air (07/19/22 4:47 AM) Blood pressure sites Arm, right (07/19/22 10:00 AM) Arm, right (07/19/22 8:24 AM) Arm, right (07/19/22 4:47 AM) Temperature Route Oral (07/19/22 10:00 AM) Oral (07/19/22 8:24 AM) Oral (07/19/22 4:47 AM) Dry Weight 43 kg (06/06/22 9:35 PM) Weight Obtained Via Bed scale (07/19/22 4:47 AM) Bed scale (07/17/22 4:02 AM) Bed scale (07/15/22 4:58 AM) Social History Social History Type Response Smoking Status 10 or more cigarette s (1/2 pack or more)/day in last 30 days entered on: 11/14/18 Sex Note * [employer] , CIS S: TRANSCRIBE Irvin Alberto MD S: VERIFY Event Display: Result: Authored Date: [id number] Chest 2 Views Frontal and Lat Reason: Tube Placement; s.p chest tube removal, ? post-pull ptx; Clinical Question(s): Tube Placement / Tube Placement COMPARISON: Earlier today. FINDINGS: LINES AND TUBES: Left basilar pleural drain has been removed. LUNGS AND PLEURA: Loculated bibasilar hydropneumothoraces are not significantly changed. No new left-sided pneumothorax status post pleural drain removal. Patchy multifocal somewhat nodular airspace opacity within the lower lung predominance, unchanged. HEART, MEDIASTINUM AND ALICIA: Unchanged. BONES AND SOFT TISSUES: No acute abnormality. IMPRESSION: Status post removal of the left pleural drain, otherwise no significant change. WSN: [id number] Ordering Physician: Sonia James Dictated By: Irvin Alberto MD Dictated Date/Time: 06/17/22 11:00 a Reviewed By: Irvin Alberto MD Signed By: Irvin Alberto MD Signed Date/Time: 06/17/22 11:00 am Transcribed By: RIC Transcribed Date/Time: 06/17/22 10:59 am * [employer] , CIS S: TRANSCRIBE Irvin Alberto MD: VERIFY Event Display: Result: Authored Date: [id number] Chest 2 Views Frontal and Lat Reason: Follow-Up Pleural Effusion; Clinical Question(s): Pleural Effusion / Pleural Effusion COMPARISON: 06/16/2022 FINDINGS: LINES AND TUBES: Left pleural pigtail drain. LUNGS AND PLEURA: Loculated right-sided hydropneumothorax posteriorly at the base, similar to prior better evaluated on CT. Small left basilar hydropneumothorax, as seen on CT, also similar to prior. Multifocal bilateral somewhat nodular airspace opacity, worst in the lung bases, similar to prior. HEART, MEDIASTINUM AND ALICIA: Unchanged. BONES AND SOFT TISSUES: No acute abnormality. IMPRESSION: No significant change. Small bilateral hydropneumothoraces in the lower chest and multiple bilateral airspace opacity with lower lung predominance. WSN: [id number] Ordering Physician: Cande Eid Dictated By: Irvin Alberto MD Dictated Date/Time: 06/17/22 8:25 am Reviewed By: Irvin Alberto MD Signed By: Irvin Alberto MD Signed Date/Time: 06/17/22 8:25 am Transcribed By: RIC Transcribed Date/Time: 06/17/22 8:22 am * Raya , CIS S: TRANSCRIBE Irvin Alberto MD: VERIFY Event Display: Result: Authored Date: [id number] Chest 2 Views Frontal and Lat REASON: Follow-Up Pleural Effusion; Clinical Question(s): Pleural Effusion / Pleural Effusion COMPARISON: 06/15/2022 FINDINGS: LINES AND TUBES: Left pleural drain in place. LUNGS AND PLEURA: No significant change in multifocal bilateral airspace opacity and nodular opacities. No pleural effusion. No pneumothorax. HEART, MEDIASTINUM AND ALICIA: Unchanged. BONES AND SOFT TISSUES: No acute abnormality. IMPRESSION: No significant change. WSN: [id number] Ordering Physician: Cande Eid Dictated By: Irvin Alberto MD Dictated Date/Time: 06/16/22 9:07 am Reviewed By: Irvin Alberto MD Signed By: Irvin Alberto MD Signed Date/Time: 06/16/22 9:07 am Transcribed By: RIC Transcribed Date/Time: 06/16/22 9:06 am * MARIA ESTHER Dos Santos S: TRANSCRIIrvin Mitchell MD: VERIFY Event Display: Result: Authored Date: [id number] Chest 2 Views Frontal and Lat REASON: Follow-Up Pleural Effusion; Clinical Question(s): Pleural Effusion / PLEURAL EFFUSION COMPARISON: 06/14/2022 FINDINGS: LINES AND TUBES: Left basilar pleural drain in place. LUNGS AND PLEURA: Patchy multifocal airspace opacity predominantly involving the lower lungs, not significantly changed. No pleural effusion. No pneumothorax. HEART, MEDIASTINUM AND ALICIA: Unchanged. BONES AND SOFT TISSUES: No acute abnormality. IMPRESSION: No significant change. WSN: [id number] Ordering Physician: Abimael Mendenhall Dictated By: Irvin Alberto MD Dictated Date/Time: 06/15/22 10:14 a Reviewed By: Irvin Alberto MD Signed By: Irvin Alberto MD Signed Date/Time: 06/15/22 10:14 am Transcribed By: RIC Transcribed Date/Time: 06/15/22 10:12 am * NICOLASSPjaspalscjohnny , CIS S: TRANSCRIBE Marcelle Coffey MD: VERIFY Event Display: Result: Authored Date: [id number] Chest 2 Views Frontal and Lat Reason: Follow-Up Pleural Effusion; Clinical Question(s): Pleural Effusion COMPARISON: Multiple prior chest x-rays, the most recent of which is dated 06/13/2022. FINDINGS: LINES AND TUBES: There is a left pleural catheter. LUNGS AND PLEURA: Patchy multifocal airspace opacities are again seen in both mid to lower lung. There is partial improvement in the right perihilar region. No pleural effusion. No pneumothorax. HEART, MEDIASTINUM AND ALICIA: Heart is normal in size. Normal upper mediastinal and hilar contour. BONES AND SOFT TISSUES: No acute abnormality. IMPRESSION: 1. No significant pleural effusion. 2. Patchy multifocal airspace opacities with partial improvement in the right perihilar region. WSN: [id number] Ordering Physician: Abimael Mendenhall Dictated By: Marcelle Coffey MD Dictated Date/Time: 06/14/22 10:35 a Reviewed By: Marcelle Coffey MD Signed By: Marcelle Coffey MD Signed Date/Time: 06/14/22 10:35 am Transcribed By: RIC Transcribed Date/Time: 06/14/22 10:34 am * BHSPowerscribe , CIS S: TRANSCRIBE Devon Ward MD: VERIFY Event Display: Result: Authored Date: [id number] Chest 2 Views Frontal and Lat Reason: Follow-Up Pleural Effusion; Clinical Question(s): Pleural Effusion COMPARISON: 06/12/2022. FINDINGS: LINES AND TUBES: A pigtail catheter terminates in the left posteromedial pleural space. LUNGS AND PLEURA: Small volume loculated left pneumothorax, better seen on lateral view. No right pneumothorax. Increased patchy opacity in right middle lobe. Right posteromedial collection is obscured on lateral view and not well seen on AP view. Additional patchy/nodular opacities predominantly in the left lung have not significantly changed. HEART, MEDIASTINUM AND ALICIA: Heart is normal in size. Normal upper mediastinal and hilar contour. BONES AND SOFT TISSUES: No acute abnormality. IMPRESSION: Interval placement of a left pigtail catheter surrounded by a loculated pneumothorax. Increased right middle lobe opacity. Stable additional patchy opacities are in keeping with known septic emboli. WSN: [id number] Ordering Physician: Abimael Mendenhall Dictated By: Devon Ward MD Dictated Date/Time: 06/13/22 8:58 am Reviewed By: Devon Ward MD Signed By: Devon Ward MD Signed Date/Time: 06/13/22 8:58 am Transcribed By: RIC Transcribed Date/Time: 06/13/22 8:48 am * MARIA ESTHER Dos Santos S: Doug Aquino MD: VERIFY Sruthi Christian DO F: SIGN Event Display: Result: Authored Date: [id number] Chest 2 Views Frontal and Lat Reason: Follow-Up Pleural Effusion; Clinical Question(s): Pleural Effusion COMPARISON: 06/11/2022 FINDINGS: LINES AND TUBES: None. LUNGS AND PLEURA: Unchanged patchy hazy opacities bilaterally, predominantly in the lung bases. There is a left retrocardiac opacity likely due to atelectasis. Small bilateral pleural effusions left greater than right significant change. No definite pneumothorax is seen. HEART, MEDIASTINUM AND ALICIA: Heart is normal in size. Normal upper mediastinal and hilar contour. BONES AND SOFT TISSUES: No acute abnormality. IMPRESSION: No significant change. I have personally reviewed the images and I agree with this report. WSN: [id number] Ordering Physician: Ryan Awad Dictated By: Sruthi Christian DO Dictated Date/Time: 06/12/22 2:30 pm Reviewed By: Doug Sibley MD Signed By: Doug Sibley MD Signed Date/Time: 06/12/22 2:35 pm Transcribed By: RIC Transcribed Date/Time: 06/12/22 9:09 am * MARIA ESTHER Dos Santos S: Hamlet Bustillos MD: VERIFY Event Display: Result: Authored Date: [id number] PROCEDURE: Chest 2 Views Frontal and Lat INDICATION: 36 years old Female with Reason: Follow-Up Pleural Effusion; septic emboli. COMPARISON: Chest radiographs July 01, [address] chest June 08, 2022. FINDINGS: AP and lateral upright views of the chest obtained. Lines and tubes:Several EKG leads project over the chest. Lungs and pleura: Small RIGHT and [id number] LEFT pleural effusions again noted with mild compressive atelectasis inferiorly in both lower lobes. Several septic endoleak cavities noted on the recent CT in both lungs but only a a few are seen radiographically in the lower lobes, RIGHT middle lobe and lingula, as evidence of focal relatively well-circumscribed areas of consolidation some cont aining faint lucencies consistent with gas, the largest noted inferiorly in the RIGHT lower lobe posterior to the RIGHT hemidiaphragm measuring up to 2.5 cm definitely containing gas. Relative sparing of the lung apices again noted. A new small LEFT apical pneumothorax is noted the distance betweenthe visceral and parietal pleura at 0.8 cm.. Heart, mediastinum and alicia: The cardiomediastinal silhouette and pulmonary vasculature are unremarkable. No cardiomegaly or pulmonary venous hypertension. Bones and soft tissues: Mild degenerative changes in the thoracic spine. IMPRESSION: 1. New small LEFT apical pneumothorax. 2. No change in small RIGHT and kbepc-wi-[id number] LEFT pleural effusions with compressive atelectasis in the lower lobes. Several known septic emboli bilaterally in the lower lobes, RIGHT middle lobeand lingula, are much better seen on CT.. Thank you for allowing me to participate in the care of this patient. A critical result message ([place]) has been communicated via the [employer] system on 06/11/2022 5:00 PM, Message ID [id number]. WSN: [id number] Ordering Physician: Ryan Awad Dictated By: Hamlet Ramos MD Dictated Date/Time: 06/11/22 5:02 pm Reviewed By: Hamlet Ramos MD Signed By: Hamlet Ramos MD Signed Date/Time: 06/11/22 5:02 pm Transcribed By: RIC Transcribed Date/Time: 06/11/22 4:55 pm * Raya , CIS S: OZIEL Jack MD, Raman D: VERIFY Event Display: Result: Authored Date: [id number] Chest 2 Views Frontal and Lat INDICATION/CLINICAL QUESTION: Reason: Follow-Up Pleural Effusion; Clinical Question(s): Pleural Effusion / Pleural Effusion TECHNIQUE: Frontal and lateral views of the chest. COMPARISON: 06/07/2022. FINDINGS: LINES AND TUBES: Absent LUNGS AND PLEURA: RIGHT CHEST: Upper lung clear. Stable patchy disease lower lung. No effusion.. LEFT CHEST: Upper lung clear. Stable patchy disease in left lower lung. No effusion.. HEART, MEDIASTINUM AND ALICIA: The heart is of normal size. The mediastinum and alicia are normal. BONES AND SOFT TISSUES: No acute bony abnormality. IMPRESSION: 1. Stable small areas of lung disease bilaterally. 2. No pleural effusion. 3. No new abnormality. WSN: [id number] Ordering Physician: Cande Eid Dictated By: Raman Jack MD Dictated Date/Time: 06/10/22 3:14 pm Reviewed By: Raman Jack MD Signed By: Raman Jack MD Signed Date/Time: 06/10/22 3:14 pm Transcribed By: RIC Transcribed Date/Time: 06/10/22 3:13 pm * [employer] Entertainment[employer]ers[employer] , CIS S: TRANSCEdouard Fonseca MD: VERIFY Event Display: Result: Authored Date: [id number] Chest 2 Views Frontal and Lat Reason: Pleuritic Pain; Clinical Question(s): Pneumothorax; Special Instructions: had recent spontaneous pneumothorax COMPARISON: 07/01/2018 FINDINGS: LINES AND TUBES: None. LUNGS AND PLEURA: Bilateral mid and lower lung opacities. Small loculated pleural effusion and associated atelectasis.. No pneumothorax. HEART, MEDIASTINUM AND ALICIA: Heart is normal in size. Normal upper mediastinal and hilar contour. BONES AND SOFT TISSUES: No acute abnormality. IMPRESSION: Bilateral mid and lower lung opacities. Small loculated pleural effusion and associated atelectasis.. No pneumothorax as questioned. WSN: [id number] Ordering Physician: Carl Chavira Dictated By: Edouard Lopez MD Dictated Date/Time: 06/07/22 7:07 pm Reviewed By: Edouard Lopez MD Signed By: Edouard Lopez MD Signed Date/Time: 06/07/22 7:07 pm Transcribed By: RIC Transcribed Date/Time: 06/07/22 7:02 pm Portable XR Chest Views * BHSP[facility]erscribe , CIS S: Jg Burnham MD: VERIFY Gauri Duong MD: SIGN Event Display: Result: Authored Date: [id number] Chest Portable Reason: Status post cardiac surgery, postoperative day 1, concern for cardiac tamponade COMPARISON: Chest x-ray 06/29/2022, 06/25/2022 FINDINGS: LINES AND TUBES: Left IJ Mendon-Chanda catheter, left pleural drainage and mediastinal drainage catheter, position unchanged. The endotracheal tube has been removed. LUNGS AND PLEURA: Unchanged opacification in the right middle and lower lobe. Mild hazy opacity in the left lower lobe, possibly representing atelectasis. No pleural effusion. No pneumothorax. HEART, MEDIASTINUM AND ALICIA: Heart is normal in size. No evidence of pericardial effusion. Normal upper mediastinal and hilar contour. BONES AND SOFT TISSUES: No acute abnormality. IMPRESSION: Unchanged opacity in the right middle and lower lobe. No evidence of cardiac tamponade. I have personally reviewed the images and I agree with this report. WSN: [id number] Ordering Physician: Reena Helm Dictated By: Gauri Duong MD Dictated Date/Time: 06/30/22 11:39 a Reviewed By: Jg Spivey MD Signed By: Jg Spivey MD Signed Date/Time: 06/30/22 11:44 am Transcribed By: RIC Transcribed Date/Time: 06/30/22 8:50 am * [facility] , CIS S: TRANSCRIBE Edouard Vo MD: VERIFY Event Display: Result: Authored Date: [id number] Chest Portable Reason: S P Cardiac Surgery; Clinical Question(s): Other:; Cardiac Tamponade; Special Instructions:On Admission to [facility] COMPARISON: Preoperative study of 06/25/2022. FINDINGS: LINES AND TUBES: Tip of endotracheal tube 4.7 cm above the lenard. Left IJ Mendon-Chanda catheter with tip projecting over the spine, likely in the main pulmonary artery or proximal right pulmonary artery. Mediastinal drainage catheter and bilateral pleural space drainage catheters. LUNGS AND PLEURA: There is opacification in the lateral segment of the right middle lobe as well as in the right mid lung adjacent to the hilum. Trace linear atelectasis is noted in the left lung base. Lungs are otherwise clear with normal vascularity. No pleural effusion. No pneumothorax. HEART, MEDIASTINUM AND ALICIA: Heart is normal in size. Normal upper mediastinal and hilar contour. BONES AND SOFT TISSUES: No acute abnormality. IMPRESSION: Multiple support lines in good position. Severe atelectasis in the lateral segment of the right middle lobe. There may be additional atelectasis in the right perihilar region. No pneumothorax. WSN: [id number] Ordering Physician: Reena Helm Dictated By: Edouard Vo MD Dictated Date/Time: 06/29/22 9:39 pm Reviewed By: Edouard Vo MD Signed By: Edouard Vo MD Signed Date/Time: 06/29/22 9:39 pm Transcribed By: RIC Transcribed Date/Time: 06/29/22 9:35 pm * [facility]SP[facility] , CIS S: TRANSCRIBE Marcelle Coffey MD: VERIFY Event Display: Result: Authored Date: [id number] Chest Portable performed upright at 11:13 AM Reason: Fever; Clinical Question(s): Pneumonia COMPARISON: Multiple prior chest x-rays, the most recent of which is dated 06/17/2022. FINDINGS: LINES AND TUBES: Right central venous catheter with tip at the SVC right atrial junction is not seen. LUNGS AND PLEURA: Diffuse interstitial opacities are seen. More focal opacity is seen in the right perihilar region. No pleural effusion. No pneumothorax. HEART, MEDIASTINUM AND ALICIA: Heart is normal in size. Normal upper mediastinal and hilar contour. BONES AND SOFT TISSUES: No acute abnormality. IMPRESSION: 1. Placement of a right central venous catheter. 2. Increasing interstitial opacities with more focal opacity in the perihilar right midlung. This may reflect asymmetric edema though superimposed atelectasis or pneumonia on the right is also a consideration. WSN: [id number] Ordering Physician: Angelito Rivera Dictated By: Marcelle Coffey MD Dictated Date/Time: 06/25/22 5:43 pm Reviewed By: Marcelle Coffey MD Signed By: Marcelle Coffey MD Signed Date/Time: 06/25/22 5:43 pm Transcribed By: RIC Transcribed Date/Time: 06/25/22 5:41 pm Patient Care team information Personnel Name: Not on Staff, PCP
--- OUTSIDE RECORDS SUMMARY | 2024-02-28 00:59 | XMS_ITS | Continuity of Care Document ---
Author Organization [facility] Address [address] [place] [address]- Care Team Providers Care Supervisor Product Inspection Name Role Phone Collins Agustin MD Primary Care Physician Encounter [facility] Date(s): 07/20/23 - 08/19/[address] [address] Allergies, Adverse Reactions, Alerts Substance Reaction Severity [...] 01/10/08 Recorded Human Papillomavirus Vaccine 11/11/07 Recorded Medications albuterol CFC free 90 mcg/inh inhalation aerosol 1, puffs, Inhalation, 4 times a day, PRN, # 25 Gm, Refills 0, Tot. Refills 0, Maintenance, 07/02/2315:43:00 EDT, Aerosol, Route to Pharmacy Electronically, [id number], [facility] #[id number], 150, cm, 07/02/23 15:22:00... Start Date: 07/02/23 Status: Ordered apixaban 5 mg oral tablet 1 tablet = 5 mg, By Mouth, 2 times a day, # 60 tablet, 4 Refills, Maintenance, 09/21/22 17:07:00 EST, Tablet, [facility]/pharmacy #[id number], Partial fill upon patient request if the prescription is for a schedule II opioid drug., 150, cm, 09/21/22 14:41:00 EST,... Start Date: 09/21/22 Status: Ordered Ensure Ensure, See Instructions, # 1 each, Refills 0, Tot. Refills 0, Maintenance, R 63.4 malnutrition E461 carton daily 30 days 11 refills duration 12 months wt 48kg, 07/25/23 16:52:00 EDT, Supply Start Date: 07/25/23 Status: Ordered gabapentin 300 mg oral capsule 300 mg, 1, capsule, By Mouth, 3 times a day, # 90 capsule, Refills 3, Tot. Refills 3, Maintenance, 07/02/23 16:01:00 EDT, Route to Pharmacy Electronically, [facility] #[id number], Partial fill upon patient request if the prescription is for a minda... Start Date: 07/02/23 Status: Ordered methadone 10 mg/5 mL oral solution 57.5 mL = 115 mg, By Mouth, Daily, 0 Refills, Maintenance, 07/18/22 13:54:00 EDT, Solution, Partialfill upon patient request if the prescription is for a schedule II opioid drug. Start Date: 07/18/22 Status: Ordered Problem List Condition Confirmation Course Effective Dates Status Health St [facility] Informant Asthma 1 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 Borderline personality disorder 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 Cellulitis 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 Cigarette smoker 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 Cough 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 Vaccine counseling 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 Depression 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 Drug abuse 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 Dysuria 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 History of depression 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 Tricuspid valve replaced 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 History of delivery 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 History of kidney stones 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 Neuropathy 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 Opioid use disorder, severe, in sustained remission 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 Social History Social History Type Response Smoking Status 10 or more cigarette s (1/2 pack or more)/day in last 30 days entered on: 11/14/18 Sex Patient Care team information Care Team Personnel Name: Jewell Castro Position: [facility] Onco RN Member Role: Primary Care Nurse Name: Radha Cheng RN Position: [facility] AMB Nurse Member Role: Primary Care Nurse Name: Kiya Sanderson RN Position: [facility] RN Member Role: Primary Care Nurse Name: Frida Woods RN Position: [facility] RN Member Role: Primary Care Nurse Name: Una Damon RN Position: [facility] AMB Nurse Member Role: Primary Care Nurse Name: Amina Younger RN Position: [facility] RN Member Role: Primary Care Nurse Name: Ruel Goetz MD Position: [facility] Renal MD Member Role: Lifetime Consulting Physician Address: Address: [address] [facility] [place] [address]- [place] Name: Jonny Luna RN Position: [facility] RN Member Role: Primary Care Nurse Name: Kaitlyn Spann RN Position: [facility] RN Member Role: Primary Care Nurse Name: Ekaterina Yousif RN Position: [facility] RN Member Role: Primary Care Nurse Name: Destiny Kebede RN Position: [facility] RN Member Role: Primary Care Nurse Name: Alejandrina Duggan RN Position: [facility] RN Member Role: Primary Care Nurse Name: Collins Agustin MD Position: [facility] Resident Member Role: PCP Address: Address: [address] [place] [address]- Care Team Related Persons Name: GUI SERRANO Address: [employer] Address: home [address] [place] [address] [place] Name: JONNA SERRANO Address: home [address] [place] [id number] Name: MAXIMO SANCHEZ Address: home [address]
--- OUTSIDE RECORDS SUMMARY | 2024-02-28 00:59 | XMS_ITS | Continuity of Care Document ---
Author Organization [facility] Address [address] [place] [address]- Care Team Providers Care Keg Varnisher Name Role Phone Collins Agustin MD Primary Care Physician [phone] Encounter [facility] Date(s): 08/14/23 - 09/13/[address] [address] Attending Physician: Admtr, Ar8 Admitting Physician: Admtr, Ar8 Referring Physician: Admtr, Ar8 Allergies, Adverse Reactions, [...] 07/02/2315:43:00 EDT, Aerosol, Route to Pharmacy Electronically, [id number], [id number], 150, cm, 07/02/23 15:22:00... Start Date: 07/02/23 Status: Ordered apixaban 5 mg oral tablet 1 tablet = 5 mg, By Mouth, 2 times a day, # 60 tablet, 4 Refills, Maintenance, 09/21/22 17:07:00 EST, Tablet, [facility]/pharmacy #[id number], Partial fill upon patient request [...] 07/02/23 16:01:00 EDT, Route to Pharmacy Electronically, [id number], Partial fill upon patient request if the [...] Care Team Personnel Name: Jewell Castro Position: [facility] Onco RN Member Role: Primary Care Nurse Name: Radha Cheng RN Position: [facility] AMB Nurse Member Role: Primary Care Nurse Name: Kiya Sanderson RN Position: [facility] RN Member Role: Primary Care Nurse Name: Frida Woods RN Position: [facility] RN Member Role: Primary Care Nurse Name: Una Damon RN Position: [facility] AMB Nurse Member Role: Primary Care Nurse Name: Amina Younger RN Position: [facility] RN Member Role: Primary Care Nurse Name: Ruel Goetz MD Position: [facility] Renal MD Member Role: Lifetime Consulting Physician Address: Address: [address] [facility] [place] [address]- Name: Jonny Luna RN Position: [facility] RN Member Role: Primary Care Nurse Name: Kaitlyn Spann RN Position: [facility] RN Member Role: Primary Care Nurse Name: Ekaterina Yousif RN Position: [facility] RN Member Role: Primary Care Nurse Name: Destiny Kebede RN Position: [facility] RN Member Role: Primary Care Nurse Name: Alejandrina Duggan RN Position: [facility] RN Member Role: Primary Care Nurse Name: Collins Agustin MD Position: [facility] Resident Member Role: PCP Address: Address: [address] [place] [address]- Care Team Related Persons Name: GUI SERRANO Address: [place] Address: home [address] [place] [address] [place] Name: JONNA SERRANO Address: home [address] [place] [address] Name: MAXIMO SANCHEZ Address: home [address] [place], [place] [address]
--- OUTSIDE RECORDS SUMMARY | 2024-02-28 00:59 | XMS_ITS | Continuity of Care Document ---
Author Organization [facility] Address [address] [place] [address]- Care Team Providers Care Vice President & General Manager [employer] Name Role Phone Collins Agustin MD Primary Care Physician Encounter [facility] R [id number] Date(s): 07/12/23 - 08/16/[address] [address] Attending Physician: Not on Staff, Attending MD Allergies, Adverse Reactions, Alerts Substance Reaction [...] 07/02/2315:43:00 EDT, Aerosol, Route to Pharmacy Electronically, [id number], [facility] #[id number], 150, cm, 07/02/23 15:22:00... Start Date: 07/02/23 Status: Ordered apixaban 5 mg oral tablet 1 tablet = 5 mg, By Mouth, 2 times a day, # 60 tablet, 4 Refills, Maintenance, 09/21/22 17:07:00 EST, Tablet, [facility]/pharmacy #[id number], Partial fill upon patient request if [...] 07/02/23 16:01:00 EDT, Route to Pharmacy Electronically, [facility] #[id number], Partial fill upon patient request if the [...] Care Team Personnel Name: Jewell Castro Position: [facility] Onco RN Member Role: Primary Care Nurse Name: Radha Cheng RN Position: [facility] AMB Nurse Member Role: Primary Care Nurse Name: Kiya Sanderson RN Position: [facility] RN Member Role: Primary Care Nurse Name: Frida Woods RN Position: [facility] RN Member Role: Primary Care Nurse Name: Una Damon RN Position: [facility] AMB Nurse Member Role: Primary Care Nurse Name: Amina Younger RN Position: [facility] RN Member Role: Primary Care Nurse Name: Ruel Goetz MD Position: [facility] Renal MD Member Role: Lifetime Consulting Physician Address: Address: [address] [facility] [place] [address]- [place] Name: Jonny Luna RN Position: [facility] RN Member Role: Primary Care Nurse Name: Kaitlyn Spann RN Position: [facility] RN Member Role: Primary Care Nurse Name: Ekaterina Yousif RN Position: [facility] RN Member Role: Primary Care Nurse Name: Destiny Kebede RN Position: [facility] RN Member Role: Primary Care Nurse Name: Alejandrina Duggan RN Position: [facility] RN Member Role: Primary Care Nurse Name: Collins Agustin MD Position: [facility] Resident Member Role: PCP Address: Address: [address] [place] [address]- Care Team Related Persons Name: GUI SERRANO Address: [employer] Address: home [address] [address] [place] Name: JONNA SERRANO Address: home [address] [place] [address] Name: MAXIMO SANCHEZ Address: home [address] [place], [place] [address]
--- OUTSIDE RECORDS SUMMARY | 2024-02-28 00:59 | XMS_ITS | Continuity of Care Document ---
Author Organization [facility] Address [address] [place] [address]- Care Team Providers Care Receiving Checker Name Role Phone Collins Agustin MD Primary Care Physician Encounter [facility] Date(s): 02/06/23 - 03/08/23 [facility] [address] [place] [address]- Attending Physician: Carmen Simons Admitting Physician: Carmen Simons Referring Physician: Carmen Simons Allergies, Adverse Reactions, Alerts Substance Reaction Severity [...] 17:07:00 EST, Route to Pharmacy Electronically, [facility]/pharmacy #[id number], Partial fill upon patient request if the prescription is for a schedule II... Start Date: 09/21/22 Status: Ordered methadone 10 mg/5 mL oral [...] Active History of kidney stones 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 Opioid use disorder, severe, in [...] Care Team Personnel Name: Jewell Castro Position: [facility] Onco RN Member Role: Primary Care Nurse Name: Radha Cheng RN Position: [facility] PCO RN Member Role: Primary Care Nurse Name: Kiya Sanderson RN Position: [facility] RN Member Role: Primary Care Nurse Name: Frida Woods RN Position: [facility] RN Member Role: Primary Care Nurse Name: Una Damon RN Position: [facility] RN Member Role: Primary Care Nurse Name: Johanne Yi Position: [facility] RN Member Role: Primary Care Nurse Name: Amina Younger RN Position: [facility] RN Member Role: Primary Care Nurse Name: Ruel Goetz MD Position: [facility] Renal MD Member Role: Lifetime Consulting Physician Address: Address: [address] [facility] [place] [address]- [place] Name: Jonny Luna RN Position: [facility] RN Member Role: Primary Care Nurse Name: Kaitlyn Spann RN Position: S RN Member Role: Primary Care Nurse Name: Ekaterina Yousif RN Position: S RN Member Role: Primary Care Nurse Name: Destiny Kebede RN Position: S RN Member Role: Primary Care Nurse Name: Alejandrina Duggan RN Position: [facility] RN Member Role: Primary Care Nurse Name: Collins Agustin MD Position: [facility] Resident Member Role: PCP Address: Address: [address] [place] [address]- Care Team Related Persons Name: GUI SERRANO Address: AMERCN Address: home [address] [place] [address] [place] Name: JONNA SERRANO Address: home [address] [place] [address] Name: MAXIMO SANCHEZ Address: home [address] [place], [place] [address]
--- OUTSIDE RECORDS SUMMARY | 2024-02-28 00:59 | XMS_ITS | Continuity of Care Document ---
Author Organization [facility] Address [address] [place] [address]- Care Team Providers Care Machine Stripper Name Role Phone Collins Agustin MD Primary Care Physician Encounter [facility] Date(s): 11/02/23 - 12/02/[address] [address] Allergies, Adverse Reactions, Alerts Substance Reaction Severity Status Bee Stings Active FLUoxetine HCl Active Coconut Active Immunizations Given and Recorded Vaccine Date Status Refusal Reason influenza virus vaccine, inactivated 09/21/22 Give n influenza virus vaccine, inactivated 07/25/18 Give n influenza virus vaccine, inactivated 07/08/09 Ham rded SARS-CoV-2 (COVID-19) mRNA-[id number] vaccine 12/27/21 R ecorded tetanus/diphtheria/pertussis, acel(Tdap) 08/16/18 Given tetanus/diphtheria/pertussis, acel(Tdap) 02/21/18 Given Human Papillomavirus Vaccine 01/10/08 Recorded Human Papillomavirus Vaccine 11/11/07 Recorded Medications albuterol CFC free 90 mcg/inh inhalation aerosol 1, puffs, Inhalation, 4 times a day, PRN, # 25 Gm, Refills 0, Tot. Refills 0, Maintenance, 07/02/2315:43:00 EDT, Aerosol, Route to Pharmacy Electronically, [id number], [id number], 150, cm, 07/02/23 15:22:00... Start Date: 07/02/23 Status: Ordered apixaban 5 mg oral tablet 1 tablet = 5 mg, By Mouth, 2 times a day, # 60 tablet, 4 Refills, Maintenance, 09/21/22 17:07:00 EST, Tablet, [facility]/pharmacy #[id number], Partial fill upon patient request if the prescription is for a schedule II opioid drug., 150, cm, 09/21/22 14:41:00 EST,... Start Date: 09/21/22 Status: Ordered Ensure Ensure, See Instructions, # 1 each, Refills 0, Tot. Refills 0, Maintenance, R 63.4 malnutrition E461 carton daily 30 days 11 refills duration 12 months wt 48kg, 11/14/23 17:33:00 EST, Supply Start Date: 11/14/23 Status: Ordered gabapentin 300 mg oral capsule 300 mg, 1, capsule, By Mouth, 3 times a day, # 90 capsule, Refills 3, Tot. Refills 3, Maintenance, 07/02/23 16:01:00 EDT, Route to Pharmacy Electronically, [id number], Partial fill upon patient request if the [...] Care Team Personnel Name: Jewell Castro Position: [facility] Onco RN Member Role: Primary Care Nurse Name: Radha Cheng RN Position: [facility] AMB Nurse Member Role: Primary Care Nurse Name: Kiya Sanderson RN Position: [facility] RN Member Role: Primary Care Nurse Name: Frida Woods RN Position: [facility] AMB Nurse Member Role: Primary Care Nurse Name: Una Damon RN Position: [facility] RN Member Role: Primary Care Nurse Name: Amina Younger RN Position: [facility] RN Member Role: Primary Care Nurse Name: Ruel Goetz MD Position: [facility] Renal MD Member Role: Lifetime Consulting Physician Address: Address: [address] [facility] [address] [facility] [place] [place] [address]- [place] Name: Jonny Luna RN Position: [facility] RN Member Role: Primary Care Nurse Name: Kaitlyn Spann RN Position: [facility] RN Member Role: Primary Care Nurse Name: Ekaterina Yousif RN Position: [facility] RN Member Role: Primary Care Nurse Name: Destiny Kebede RN Position: [facility] RN Member Role: Primary Care Nurse Name: Alejandrina Duggan RN Position: [facility] RN Member Role: Primary Care Nurse Name: Collins Agustin MD Position: [facility] Resident Member Role: PCP Address: Address: [address] [place] [address]- Care Team Related Persons Name: GUI SERRANO Address: AMERCN Address: home [address] [place] [address] [place] Name: JONNA SERRANO Address: home [address] [place] [address] Name: MAXIMO SANCHEZ Address: home [address] [place], [place] [address]
--- OUTSIDE RECORDS SUMMARY | 2024-02-28 00:59 | XMS_ITS | Continuity of Care Document ---
Author Organization [facility] Address [address] [place] [address]- Care Team Providers Care Potable Water Treatment Operator Name Role Phone Collins Agustin MD Primary Care Physician [phone] [facility] [place] 07/09/23 - 08/08/[address] [address] Allergies, Adverse Reactions, Alerts Substance Reaction Severity [...] 07/02/2315:43:00 EDT, Aerosol, Route to Pharmacy Electronically, [id number], [facility] #[id number], 150, cm, 07/02/23 15:22:00... Start Date: 07/02/23 Status: Ordered apixaban 5 mg oral tablet 1 tablet = 5 mg, By Mouth, 2 times a day, # 60 tablet, 4 Refills, Maintenance, 09/21/22 17:07:00 EST, Tablet, [facility]/pharmacy #[id number], Partial fill upon patient request [...] 07/02/23 16:01:00 EDT, Route to Pharmacy Electronically, [facility][id number], Partial fill upon patient request if the [...] Care Team Personnel Name: Jewell Castro Position: [facility] Onco RN Member Role: Primary Care Nurse Name: Radha Cheng RN Position: [facility] AMB Nurse Member Role: Primary Care Nurse Name: Kiya Sanderson RN Position: [facility] RN Member Role: Primary Care Nurse Name: Frida Woods RN Position: S RN Member Role: Primary Care Nurse Name: Una Damon RN Position: [facility] RN Member Role: Primary Care Nurse Name: Amina Younger RN Position: S RN Member Role: Primary Care Nurse Name: Ruel Goetz MD Position: [facility] Renal MD Member Role: Lifetime Consulting Physician Address: Address: [address] [facility] [place] [address]- Name: Jonny Luna RN Position: [facility] RN Member Role: Primary Care Nurse Name: Kaitlyn Spann RN Position: [facility] RN Member Role: Primary Care Nurse Name: Ekaterina Yousif RN Position: S RN Member Role: Primary Care Nurse Name: Destiny Kebede RN Position: [facility] RN Member Role: Primary Care Nurse Name: Alejandrina Duggan RN Position: [facility] RN Member Role: Primary Care Nurse Name: Collins Agustin MD Position: [facility] Resident Member Role: PCP Address: Address: [address] [place] [address]- Care Team Related Persons Name: GUI SERRANO Address: AMERCN Address: home [address] [place] [address] Name: JONNA SERRANO Address: home [address] [place] [address] Name: MAXIMO SANCHEZ Address: home [address]
--- OUTSIDE RECORDS SUMMARY | 2024-02-28 00:59 | XMS_ITS | Continuity of Care Document ---
Author Organization [facility] Address [address] [place] [address]- Care Team Providers Care Bobbin Dumper Name Role Phone Collins Agustin MD Primary Care Physician [phone] Encounter [facility] Date(s): 09/18/22 - 10/18/[address] [address]- Allergies, Adverse Reactions, Alerts Substance Reaction Severity [...] 09/21/22 17:07:00 EST, Route to Pharmacy Electronically, [facility]/pharmacy #1130, Partial fill upon patient [...] Care Team Personnel Name: Jewell Castro Position: [facility] Onco RN Member Role: Primary Care Nurse Name: Kareen Blood RN Position: [facility] RN Member Role: Primary Care Nurse Name: Radha Cheng RN Position: [facility] PCO RN Member Role: Primary Care Nurse Name: Kiya Sanderson RN Position: [facility] RN Member Role: Primary Care Nurse Name: Frida Woods RN Position: [facility] RN Member Role: Primary Care Nurse Name: Una Damon RN Position: S RN Member Role: Primary Care Nurse Name: Johanne Yi Position: [facility] RN Member Role: Primary Care Nurse Name: Amina Younger RN Position: [facility] RN Member Role: Primary Care Nurse Name: Ruel Goetz MD Position: [facility] Renal MD Member Role: Lifetime Consulting Physician Address: Address: [address] [facility] [place] [address]- [place] Name: Jonny Luna RN Position: [facility] RN Member Role: Primary Care Nurse Name: Kaitlyn Spann RN Position: [facility] RN Member Role: Primary Care Nurse Name: Ekaterina Yousif RN Position: [facility] RN Member Role: Primary Care Nurse Name: Destiny Kebede RN Position: [facility] RN Member Role: Primary Care Nurse Name: Alejandrina Duggan RN Position: [facility] RN Member Role: Primary Care Nurse Name: Collins Agustin MD Position: [facility] Resident Member Role: PCP Address: Address: [address] [place] [address]- Care Team Related Persons Name: GUI SERRANO [facility] Address: home [address] [place] [place] [address] [place] Name: JONNA SERRANO Address: home [address] [place] [address] Name: MAXIMO SANCHEZ Address: home [address] [place], [place] [address]
--- OUTSIDE RECORDS SUMMARY | 2024-02-28 00:59 | XMS_ITS | Continuity of Care Document ---
Author Organization [facility] Address [address] [place] [address]- Care Team Providers Care Horse Shoer Name Role Phone Collins Agustin MD Primary Care Physician Encounter [facility] Date(s): 09/21/22 - 10/21/[address] [address]- Attending Physician: AdmCarmen contreras Admitting Physician: Admtr, Ar8 Referring Physician: Admtr, [...] 4 Refills, Maintenance, 09/21/22 17:07:00 EST, Tablet, [facility]/pharmacy #1130, Partial fill upon patient request if the prescription is for a schedule II opioid drug., 150, cm, 09/21/22 14:41:00 EST,... Start Date: 09/21/22 Status: Ordered gabapentin 300 mg oral capsule 300 mg, 1, capsule, By Mouth, 3 times a day, # 90 capsule, Refills 3, Tot. Refills 3, Maintenance, 09/21/22 17:07:00 EST, [id number] Partial fill upon patient request if [...] Care Team Personnel Name: Jewell Castro Position: [facility] Onco RN Member Role: Primary Care Nurse Name: Kareen Blood RN Position: [facility] RN Member Role: Primary Care Nurse Name: Radha Cheng RN Position: [facility] PCO RN Member Role: Primary Care Nurse Name: Kiya Sanderson RN Position: [facility] RN Member Role: Primary Care Nurse Name: Frida Woods RN Position: [facility] RN Member Role: Primary Care Nurse Name: Una Damon RN Position: [facility] RN Member Role: Primary Care Nurse Name: Johanne Yi Position: [facility] RN Member Role: Primary Care Nurse Name: Amina Younger RN Position: [facility] RN Member Role: Primary Care Nurse Name: Ruel Goetz MD Position: [facility] Renal MD Member Role: Lifetime Consulting Physician Address: Address: [address] [facility] [address] [facility] [place] [address]- [place] Name: Jonny Luna RN Position: [facility] RN Member Role: Primary Care Nurse Name: Kaitlyn Spann RN Position: [facility] RN Member Role: Primary Care Nurse Name: Ekaterina Yousif RN Position: [facility] RN Member Role: Primary Care Nurse Name: Destiny Kebede RN Position: [facility] RN Member Role: Primary Care Nurse Name: Alejandrina Duggan RN Position: [facility] RN Member Role: Primary Care Nurse Name: Collins Agustin MD Position: [facility] Resident Member Role: PCP Address: Address: [address] [place] [address]- Care Team Related Persons Name: GUI SERRANO Address: AMERCN Address: home [address] [place] [address] [place] Name: JONNA SERRANO Address: home [address] [place] [address] Name: MAXIMO SANCHEZ Address: home [address] [place], [place] [address]
--- OUTSIDE RECORDS SUMMARY | 2024-02-28 00:59 | XMS_ITS | Continuity of Care Document ---
Author Organization [facility] Address [address] [place] [address]- Care Team Providers Care Tennis Camp Instructor Name Role Phone Collins Agustin MD Primary Care Physician [phone] [place] [facility]13/23 - 12/13/[address] [address] Attending Physician: AdmCarmen contreras Admitting Physician: AdmtrCarmen Referring Physician: Admtr, ArAlberto Allergies, Adverse Reactions, Alerts Substance Reaction Severity [...] 07/02/2315:43:00 EDT, Aerosol, Route to Pharmacy Electronically, [id number], [facility] #[id number], 150, cm, 07/02/23 15:22:00... 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 Social History Social History Type Response Smoking Status 10 or more cigarette s (1/2 pack or more)/day in last 30 days entered on: 11/14/18 Sex Patient Care team information Care Team Personnel Name: Isiah Castroia Position: [facility] Onco RN Member Role: Primary Care Nurse Name: Radha Cheng RN Position: [facility] AMB Nurse Member Role: Primary Care Nurse Name: Kiya Sanderson RN Position: [facility] RN Member Role: Primary Care Nurse Name: Frida Woods RN Position: [facility] AMB Nurse Member Role: Primary Care Nurse Name: Una Damon RN Position: [facility] RN Member Role: Primary Care Nurse Name: Amina Younger RN Position: [facility] RN Member Role: Primary Care Nurse Name: Ruel Goetz MD Position: [facility] Renal MD Member Role: Lifetime Consulting Physician Address: Address: [address] [facility] [address] [facility] [place] [place] [address]- Name: Jonny Luna RN Position: [facility] RN Member Role: Primary Care Nurse Name: Kaitlyn Spann RN Position: [facility] RN Member Role: Primary Care Nurse Name: Ekaterina Yousif RN Position: [facility] RN Member Role: Primary Care Nurse Name: Destiny Kebede RN Position: [facility] RN Member Role: Primary Care Nurse Name: Alejandrina Duggan RN Position: [facility] RN Member Role: Primary Care Nurse Name: Collins Agustin MD Position: [facility] Resident Member Role: PCP Address: Address: [address] [place] [address]- Care Team Related Persons Name: GUI SERRANO Address: AMERCN Address: home [address] [place] [address] [place] Name: JONNA SERRANO Address: home [address] [place] [address] Name: MAXIMO SANCHEZ Address: home [address] [place], [place] [address]
--- OUTSIDE RECORDS SUMMARY | 2024-02-28 00:59 | XMS_ITS | Continuity of Care Document ---
Author Organization [facility] Address [address] [place] [address]- Care Team Providers Care Lab Coordinator Name Role Phone Not on Staff, PCP Primary Care Physician Unavail able Encounter [facility] Date(s): 06/29/22 - 08/29/22 [facility] [address] [place] [address]- Discharge Disposition: A-D/C Home Attending Physician: Seda WEINBERG(Hem/Onc), Ananda Torres Admitting Physician: Angy Frey MD Referring Physician: Not on Staff, Referring MD Allergies, Adverse Reactions, Alerts Substance Reaction [...] List Condition Confirmation Course Effective Dates Status [facility] at Informant Asthma 1 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 [...] Results Orders for Microbiology Reports Name Date Anaerobic Culture (ANAEROBIC CULTURE) 06/29/22 Anaerobic Culture (ANAEROBIC CULTURE) 06/29/22 Fungal Culture, Nonrespiratory (FUNGAL C ULT,NON-RESPIRATORY) 06/29/22 Fungal Culture, Nonrespiratory (FUNGAL C ULT,NON-RESPIRATORY) 06/29/22 Tissue Culture w/ Gram Smear (TISSUE/BIO PSY CULT.) 06/29/22 Wound Deep Culture w/ Gram Smear (DEEP W OUND CULTURE) 06/29/22 Microbiology Reports TEST:Anaerobic Culture STATUS:Auth (Verified) BODY SITE: SOURCE:TISSUE1 COLLECTED DATE/TIME:06/29/22 5:00 PM Anaerobic Culture SPECIMEN DESCRIPTION : TISSUE TRICUPID VAULE TISSUE SPECIAL REQUESTS : NONE CULTURE : NO ANAEROBES ISOLATED REPORT STATUS : FINAL 07/05/2022 TEST:Anaerobic Culture STATUS:Auth (Verified) BODY SITE: SOURCE:SWAB1 COLLECTED DATE/TIME:06/29/22 5:00 PM Anaerobic Culture SPECIMEN DESCRIPTION : SWAB TRICUIPID VAULE SWAB SPECIAL REQUESTS : NONE CULTURE : NO ANAEROBES ISOLATED REPORT STATUS : FINAL 07/05/2022 TEST:Tissue/Biopsy Culture STATUS:Auth (Verified) BODY SITE: SOURCE:TISSUE1 COLLECTED DATE/TIME:06/29/22 5:00 PM Tissue/Biopsy Culture SPECIMEN DESCRIPTION : TISSUE TRICUPID VAULE TISSUE SPECIAL REQUESTS : NONE GRAM STAIN : 1+ WHITE BLOOD CELLS NO ORGANISMS SEEN CULTURE : NO GROWTH 2 DAYS REPORT STATUS : FINAL 07/02/2022 TEST:Deep Wound Culture STATUS:Auth (Verified) BODY SITE: SOURCE:SWAB1 COLLECTED DATE/TIME:06/29/22 5:00 PM Deep Wound Culture SPECIMEN DESCRIPTION : SWAB TRICUIPID VAULE SWAB SPECIAL REQUESTS : NONE GRAM STAIN : 2+ WHITE BLOOD CELLS NO ORGANISMS SEEN CULTURE : NO GROWTH 2 DAYS REPORT STATUS : FINAL 07/02/2022 TEST:Fungal Culture, Non-Respiratory STATUS:Auth (Verified) BODY SITE: SOURCE:SWAB1 COLLECTED DATE/TIME:06/29/22 5:00 PM Fungal Culture, Non-Respiratory SPECIMEN DESCRIPTION : SWAB TRICUIPID VAULE SWAB SPECIAL REQUESTS : NONE DIRECT EXAM : NO FUNGAL ELEMENTS OBSERVED CULTURE : NO FUNGI ISOLATED AFTER 32 DAYS REPORT STATUS : FINAL 08/01/2022 TEST:Fungal Culture, Non-Respiratory STATUS:Auth (Verified) BODY SITE: SOURCE:TISSUE1 COLLECTED DATE/TIME:06/29/22 5:00 PM Fungal Culture, Non-Respiratory SPECIMEN DESCRIPTION : TISSUE TRICUPID VAULE TISSUE SPECIAL REQUESTS : NONE DIRECT EXAM : NO FUNGAL ELEMENTS OBSERVED CULTURE : NO FUNGI ISOLATED AFTER 32 DAYS REPORT STATUS : FINAL 08/01/2022 Social History Social History Type Response Smoking Status 10 or more cigarette s (1/2 pack or more)/day in last 30 days entered on: 11/14/18 Sex Patient Care team information Care Team Personnel Name: Jewell Castro Position: [facility] Onco RN Member Role: Primary Care Nurse Name: Kareen Blood RN Position: [facility] RN Member Role: Primary Care Nurse Name: Radha Cheng RN Position: [facility] PCO RN Member Role: Primary Care Nurse Name: Kiya Sanderson RN Position: [facility] RN Member Role: Primary Care Nurse Name: Vera De León RN Position: [facility] RN Member Role: Primary Care Nurse Name: Frida Woods RN Position: [facility] RN Member Role: Primary Care Nurse Name: Una Damon RN Position: [facility] RN Member Role: Primary Care Nurse Name: Johanne Yi Position: [facility] RN Member Role: Primary Care Nurse Name: Amina Younger RN Position: [facility] RN Member Role: Primary Care Nurse Name: Not on Staff, PCP Position: [facility] Physician (General Medicine) Member Role: PCP Name: Ruel Goetz MD Position: [facility] Renal MD Member Role: Lifetime Consulting Physician Address: Address: [address] [place] [address] [address] [facility] [place], [place] [address] Name: Jonny Luna RN Position: [facility] RN Member Role: Primary Care Nurse Name: Kaitlyn Spann RN Position: [facility] RN Member Role: Primary Care Nurse Name: Ekaterina Yousif RN Position: [facility] RN Member Role: Primary Care Nurse Name: Cayla Nance RN Position: S RN Member Role: Primary Care Nurse Name: Destiny Kebede RN Position: S RN Member Role: Primary Care Nurse Name: Alejandrina Duggan RN Position: S RN Member Role: Primary Care Nurse Care Team Related Persons Name: GUI SERRANO Address: [employer] Address: home [address] [place] [address] Name: JONNA SERRANO Address: home [address] [place] [address] Name: MAXIMO SANCHEZ Address: home [address] [place] [address]
--- OUTSIDE RECORDS SUMMARY | 2024-02-28 00:59 | XMS_ITS | Continuity of Care Document ---
Author Organization [facility] Address [address] [place] [address]- Care Team Providers Care Coat Operator Insulator Name Role Phone Collins Agustin MD Primary Care Physician Encounter [facility] Date(s): 09/19/22 - 10/21/[address] [address]- Encounter Diagnosis Establishing care with new doctor, encounter for(Discharge Diagnosis) - 09/21/22 Inpatient hospitalization within last 30 days(Discharge Diagnosis) - 09/21/22 Polysubstance dependence with or without physiological dependence(Discharge Diagnosis) - 09/21/22 Depression(Discharge Diagnosis) - 09/21/22 COVID-19(Discharge Diagnosis) - 09/21/22 Health care maintenance(Discharge Diagnosis) - 09/21/22 Attending Physician: Not on Staff, Attending MD [...] 4 Refills, Maintenance, 09/21/22 17:07:00 EST, Tablet, [facility]/pharmacy #[id number], Partial fill upon patient request if the prescription is for a schedule II opioid drug., 150, cm, 09/21/22 14:41:00 EST,... Start Date: 09/21/22 Status: Ordered gabapentin 300 mg oral capsule 300 mg, 1, capsule, By Mouth, 3 times a day, # 90 capsule, Refills 3, Tot. Refills 3, Maintenance, 09/21/22 17:07:00 EST, Route to Pharmacy Electronically, [facility]/pharmacy #[id number], Partial fill upon patient [...] Active Hepatitis C 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 1Mild, intermittent. Diagnosis Diagnosis Type Effective Dates Health Status Clinical Service Informant Establishing care with new doctor, encounter for Discharge Diagnosis 09/21/22 Inpatient hospitalization within last 30 days Discharge Diagnosis 09/21/22 Polysubstance dependence with or without physiological dependence Discharge Diagnosis 09/21/22 Depression Discharge Diagnosis 09/21/22 COVID-19 Discharge Diagnosis 09/21/22 Health care maintenance Discharge Diagnosis 09/21/22 Social History Social History Type Response Smoking Status 10 or more cigarette s (1/2 pack or more)/day in last 30 days entered on: 11/14/18 Sex Patient Care team information Care Team Personnel Name: MatthewJonna cullenJewell Position: [facility] Onco RN Member Role: Primary Care Nurse Name: Kareen Blood RN Position: [facility] RN Member Role: Primary Care Nurse Name: Radha Cheng RN Position: [facility] PCO RN Member Role: Primary Care Nurse Name: Kiya Sanderson RN Position: [facility] RN Member Role: Primary Care Nurse Name: Frida Woods RN Position: [facility] RN Member Role: Primary Care Nurse Name: Una Damon RN Position: [facility] RN Member Role: Primary Care Nurse Name: Johanne Yi Position: [facility] RN Member Role: Primary Care Nurse Name: Amina Younger RN Position: [facility] RN Member Role: Primary Care Nurse Name: Ruel Goetz MD Position: [facility] Renal MD Member Role: Lifetime Consulting Physician Address: Address: [address] [facility] [address] [facility] [place] [address]- Name: Jonny Luna RN Position: [facility] RN Member Role: Primary Care Nurse Name: Kaitlyn Spann RN Position: [facility] RN Member Role: Primary Care Nurse Name: Ekaterina Yousif RN Position: [facility] RN Member Role: Primary Care Nurse Name: Destiny Kebede RN Position: [facility] RN Member Role: Primary Care Nurse Name: Alejandrina Duggan RN Position: [facility] RN Member Role: Primary Care Nurse Name: Collins Agustin MD Position: [facility] Resident Member Role: PCP Address: Address: [address] [place] [address]- Care Team Related Persons Name: GUI SERRANO Address: [employer] Address: home [address] [place] [address] [place] Name: JONNA SERRANO Address: home [address] [place] [id number] Name: MAXIMO SANCHEZ Address: home [address]
--- OUTSIDE RECORDS SUMMARY | 2024-02-28 00:59 | XMS_ITS | Continuity of Care Document ---
Author Organization [facility] Address [address] [place] [id number]- Care Team Providers Care Podopediatrician Name Role Phone Not on Staff, PCP Primary Care Physician Unavail able [place] [facility] [place] 09/12/22 - 09/19/22 [facility] [address] [place] [id number]- Encounter Diagnosis Drug abuse(Discharge Diagnosis) - 09/12/22 Tachycardia(Discharge Diagnosis) - 09/12/22 Tricuspid valve replaced(Discharge Diagnosis) - 09/12/22 Endocarditis(Discharge Diagnosis) - 09/12/22 Attending Physician: Mini Patterson MD Allergies, Adverse Reactions, Alerts Substance Reaction [...] vaccine 05/23/13 Not Given Patient Refuses Medications apixaban = 5 mg, By Mouth, 2 [...] Effective Dates Health Status Clinical Service Informant Drug abuse Discharge Diagnosis 09/12/22 Tachycardia Discharge Diagnosis 09/12/22 Tricuspid valve replaced Discharge Diagnosis 09/12/22 Endocarditis Discharge Diagnosis 09/12/22 Vital Signs Most recent to oldest [Reference Range]: 1 2 Height 150 cm (09/13/22 8:18 AM) 150 cm (09/12/22 4:38 PM) Weight 55.4 kg (09/13/22 8:18 AM) 55.4 kg (09/12/22 4:38 PM) Pulse Rate [55-90 bpm] 83 bpm (09/12/22 4:38 PM) Body Mass Index [18.5-24.99 kg/m2] 24.62 kg/m2 (09/12/22 4:38 PM) Blood Pressure [90-138/55-84 mm Hg] 111/ 73mm Hg (09/12/22 4:38 PM) Blood pressure sites Arm, right (09/12/22 4:38 PM) Social History Social History Type Response Smoking Status 10 or more cigarette s (1/2 pack or more)/day in last 30 days entered on: 11/14/18 Sex Cardiology Outpatient Note * Leonardo WEINBERG, Mini Good: PERFORM Event Display: Cardiology Note Office Authored Date: [id number] Patient: ??COLLINS SANCHEZ ? Age:??36 Years?Sex:??Female?:??1985?? Patient Hx Cardiology Shared Clinical Summary This 36-year-old female with pertinent PMH of hepatitis C, IV drug use with drug overdose, depression who presented initially to [facility] more than a month back with chief complaints of shortness of breath, fatigue, malaise over the past 2 to 4 weeks prior to coming to the hospital associated dyspnea exertion as well.?? She is able to walk greater than 3 flights of stairswithout any significant problems.?? She had an extensive work- up there was finally found to have a right-sided spontaneous pneumothorax, further work-up was notable for MSSA??bacteremia and vegetation on tricuspid valve on echo.?? Apparently had transthoracic echo on 05/31/2022 which showed vegetation measuring 2.4 x1.8 cm in 1 view and around 3.1 cm x1.4 cm Other view with moderate TR.?? Repeat echo on 06/12 was unchanged.?? She was admitted to the ICU on05/28/2022 for respiratory monitoring, had chest tube placement for spontaneous pneumothorax.?? She was transferred to the ICU at [place] on 05/30 and had persistent multiple blood cultures positive on May 28, , , who reportedly positive for MSSA bacteremia and was started on On 05/31/2022.?? Apparently had a repeat ECHO on 06/05 which is essentially unchanged, showed normal LVEF 55 to 60%.?? Hospital course was complicated by right leg abscess requiring I&D on .?? Shewas transferred to [facility] for further management with possible CT surgery eval forvalve replacement due to persistent bacteremia. ?? After going to [facility], on 06/07 which is pertinent 3.5 centimeters and 2.3 cm degenerating to anterior and lateral septal leaflets of tricuspid valve.?? Septal leaflet was destroyed and flail, very severe TR) interatrial septum, overall LVEF noted to be 55 to 60%, RV is dilated, noother vegetation was noted in other valves, trace of mitral pericardial effusion was noted with large left-sided pleural effusion. CT chest abdomen pelvis showed multiple septic emboli in the lung, possible epidural abscess.?? MRIlumbar spine was performed which was pertinent for septic arthritis and L4-L5 with noncompressive and not drainable phlegmon collection.?? As there is no significant motor or sensory deficits, neurosurgery not recommend any acute surgical intervention for the same.?? On 06/[address]-guided ple ural drainage with drain placement of the left-sided pleural effusion.?? Through the hospital course patient had persistent fever, was noted to have then hospital course complicated with acute anemiarequiring PRBC transfusion on 06/15, iron studies pertinent for???since anemia. Transthoracic echo was repeated on pertinent for again normal LVEF 55 to 60%, flattening of interventricular septum during systole diastole consistent with RV pressure and volume overload, dilated RV, severely dilated RA, wide-open TR and large catheterization as previously noted in the either echo was.?? On 06/21/2022 patient was taken for full mouth extraction.?? On 06/22 underwent PIC C line placement.?? CT chest with contrast on 06/26/2022 showed large pulm embolism in the distal right main pulmonary artery extending to the right middle and lower lobe with extensive groundglass opacities concerning for pulmonary infarct as well, otherwise stable scattered opacities and cavitaryareas. ?? Eventually on was taken for median sternotomy, tricuspid valve placement with 33 mm epic tissue valve, placement of epicardial ventricular leads X2 with the pocket and upper left chest. Postop cardiac index noted to be around 2.2, was on Levophed briefly and was being weaned off it.? He has had multiple EKGs through the hospital course with initial EKGs pertinent for sinus rhythm, prolonged QTC.?? EKG on 06/29/2022 shows sinus?? tachycardia with new onset RBBB. EKG on 07/01/2022 pertinent for sinus rhythm with PACs, first-degree AV block, PACs, possible blocked PACs.?? Postop is noted to have brief intermittent bradycardia with Precedex thus was started on ketamine. Indication for Consult FOLLOW UP CARE History of Present Illness/Interval History This is a 36-year-old female here to establish care with me.?? She has had a complex medical history over the last several months including presenting to [facility] with infected endocarditis and tricuspid valve vegetation.?? She describes??weeks of malaise, fevers,??sweats.?? She thought she may be withdrawing as??she coincidentally had??decided to quit using IVDU around that time.??She uses both heroin and cocaine in the past. ??She has had relapses over the years.?? She is currently living at a custodial house??and has not used??any drugs since her hospitalization.?? She is herewith her mother today.?? She describes??having??significant presyncope on her home medications???asa result??she stopped taking metoprolol, Eliquis, intermittent gabapentin??as she was not sure whatwas causing her symptoms.?? She was diagnosed with a PE, Eliquis is for this??indication.?? She hasnot established with a primary care provider yet, she has her first visit next week.?? Gabapentin does help with her neuropathic pain.?? She is using a cane.?? She is slowly recovering from her prolonged hospitalization,??echocardiogram in June showed??wide-open TR??and RV changes???she had??tricuspid valve replacement subsequent??to that.?? Her last??visit with CT surgery was telehealth.?? She notes healed sternotomy, occasionally she gets??right-sided chest wall pain.?? She is taking methadone.?? She denies PND, orthopnea, edema,??syncope.?? Her energy level is slowly improving though she continues to have dyspnea on exertion.?? She has a dental procedure scheduled for tomorrow, she needed to have all of her teeth removed.?? During her hospitalization she was seen by EP, appreciate??history as above.?? Their review of electrocardiograms??did not??show atrial fibrillation which had been initial concern for which she has been on amiodarone transiently. Physical Exam Vitals & Measurements NV:??83?? BP:??111/73?? HT:??150??cm?? WT:??55.4??kg?? BMI:??24.62?? Weight lb/oz: 122 lb 2 oz HEENT: EOMI, thin, disheveled neck: JVD flat Pulm: CTAB Cardiac: RRR no m/r/g GI: soft +BS EXT: no edema Neuro:??grossly nonfocal Skin:??warm and dry Psych: alert and coop Assessment/Plan 1.??Drug abuse Ordered: Echo Complete ?? 2.??Tachycardia Ordered: Echo Complete ?? 3.??Tricuspid valve replaced Ordered: Echo Complete ?? 4.??Endocarditis Ordered: Echo Complete ?? Orders: Amoxicillin, See Instructions, 4 tablet By Mouth once - one hour before dental procedure, # 4 tablet, 1 Refills, Acute 09/12/22 17:16:00 EST, 09/12/22 17:10:00 EST, [facility]/pharmacy #[id number], Partial fill upon patient request if the prescription is for a schedule II opio... This is a 36-year-old female establishing care with me.?? I had a lengthy conversation with her andher mother about??cardiac issues noted over the last??few months.?? She is slowly recuperating fromher??surgery??and hospitalization.?? She describes having a diagnosis of PE, she is not consistently using Eliquis because she was??concerned about this causing her lightheadedness.?? I reviewed??hermed list with her???metoprolol had been added??during hospitalization when she was having tachycardia,??appreciate EP evaluation consultation???no atrial fibrillation noted,??atrial tachycardia with long NV was described.?? I think it is??okay to discontinue metoprolol at this point especially if she is having presyncope.?? I did review the importance of being on Eliquis and recommended that she restart this after her dental procedure tomorrow morning.?? We discussed??concern for??progression of pulmonary embolus and recurrence of??embolic events,??I have asked her to follow-up with her primary care provider??to better address??duration of anticoagulation??for PE.?? Similarly she is using gabapentin as needed, I asked her to follow-up with her primary care provider on how??to continue this medication long-term???from a cardiac standpoint she can stop aspirin,??defer to primary care for??vitamins that had been on her??med list.?? I reviewed that she does need antibiotic prophylaxis??and we discussed the importance of??drug cessation and??continuing her recovery.?? She denies having allergies to antibiotics, I am prescribing??2 g of amoxicillin to take??30??minutes to 60 minutes prior to dental procedure.?? She does not need further cardiac testing prior to having her dental procedure, no cardiac contraindication??to dental work.?? I have asked her to follow-up with me in 3 to 4months and have an echo prior to that visit.?? In terms of methadone dosing which she is also asking about, I have referred her to her methadone clinic for further evaluation and management. Allergies Bee Stings Coconut FLUoxetine HCl Home Medications amoxicillin 500 mg oral tablet, See Instructions, 1 refills, 4 tablet By Mouth once - one hour before dental procedure apixaban, 5 mg, By Mouth, 2 times a day,?Not taking gabapentin 300 mg oral capsule, 300 mg= 1 capsule, By Mouth, 2 times a day,?Not taking methadone 10 mg/5 mL oral solution, 115 mg= 57.5 mL, By Mouth, Daily,?Not taking Lab Results Cardiology Labs WBC: 6.4 k/mm3 (07/19/22) RBC:??3.12 m/mm3??Low (07/19/22) Hgb:??8.2 Gm/dL??Low (07/19/22) Hct:??26.7 %??Low (07/19/22) MCV: 85.6 femtoliters (07/19/22) MCH:??26.3 pg??Low (07/19/22) MCHC:??30.7 g/dL??Low (07/19/22) Platelet Count: 387 k/mm3 (07/19/22) RDW-SD:??53.6 femtoliters??High (07/19/22) Nucleated RBC (Automated): 0 #/100 WBC'S (07/19/22) Abs. Neut: 4.7 k/mm3 (07/05/22) Abs. Lymph: 1.7 k/mm3 (07/05/22) Abs. Candler: 0.4 k/mm3 (07/05/22) Abs. Eo: 0.2 k/mm3 (07/05/22) Abs. Baso: 0 k/mm3 (07/05/22) Neut %: 66.8 % (07/05/22) Candler %: 5.8 % (07/05/22) Eos %: 2.1 % (07/05/22) Baso %: 0.4 % (07/05/22) Imm Gran: 1.1 % (07/05/22) Abs. Imm Gran: 0.1 k/mm3 (07/05/22) INR: 1 (08/11/22) Protime (PT): 10.8 seconds (08/11/22) APTT:??37.8 seconds??High (07/05/22) Sodium: 136 mmol/L (07/19/22) Potassium: 4.6 mmol/L (07/19/22) Chloride:??97 mmol/L??Low (07/19/22) Bicarbonate Level:??33 mmol/L??High (07/19/22) Glucose Level:??102 mg/dL??High (07/05/22) BUN: 10 mg/dL (07/19/22) Creatinine-Blood:??0.3 mg/dL??Low (07/19/22) Calcium:??8.2 mg/dL??Low (06/22/22) Protein, Total:??6.1 Gm/dL??Low (06/29/22) Albumin:??2.2 Gm/dL??Low (06/29/22) Alkaline Phosphatase:??276 units/L??High (06/29/22) AST (SGOT): 10 units/L (06/29/22) ALT (SGPT): <5 (06/29/22) Bilirubin, Total: 0.3 mg/dL (06/29/22) Troponin T Quant: <0.01 (06/27/22) Nt-Probnp:??810 pg/mL??High (06/27/22) TSH:??8.47 uIU/mL??High (07/01/22) Free T4: 1.13 ng/dL (07/01/22) Diagnostic Impression ECG ECG 12-Lead ?? 08:42:40 Please click on pdf link to open report ?? Signed By: Tiara WEINBERG, Yazan Franklin Echo Echocardiogram - Complete ?? 14:18:43 Summary 1. The right ventricle is mildly dilated. Right ventricular systolic function is mildly reduced. 2. The right atrium is dilated. 3. There are persistent multiple mobile echodensities in the area of the tricuspid valve. There is a large (23 x 11 mm) echodensity adherent to the septal leaflet that is most likely vegetation. There is a large (3.0 x 0.8 cm) echodensity involving the anterior tricuspid leaflet that is likely a combination of vegetation and flail leaflet. 4. There is very severe (?? wide open?? ) tricuspid regurgitation. ?? Impressions The RV, RA, and IVC are significantly decompressed and no longer severely dilated. There is no longer a septal shift. Endocarditis remains, appears unchanged. ?? Comparison Comparison is made to the study of June 20, 2022. Changes as above. ?? Signature ?? Signed By: Cosme Corley MD GABY Trans-esophageal Echocardiogram ?? 06/07/22 14:09:16 Summary There is a very large (3.5 x 2.3 cm) vegetation adherent to the anterior and lateral septal leaflets. The septal leaflet is destroyed and flail. There is very severe tricuspid regurgitation directed at the interatrial septum. Overall left ventricular systolic function appears normal. LVEF visually estimated at 55-60%. The right ventricle is dilated. Right ventricular systolic function is reduced. No evidence of vegetation involving the aortic, mitral, or pulmonic valves. There is a trace circumferential pericardial effusion. There is a large left-sided pleural effusion. ?? Impressions Tricuspid valve endocarditis. ?? Comparison No prior study available for comparison. ?? Signature ?? Signed By: Jonny Alberto MD Problem List/Past Medical History Ongoing Asthma Borderline personality disorder Cigarette smoker Drug abuse Endocarditis Hepatitis C History of kidney stones History of depression History of delivery PTSD (post-traumatic stress disorder) Rectal prolapse Tachycardia Tricuspid valve replaced Underweight Vaccine counseling Historical Maternal tobacco use Procedure/Surgical History Suction D&C for Missed Ab @9wks: 03/02/17 Myringotomy and insertion of tympanic ventilation tube Social History Alcohol Use: Never., 02/18/2018 Employment/School Status: Unemployed., 08/20/2018 Exercise Self assessment: Good condition., 08/20/2018 Home/Environment Living situation: Half way house. Lives with: Significant other., 08/20/2018 Nutrition/Health Diet: Regular., 08/20/2018 Sexual Sexually involved in last 6 months: Yes. Sexual orientation: Heterosexual. Gender identity: Female., 08/20/2018 Substance Abuse Use: Past. Type: Cocaine, Heroin. Other: 14:00 today. Frequency: Daily. IV drug use: Yes., 11/14/2018 Tobacco Use: 10 or more cigarettes (1/2 pack or more)/day in last 30 days., 11/14/2018 Family History Mother: Alcoholism; Asthma; COPD; Diabetes mellitus type I; Heart; Heart attack; Mental illness Father: Alcoholism; Mental illness Patient Care team information Care Team Personnel Name: Jewell Castro Position: [facility] Onco RN Member Role: Primary Care Nurse Name: Kareen Blood RN Position: [facility] RN Member Role: Primary Care Nurse Name: Radha Cheng RN Position: [facility] PCO RN Member Role: Primary Care Nurse Name: Kiya Sanderson RN Position: [facility] RN Member Role: Primary Care Nurse Name: Vera De León RN Position: [facility] RN Member Role: Primary Care Nurse Name: Frida Woods RN Position: [facility] RN Member Role: Primary Care Nurse Name: Una Damon RN Position: [facility] RN Member Role: Primary Care Nurse Name: Johanne Yi Position: [facility] RN Member Role: Primary Care Nurse Name: Amina Younger RN Position: [facility] RN Member Role: Primary Care Nurse Name: Not on Staff, PCP Position: [facility] Physician (General Medicine) Member Role: PCP Name: Ruel Goetz MD Position: [facility] Renal MD Member Role: Lifetime Consulting Physician Address: Address: [address] [place] [address] [address] [facility] [address] Name: Jonny Luna RN Position: [facility] RN Member Role: Primary Care Nurse Name: Kaitlyn Spann RN Position: [facility] RN Member Role: Primary Care Nurse Name: Ekaterina Yousif RN Position: S RN Member Role: Primary Care Nurse Name: Cayla Nance RN Position: S RN Member Role: Primary Care Nurse Name: Destiny Kebede RN Position: [facility] RN Member Role: Primary Care Nurse Name: Alejandrina Duggan RN Position: [facility] RN Member Role: Primary Care Nurse Care Team Related Persons Name: GUI SERRANO Address: [employer] Address: home [address] [place] [address] Name: JONNA SERRANO Address: home [address] [place] [id number] Name: MAXIMO SANCHEZ Address: home [address]
--- OUTSIDE RECORDS SUMMARY | 2024-02-28 00:59 | XMS_ITS | Continuity of Care Document ---
Author Organization [facility] Address [address] [place] [address] [place] [address]- Care Team Providers Care Telephone Information Clerk Name Role Phone Not on Staff, PCP Primary Care Physician Unavail able [place] [facility] [place] 08/07/22 - 09/06/22 [facility] [address] [place] [id number]- Allergies, Adverse Reactions, Alerts Substance Reaction Severity Status Bee Stings Active FLUoxetine HCl Active Coconut Active Immunizations Given and Recorded Vaccine Date Status Refusal Reason SARS-CoV-2 (COVID-19) mRNA-1276 vaccine 12/27/21 R ecorded tetanus/diphtheria/pertussis, acel(Tdap) 08/16/18 [...] Care Team Personnel Name: Jewell Castro Position: [facility] Onco RN Member Role: Primary Care Nurse Name: Kareen Blood RN Position: S RN Member Role: Primary Care Nurse Name: Radha Cheng RN Position: [facility] PCO RN Member Role: Primary Care Nurse Name: Kiya Sanderson RN Position: [facility] RN Member Role: Primary Care Nurse Name: Vera De León RN Position: [facility] RN Member Role: Primary Care Nurse Name: Frida Woods RN Position: [facility] RN Member Role: Primary Care Nurse Name: Una Damon RN Position: [facility] RN Member Role: Primary Care Nurse Name: Johanne Yi Position: [facility] RN Member Role: Primary Care Nurse Name: Amina Younger RN Position: [facility] RN Member Role: Primary Care Nurse Name: Not on Staff, PCP Position: [facility] Physician (General Medicine) Member Role: PCP Name: Ruel Goetz MD Position: [facility] Renal MD Member Role: Lifetime Consulting Physician Address: Address: [address] [place] [address] [address] [facility] [place] [address]- Name: Jonny Luna RN Position: [facility] RN Member Role: Primary Care Nurse Name: Kaitlyn Spann RN Position: [facility] RN Member Role: Primary Care Nurse Name: Ekaterina Yousif RN Position: [facility] RN Member Role: Primary Care Nurse Name: Cayla Nance RN Position: [facility] RN Member Role: Primary Care Nurse Name: Destiny Kebede RN Position: [facility] RN Member Role: Primary Care Nurse Name: Alejandrina Duggan RN Position: [facility] RN Member Role: Primary Care Nurse Care Team Related Persons Name: HERNANDEZBRITTANEYNEL ANTHONYGUI Address: [employer] Address: home [address] [place] [address] [place] Name: JONNA SERRANO Address: home [address] [place] [address] Name: MAXIMO SANCHEZ Address: home [address] [place] [address]
--- OUTSIDE RECORDS SUMMARY | 2024-02-28 00:59 | XMS_ITS | Continuity of Care Document ---
Author Organization [facility] Address [address] [place] [address]- Care Team Providers Care Car Lubricator Name Role Phone Collins Agustin MD Primary Care Physician Encounter [facility] Date(s): 07/02/23 - 09/13/[address] [address] Attending Physician: Collins Nichols MD Admitting Physician: Collins Nichols MD Allergies, Adverse Reactions, Alerts Substance Reaction [...] 07/02/2315:43:00 EDT, Aerosol, Route to Pharmacy Electronically, [id number], [facility][id number], 150, cm, 07/02/23 15:22:00... Start Date: 07/02/23 Status: Ordered apixaban 5 mg oral tablet 1 tablet = 5 mg, By Mouth, 2 times a day, # 60 tablet, 4 Refills, Maintenance, 09/21/22 17:07:00 EST, Tablet, [facility]/pharmacy #[id number], Partial fill upon patient request [...] 07/02/23 16:01:00 EDT, Route to Pharmacy Electronically, [facility] #[id number], Partial fill upon patient request if the [...] List Condition Confirmation Course Effective Dates Status [facility] Informant Asthma 1 Confirmed [...] Care Team Personnel Name: Jewell Castro Position: [facility] Onco RN Member Role: Primary Care Nurse Name: Radha Cheng RN Position: [facility] AMB Nurse Member Role: Primary Care Nurse Name: Kiya Sanderson RN Position: [facility] RN Member Role: Primary Care Nurse Name: Frida Woods RN Position: [facility] RN Member Role: Primary Care Nurse Name: Una Damon RN Position: [facility] AMB Nurse Member Role: Primary Care Nurse Name: Amina Younger RN Position: [facility] RN Member Role: Primary Care Nurse Name: Ruel Goetz MD Position: [facility] Renal MD Member Role: Lifetime Consulting Physician Address: Address: [address] [facility] [address] [facility] [place] [address]- [place] Name: Jonny Luna RN Position: [facility] RN Member Role: Primary Care Nurse Name: Kaitlyn Spann RN Position: [facility] RN Member Role: Primary Care Nurse Name: Ekaterina Yousif RN Position: [facility] RN Member Role: Primary Care Nurse Name: Destiny Kebede RN Position: [facility] RN Member Role: Primary Care Nurse Name: Alejandrina Duggan RN Position: [facility] RN Member Role: Primary Care Nurse Name: Collins Agustin MD Position: [facility] Resident Member Role: PCP Address: Address: [address] [place] [address]- Care Team Related Persons Name: GUI SERRANO Address: AMER[employer] Address: home [address] [place] [address] [place] Name: JONNA SERRANO Address: home [address] [place] [id number] Name: MAXIMO SANCHEZ Address: home [address] [place], [place] [address]
--- OUTSIDE RECORDS SUMMARY | 2024-02-28 00:59 | XMS_ITS | Continuity of Care Document ---
Author Organization [facility] Address [address] [place] [address]- Care Team Providers Care Strategy Planning Consultant Name Role Phone Collins Agustin MD Primary Care Physician Encounter [facility] [place] [facility] R [id number] Date(s): 10/13/22 - 11/12/[address] [address] Allergies, Adverse Reactions, Alerts Substance [...] 09/21/22 17:07:00 EST, Route to Pharmacy Electronically, [facility]/pharmacy #[id number], Partial fill upon patient request if [...] Care Team Personnel Name: Jewell Castro Position: [facility] Onco RN Member Role: Primary Care Nurse Name: Kareen Blood RN Position: [facility] RN Member Role: Primary Care Nurse Name: Radha Cheng RN Position: [facility] PCO RN Member Role: Primary Care Nurse Name: Kiya Sanderson RN Position: [facility] RN Member Role: Primary Care Nurse Name: Frida Woods RN Position: [facility] RN Member Role: Primary Care Nurse Name: Una Damon RN Position: [facility] RN Member Role: Primary Care Nurse Name: Johanne Yi Position: [facility] RN Member Role: Primary Care Nurse Name: Amina Younger RN Position: [facility] RN Member Role: Primary Care Nurse Name: Ruel Goetz MD Position: [facility] Renal MD Member Role: Lifetime Consulting Physician Address: Address: [address] [facility] [place] [address]- [place] Name: Jonny Luna RN Position: [facility] RN Member Role: Primary Care Nurse Name: Kaitlyn Spann RN Position: [facility] RN Member Role: Primary Care Nurse Name: Ekaterina Yousif RN Position: [facility] RN Member Role: Primary Care Nurse Name: Destiny Kebede RN Position: [facility] RN Member Role: Primary Care Nurse Name: Alejandrina Duggan RN Position: [facility] RN Member Role: Primary Care Nurse Name: Collins Agustin MD Position: [facility] Resident Member Role: PCP Address: Address: [address] [place] [address]- [place] Care Team Related Persons Name: GUI SERRANO Address: AMER[employer] Address: home [address] [address] [place] Name: JONNA SERRANO Address: home [address] [place] [address] Name: MAXIMO SANCHEZ Address: home [address] [place], [place] [address]
--- OUTSIDE RECORDS SUMMARY | 2024-02-28 00:59 | XMS_ITS | Continuity of Care Document ---
Author Organization [facility] Address [address] [place] [address]- Care Team Providers Care Drug Abuse Social Worker Name Role Phone Collins Agustin MD Primary Care Physician [phone] Encounter [facility] [place] Date(s): 09/11/22 - 10/11/22 [facility] [address] [place] [address]- Attending Physician: Carmen Simons Admitting Physician: AdmtrCarmen Referring Physician: AdmtrCarmen Allergies, Adverse Reactions, Alerts Substance Reaction Severity [...] 09/21/22 17:07:00 EST, Route to Pharmacy Electronically, [facility]/pharmacy #[id number], Partial fill upon patient request [...] Personnel Name: Jewell Castro Position: [facility] Onco RN Member Role: Primary Care Nurse Name: Kareen Blood RN Position: [facility] RN Member Role: Primary Care Nurse Name: Radha Cheng RN Position: [facility] PCO RN Member Role: Primary Care Nurse Name: Kiya Sanderson RN Position: [facility] RN Member Role: Primary Care Nurse Name: Frida Woods RN Position: [facility] RN Member Role: Primary Care Nurse Name: Una Damon RN Position: [facility] RN Member Role: Primary Care Nurse Name: Johanne Yi Position: [facility] RN Member Role: Primary Care Nurse Name: Amina Younger RN Position: [facility] RN Member Role: Primary Care Nurse Name: Ruel Goetz MD Position: [facility] Renal MD Member Role: Lifetime Consulting Physician Address: Address: [address] [facility] [place] [address]- Name: Jonny Luna RN Position: [facility] RN Member Role: Primary Care Nurse Name: Kaitlyn Spann RN Position: [facility] RN Member Role: Primary Care Nurse Name: Ekaterina Yousif RN Position: [facility] RN Member Role: Primary Care Nurse Name: Destiny Kebede RN Position: [facility] RN Member Role: Primary Care Nurse Name: Alejandrina Duggan RN Position: [facility] RN Member Role: Primary Care Nurse Name: Collins Agustin MD Position: [facility] Resident Member Role: PCP Address: Address: [address] [place] [address]- Care Team Related Persons Name: GUI SERRANO Address: [facility] [employer] Address: home [address] [place] [address] [place] Name: JONNA SERRANO Address: home [address] [place] [address] Name: MAXIMO SANCHEZ Address: home [address] [place], [place] [address]
--- OUTSIDE RECORDS SUMMARY | 2024-02-28 00:59 | XMS_ITS | Continuity of Care Document ---
Author Organization [facility] Address [address] [place] [address]- Care Team Providers Care Navigation Teacher Name Role Phone Collins Agustin MD Primary Care Physician Encounter [facility] Date(s): 10/04/22 - 11/03/22 [facility] [address] [place] [id number] Attending Physician: Carmen Simons Admitting Physician: AdmtrCarmen Referring Physician: Admtr, Schuyler8 Allergies, Adverse Reactions, Alerts Substance Reaction Severity [...] 4 Refills, Maintenance, 09/21/22 17:07:00 EST, Tablet, [facility]/pharmacy #[id number], Partial fill upon patient request if the prescription is for a schedule II opioid drug., 150, cm, 09/21/22 14:41:00 EST,... Start Date: 09/21/22 Status: Ordered gabapentin 300 mg oral capsule 300 mg, 1, capsule, By Mouth, 3 times a day, # 90 capsule, Refills 3, Tot. Refills 3, Maintenance, 09/21/22 17:07:00 EST, Route to Pharmacy Electronically, [facility]/pharmacy #[id number], Partial fill upon patient [...] Castro Position: [facility] Onco RN Member Role: Primary Care Nurse Name: Kareen Blood RN Position: [facility] RN Member Role: Primary Care Nurse Name: Radha Cheng RN Position: [facility] PCO RN Member Role: Primary Care Nurse Name: Kiya Sanderson RN Position: [facility] RN Member Role: Primary Care Nurse Name: Frida Woods RN Position: [facility] RN Member Role: Primary Care Nurse Name: Una Damon RN Position: [facility] RN Member Role: Primary Care Nurse Name: Johanne Yi Position: [facility] RN Member Role: Primary Care Nurse Name: Amina Younger RN Position: S RN Member Role: Primary Care Nurse Name: Ruel Goetz MD Position: [facility] Renal MD Member Role: Lifetime Consulting Physician Address: Address: [address] [facility] [place] [address]- [place] Name: Jonny Luna RN Position: [facility] RN Member Role: Primary Care Nurse Name: Kaitlyn Spann RN Position: [facility] RN Member Role: Primary Care Nurse Name: Ekaterina Yousif RN Position: [facility] RN Member Role: Primary Care Nurse Name: Destiny Kebede RN Position: [facility] RN Member Role: Primary Care Nurse Name: Alejandrina Duggan RN Position: [facility] RN Member Role: Primary Care Nurse Name: Collins Agustin MD Position: [facility] Resident Member Role: PCP Address: Address: [address] [place] [address]- [place] Care Team Related Persons Name: GUI SERRANO Address: [employer] Address: home [address] [place] [address] [place] Name: JONNA SERRANO Address: home [address] [place] [address] Name: MAXIMO SANCHEZ Address: home [address] [place], [place] [address]
--- OUTSIDE RECORDS SUMMARY | 2024-02-28 00:59 | XMS_ITS | Continuity of Care Document ---
Author Organization [facility] Address [address] [place] [address]- Care Team Providers Care Pre Algebra Teacher Name Role Phone Collins Agustin MD Primary Care Physician [phone] Encounter [facility] Date(s): 10/18/23 - 11/17/[address] [address] Allergies, Adverse Reactions, Alerts Substance Reaction Severity [...] 07/02/2315:43:00 EDT, Aerosol, Route to Pharmacy Electronically, [id number], [facility] #[id number], 150, cm, 07/02/23 15:22:00... Start Date: 07/02/23 Status: Ordered apixaban 5 mg oral tablet 1 tablet = 5 mg, By Mouth, 2 times a day, # 60 tablet, 4 Refills, Maintenance, 09/21/22 17:07:00 EST, Tablet, [facility]/pharmacy #[id number], Partial fill upon patient request if the prescription is for a schedule II opioid drug., 150, cm, 09/21/22 14:41:00 EST,... Start Date: 09/21/22 Status: Ordered Bactrim DS 800 mg-160 mg oral tablet 1 tablet, By Mouth, 2 times a day, for 14 days, # 28 tablet, 0 Refills, Acute 11/28/23 17:21:00 EST, 11/14/23 17:21:00 EST, Tablet, [facility] #[id number], Partial fill upon patient request if the prescription is for a schedule II opioid drug., 1... Start Date: 11/14/23 Stop Date: 11/28/23 Status: Ordered Ensure Ensure, See Instructions, # [...] 07/02/23 16:01:00 EDT, Route to Pharmacy Electronically, [facility] #[id number], Partial fill upon patient request if the [...] Care Team Personnel Name: Jewell Castro Position: [facility] Onco RN Member Role: Primary Care Nurse Name: Radha Cheng RN Position: [facility] AMB Nurse Member Role: Primary Care Nurse Name: Kiya Sanderson RN Position: [facility] RN Member Role: Primary Care Nurse Name: Frida Woods RN Position: [facility] AMB Nurse Member Role: Primary Care Nurse Name: Una Damon RN Position: [facility] AMB Nurse Member Role: Primary Care Nurse Name: Amina Younger RN Position: [facility] RN Member Role: Primary Care Nurse Name: Ruel Goetz MD Position: [facility] Renal MD Member Role: Lifetime Consulting Physician Address: Address: [address] [facility] [address] [facility] [place] [address]- Name: Jonny Luna RN Position: [facility] RN Member Role: Primary Care Nurse Name: Kaitlyn Spann RN Position: [facility] RN Member Role: Primary Care Nurse Name: Ekaterina Yousif RN Position: [facility] RN Member Role: Primary Care Nurse Name: Destiny Kebede RN Position: [facility] RN Member Role: Primary Care Nurse Name: Alejandrina Duggan RN Position: [facility] RN Member Role: Primary Care Nurse Name: Collins Agustin MD Position: [facility] Resident Member Role: PCP Address: Address: [address] [place] [address]- Care Team Related Persons Name: GUI SERRANO Address: [employer] Address: home [address] [place] [address] [place] Name: JONNA SERRANO Address: home [address] [place] [address] Name: MAXIMO SANCHEZ Address: home [address]
--- OUTSIDE RECORDS SUMMARY | 2024-02-28 00:59 | XMS_ITS | Continuity of Care Document ---
Author Organization [facility] Address Unknown Care Team Providers Care Button Riveter Name Role Phone Not on Staff, PCP Primary Care Physician Unavail able Encounter [facility] Date(s): 05/04/22 - 06/03/22 [facility] Attending Physician: Carmen Simons Admitting Physician: Carmen Simons Referring Physician: Carmen Simons Allergies, Adverse Reactions, Alerts Substance Reaction Severity Status Bee Stings Active Coconut Active FLUoxetine HCl Active Immunizations Given and Recorded Vaccine Date Status Refusal Reason tetanus/diphtheria/pertussis, acel(Tdap) 08/16/18 Given tetanus/diphtheria/pertussis, acel(Tdap) 02/21/18 Given influenza virus vaccine, inactivated 07/25/18 Give n Not Given Vaccine Date Status Refusal Reason pneumococcal 23-valent vaccine 05/23/13 Not Given Patient Refuses Medications Abilify 5 mg oral tablet 5 mg, 1, tablet, By Mouth, 2 times a day, # 180 tablet, Refills 0, Tot. Refills 0, Maintenance, 01/29/19 13:31:21 EDT, Route to Pharmacy Electronically, [id number], [facility]/pharmacy #1130 Start Date: 01/29/19 Stop Date: 04/29/19 Status: Ordered acamprosate 333 mg oral delayed release tablet 1 tablet = 333 mg, By Mouth, 3 times a day, # 270 tablet, 0 Refills, Maintenance, 01/29/19 13:30:55EDT, EC Tablet Start Date: 01/29/19 Status: Ordered Colace sodium 100 mg oral capsule 100 mg, 1, capsule, By Mouth, 2 times a day, PRN, # 100 capsule, Refills 0, Tot. Refills 0, Maintenance, for constipation, 04/25/22 11:59:00 EDT, Print Requisition, Partial fill upon patient request if the prescription is for a schedule II opioid drug. Start Date: 04/25/22 Stop Date: 05/25/22 Status: Ordered Colace sodium 100 mg oral capsule 100 mg, 1, capsule, By Mouth, 2 times a day, PRN, # 60 capsule, Refills 11, Tot. Refills 11, Maintenance, for constipation, 05/04/22 13:27:00 EDT, Route to Pharmacy Electronically, [facility]/pharmacy #1130, Partial fill upon patient request if the prescript... Start Date: 05/04/22 Status: Ordered Colace sodium 100 mg oral capsule 100 mg, 1, capsule, By Mouth, 2 times a day, PRN, # 60 capsule, Refills 3, Tot. Refills 3, Maintenance, for constipation, 11/14/18 12:17:45 EST, Route to Pharmacy Electronically, [id number], [facility]/pharmacy #1130 Start Date: 11/14/18 Status: Ordered Methadone = 32 mg, By Mouth, 0 Refills, Maintenance, 10/03/18 11:38:21 EST Start Date: 10/03/18 Status: Ordered MiraLax oral powder for reconstitution = 17 Gm, By Mouth, Daily, dissolve in water before taking, # 527 Gm, 0 Refills, Acute 04/26/23 11:59:00 EDT, 04/25/22 11:59:00 EDT, [facility], Partial fill upon patient request if the prescription is for a schedule II opioid drug. Start Date: 04/25/22 Stop Date: 04/26/23 Status: Ordered MiraLax oral powder for reconstitution = 17 Gm, By Mouth, Daily, dissolve in water before taking, # 527 Gm, 11 Refills, Maintenance, 05/04/22 13:26:00 EDT, REC Powder, [facility], Partial fill upon patient request if the prescription is for a schedule II opioid drug., 17 Gm By Mout... Start Date: 05/04/22 Status: Ordered prazosin 1 mg oral capsule 1 mg, 1, capsule, By Mouth, Daily at bedtime, # 90 capsule, Refills 0, Tot. Refills 0, Maintenance,01/29/19 13:32:00 EDT, Route to Pharmacy Electronically, [id number], [facility]/pharmacy #1130 Start Date: 01/29/19 Stop Date: 04/29/19 Status: Ordered Multivitamins with Vitamin B Complex, Vitamin C, Minerals and L- Methylfolate oral capsule 1 capsule, By Mouth, Daily, # 30 capsule, 3 Refills, Maintenance, 11/14/18 12:17:58 EST, Capsule, 1capsule By Mouth Daily Start Date: 11/14/18 Status: Ordered ProAir HFA 90 mcg/inh inhalation aerosol with adapter 1, puffs, Inhalation, Every 4 hours, PRN, # 1 each, Refills 0, Tot. Refills 0, Maintenance, 06/26/18 11:50:48 EDT, Aerosol, Route to Pharmacy Electronically, [id number], [facility]/pharmacy #1130 Start Date: 06/26/18 Status: Ordered sertraline 50 mg oral tablet 1 tablet = 50 mg, By Mouth, Daily, # 90 tablet, 0 Refills, Maintenance, 12/25/18 13:40:26 EST, Tablet Start Date: 12/25/18 Stop Date: 03/25/19 Status: Ordered Problem List Condition Effective Dates Status Health Status Inform ant Asthma(Confirmed) 1 Active Borderline personality disorder(Confirmed) Active Cigarette smoker(Confirmed) Active Drug abuse(Confirmed) Active History of depression(Confirmed) Active History of delivery(Confirmed) Active History of kidney stones(Confirmed) Active PTSD (post-traumatic stress disorder)(Confirmed) Active Rectal prolapse(Confirmed) Active Tachycardia(Confirmed) Active Hepatitis C(Confirmed) Active 1Mild, intermittent. Social History Social History Type Response Smoking Status 10 or more cigarette s (1/2 pack or more)/day in last 30 days entered on: 11/14/18 Sex
--- OUTSIDE RECORDS SUMMARY | 2024-02-28 00:59 | XMS_ITS | Continuity of Care Document ---
Author Organization [facility] Address [address] [place] [address]- Care Team Providers Care Ferry Operator Name Role Phone Not on Staff, PCP Primary Care Physician Unavail able Encounter [facility] Date(s): 07/25/22 - 09/17/22 [facility] [address] [place] [address]- Attending Physician: Yg WEINBERG, Ervin Mays Admitting Physician: Ervin Ronquillo MD Allergies, Adverse Reactions, Alerts Substance Reaction [...] Care Team Personnel Name: Jewell Castro Position: [facility] Onco RN Member Role: Primary Care Nurse Name: Kareen Blood RN Position: [facility] RN Member Role: Primary Care Nurse Name: Radha Cheng RN Position: [facility] PCO RN Member Role: Primary Care Nurse Name: Kiya Sanderson RN Position: [facility] RN Member Role: Primary Care Nurse Name: Vera De León RN Position: [facility] RN Member Role: Primary Care Nurse Name: Frida Woods RN Position: [facility] RN Member Role: Primary Care Nurse Name: Una Damon RN Position: [facility] RN Member Role: Primary Care Nurse Name: Johanne Yi Position: [facility] RN Member Role: Primary Care Nurse Name: Amina Younger RN Position: [facility] RN Member Role: Primary Care Nurse Name: Not on Staff, PCP Position: [facility] Physician (General Medicine) Member Role: PCP Name: Ruel Goetz MD Position: [facility] Renal MD Member Role: Lifetime Consulting Physician Address: Address: [address] [facility] [address] [facility] [place], [place] [address] Name: Jonny Luna RN Position: [facility] RN Member Role: Primary Care Nurse Name: Kaitlyn Spann RN Position: [facility] RN Member Role: Primary Care Nurse Name: Ekaterina Yousif RN Position: S RN Member Role: Primary Care Nurse Name: Cayla Nance RN Position: [facility] RN Member Role: Primary Care Nurse Name: Destiny Kebede RN Position: S RN Member Role: Primary Care Nurse Name: Alejandrina Duggan RN Position: S RN Member Role: Primary Care Nurse Care Team Related Persons Name: GUI SERRANO Address: [employer] Address: home [address] [facility] [place] [address] Name: JONNA SERRANO Address: home [address] [facility] [address] [address] [place] [id number] Name: MAXIMO SANCHEZ Address: home [address]
--- OUTSIDE RECORDS SUMMARY | 2024-02-28 00:59 | XMS_ITS | Continuity of Care Document ---
Author Organization [facility] Address [address] [place] [address]- Care Team Providers Care Lube Worker Name Role Phone Collins Agustin MD Primary Care Physician Encounter [facility] Date(s): 09/29/22 - 10/29/[address] [address]- Allergies, Adverse Reactions, Alerts Substance Reaction Severity [...] 09/21/22 17:07:00 EST, Route to Pharmacy Electronically, [facility]/pharmacy #[id number], Partial fill upon [...] Care Team Personnel Name: Jewell Castro Position: [facility] Onco RN Member Role: Primary Care Nurse Name: Kareen Blood RN Position: [facility] RN Member Role: Primary Care Nurse Name: Radha Cheng RN Position: [facility] PCO RN Member Role: Primary Care Nurse Name: Kiya Sanderson RN Position: [facility] RN Member Role: Primary Care Nurse Name: Frida Woods RN Position: [facility] RN Member Role: Primary Care Nurse Name: Una Damon RN Position: S RN Member Role: Primary Care Nurse Name: Johanne Yi Position: [facility] RN Member Role: Primary Care Nurse Name: Amina Younger RN Position: [facility] RN Member Role: Primary Care Nurse Name: Ruel Goetz MD Position: [facility] Renal MD Member Role: Lifetime Consulting Physician Address: Address: [address] [facility] [place] [address]- [place] Name: Jonny Luna RN Position: [facility] RN Member Role: Primary Care Nurse Name: Kaitlyn Spann RN Position: [facility] RN Member Role: Primary Care Nurse Name: Ekaterina Yousif RN Position: [facility] RN Member Role: Primary Care Nurse Name: Destiny Kebede RN Position: [facility] RN Member Role: Primary Care Nurse Name: Alejandrina Duggan RN Position: [facility] RN Member Role: Primary Care Nurse Name: Collins Agustin MD Position: [facility] Resident Member Role: PCP Address: Address: [address] [place] [address]- Care Team Related Persons Name: GUI SERRANO Address: [facility] Address: home [address] [place] [address] [place] Name: JONNA SERRANO Address: home [address] [place] [address] Name: MAXIMO SANCHEZ Address: home [address] [place], [place] [address]
--- OUTSIDE RECORDS SUMMARY | 2024-02-28 01:00 | XMS_ITS | Continuity of Care Document ---
Author Organization [facility] Address [address] [place] [address]- Care Team Providers Care Bench Scientist Name Role Phone Not on Staff, PCP Primary Care Physician Unavail able Encounter [facility] Date(s): 07/24/22 - 08/27/22 [facility] [address] [place] [id number] Attending Physician: Ezekiel Gee MD Admitting Physician: Ezekiel Gee MD Allergies, Adverse Reactions, Alerts Substance Reaction [...]
--- OUTSIDE RECORDS SUMMARY | 2024-02-28 01:00 | XMS_ITS | Continuity of Care Document ---
Author Organization [facility] Address [address] [place] [address]- Care Team Providers Care Baggage Inspector Name Role Phone Collins Agustin MD Primary Care Physician [place] [facility] [place]03[place]23 - 06/04/23 [facility] [address] [place] [address] Discharge Disposition: A-D/C Home Attending Physician: Leslie Livingston MD Admitting Physician: Angy Frey MD Referring Physician: Collins Agustin MD Allergies, Adverse Reactions, Alerts Substance Reaction [...] Gm, Refills 0, Tot. Refills 0, Maintenance, 05/17/2312:21:00 EDT, Aerosol, Route to Pharmacy Electronically, [id number], [id number], 150, cm, 05/17/23 9:26:00 EDT, Heigh... Start Date: 05/17/23 Status: Ordered amoxicillin 875 mg oral tablet 1 tablet = 875 mg, By Mouth, 2 times a day, for 10 days, # 20 tablet, 0 Refills, Acute 06/09/23 16:40:00 EDT, 05/30/23 16:40:00 EDT, Tablet, [facility] #[id number], Partial fill upon patient request if the prescription is for a schedule II opioid... Start Date: 05/30/23 Stop Date: 06/09/23 Status: Ordered apixaban 5 mg oral tablet 1 tablet = 5 mg, By Mouth, 2 times a day, # 60 tablet, 4 Refills, Maintenance, 09/21/22 17:07:00 EST, Tablet, [facility]/pharmacy #[id number], Partial fill upon patient request if the prescription is for a schedule II opioid drug., 150, cm, 09/21/22 14:41:00 EST,... Start Date: 09/21/22 Status: Ordered doxycycline hyclate 100 mg oral enteric coated tablet 1 tablet = 100 mg, By Mouth, Every 12 hours, for 10 days, # 20 tablet, 0 Refills, Acute 06/09/23 16:40:00 EDT, 05/30/23 16:40:00 EDT, CR Tablet, [facility] #[id number], Partial fill upon patientrequest if the prescription is for a schedule II op... Start Date: 05/30/23 Stop Date: 06/09/23 Status: Ordered doxycycline monohydrate 100 mg oral tablet 1 tablet = 100 mg, By Mouth, 2 times a day, for 14 days, # 28 tablet, 0 Refills, Acute 06/13/23 16:23:00 EDT, 05/30/23 16:23:00 EDT, Tablet, [facility] #[id number], Partial fill upon patient request if the prescription is for a schedule II opioid... Start Date: 05/30/23 Stop Date: 06/13/23 Status: Ordered gabapentin 300 mg oral capsule [...] opioid drug. Start Date: 07/18/22 Status: Ordered mupirocin 2% topical cream 1 application, Topically, 3 times a day, for 10 days, # 30 Gm, 0 Refills, Acute 06/09/23 16:40:00 EDT, 05/30/23 16:40:00 EDT, Cream, [facility] #[id number], Partial fill upon patient request if the prescription is for a schedule II opioid drug.,... Start Date: 05/30/23 Stop Date: 06/09/23 Status: Ordered Problem List Condition Confirmation Course [...] Care Team Personnel Name: Jewell Castro Position: [facility] Onco RN Member Role: Primary Care Nurse Name: Radha Cheng RN Position: [facility] AMB Nurse Member Role: Primary Care Nurse Name: Kiya Sanderson RN Position: [facility] RN Member Role: Primary Care Nurse Name: Frida Woods RN Position: [facility] AMB Nurse Member Role: Primary Care Nurse Name: Una Damon RN Position: [facility] RN Member Role: Primary Care Nurse Name: Amina Younger RN Position: [facility] RN Member Role: Primary Care Nurse Name: Ruel Goetz MD Position: [facility] Renal MD Member Role: Lifetime Consulting Physician Address: Address: [address] [facility] [place] [address]- [place] Name: Jonny Luna RN Position: [facility] RN Member Role: Primary Care Nurse Name: Kaitlyn Spann RN Position: S RN Member Role: Primary Care Nurse Name: Ekaterina Yousif RN Position: [facility] RN Member Role: Primary Care Nurse Name: Destiny Kebede RN Position: [facility] RN Member Role: Primary Care Nurse Name: Alejandrina Duggan RN Position: [facility] RN Member Role: Primary Care Nurse Name: Collins Agustin MD Position: [facility] Resident Member Role: PCP Address: Address: [address] [place] [address]- [place] Care Team Related Persons Name: GUI SERRANO Address: [employer] Address: home [address] [place] [address] Name: JONNA SERRANO Address: home [address] [place] [address] Name: MAXIMO SANCHEZ Address: home [address] [place], [place] [address]
--- OUTSIDE RECORDS SUMMARY | 2024-02-28 01:00 | XMS_ITS | Continuity of Care Document ---
Author Organization [facility] Address [address] [place] [address]- Care Team Providers Care Toy Department Manager Name Role Phone Collins Agustin MD Primary Care Physician Encounter [facility] [id number] Date(s): 10/18/23 - 11/23/[address] [id number] Attending Physician: Not on Staff, Attending [...] 07/02/2315:43:00 EDT, Aerosol, Route to Pharmacy Electronically, [id number], [facility] #[id number], 150, cm, 07/02/23 15:22:00... Start Date: 07/02/23 Status: Ordered apixaban 5 mg oral tablet 1 tablet = 5 mg, By Mouth, 2 times a day, # 60 tablet, 4 Refills, Maintenance, 09/21/22 17:07:00 EST, Tablet, [facility]/pharmacy #[id number], Partial fill upon patient request if the prescription is for a schedule II opioid drug., 150, cm, 09/21/22 14:41:00 EST,... Start Date: 09/21/22 Status: Ordered Bactrim DS 800 mg-160 mg oral tablet 1 tablet, By Mouth, 2 times a day, for 14 days, # 28 tablet, 0 Refills, Acute 11/28/23 17:21:00 EST, 11/14/23 17:21:00 EST, Tablet, [facility] #[id number], Partial fill upon patient request if the [...] 07/02/23 16:01:00 EDT, Route to Pharmacy Electronically, [facility] #[id number], Partial fill upon patient request if the [...] Care Team Personnel Name: Jewell Castro Position: [facility] Onco RN Member Role: Primary Care Nurse Name: Radha Cheng RN Position: [facility] AMB Nurse Member Role: Primary Care Nurse Name: Kiya Sanderson RN Position: [facility] RN Member Role: Primary Care Nurse Name: Frida Woods RN Position: [facility] AMB Nurse Member Role: Primary Care Nurse Name: Una Damon RN Position: [facility] AMB Nurse Member Role: Primary Care Nurse Name: Amina Younger RN Position: [facility] RN Member Role: Primary Care Nurse Name: Ruel Goetz MD Position: [facility] Renal MD Member Role: Lifetime Consulting Physician Address: Address: [address] [facility] [place] [address]- Name: Jonny Luna RN Position: [facility] RN Member Role: Primary Care Nurse Name: Kaitlyn Spann RN Position: [facility] RN Member Role: Primary Care Nurse Name: Ekaterina Yousif RN Position: [facility] RN Member Role: Primary Care Nurse Name: Destiny Kebede RN Position: [facility] RN Member Role: Primary Care Nurse Name: Alejandrina Duggan RN Position: [facility] RN Member Role: Primary Care Nurse Name: Collins Agustin MD Position: [facility] Resident Member Role: PCP Address: Address: [address] [place] [address]- Care Team Related Persons Name: GUI SERRANO Address: [employer] Address: home [address] [place] [address] [place] Name: JONNA SERRANO Address: home [address] [place] [address] Name: MAXIMO SANCHEZ Address: home [address]
--- OUTSIDE RECORDS SUMMARY | 2024-02-28 01:00 | XMS_ITS | Continuity of Care Document ---
Author Organization [facility] Address [address] [place] [address]- Care Team Providers Care Adult Basic Education Teacher Name Role Phone Scarlet Regan MD Primary Care Physician [place] [facility] - 04/25/[address] [address]- Encounter Diagnosis Rectal prolapse(Final) - 04/25/22 Rectal bleeding(Final) - 04/25/22 Discharge Disposition: A-D/C Home Attending Physician: Jg Hernandez MD Admitting Physician: Jg Hernandez MD Referring Physician: Not on Staff, Referring [...] 01/29/19 13:31:21 EDT, Route to Pharmacy Electronically, [id number], [facility]/pharmacy #1130 Start Date: 01/29/19 Stop Date: 04/29/19 [...] 11/14/18 12:17:45 EST, Route to Pharmacy Electronically, [id number], [facility]/pharmacy #1130 Start Date: 11/14/18 Status: Ordered Methadone [...] Date: 04/25/22 Stop Date: 04/26/23 Status: Ordered prazosin 1 mg oral capsule 1 mg, 1, capsule, By Mouth, Daily at bedtime, # 90 capsule, Refills 0, Tot. Refills 0, Maintenance,01/29/19 13:32:00 EDT, Route to Pharmacy Electronically, [id number], [facility]/pharmacy #1130 Start Date: 01/29/19 Stop Date: 04/29/19 [...] 11:50:48 EDT, Aerosol, Route to Pharmacy Electronically, [id number], [facility]/pharmacy #1130 Start Date: 06/26/18 Status: Ordered sertraline [...] stones(Confirmed) Active PTSD (post-traumatic stress disorder)(Confirmed) Active Tachycardia(Confirmed) Active Hepatitis C(Confirmed) Active 1Mild, intermittent. Vital Signs Most recent to oldest [Reference Range]: 1 2 3 Height 149 cm (04/25/22 8:33 AM) Weight 42.7 kg (04/25/22 8:33 AM) Oxygen Saturation [94-100 %] 99 % (04/25/22 1:14 PM) 99 % (04/25/22 11:25 AM) 96 % (04/25/22 8:33 AM) Pulse Rate [55-90 bpm] 98 bpm *H* (04/25/22 1:14 PM) 107 bpm *H* (04/25/22 11:25 AM) 76 bpm (04/25/22 8:33 AM) Blood Pressure [90-138/55-84 mm Hg] 122/68mm Hg (04/25/22 1:14 PM) 124/73mm Hg (04/25/22 11:25 AM) 112/70mm Hg (04/25/22 8:33 AM) Respiratory Rate [16-30 br/min] 16 br/min (04/25/22 1:14 PM) 16 br/min (04/25/22 11:25 AM) 18 br/min (04/25/22 8:33 AM) Temperature [96.8-100.4 DegF] 98.6 DegF (04/25/22 1:14 PM) 98.6 DegF (04/25/22 11:25 AM) 98.4 DegF (04/25/22 7:18 AM) Mode of Delivery (Oxygen) Room air (04/25/22 1:14 PM) Room air (04/25/22 11:25 AM) Room air (04/25/22 8:33 AM) Blood pressure sites Arm, right (04/25/22 1:14 PM) Arm, right (04/25/22 11:25 AM) Arm, left (04/25/22 8:33 AM) Temperature Route Oral (04/25/22 1:14 PM) Oral (04/25/22 11:25 AM) Oral (04/25/22 7:18 AM) Weight Obtained Via Standing scale (04/25/22 8:33 AM) Social History Social History Type Response Smoking Status 10 or more cigarette s (1/2 pack or more)/day in last 30 days entered on: 11/14/18 Sex
--- OUTSIDE RECORDS SUMMARY | 2024-02-28 01:00 | XMS_ITS | Continuity of Care Document ---
Author Organization [facility] Address [address] [place] [address]- Care Team Providers Care Activity Specialist Name Role Phone Not on Staff, PCP Primary Care Physician Unavail able Encounter [facility] Date(s): 08/21/22 - 09/20/22 [facility] [address] [place] [id number] Allergies, Adverse Reactions, [...] Care Team Personnel Name: Jewell Castro Position: [facility] Onco RN Member Role: Primary Care Nurse Name: Kareen Blood RN Position: [facility] RN Member Role: Primary Care Nurse Name: Radha Cheng RN Position: [facility] PCO RN Member Role: Primary Care Nurse Name: Kiya Sanderson RN Position: [facility] RN Member Role: Primary Care Nurse Name: Vera De León RN Position: [facility] RN Member Role: Primary Care Nurse Name: Frida Woods RN Position: [facility] RN Member Role: Primary Care Nurse Name: Una Damon RN Position: [facility] RN Member Role: Primary Care Nurse Name: Johanne Yi Position: [facility] RN Member Role: Primary Care Nurse Name: Amina Younger RN Position: [facility] RN Member Role: Primary Care Nurse Name: Not on Staff, PCP Position: [facility] Physician (General Medicine) Member Role: PCP Name: Ruel Goetz MD Position: [facility] Renal MD Member Role: Lifetime Consulting Physician Address: Address: [address] [place] [address] [address] [facility] [place] [address]- Name: Jonny Luna RN Position: [facility] RN Member Role: Primary Care Nurse Name: Kaitlyn Spann RN Position: [facility] RN Member Role: Primary Care Nurse Name: Ekaterina Yousif RN Position: [facility] RN Member Role: Primary Care Nurse Name: Destiny Kebede RN Position: [facility] RN Member Role: Primary Care Nurse Name: Alejandrina Duggan RN Position: S RN Member Role: Primary Care Nurse Care Team Related Persons Name: GUI SERRANO Address: [employer] Address: home [address] [place] [address] Name: JONNA SERRANO Address: home [address] [place] [address] Name: MAXIMO SANCHEZ Address: home [address]
--- OUTSIDE RECORDS SUMMARY | 2024-02-28 01:00 | XMS_ITS | Continuity of Care Document ---
Author Organization [facility] Address [address] [place] [address]- Care Team Providers Care Chrome Tanning Drum Operator Name Role Phone Not on Staff, PCP Primary Care Physician Unavail able Encounter [facility] Date(s): 06/15/22 - 08/27/22 [facility] [address] [place] [id number] Attending Physician: Ezekiel Gee MD Admitting Physician: [...]
--- OUTSIDE RECORDS SUMMARY | 2024-02-28 01:00 | XMS_ITS | Continuity of Care Document ---
Author Organization [facility] Address [address] [place] [address]- Care Team Providers Care Oil Gauger Name Role Phone Not on Staff, PCP Primary Care Physician Unavail able Encounter [facility] Date(s): 08/11/22 - 08/11/[address] [address] Discharge Disposition: A-D/C Home Attending Physician: Henok Busch MD Admitting Physician: Henok Busch MD Referring Physician: Henok Busch MD Allergies, Adverse Reactions, Alerts Substance Reaction Severity Status Bee Stings Active Coconut Active FLUoxetine HCl Active Immunizations Given and Recorded Vaccine Date Status Refusal Reason SARS-CoV-2 (COVID-19) mRNA-7183 vaccine 12/27/21 R ecorded tetanus/diphtheria/pertussis, acel(Tdap) 08/16/18 [...] Active Hepatitis C 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 1Mild, intermittent. Vital Signs Most recent to oldest [Reference Range]: 1 2 Height 150 cm (08/11/22 1:08 PM) 150 cm (08/11/22 12:52 PM) Weight 55 kg (08/11/22 12:52 PM) Oxygen Saturation [94-100 %] 98 % (08/11/22 1:08 PM) Pulse Rate [55-90 bpm] 85 bpm (08/11/22 1:08 PM) Blood Pressure [90-138/55-84 mm Hg] 101/ 60mm Hg (08/11/22 1:08 PM) Respiratory Rate [16-30 br/min] 18 br/mi n (08/11/22 1:08 PM) Temperature [96.8-100.4 DegF] 97.9 DegF (08/11/22 1:08 PM) Mode of Delivery (Oxygen) Room air (08/11/22 1:08 PM) Blood pressure sites Arm, right (08/11/22 1:08 PM) Temperature Route Oral (08/11/22 1:08 PM) Dry Weight 55 kg (08/11/22 12:52 PM) Social History Social History Type Response Smoking Status 10 or more cigarette s (1/2 pack or more)/day in last 30 days entered on: 11/14/18 Sex Patient Care team information Personnel Name: Not on Staff, PCP
--- OUTSIDE RECORDS SUMMARY | 2024-02-28 01:00 | XMS_ITS | Continuity of Care Document ---
Author Organization [facility] Address [address] [place] [address]- Care Team Providers Care County Auditor Name Role Phone Scarlet Regan MD Primary Care Physician Encounter [facility] Date(s): 04/21/22 - 04/21/[address] [address]- Discharge Disposition: A-D/C Home Attending Physician: Rachell Raman MD Admitting Physician: Rachell Raman MD Referring Physician: Not on Staff, Referring [...] 01/29/19 13:31:21 EDT, Route to Pharmacy Electronically, [id number], [facility]/pharmacy #1130 Start Date: 01/29/19 Stop [...] 11/14/18 12:17:45 EST, Route to Pharmacy Electronically, [id number], [facility]/pharmacy #1130 Start Date: 11/14/18 Status: Ordered Methadone = 32 mg, By Mouth, 0 Refills, Maintenance, 10/03/18 11:38:21 EST Start Date: 10/03/18 Status: Ordered prazosin 1 mg oral capsule 1 mg, 1, capsule, By Mouth, Daily at bedtime, # 90 capsule, Refills 0, Tot. Refills 0, Maintenance,01/29/19 13:32:00 EDT, Route to Pharmacy Electronically, [id number], [facility]/pharmacy #1130 Start Date: 01/29/19 Stop [...] 11:50:48 EDT, Aerosol, Route to Pharmacy Electronically, [id number], [facility]/pharmacy #1130 Start Date: 06/26/18 Status: [...] Range]: 1 2 3 Height 150 cm (04/21/22 11:33 AM) 150 cm (04/21/22 10:38 AM) Weight 43 kg (04/21/22 11:33 AM) 43 kg (04/21/22 10:38 AM) Oxygen Saturation [94-100 %] 98 % (04/21/22 12:50 PM) 96 % (04/21/22 11:33 AM) 98 % (04/21/22 10:38 AM) Pulse Rate [55-90 bpm] 87 bpm (04/21/22 12:50 PM) 86 bpm (04/21/22 11:33 AM) 119 bpm *H* (04/21/22 10:38 AM) Body Mass Index [18.5-24.99] 19.11 (04/21/22 10:38 AM) Blood Pressure [90-138/55-84 mm Hg] 109/65mm Hg (04/21/22 12:50 PM) 102/69mm Hg (04/21/22 11:33 AM) 98/73mm Hg (04/21/22 10:38 AM) Respiratory Rate [16-30 br/min] 17 br/min (04/21/22 12:50 PM) 18 br/min (04/21/22 11:33 AM) 20 br/min (04/21/22 10:38 AM) Temperature [96.8-100.4 DegF] 97.9 DegF (04/21/22 12:50 PM) 98.3 DegF (04/21/22 11:33 AM) 97.3 DegF (04/21/22 10:38 AM) Mode of Delivery (Oxygen) Room air (04/21/22 12:50 PM) Room air (04/21/22 11:33 AM) Room air (04/21/22 10:38 AM) Blood pressure sites Arm, left (04/21/22 12:50 PM) Arm, left (04/21/22 11:33 AM) Arm, right (04/21/22 10:38 AM) Temperature Route Oral (04/21/22 12:50 PM) Oral (04/21/22 11:33 AM) Temporal (04/21/22 10:38 AM) Dry Weight 43 kg (04/21/22 11:33 AM) 43 kg (04/21/22 10:38 AM) Weight Obtained Via Patient/family state d (04/21/22 10:38 AM) Dry Weight Obtained Via Patient/family s tated (04/21/22 10:38 AM) Social History Social History Type Response Smoking Status 10 or more cigarette s (1/2 pack or more)/day in last 30 days entered on: 11/14/18 Sex
--- OUTSIDE RECORDS SUMMARY | 2024-02-28 01:00 | XMS_ITS | Continuity of Care Document ---
Author Organization [facility] Address [address] [place] [address]- Care Team Providers Care Swimming Instructor Name Role Phone Collins Agustin MD Primary Care Physician [phone] Encounter [facility] Date(s): 09/20/22 - 10/20/22 [facility] Care [address] [place] [id number] Allergies, Adverse Reactions, Alerts Substance Reaction [...] 09/21/22 17:07:00 EST, Route to Pharmacy Electronically, [facility] [...] Care Team Personnel Name: Jewell Castro Position: [facility] Onco RN Member Role: Primary Care Nurse Name: Kareen Blood RN Position: [facility] RN Member Role: Primary Care Nurse Name: Radha Cheng RN Position: [facility] PCO RN Member Role: Primary Care Nurse Name: Kiya Sanderson RN Position: [facility] RN Member Role: Primary Care Nurse Name: Frida Woods RN Position: [facility] RN Member Role: Primary Care Nurse Name: Una Damon RN Position: [facility] RN Member Role: Primary Care Nurse Name: Johanne Yi Position: [facility] RN Member Role: Primary Care Nurse Name: Amina Younger RN Position: [facility] RN Member Role: Primary Care Nurse Name: Ruel Goetz MD Position: [facility] Renal MD Member Role: Lifetime Consulting Physician Address: Address: [address] [facility] [place] [address]- Name: Jonny Luna RN Position: [facility] RN Member Role: Primary Care Nurse Name: Kaitlyn Spann RN Position: [facility] RN Member Role: Primary Care Nurse Name: Ekaterina Yousif RN Position: [facility] RN Member Role: Primary Care Nurse Name: Destiny Kebede RN Position: [facility] RN Member Role: Primary Care Nurse Name: Alejandrina Duggan RN Position: [facility] RN Member Role: Primary Care Nurse Name: Collins Agustin MD Position: [facility] Resident Member Role: PCP Address: Address: [address] [place] [address]- Care Team Related Persons Name: GUI SERRANO Address: [facility] [employer] Address: home [address] [place] [address] [place] Name: JONNA SERRANO Address: home [address] [place] [address] Name: MAXIMO SANCHEZ Address: home [address] [place], [place] [address]
--- OUTSIDE RECORDS SUMMARY | 2024-02-28 01:00 | XMS_ITS | Continuity of Care Document ---
Author Organization [facility] Address [address] [place] [address]- Care Team Providers Care Acetylene Operator Name Role Phone Collins Agustin MD Primary Care Physician Encounter [facility] Date(s): 12/03/23 - 01/02/[address] [address] Attending Physician: AdmCarmen contreras Admitting Physician: AdmtrCarmen [...] 07/02/2315:43:00 EDT, Aerosol, Route to Pharmacy Electronically, [id number], [facility][id number], 150, cm, 07/02/23 15:22:00... Start Date: 07/02/23 Status: Ordered apixaban 5 mg oral tablet 1 tablet = 5 mg, By Mouth, 2 times a day, # 60 tablet, 4 Refills, Maintenance, 09/21/22 17:07:00 EST, Tablet, 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 PTSD (post-traumatic stress [...] RN Position: [facility] AMB Nurse Member Role: Primary Care Nurse Name: Kiya Sanderson RN Position: [facility] RN Member Role: Primary Care Nurse Name: Frida Woods RN Position: [facility] AMB Nurse Member Role: Primary Care Nurse Name: Una Damon RN Position: [facility] AMB Nurse Member Role: Primary Care Nurse Name: Amina Younger RN Position: [facility] RN Member Role: Primary Care Nurse Name: Ruel Goetz MD Position: [facility] Renal MD Member Role: Lifetime Consulting Physician Address: Address: [address] [facility] [place] [place] [address]- Name: Jonny Luna RN Position: [facility] Resident Member Role: PCP Address: Address: [address] [place] [address]- Care Team Related Persons Name: GUI SERRANO Address: [employer] Address: home [address] [place] [address] [place] Name: JONNA SERRANO Address: home [address] [place] [address] Name: MAXIMO SANCHEZ Address: home [address] [place], [place] [address]
--- OUTSIDE RECORDS SUMMARY | 2024-02-28 01:00 | XMS_ITS | Continuity of Care Document ---
Author Organization [facility] Address [address] [place] [address]- Care Team Providers Care Supervisor Backfilling Name Role Phone Collins Agustin MD Primary Care Physician [place] [facility] [place] 09/13/22 - 11/20/22 [facility] Care [address] [place] [id number] Discharge Disposition: A-D/C Home Attending Physician: Leslie Livingston MD Admitting Physician: Angy Frey MD Referring Physician: Scarlet Regan MD Allergies, Adverse Reactions, Alerts Substance Reaction [...] 4 Refills, Maintenance, 09/21/22 17:07:00 EST, Tablet, [facility]/pharmacy #[id number], Partial fill upon patient request if the prescription is for a schedule II opioid drug., 150, cm, 09/21/22 14:41:00 EST,... Start Date: 09/21/22 Status: Ordered gabapentin 300 mg oral capsule 300 mg, 1, capsule, By Mouth, 3 times a day, # 90 capsule, Refills 3, Tot. Refills 3, Maintenance, 09/21/22 17:07:00 EST, Route to Pharmacy Electronically, [facility]/pharmacy #[id number], Partial fill upon patient request [...] Most recent to oldest [Reference Range]: 1 Height 150 cm (09/20/22 10:08 AM) Weight 54.7 kg (09/20/22 10:08 AM) Oxygen Saturation [94-100 %] 98 % (09/20/22 10:08 AM) Pulse Rate [55-90 bpm] 92 bpm *H* (09/20/22 10:08 AM) Body Mass Index [18.5-24.99 kg/m2] 24.31 kg/m2 (09/20/22 10:08 AM) Blood Pressure [90-138/55-84 mm Hg] 112/ 71mm Hg (09/20/22 10:08 AM) Temperature [96.8-100.4 DegF] 98.4 DegF (09/20/22 10:08 AM) Mode of Delivery (Oxygen) Room air (09/20/22 10:08 AM) Blood pressure sites Arm, right (09/20/22 10:08 AM) Temperature Route Oral (09/20/22 10:08 AM) Dry Weight 54.7 kg (09/20/22 10:08 AM) Weight Obtained Via Standing scale (09/20/22 10:08 AM) Dry Weight Obtained Via Standing scale (09/20/22 10:08 AM) Social History Social History Type Response Smoking Status 10 or more cigarette s (1/2 pack or more)/day in last 30 days entered on: 11/14/18 Sex Note * Yisel Sibley: PERFORM, SIGN, VERIFY Event Display: Patient Education/Instruction Authored Date: [id number] [facility] *Heme/Onc Adult Clinical Summary Name COLLINS SANCHEZ Age 36 Years 1985 PCP Not on Staff, PCP PCP Phone Visit Date 09/13/2022 16:15:00 Additional Instructions: Scheduled Appointments?? Future Appointments ?*[facility],??[place],??[address] ?Phone:??--?Fax:??-- ?Appt. Date:??09/21/2022?2:15 PM ?Scheduled Provider:??Collins Agustin MD ?*[id number]??[place],??[place],??[address] ?Phone:??--?Fax:??-- ?Appt. Date:??10/04/2022?4:20 PM ?Scheduled Provider:??Narayan WEINBERG, Henok Franklin Follow-Up Instructions ?? With: Address: When: Angy Frey [address] [place] [address] Hem/[place] [address] [facility] (1) 01/03/2023 9:30 AM Diagnosis Medications: Please continue your medications until treatment is completed or stopped by your provider. Discuss any questions related to medications with your provider. Medications to Continue with No Changes These medications were not printed or sent to your pharmacy apixaban 5 Milligram Oral twice a day. Next Dose: Gabapentin (gabapentin 300 mg oral capsule) 1 capsule Oral twice a day. Next Dose: Methadone (methadone 10 mg/5 mL oral solution) 57.5 Milliliter Oral Daily. Next Dose: Allergy Info:?? Coconut; FLUoxetine HCl; Bee Stings Medications Given This Visit Future Orders ?No future orders Vital Signs Height 150 cm Weight 54.7 kg BMI 24.31 kg/m2 Blood Pressure 112 mm Hg/71 mm Hg Temperature 98.4 DegF Pulse Rate 92 bpm Respiratory Rate 02 Sat Mode of Delivery 98 %/Room air You can now view a summary of your hospital visit from the comfort of your home through a free online portal called [employer]le. Cir[employer]le is a website that allows you to securely view your medical information including discharge summary, medications and follow-up visits. ??You can alsosend a secure electronic message to your doctor???s office to request appointments, renew medications or just ask a question. You can enroll at [email or web address] or register during your next office visit. Disclaimer:?? The information provided is of a general nature and is intended to be used in conjunction with the recommendations and advice of your health care practitioner. ??Every effort has been made to ensure that the information provided is accurate and complete at the time it is provided to you however, as your needs change, or, as new ??information becomes available, different or additional instructions may be required. If you have questions, please consult with your primary care provider or pharmacist, as appropriate. ??This information is not intended to serve as substitution for assessment and evaluation by a qualified health care provider. If you do not have a primary care provider, you may find a [facility] provider by calling [facility] at [phone]. For information about the plan of care including goals and instructions for your diagnosis, please see the patient education orders section of this document. Patient Education Materials?? The content of this educational material or handout may have been modified, supplemented, or adapted from its original content and format to support your individualized medical care. Patient Care team information Care Team Personnel Name: Jewell Castro Position: [facility] Onco RN Member Role: Primary Care Nurse Name: Kareen Blood RN Position: [facility] RN Member Role: Primary Care Nurse Name: Radha Cheng RN Position: [facility] PCO RN Member Role: Primary Care Nurse Name: Kiya Sanderson RN Position: [facility] RN Member Role: Primary Care Nurse Name: Frida Woods RN Position: [facility] RN Member Role: Primary Care Nurse Name: Una Damon RN Position: [facility] RN Member Role: Primary Care Nurse Name: Johanne Yi Position: [facility] RN Member Role: Primary Care Nurse Name: Amina Younger RN Position: [facility] RN Member Role: Primary Care Nurse Name: Ruel Goetz MD Position: [facility] Renal MD Member Role: Lifetime Consulting Physician Address: Address: [address] [place] [address] [address] [facility], [place] [address]- Name: Jonny Luna RN Position: [facility] RN Member Role: Primary Care Nurse Name: Kaitlyn Spann RN Position: [facility] RN Member Role: Primary Care Nurse Name: Ekaterina Yousif RN Position: [facility] RN Member Role: Primary Care Nurse Name: Destiny Kebede RN Position: [facility] RN Member Role: Primary Care Nurse Name: Alejandrina Duggan RN Position: [facility] RN Member Role: Primary Care Nurse Name: Collins Agustin MD Position: [facility] Resident Member Role: PCP Address: Address: [address] [place] [address]- [place] Care Team Related Persons Name: GUI SERRANO Address: [employer] Address: home [address] [facility] [facility] [place] [address] Name: JONNA SERRANO Address: home [address] [facility] [address] [place] [address] Name: MAXIMO SANCHEZ Address: home [address] [place], [place] [address]
--- OUTSIDE RECORDS SUMMARY | 2024-02-28 01:00 | XMS_ITS | Continuity of Care Document ---
Author Organization [facility] Address [address] [place] [address]- Care Team Providers Care Seed Buyer Name Role Phone Collins Agustin MD Primary Care Physician Encounter [facility] Date(s): 05/30/23 - 06/29/[address] [address] Attending Physician: Admtr, Ar8 Admitting Physician: Admtr, [...] 05/17/2312:21:00 EDT, Aerosol, Route to Pharmacy Electronically, [id number], [facility]/pharmacy #[id number], 150, cm, 05/17/23 9:26:00 EDT, Heigh... Start Date: 05/17/23 Status: Ordered apixaban 5 mg oral tablet 1 tablet = 5 mg, By Mouth, 2 times a day, # 60 tablet, 4 Refills, Maintenance, 09/21/22 17:07:00 EST, Tablet, [facility]/pharmacy #[id number], Partial fill upon patient request if the prescription is for a schedule II opioid drug., 150, cm, 09/21/22 14:41:00 EST,... Start Date: 09/21/22 Status: Ordered gabapentin 300 mg oral capsule 300 mg, 1, capsule, By Mouth, 3 times a day, # 90 capsule, Refills 3, Tot. Refills 3, Maintenance, 09/21/22 17:07:00 EST, Route to Pharmacy Electronically, [facility]/pharmacy #[id number], Partial fill upon patient request if [...] Woods RN Position: [facility] AMB Nurse Member Role: Primary Care Nurse Name: Una Damon RN Position: [facility] RN Member Role: Primary Care Nurse Name: Amina Younger RN Position: S RN Member Role: Primary Care Nurse Name: Ruel Goetz MD Position: [facility] Renal MD Member Role: Lifetime Consulting Physician Address: Address: [address] [facility] [address] [facility] [place] [address]- [place] Name: Jonny Luna RN Position: [facility] [...] Resident Member Role: PCP Address: Address: [address] [place] [address]- [place] Care Team Related Persons Name: GUI SERRANO Address: [employer] Address: home [address] [place] [address] [place] Name: JONNA SERRANO Address: home [address] [place] [address] Name: MAXIMO SANCHEZ Address: home [address] [place], [place] [address]
--- OUTSIDE RECORDS SUMMARY | 2024-02-28 01:00 | XMS_ITS | Continuity of Care Document ---
Author Organization [facility] Address [address] [place] [address]- Care Team Providers Care Surgical Dental Assistant Name Role Phone Collins Agustin MD Primary Care Physician Encounter [facility] Date(s): 10/11/22 - 11/10/[address] [address] Allergies, Adverse Reactions, Alerts Substance Reaction [...] 09/21/22 17:07:00 EST, Route to Pharmacy Electronically, [facility]/pharmacy #1130, Partial fill upon [...] Care Team Personnel Name: Jewell Castro Position: [facility] Onco RN Member Role: Primary Care Nurse Name: Kareen Blood RN Position: [facility] RN Member Role: Primary Care Nurse Name: Radha Cheng RN Position: [facility] PCO RN Member Role: Primary Care Nurse Name: Kiya Sanderson RN Position: [facility] RN Member Role: Primary Care Nurse Name: Frida Woods RN Position: [facility] RN Member Role: Primary Care Nurse Name: Una Damon RN Position: [facility] RN Member Role: Primary Care Nurse Name: Johanne Yi Position: [facility] RN Member Role: Primary Care Nurse Name: Amina Younger RN Position: [facility] RN Member Role: Primary Care Nurse Name: Ruel Goetz MD Position: [facility] Renal MD Member Role: Lifetime Consulting Physician Address: Address: [address] [facility] [address] [facility] [place] [address]- [place] Name: Jonny Luna RN Position: [facility] RN Member Role: Primary Care Nurse Name: Kaitlyn Spann RN Position: [facility] RN Member Role: Primary Care Nurse Name: Ekaterina Yousif RN Position: [facility] RN Member Role: Primary Care Nurse Name: Destiny Kebede RN Position: [facility] RN Member Role: Primary Care Nurse Name: Alejandrina Duggan RN Position: [facility] RN Member Role: Primary Care Nurse Name: Collins Agustin MD Position: [facility] Resident Member Role: PCP Address: Address: [address] [place] [address]- Care Team Related Persons Name: GUI SERRANO Address: [employer] Address: home [address] [place] [address] [place] Name: JONNA SERRANO Address: home [address] [place] [address] Name: MAXIMO SANCHEZ Address: home [address] [place], [place] [address]
--- OUTSIDE RECORDS SUMMARY | 2024-02-28 01:00 | XMS_ITS | Continuity of Care Document ---
Author Organization [facility] Address [address] [place] [address]- Care Team Providers Care Frame Tender Name Role Phone Collins Agustin MD Primary Care Physician Encounter [facility] [id number] Date(s): 09/06/22 - 10/06/22 [facility] [address] [place] [address]- [place] Allergies, Adverse Reactions, Alerts Substance Reaction Severity [...] 09/21/22 17:07:00 EST, Route to Pharmacy Electronically, [facility]/pharmacy #[id number], Partial fill upon patient request if the prescription is for a schedule II... Start Date: 09/21/22 Status: Ordered methadone 10 mg/5 mL oral solution 57.5 mL = 115 mg, By Mouth, Daily, 0 Refills, Maintenance, 07/18/22 13:54:00 EDT, Solution, Partialfill upon patient request if the prescription is for a schedule II opioid drug. Start Date: 07/18/22 Status: Ordered nitrofurantoin macrocrystals 100 mg oral capsule 1 capsule = 100 mg, By Mouth, 2 times a day, for 5 days, # 10 capsule, 0 Refills, Acute 10/11/22 12:09:00 EST, 10/06/22 12:09:00 EST, Capsule, [facility]/pharmacy #[id number], Partial fill upon patient request ifthe prescription is for a schedule II opioid drug.,... Start Date: 10/06/22 Stop Date: 10/11/22 Status: Ordered Problem List Condition Confirmation Course [...] Care Team Personnel Name: Jewell Castro Position: [facility] RN Member Role: Primary Care Nurse Name: Kareen Blood RN Position: S RN Member Role: Primary Care Nurse Name: Radha Cheng RN Position: [facility] PCO RN Member Role: Primary Care Nurse Name: Kiya Sanderson RN Position: [facility] RN Member Role: Primary Care Nurse Name: Frida Woods RN Position: [facility] RN Member Role: Primary Care Nurse Name: Una Damon RN Position: S RN Member Role: Primary Care Nurse Name: Johanne Yi Position: S RN Member Role: Primary Care Nurse Name: Amina Younger RN Position: S RN Member Role: Primary Care Nurse Name: Ruel Goetz MD Position: [facility] Renal MD Member Role: Lifetime Consulting Physician Address: Address: [address] [facility] [address] [facility] [place] [address]- [place] Name: Jonny Luna RN Position: [facility] RN Member Role: Primary Care Nurse Name: Kaitlyn Spann RN Position: [facility] RN Member Role: Primary Care Nurse Name: Ekaterina Yousif RN Position: [facility] RN Member Role: Primary Care Nurse Name: Destiny Kebede RN Position: [facility] RN Member Role: Primary Care Nurse Name: Alejandrina Duggan RN Position: [facility] RN Member Role: Primary Care Nurse Name: Collins Agustin MD Position: [facility] Resident Member Role: PCP Address: Address: [address] [place] [address]- Care Team Related Persons Name: GUI SERRANO Address: [employer] Address: home [address] [place] [address] Name: JONNA SERRANO Address: home [address] [place] [address] Name: MAXIMO SANCHEZ Address: home [address] [place], [place] [address]
--- OUTSIDE RECORDS SUMMARY | 2024-02-28 01:00 | XMS_ITS | Continuity of Care Document ---
Author Organization [facility] Address [address] [place] [address]- Care Team Providers Care Consultant Electronics Name Role Phone Not on Staff, PCP Primary Care Physician Unavail able [place] [facility] [place](s[place] 07/18/22 - 08/17/[address] [address]- Attending Physician: Devon Nunez DO Referring Physician: Not on Staff, Referring MD [...]
--- OUTSIDE RECORDS SUMMARY | 2024-02-28 01:00 | XMS_ITS | Continuity of Care Document ---
Author Organization [facility] ter Address [address] [place] [address]- Care Team Providers Care Linen Room Houseperson Name Role Phone Collins Agustin MD Primary Care Physician [place] [facility] [place] - 05/12/[address] [address]- Discharge Disposition: A-D/C Walkout Attending Physician: Not on Staff, Attending MD Admitting Physician: Not on Staff, Admitting MD Referring Physician: Not on Staff, Referring [...] 4 Refills, Maintenance, 09/21/22 17:07:00 EST, Tablet, [facility]/pharmacy #1130, Partial fill upon patient request if the prescription is for a schedule II opioid drug., 150, cm, 09/21/22 14:41:00 EST,... Start Date: 09/21/22 Status: Ordered gabapentin 300 mg oral capsule 300 mg, 1, capsule, By Mouth, 3 times a day, # 90 capsule, Refills 3, Tot. Refills 3, Maintenance, 09/21/22 17:07:00 EST, Route to Pharmacy Electronically, [facility]/pharmacy #1130, Partial fill upon patient request if [...] [Reference Range]: 1 2 Height 150 cm (05/12/23 5:43 PM) 150 cm (05/12/23 5:37 PM) Weight 48 kg (05/12/23 5:43 PM) 48 kg (05/12/23 5:37 PM) Oxygen Saturation [94-100 %] 99 % (05/12/23 5:37 PM) Pulse Rate [55-90 bpm] 117 bpm *H* (05/12/23 5:37 PM) Body Mass Index [18.5-24.99 kg/m2] 21.33 kg/m2 (05/12/23 5:37 PM) Blood Pressure [90-138/55-84 mm Hg] 116/ 93mm Hg (05/12/23 5:37 PM) Respiratory Rate [16-30 br/min] 18 br/mi n (05/12/23 5:37 PM) Temperature [96.8-100.4 DegF] 98.0 DegF (05/12/23 5:37 PM) Mode of Delivery (Oxygen) Room air (05/12/23 5:37 PM) Blood pressure sites Arm, right (05/12/23 5:37 PM) Temperature Route Oral (05/12/23 5:37 PM) Dry Weight 48 kg (05/12/23 5:43 PM) 48 kg (05/12/23 5:37 PM) Weight Obtained Via Patient/family state d (05/12/23 5:37 PM) Dry Weight Obtained Via Patient/family s tated (05/12/23 5:37 PM) Social History Social History Type Response Smoking Status 10 or more cigarette s (1/2 pack or more)/day in last 30 days entered on: 11/14/18 Sex Patient Care team information Care Team Personnel Name: Jewell Castro Position: [facility] Onco RN Member Role: Primary Care Nurse Name: Radha Cheng RN Position: [facility] AMB Nurse Member Role: Primary Care Nurse Name: Kiya Sanderson RN Position: [facility] RN Member Role: Primary Care Nurse Name: Frida Woods RN Position: [facility] AMB Nurse Member Role: Primary Care Nurse Name: Una Damon RN Position: [facility] RN Member Role: Primary Care Nurse Name: Amina Younger RN Position: [facility] RN Member Role: Primary Care Nurse Name: Ruel Goetz MD Position: [facility] Renal MD Member Role: Lifetime Consulting Physician Address: Address: [address] [facility] [address] [facility], [place] [address]- Name: Jonny Luna RN Position: [facility] RN Member Role: Primary Care Nurse Name: Kaitlyn Spann RN Position: [facility] RN Member Role: Primary Care Nurse Name: Ekaterina Yousif RN Position: S RN Member Role: Primary Care Nurse Name: Destiny Kebede RN Position: S RN Member Role: Primary Care Nurse Name: Alejandrina Duggan RN Position: S RN Member Role: Primary Care Nurse Name: Collins Agustin MD Position: S Resident Member Role: PCP Address: Address: [address] [place] [address]- Care Team Related Persons Name: GUI SERRANO Address: [employer] Address: home [address] [address] Name: JONNA SERRANO Address: home [address] [place] [address] Name: MAXIMO SANCHEZ Address: home [address] [place], [place] [address]
--- OUTSIDE RECORDS SUMMARY | 2024-02-28 01:00 | XMS_ITS | Continuity of Care Document ---
Author Organization [facility] Address [address] [place] [address]- Care Team Providers Care Airport Clerk Name Role Phone Collins Agustin MD Primary Care Physician [place] [facility] [place] 11/08/22 - 03/08/23 [facility] [address] [place] [address]- Attending Physician: Mini Patterson MD Referring Physician: Not on Staff, Referring [...] 09/21/22 17:07:00 EST, Route to Pharmacy Electronically, [facility]/pharmacy #1130, Partial fill upon patient request if [...] Personnel Name: Jewell Castro Position: [facility] Onco RN Member Role: Primary Care Nurse Name: Radha Cheng RN Position: [facility] PCO RN Member Role: Primary Care Nurse Name: Kiya Sanderson RN Position: [facility] RN Member Role: Primary Care Nurse Name: Frida Woods RN Position: [facility] RN Member Role: Primary Care Nurse Name: Una Damon RN Position: [facility] RN Member Role: Primary Care Nurse Name: Johanne Yi Position: [facility] RN Member Role: Primary Care Nurse Name: Amina Younger RN Position: [facility] RN Member Role: Primary Care Nurse Name: PapRuel almazan MD Position: [facility] Renal MD Member Role: Lifetime Consulting Physician Address: Address: [address] [facility] [place] [address]- [place] Name: Jonny Luna RN Position: [facility] RN Member Role: Primary Care Nurse Name: Kaitlyn Spann RN Position: [facility] RN Member Role: Primary Care Nurse Name: Ekaterina Yousif RN Position: [facility] RN Member Role: Primary Care Nurse Name: Destiny Kebede RN Position: [facility] RN Member Role: Primary Care Nurse Name: Alejandrina Duggan RN Position: [facility] RN Member Role: Primary Care Nurse Name: Collins Agustin MD Position: [facility] Resident Member Role: PCP Address: Address: [address] [place] [address]- Care Team Related Persons Name: GUI SERRANO Address: [facility] Address: home [address] [place] [address] [place] Name: JONNA SERRANO Address: home [address] [place] [address] Name: MAXIMO SANCHEZ Address: home [address] [place], [place] [address]
--- OUTSIDE RECORDS SUMMARY | 2024-02-28 01:00 | XMS_ITS | Continuity of Care Document ---
Author Organization [facility] Address [address] [place] [address]- Care Team Providers Care Head Of Insight Name Role Phone Collins Agustin MD Primary Care Physician Encounter [facility] Date(s): 08/29/22 - 10/21/[address] [address]- Attending Physician: Not on Staff, Attending MD [...] 09/21/22 17:07:00 EST, Route to Pharmacy Electronically, [facility]/pharmacy #1130, Partial fill upon patient [...] Care Nurse Name: Kareen Blood RN Position: [facility] RN [...] [facility] [place] [address]- [place] Name: Jonny Luna RN Position: [facility] RN Member Role: Primary Care Nurse Name: Kaitlyn Spann RN Position: [facility] RN Member Role: Primary Care Nurse Name: Ekaterina Yousif RN Position: S RN Member Role: Primary Care Nurse Name: Destiny Kebede RN Position: [facility] RN Member Role: Primary Care Nurse Name: Alejandrina Duggan RN Position: [facility] RN Member Role: Primary Care Nurse Name: Collins Agustin MD Position: [facility] Resident Member Role: PCP Address: Address: [address] [place] [address]- Care Team Related Persons Name: UGI SERRANO Address: [employer] Address: home [address] [place] [address] [place] Name: JONNA SERRANO Address: home [address] [place] [address] Name: MAXIMO SANCHEZ Address: home [address] [place], [place] [address]
--- OUTSIDE RECORDS SUMMARY | 2024-02-28 01:00 | XMS_ITS | Continuity of Care Document ---
Author Organization [facility] Address [address] [place] [address]- Care Team Providers Care Assistant Manager Name Role Phone Not on Staff, PCP Primary Care Physician Unavail able [place] [facility] [place]s): 08/02/22 - 09/01/22 [facility] [address] [place], [place] [address] Allergies, Adverse Reactions, Alerts Substance Reaction [...] List Condition Confirmation Course Effective Dates Status [facility] St at Informant Asthma 1 Confirmed [...] Care Team Personnel Name: Jewell Castro Position: [facility] Onco RN Member Role: Primary Care Nurse Name: Kareen Blood RN Position: S RN Member Role: Primary Care Nurse Name: Radha Cheng RN Position: [facility] PCO RN Member Role: Primary Care Nurse Name: Kiya Sanderson RN Position: [facility] RN Member Role: Primary Care Nurse Name: Vera De León RN Position: [facility] RN Member Role: Primary Care Nurse Name: Frida Woods RN Position: [facility] RN Member Role: Primary Care Nurse Name: Una Damon RN Position: [facility] RN Member Role: Primary Care Nurse Name: Johanne Yi Position: [facility] RN Member Role: Primary Care Nurse Name: Amina Younger RN Position: [facility] RN Member Role: Primary Care Nurse Name: Not on Staff, PCP Position: [facility] Physician (General Medicine) Member Role: PCP Name: Ruel Goetz MD Position: [facility] Renal MD Member Role: Lifetime Consulting Physician Address: Address: [address] [place] [address] [address] [facility], [place] [address]- Name: Jonny Luna RN Position: [facility] RN Member Role: Primary Care Nurse Name: Kaitlyn Spann RN Position: [facility] RN Member Role: Primary Care Nurse Name: Ekaterina Yousif RN Position: [facility] RN Member Role: Primary Care Nurse Name: Cayla Nance RN Position: [facility] RN Member Role: Primary Care Nurse Name: Destiny Kebede RN Position: [facility] RN Member Role: Primary Care Nurse Name: Alejandrina Duggan RN Position: [facility] RN Member Role: Primary Care Nurse Care Team Related Persons Name: GUI SERRANO Address: [employer] Address: home [address] [place] [address] [place] Name: JONNA SERRANO Address: home [address] [place] [address] Name: MAXIMO SANCHEZ Address: home [address] [place] [address]
--- OUTSIDE RECORDS SUMMARY | 2024-02-28 01:00 | XMS_ITS | Continuity of Care Document ---
Author Organization [facility] ter Address [address] [place] [address]- Care Team Providers Care Logistics/Shipper Name Role Phone Collins Agustin MD Primary Care Physician [place] [facility] [place] - 02/07/[address] [address] Attending Physician: Mini Patterson MD Admitting Physician: Mini Patterson MD Referring Physician: Miin Patterson MD Allergies, Adverse Reactions, Alerts Substance [...] Maintenance, 09/21/22 17:07:00 EST, Tablet, [facility]/pharmacy #1130, Partial fill upon patient request if the prescription is for a schedule II opioid drug., 150, cm, 09/21/22 14:41:00 EST,... Start Date: 09/21/22 Status: Ordered gabapentin 300 mg oral capsule 300 mg, 1, capsule, By Mouth, 3 times a day, # 90 capsule, Refills 3, Tot. Refills 3, Maintenance, 09/21/22 17:07:00 EST, Route to Pharmacy Electronically, [facility]/pharmacy #1130, Partial fill upon patient request if [...] Personnel Name: Jewell Castro Position: [facility] Onco RN Member Role: Primary Care Nurse Name: Radha Cheng RN Position: [facility] PCO RN Member Role: Primary Care Nurse Name: Kiya Sanderson RN Position: [facility] RN Member Role: Primary Care Nurse Name: Frida Woods RN Position: [facility] RN Member Role: Primary Care Nurse Name: Una Damon RN Position: [facility] RN Member Role: Primary Care Nurse Name: Johanne Yi Position: [facility] RN Member Role: Primary Care Nurse Name: Amina Younger RN Position: S RN Member Role: Primary Care Nurse Name: Ruel Goetz MD Position: [facility] Renal MD Member Role: Lifetime Consulting Physician Address: Address: [address] [facility] [address] [facility] [place] [address]- [place] Name: Jonny Luna RN Position: [facility] RN Member Role: Primary Care Nurse Name: Kaitlyn Spann RN Position: [facility] RN Member Role: Primary Care Nurse Name: Ekaterina Yousif RN Position: S RN Member Role: Primary Care Nurse Name: Destiny Kebede RN Position: S RN Member Role: Primary Care Nurse Name: Alejandrina Duggan RN Position: [facility] RN Member Role: Primary Care Nurse Name: Collins Agustin MD Position: [facility] Resident Member Role: PCP Address: Address: [address] [place] [address]- Care Team Related Persons Name: GUI SERRANO Address: [employer] Address: home [address] [place] [place] [address] [place] Name: JONNA SERRANO Address: home [address] [place] [address] Name: MAXIMO SANCHEZ Address: home [address] [place], [place] [address]
--- OUTSIDE RECORDS SUMMARY | 2024-02-28 01:00 | XMS_ITS | Continuity of Care Document ---
Author Organization [facility] Address Unknown Care Team Providers Care Jewel Bearing Maker Name Role Phone Not on Staff, PCP Primary Care Physician Unavail able Encounter [facility] [place] Date(s): 05/04/22 - 05/11/22 [facility] Encounter Diagnosis Rectal prolapse(Discharge Diagnosis) - 05/04/22 Attending Physician: Dannielle Bruno MD Referring Physician: Not on Staff, Referring [...] 01/29/19 13:31:21 EDT, Route to Pharmacy Electronically, [id number], [facility]/pharmacy #1130 Start Date: 01/29/19 Stop Date: 04/29/19 [...] 05/04/22 13:27:00 EDT, Route to Pharmacy Electronically, [facility]/pharmacy #1130, Partial fill upon patient request if the prescript... Start Date: 05/04/22 Status: Ordered Colace sodium 100 mg oral capsule 100 mg, 1, capsule, By Mouth, 2 times a day, PRN, # 60 capsule, Refills 3, Tot. Refills 3, Maintenance, for constipation, 11/14/18 12:17:45 EST, Route to Pharmacy Electronically, [id number], [facility]/pharmacy #1130 Start Date: 11/14/18 Status: Ordered Methadone [...] Maintenance,01/29/19 13:32:00 EDT, Route to Pharmacy Electronically, [id number], [facility]/pharmacy #1130 Start Date: 01/29/19 Stop Date: 04/29/19 [...] 11:50:48 EDT, Aerosol, Route to Pharmacy Electronically, [id number], [facility]/pharmacy #1130 Start Date: 06/26/18 Status: Ordered sertraline [...] Tachycardia(Confirmed) Active Hepatitis C(Confirmed) Active 1Mild, intermittent. Diagnosis Diagnosis Type Effective Dates Health Status Cl inical Service Informant Rectal prolapse Discharge Diagnosis 05/04/22 Vital Signs Most recent to oldest [Reference Range]: 1 Height 149 cm (05/04/22 1:04 PM) Weight 45.9 kg (05/04/22 1:04 PM) Pulse Rate [55-90 bpm] 90 bpm (05/04/22 1:04 PM) Body Mass Index [18.5-24.99] 20.67 (05/04/22 1:04 PM) Blood Pressure [90-138/55-84 mm Hg] 96/6 0mm Hg (05/04/22 1:04 PM) Temperature [96.8-100.4 DegF] 96.7 DegF *L* (05/04/22 1:04 PM) Blood pressure sites Arm, right (05/04/22 1:04 PM) Temperature Route Temporal (05/04/22 1:04 PM) Social History Social History Type Response Smoking Status 10 or more cigarette s (1/2 pack or more)/day in last 30 days entered on: 11/14/18 Sex
--- OUTSIDE RECORDS SUMMARY | 2024-02-28 01:01 | XMS_ITS | Continuity of Care Document ---
Author Organization [facility] Address [address] [place] [address]- Care Team Providers Care Jet Handler Name Role Phone Collins Agustin MD Primary Care Physician [phone] Encounter [facility] [place] Date(s): 07/04/23 - 08/03/[address] [address] Allergies, Adverse Reactions, Alerts Substance [...] 07/02/2315:43:00 EDT, Aerosol, Route to Pharmacy Electronically, [id number], [facility] #[id number], 150, cm, 07/02/23 15:22:00... Start Date: 07/02/23 Status: Ordered apixaban 5 mg oral tablet 1 tablet = 5 mg, By Mouth, 2 times a day, # 60 tablet, 4 Refills, Maintenance, 12/01/22 17:07:00 EST, Tablet, [facility]/pharmacy #1130, Partial fill upon patient [...] 07/02/23 16:01:00 EDT, Route to Pharmacy Electronically, [facility] #[id number], Partial fill upon patient request if the [...] Cheng RN Position: [facility] AMB Nurse Member Role: Primary Care Nurse Name: Kiya Sanderson RN Position: [facility] RN Member Role: Primary Care Nurse Name: Frida oWods RN Position: S RN Member Role: Primary Care Nurse Name: Una Damon RN Position: [facility] RN Member Role: Primary Care Nurse Name: Amina Younger RN Position: S RN Member Role: Primary Care Nurse Name: Ruel Goetz MD Position: [facility] Renal MD Member Role: Lifetime Consulting Physician Address: Address: [address] [facility] [place] [address]- [place] Name: Jonny Luna RN Position: [facility] [...] Care Nurse Name: Collins Agustin MD Position: [facility] Resident Member Role: PCP Address: Address: [address] [place] [address]- Care Team Related Persons Name: GUI SERRANO Address: [employer] Address: home [address] [place] [address] [place] Name: JONNA SERRANO Address: home [address] [place] [address] Name: MAXIMO SANCHEZ Address: home [address]
--- OUTSIDE RECORDS SUMMARY | 2024-02-28 01:01 | XMS_ITS | Continuity of Care Document ---
Author Organization [facility] Address [address] [place] [address]- Care Team Providers Care Embryology Teacher Name Role Phone Not on Staff, PCP Primary Care Physician Unavail able [place] [facility] [place] 06/[place] - 07/29/[facility] [address] [place] [address] Attending Physician: AdmCarmen contreras Admitting Physician: Admtr, Schuyler8 Referring Physician: Admtr, Ar8 Allergies, Adverse Reactions, [...]
--- OUTSIDE RECORDS SUMMARY | 2024-02-28 01:01 | XMS_ITS | Continuity of Care Document ---
Author Organization [facility] Address [address] [place] [address]- Care Team Providers Care Vulnerability Assessment Analyst Name Role Phone Collins Agustin MD Primary Care Physician [phone] [place] [facility] [place](s): 09/13/22 - 10/13/22 [facility] [address] [place] [address] Attending Physician: AdmCarmen contreras Admitting Physician: Admtr, Carmen Referring Physician: Admtr, Ar8 Allergies, Adverse Reactions, [...] 4 Refills, Maintenance, 09/21/22 17:07:00 EST, Tablet, [facility]/pharmacy #1130, Partial fill upon patient request if the prescription is for a schedule II opioid drug., 150, cm, 09/21/22 14:41:00 EST,... Start Date: 09/21/22 Status: Ordered gabapentin 300 mg oral capsule 300 mg, 1, capsule, By Mouth, 3 times a day, # 90 capsule, Refills 3, Tot. Refills 3, Maintenance, 09/21/22 17:07:00 EST, [facility] to [facility]ically[facility], Partial fill upon patient request if [...] Care Team Personnel Name: Jewell Castro Position: [facility] Onco RN Member Role: Primary Care Nurse Name: Kareen Blood RN Position: [facility] RN Member Role: Primary Care Nurse Name: Radha Cheng RN Position: [facility] PCO RN Member Role: Primary Care Nurse Name: Kiya Sanderson RN Position: [facility] RN Member Role: Primary Care Nurse Name: Frida Woods RN Position: [facility] RN Member Role: Primary Care Nurse Name: Una Damon RN Position: [facility] RN Member Role: Primary Care Nurse Name: Johanne Yi Position: [facility] RN Member Role: Primary Care Nurse Name: Amina Younger RN Position: [facility] RN Member Role: Primary Care Nurse Name: Ruel Goetz MD Position: [facility] Renal MD Member Role: Lifetime Consulting Physician Address: Address: [address] [facility] [place] [facility] [address] [facility] [place] [address]- [place] Name: Jonny Luna RN Position: [facility] RN Member Role: Primary Care Nurse Name: Kaitlyn Spann RN Position: [facility] RN Member Role: Primary Care Nurse Name: Ekaterina Yousif RN Position: [facility] RN Member Role: Primary Care Nurse Name: Destiny Kebede RN Position: [facility] RN Member Role: Primary Care Nurse Name: Alejandrina Duggan RN Position: [facility] RN Member Role: Primary Care Nurse Name: Collins Agustin MD Position: [facility] Resident Member Role: PCP Address: Address: [address] [place] [address]- Care Team Related Persons Name: GUI SERRANO Address: [employer] Address: home [address] [address] [place] Name: JONNA SERRANO Address: home [address] [place] [address] Name: MAXIMO SANCHEZ Address: home [address] [place], [place] [address]
--- OUTSIDE RECORDS SUMMARY | 2024-02-28 01:01 | XMS_ITS | Continuity of Care Document ---
Author Organization [facility] Address [address] [place] [address]- Care Team Providers Care Electronic Parts Salesperson Name Role Phone Collins Agustin MD Primary Care Physician Encounter [facility] Date(s): 07/16/23 - 07/16/[address] [address]- Discharge Disposition: A-D/C AMA Attending Physician: Alysha Montero MD Admitting Physician: Alysha Montero MD Referring Physician: Not on Staff, Referring [...] 07/02/2315:43:00 EDT, Aerosol, Route to Pharmacy Electronically, [id number], [facility] #[id number], 150, cm, 07/02/23 15:22:00... Start Date: 07/02/23 Status: Ordered apixaban 5 mg oral tablet 1 tablet = 5 mg, By Mouth, 2 times a day, # 60 tablet, 4 Refills, Maintenance, 09/21/22 17:07:00 EST, Tablet, [facility]/pharmacy #[id number], Partial fill upon patient request if the prescription is for a schedule II opioid drug., 150, cm, 09/21/22 14:41:00 EST,... Start Date: 09/21/22 Status: Ordered doxycycline monohydrate 100 mg oral tablet 1 tablet = 100 mg, By Mouth, 2 times a day, for 14 days, # 28 tablet, 0 Refills, Acute 07/29/23 7:35:00 EDT, 07/15/23 7:35:00 EDT, Tablet, [facility][id number], Partial fill upon patient request if the prescription is for a schedule II opioid d... Start Date: 07/15/23 Stop Date: 07/29/23 Status: Ordered Ensure Ensure, See Instructions, # 1 each, Refills 0, Tot. Refills 0, Maintenance, R 63.4 malnutrition E461 carton daily 30 days 11 refills duration 12 months wt 48kg, 07/02/23 16:32:00 EDT, Supply, 150, cm, 07/02/23 15:22:00 EDT, Height, 48, k... Start Date: 07/02/23 Status: Ordered gabapentin 300 mg oral capsule 300 mg, 1, capsule, By Mouth, 3 times a day, # 90 capsule, Refills 3, Tot. Refills 3, Maintenance, 07/02/23 16:01:00 EDT, Route to Pharmacy Electronically, [facility] #[id number], Partial fill upon patient request if the [...] to oldest [Reference Range]: 1 2 3 Oxygen Saturation [94-100 %] 100 % (07/16/23 3:27 PM) 100 % (07/16/23 1:39 PM) 100 % (07/16/23 11:10 AM) Pulse Rate [55-90 bpm] 87 bpm (07/16/23 3:27 PM) 89 bpm (07/16/23 1:39 PM) 81 bpm (07/16/23 11:10 AM) Blood Pressure [90-138/55-84 mm Hg] 124/93mm Hg (07/16/23 3:27 PM) 137/84mm Hg (07/16/23 1:39 PM) 142/88mm Hg *H* (07/16/23 11:10 AM) Respiratory Rate [16-30 br/min] 21 br/min (07/16/23 3:27 PM) 18 br/min (07/16/23 1:39 PM) 18 br/min (07/16/23 11:10 AM) Temperature [96.8-100.4 DegF] 98.9 DegF (07/16/23 1:39 PM) 98.8 DegF (07/16/23 11:10 AM) 98.6 DegF (07/16/23 9:48 AM) Mode of Delivery (Oxygen) Room air (07/16/23 3:27 PM) Room air (07/16/23 1:39 PM) Room air (07/16/23 11:10 AM) Blood pressure sites Arm, right (07/16/23 3:27 PM) Arm, right (07/16/23 1:39 PM) Arm, right (07/16/23 11:10 AM) Temperature Route Oral (07/16/23 1:39 PM) Oral (07/16/23 11:10 AM) Oral (07/16/23 9:48 AM) Social History Social History Type Response Smoking Status 10 or more cigarette s (1/2 pack or more)/day in last 30 days entered on: 11/14/18 Sex EKG study * Event Display: ECG 12-Lead Authored Date: Please click on pdf link to open report * Event Display: ECG 12-Lead Authored Date: Ventricular Rate: 84 BPM Atrial Rate: 84 BPM P-R Interval: 132 ms QRS Duration: 108 ms Q-T Interval: 430 ms QTC Calculation(Bazett): 508 ms P [place]: 56 degrees R [place]: 93 degrees T [place]: 31 degrees Normal sinus rhythm Incomplete right bundle branch block Possible Right ventricular hypertrophy Prolonged QT Abnormal ECG When compared with ECG of 12-MAY-2023 18:17, No significant change was found Confirmed by TK JONES ([id number]) on 07/16/2023 11:20:58 AM [place]: TK JONES Patient Care team information Care Team Personnel Name: Jewell Castro Position: [facility] Onco RN Member Role: Primary Care Nurse Name: Radha Cheng RN Position: [facility] AMB Nurse Member Role: Primary Care Nurse Name: Kiya Sanderson RN Position: [facility] RN Member Role: Primary Care Nurse Name: Frida Woods RN Position: [facility] RN Member Role: Primary Care Nurse Name: Una Damon RN Position: [facility] RN Member Role: Primary Care Nurse Name: Amina Younger RN Position: [facility] RN Member Role: Primary Care Nurse Name: Ruel Goetz MD Position: [facility] Renal MD Member Role: Lifetime Consulting Physician Address: Address: [address] [place] [address] [address] [facility] [place], [address] Name: Jonny Luna RN Position: [facility] RN Member Role: Primary Care Nurse Name: Kaitlyn Spann RN Position: [facility] RN Member Role: Primary Care Nurse Name: Ekaterina Yousif RN Position: [facility] RN Member Role: Primary Care Nurse Name: Destiny Kebede RN Position: [facility] RN Member Role: Primary Care Nurse Name: Alejandrina Duggan RN Position: [facility] RN Member Role: Primary Care Nurse Name: Collins Agustin MD Position: [facility] Resident Member Role: PCP Address: Address: [place] [address]- [place] Name: Marsha Lyn DO Position: [facility] Resident Member Role: ED Resident Address: Address: [address] [place] [address]- Name: Alysha Montero MD Position: [facility] ED Medicine MD Member Role: Admitting Physician Address: Address: [address] [place] [address] - Name: Bertha Presley Position: [facility] ED RN W/OE and Tasks Member Role: Patient Care Provider Name: Vineet Negro Position: [facility] ED TA [facility] Member Role: Batting Machine Operator Care Team Related Persons Name: GUI SERRANO Address: AMER[place] Address: home [address] [place] [address] Name: JONNA SERRANO Address: home [address] [address] Name: MAXIMO SANCHEZ Address: home [address]
--- OUTSIDE RECORDS SUMMARY | 2024-02-28 01:01 | XMS_ITS | Continuity of Care Document ---
Author Organization [facility] Address [address] [place] [address]- Care Team Providers Care Gold Reclaimer Name Role Phone Collins Agustin MD Primary Care Physician [phone] Encounter [facility] Date(s): 11/02/23 - 12/13/[address] [address] Attending Physician: Not on Staff, Attending MD [...] 07/02/2315:43:00 EDT, Aerosol, Route to Pharmacy Electronically, [id number], [facility] #[id number], 150, cm, 07/02/23 15:22:00... 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 Social History Social History Type Response Smoking Status 10 or more cigarette s (1/2 pack or more)/day in last 30 days entered on: 11/14/18 Sex Patient Care team information Care Team Personnel Name: Jewell Castro Position: [facility] Onco RN Member Role: Primary Care Nurse Name: Radha Cheng RN Position: [facility] AMB Nurse Member Role: Primary Care Nurse Name: Kiya Sanderson RN Position: [facility] RN Member Role: Primary Care Nurse Name: Frida Woods RN Position: [facility] AMB Nurse Member Role: Primary Care Nurse Name: Una Damon RN Position: [facility] RN Member Role: Primary Care Nurse Name: Amina Younger RN Position: [facility] RN Member Role: Primary Care Nurse Name: Ruel Goetz MD Position: [facility] Renal MD Member Role: Lifetime Consulting Physician Address: Address[address] [facility] [place] [address]- Name: Jonny Luna RN Position: [facility] RN Member Role: Primary Care Nurse Name: Kaitlyn Spann RN Position: [facility] RN Member Role: Primary Care Nurse Name: Ekaterina Yousif RN Position: [facility] RN Member Role: Primary Care Nurse Name: Destiny Kebede RN Position: [facility] RN Member Role: Primary Care Nurse Name: Alejandrina Duggan RN Position: [facility] RN Member Role: Primary Care Nurse Name: Collins Agustin MD Position: [facility] Resident Member Role: PCP Address: Address: [address] [place] [address]- Care Team Related Persons Name: GUI SERRANO Address: AMER[employer] Address: home [address] [place] [address] [place] Name: JONNA SERRANO Address: home [address] [place] [address] Name: MAXIMO SANCHEZ Address: home [address] [place], [place] [address]
--- OUTSIDE RECORDS SUMMARY | 2024-02-28 01:01 | XMS_ITS | Continuity of Care Document ---
Author Organization [facility] Address [address] [place] [address]- Care Team Providers Care Client Associate Name Role Phone Collins Agustin MD Primary Care Physician Encounter [facility] Date(s): 01/03/23 - 02/02/23 [facility] [address] [place] [address] Attending Physician: AdmCarmen contreras Admitting Physician: Admtr, [...] 4 Refills, Maintenance, 09/21/22 17:07:00 EST, Tablet, [facility]/pharmacy #[id number], Partial fill upon patient request if the prescription is for a schedule II opioid drug., 150, cm, 09/21/22 14:41:00 EST,... Start Date: 09/21/22 Status: Ordered gabapentin 300 mg oral capsule 300 mg, 1, capsule, By Mouth, 3 times a day, # 90 capsule, Refills 3, Tot. Refills 3, Maintenance, 09/21/22 17:07:00 EST, [id number] Partial fill upon patient request [...] Care Team Personnel Name: Jewell Castro Position: [facility] Onco RN Member Role: Primary Care Nurse Name: Radha Cheng RN Position: [facility] PCO RN Member Role: Primary Care Nurse Name: Kiya Sanderson RN Position: [facility] RN Member Role: Primary Care Nurse Name: Frida Woods RN Position: [facility] RN Member Role: Primary Care Nurse Name: Una Damon RN Position: [facility] RN Member Role: Primary Care Nurse Name: Johanne Yi Position: [facility] RN Member Role: Primary Care Nurse Name: Amina Younger RN Position: [facility] RN Member Role: Primary Care Nurse Name: Ruel Goetz MD Position: [facility] Renal MD Member Role: Lifetime Consulting Physician Address: Address: [address] [facility] [place] [address]- [place] Name: Jonny Luna RN Position: [facility] RN Member Role: Primary Care Nurse Name: Kaitlyn Spann RN Position: [facility] RN Member Role: Primary Care Nurse Name: Ekaterina Yousif RN Position: [facility] RN Member Role: Primary Care Nurse Name: Destiny Kebede RN Position: [facility] RN Member Role: Primary Care Nurse Name: Alejandrina Duggan RN Position: [facility] RN Member Role: Primary Care Nurse Name: Collins Agustin MD Position: [facility] Resident Member Role: PCP Address: Address: [address] [place] [address]- [place] Care Team Related Persons Name: GUI SERRANO Address: AMER[employer] Address: home [address] [place] [address] [place] Name: JONNA SERRANO Address: home [address] [place] [address] Name: MAXIMO SANCHEZ Address: home [address] [place], [place] [address]
--- OUTSIDE RECORDS SUMMARY | 2024-02-28 01:01 | XMS_ITS | Continuity of Care Document ---
Author Organization [facility] Address [address] [place] [address]- Care Team Providers Care Marketing Database Coordinator Name Role Phone Collins Agustin MD Primary Care Physician [phone] Encounter [facility] Date(s): 11/14/23 - 01/02/[address] [address] Attending Physician: Doni Deluna MD Admitting Physician: Doni Deluna MD Allergies, Adverse Reactions, Alerts Substance Reaction [...] 07/02/2315:43:00 EDT, Aerosol, Route to Pharmacy Electronically, [id number], [facility] #[id number], 150, cm, 07/02/23 15:22:00... 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[place], 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 PTSD (post-traumatic stress [...] [facility] AMB Nurse Member Role: Primary Care Nurse Name: Kiya Sanderson RN Position: [facility] RN Member Role: Primary Care Nurse Name: Frida Woods RN Position: [facility] AMB Nurse Member Role: Primary Care Nurse Name: Una Damon RN Position: [facility] AMB Nurse Member Role: Primary Care Nurse Name: Amina Younger RN Position: [facility] RN Member Role: Primary Care Nurse Name: Ruel Goetz MD Position: [facility] Renal MD Member Role: Lifetime Consulting Physician Address: Address: [address] [facility] [address] [facility] [place] [address]- Name: Jonny Luna RN [facility] [place] Resident Member Role: PCP Address: Address: [address] [place] [address]- Care Team Related Persons Name: GUI SERRANO Address: AMERCN Address: home [address] [place] [address] [place] Name: JONNA SERRANO Address: home [address] [place] [address] Name: MAXIMO SANCHEZ Address: home [address]
--- OUTSIDE RECORDS SUMMARY | 2024-02-28 01:01 | XMS_ITS | Continuity of Care Document ---
Author Organization [facility] Address [address] [place] [address]- Care Team Providers Care Clock Repair Technician Name Role Phone Not on Staff, PCP Primary Care Physician Unavail able Encounter [facility] Date(s): 07/21/22 - 08/20/22 [facility] [address] [place] [id number] Allergies, Adverse Reactions, Alerts Substance Reaction [...]
== END 2024-02-28 01:00 | disposition left against medical advice (07) ==
PROVIDERS: Emergency Provider Emergency Medicine
DX: M54.50 Low back pain, unspecified (principal); R07.89 Other chest pain; R00.0 Tachycardia, unspecified
CPT/HCPCS: 71046; 87040; 93005; 99283

== ENCOUNTER → 2024-02-28 00:35 | Outpatient (BNV) | payer MEDICARE, SELFPAY | PROVIDERS: Emergency Provider Emergency Medicine; Visit Provider Internal Medicine Cardiovascular Disease | DX: R00.0 Tachycardia, unspecified (principal); R94.31 Abnormal electrocardiogram [ECG] [EKG] | CPT/HCPCS: 93010 ==